=== PATIENT | female | born 1955 | race Caucasian/White ===

== ENCOUNTER 2016-10-05 15:49 | Emergency (ER) | payer BC, OTHER ==
[~2016-10-05 15:49] MED LIST: BACTROBAN TOP; CIPR500T19 OR; FERR324T5 OR; FISH1000 OR; IRON28TA OR; KLOR8TAB OR; LEXAPRO PO; MULTIVIT PO; NEUR100C OR; NEUR300C OR; NEUR600T OR; OMEP20TA7 OR; PERC5TAB8 OR; POTA20TA2 OR; ROCE1INJ IV; VIT D 2000 PO; VITA-113 PO; VITA50TA12 OR; VITAMIN B 12 PO; VITAMIN D PO; saline lock flush IV
[2016-10-05] MEDS ORDERED: MORPHINE 4 MG/ML 1ML SYRINGE As Ordered ONE (16:12)
[2016-10-05] MEDS ORDERED: ONDANSETRON 4MG/2ML VIAL (J2405) As Ordered ONE (16:12)
--- NOTE | 2016-10-05 17:01 | REP ---
LUMBOSACRAL SPINE SERIES: Five views of the lumbosacral spine are performed. There is no compression fracture. There is no spondylolysis or spondylolisthesis. There is normal lumbar lordosis. There is moderately severe disc space narrowing with subchondral sclerosis a L2-3 and L3-4. There is mild narrowing at L4-5. There is sclerosis at the posterior facet joints. The posterior elements are intact. There is curvature toward the left. IMPRESSION: Degenerative changes without fracture or dislocation. Signed by Joseph Mclean MD 10/06/2016 12:39 P
[2016-10-05] MEDS ORDERED: KETOROLAC 30 MG/ML VIAL (J1885) As Ordered ONE (18:07)
--- NOTE | 2016-10-05 19:21 | EDDOCDS ---
Nurse's Notes [facility] Name: Mara Hancock Age: 60 yrs Sex: Female : 1955 Arrival Date: 10/05/2016 Time: 15:49 Bed 7 Private MD: Diagnosis: Fall on same level from slipping, tripping and stumbling;Contusion of lower back and pelvis;Strain of muscle, fascia and tendon of lower back Presentation: 10/05 15:55 Presenting complaint: EMS states: Slipped and fell into a shoe rock from standing ld5 position, landing on right side. Happened at 1500. Denies LOC. Denies dizziness. Pt presents to ER with pain to right low back. Status: Patient is not a food service agent or dependent. Transition of care: patient was not received from another setting of care. Care prior to arrival: Glucose check. 67. 15:55 Acuity: PORTER Level 4 ld5 15:55 Method Of Arrival: Ambulance ld5 15:55 Suicide/Homicide risk assessment- the patient denies having any suicidal and/or ld5 homicidal ideations and does not present with any other emotional, behavioral or mental health complaints. 17:02 Adult Sepsis Screening: The patient does not have new or worsening altered mentation. rs3 Patient's respiratory rate is less than 22. Systolic blood pressure is greater than 100. Patient has a qSOFA score of 0- Negative Sepsis Screen. Triage Assessment: 16:01 General: Appears in no apparent distress. Pain: Location: right low back Pain currently ld5 is 4 out of 10 on a pain scale. At worst was 10 out of 10 on a pain scale. Aggravated by repositioning. HIV screening NA for this visit Offered previously. Neurological: Level of Consciousness is awake, obeys commands. Respiratory: Airway is patent Respiratory effort is even, unlabored. Derm: no deficits noted to area of fall. Musculoskeletal: Reports pain in right low back. Historical: - Allergies: Vicodin (hallucinations); - Home Meds: 1. omeprazole 20 mg Oral cpDR 1 cap 2 times per day (Last dose: 10/05/2016 09:00) 2. Vitamin B-12 Unknown Oral daily 3. tramadol 50 mg Oral tab 1 tab as needed - PMHx: GERD; Osteoporosis; Broken knee, left; - PSHx: Carpal Tunnel Repair- Bilateral; - The history from nurses notes was reviewed: and I agree with what is documented. - Social history: Smoking status: Patient states was never smoker of tobacco. No barriers to communication noted, The patient speaks fluent Syriac, Speaks appropriately for age. - : The pt / caregiver states he / she is not on anticoagulants. Home medication list is obtained from the patient, family members. - Hospitalizations: : No recent hospitalization is reported. - Exposure Risk Screening:: None identified. - Immunization history:: All immunizations up-to-date. - Family history: Not pertinent. - Social history:: the patient is a non-smoker, the patient drinks alcohol, socially. Screenin:51 Infection Control. deg 17:02 Screening information is obtained from the patient. Fall risk: No risks identified. rs3 Assistance ADL's: requires no assistance with activities of daily living. Abuse/DV Screen: The patient / caregiver reports he/she is: not in a situation that causes fear, pain or injury. Nutritional screening: No deficits noted. Advance Directives: Currently, there is no health care proxy. home support is adequate. Assessment: 16:00 General: see triage assessment. rs3 17:01 General: Appears in no apparent distress, Behavior is appropriate for age, cooperative. rs3 Pain: Location: right low back. Neurological: Level of Consciousness is awake, alert, Oriented to person, place, time. Respiratory: Airway is patent Respiratory effort is even, unlabored, Respiratory pattern is regular, symmetrical. Derm: Skin is pink, warm & dry. Musculoskeletal: Circulation, motion, and sensation intact Capillary refill < 3 seconds Signs and Symptoms of Compartment Syndrome: no signs of compartment syndrome Denies numbness. 18:18 General: Appears in no apparent distress, assisted patient to bedside to stand up. rs3 unable to stand due to pain. attending provider aware. ordered medicine given. 19:18 Reassessment: Patient appears in no apparent distress at this time. Patient states tm5 feeling better. Patient states symptoms have improved. Vital Signs: 16:05 BP 121 / 61 RA Sitting (auto/reg); Pulse 53; Resp 18; Temp 97.1(O); Pulse Ox 98% on jrd R/A; Weight 49.9 kg (R); Height 5 ft. 5 in. (165.10 cm); Pain 4/10; 17:00 BP 122 / 68; Pulse 52; Resp 18; Pulse Ox 98% on R/A; Pain 1/10; rs3 17:45 BP 118 / 62; Pulse 48; Resp 18; Pulse Ox 98% on R/A; Pain 3/10; rs3 19:10 BP 111 / 64; Pulse 43; Resp 18; Temp 97.7(O); Pulse Ox 96% on R/A; Pain 1/10; jmv 16:05 Body Mass Index 18.30 (49.90 kg, 165.10 cm) jrd 19:10 PT states that pain is low while she is not moving. PT states that pain increases when jmv she try's to move or sit straight up. Vitals: 16:01 Log In Time N/A - ambulance arrival. ld5 ED Course: 15:51 Patient visited by Arelis Washburn, Environmental Maintenance Worker. deg 15:51 Vesna Marrero,COLTON is Primary Nurse. deg 15:51 Patient moved to Waiting deg 15:51 Patient moved to 7 deg 15:54 Isarel Dominguez MD is Attending Physician. pc 15:58 Triage Initiated ld5 16:02 Patient visited by Ratna Rose,COLTON. ld5 16:07 Patient visited by Jose Guadalupe Hodges PCA. jrd 16:08 Patient visited by Israel Dominguez MD. pc 17:00 Patient visited by Vesna Marrero RN. rs3 17:02 Inserted saline lock: 20 gauge in left antecubital area and blood collected. rs3 17:08 [facility] Payment Agreement was scanned into [employer] and attached to record. zo 17:30 Spine. Lumbosacral, Complete Returned. EDMS 17:34 Patient visited by Vesna Marrero,COLTON. rs3 18:04 Patient visited by Vesna Marrero,COLTON. rs3 18:59 Sweta Calles is Referral Physician. pc 19:12 Patient visited by Duane Boyd PCA. jmv 19:18 Patient visited by Ashwini Gutierrez,COLTON. tm5 19:18 The patient / caregiver is instructed regarding the plan of care and ED course. tm5 19:18 Discontinued lock intact, bleeding controlled, pressure dressing applied, No tm5 redness/swelling at site. No procedures done that require assistance. Administered Medications: 16:27 Drug: morphine 4 mg [morphine 4 mg/mL intravenous cartridge (1 mL)] Route: IVP; Site: rs3 left antecubital; 17:00 Follow up: BP 122 / 68; Pulse 52 bpm; Resp 18 bpm; Pulse Ox 98% RA; Pain 1/10 Adult rs3 16:27 Drug: Ondansetron 4 mg Route: IVP; Site: left antecubital; rs3 17:14 Drug: Diazepam 2 mg [diazepam 5 mg/mL injection syringe (0.4 mL)] Route: IVP; Site: rs3 left antecubital; 17:45 Follow up: BP 118 / 62; Pulse 48 bpm; Resp 18 bpm; Pulse Ox 98% RA; Pain 3/10 Adult rs3 18:17 Drug: ketorolac 15 mg [ketorolac 30 mg/mL (1 mL) injection solution (0.5 mL)] Route: rs3 IVP; Site: left antecubital; Order Results: Lab Order: Fingerstick Blood Sugar; SPEC'M 10/05/16 16:09 Test: BEDSIDE GLUCOSE; Value: 92; Range: 70-105; Units: MG/DL; Status: F Radiology Order: Spine. Lumbosacral, Complete Test: Spine. Lumbosacral, Complete REASON FOR EXAMINATION: Trauma; LUMBOSACRAL SPINE SERIES:; ; Five views of the lumbosacral spine are performed. There is no compression; fracture. There is no spondylolysis or spondylolisthesis. There is normal lumbar; lordosis. There is moderately severe disc space narrowing with subchondral; sclerosis a L2-3 and L3-4. There is mild narrowing at L4-5. There is sclerosis at; the posterior facet joints. The posterior elements are intact. There is curvature; toward the left.; ; IMPRESSION:; Degenerative changes without fracture or dislocation.; ; Unreviewed; Outcome: 18:59 Discharge ordered by Provider. pc 19:18 Discharge Assessment: Patient awake, alert and oriented x 3. No cognitive and/or tm5 functional deficits noted. Patient verbalized understanding of disposition instructions. 19:19 Discharge Assessment: patient administered narcotics - yes. Pt provided with safe tm5 discharge. The following High Risk Discharge criteria are identified: None. Discharged to home via wheelchair, with significant other. Condition: good Condition: stable. Discharge instructions given to patient, Instructed on discharge instructions, follow up and referral plans. medication usage, no driving heavy equipment, Demonstrated understanding of instructions, medications, Pt was receptive of discharge instructions/ teaching. Prescriptions given X 2. Property :Personal belongings accompany Pt. 19:20 No special radiology studies were completed. tm5 19:20 Patient left the ED. tm5 Signatures: Dispatcher [employer] EDMS Israel Dominguez MD MD pc Murray, Denise, Environmental Maintenance Worker Unit deg Joseph Vu, RN RN Ilan Mazariegos Rosemary, RN RN rs3 Ratna RoseRN RN ld5 Jose Guadalupe Hodges, CHAIN OFFBEARER CHAIN OFFBEARER jrd Duane Boyd, CHAIN OFFBEARER CHAIN OFFBEARER Ashwini Duval,RN RN tm5 Corrections: (The following items were deleted from the chart) 16:06 15:55 Presenting complaint: EMS states: Slipped and fell into a shoe rock from standing ld5 position, landing on right side. Happened at 1500. Denies LOC. Pt presents to ER with pain to right low back ld5 MTDD
--- NOTE | 2016-10-05 19:21 | EDDOCDS ---
Physician Documentation [facility] Name: Mara Hancock Age: 60 yrs Sex: Female : 1955 Arrival Date: 10/05/2016 Time: 15:49 Bed 7 Private MD: Disposition: 10/05 18:54 Critical Care: Critical care not applicable. pc 19:07 A printed prescription was provided to the patient due to temporary technical issues pc which prevented electronic transmission. Disposition: 10/05/16 18:59 Discharged to Home/Self Care. Impression: Fall on same level from slipping, tripping and stumbling, Contusion of lower back and pelvis, Strain of muscle, fascia and tendon of lower back. - Condition is Stable. - Discharge Instructions: Lumbosacral Strain, Contusion. - Prescriptions for lidocaine 5 % Topical adhesive patch,medicated - apply 1 patch by TRANSDERMAL route once daily apply to affected area for 12 hours per day; 10 patch. Cyclobenzaprine 10 mg Oral Tablet - take 1 tablet by ORAL route 3 times per day As needed; 15 tablet. - Medication Reconciliation, Local Pharmacy Hours form. - Follow up: Sweta Calles; When: 1 - 2 days; Reason: Recheck today's complaints, Continuance of care. - Problem is new. - Symptoms have improved. HPI: 16:10 This 60 yrs old Female presents to ER via Ambulance with complaints of Fall pc Injury. 16:10 The history is obtained from the patient. She slipped on the floor in her home and fell pc backwards, striking her right lower back on a wooden shoe rack. She did not strike her head or have a LOC. She complains only of pain in her right lower back. She denies any rib pain, right hip or pelvic pain, numbness or tingling in her LEs. At their worst, the symptoms were a 8 out of 10. In the emergency department, the symptoms are a 8 out of 10. The patient has not experienced similar symptoms in the past. The patient has not recently seen a physician. Historical: - Allergies: Vicodin (hallucinations); - Home Meds: 1. omeprazole 20 mg Oral cpDR 1 cap 2 times per day (Last dose: 10/05/2016 09:00) 2. Vitamin B-12 Unknown Oral daily 3. tramadol 50 mg Oral tab 1 tab as needed - PMHx: GERD; Osteoporosis; Broken knee, left; - PSHx: Carpal Tunnel Repair- Bilateral; - The history from nurses notes was reviewed: and I agree with what is documented. - Social history: Smoking status: Patient states was never smoker of tobacco. No barriers to communication noted, The patient speaks fluent [place], Speaks appropriately for age. - : The pt / caregiver states he / she is not on anticoagulants. Home medication list is obtained from the patient, family members. - Hospitalizations: : No recent hospitalization is reported. - Exposure Risk Screening:: None identified. - Immunization history:: All immunizations up-to-date. - Family history: Not pertinent. - Social history:: the patient is a non-smoker, the patient drinks alcohol, socially. ROS: 16:10 All systems are negative except as listed. pc Exam: 16:10 General Appearance: alert, the patient is in moderate distress. pc 16:10 EENT: normal eye inspection, pharynx normal, mucous membranes moist no apparent trauma. 16:10 Neck: The exam reveals no acute abnormalities. ROM is normal and painless. No nuchal rigidity is noted.. Nexus criteria for suspected c-spine injury is negative. 16:10 Respiratory: no respiratory distress, normal breath sounds, chest non-tender. 16:10 CVS: regular pulse rate, regular rhythm, normal S1 and S2, no murmurs, strong peripheral pulses, normal capillary refill. 16:10 Abdomen: soft, non-tender, no organomegaly, normal bowel sounds. 16:10 Back: Pain is noted in the right low back, over soft tissues only: no lower rib pain, no iliac crest pain, no spinous process pain on palpation of L-spine or lower T-spine. 16:10 : bladder is non-distended, non-tender. 16:10 Skin: skin color is normal, warm, dry. 16:10 Extremities: The extremities have a grossly normal appearance, are non-tender, without acute ROM abnormalities, no right hip pain, no pain with ROM. 16:10 Neuro: oriented x 3, cranial nerves normal as tested, no motor deficits, no sensory deficits. Vital Signs: 16:05 BP 121 / 61 RA Sitting (auto/reg); Pulse 53; Resp 18; Temp 97.1(O); Pulse Ox 98% on jrd R/A; Weight 49.9 kg / 110.01 lbs (R); Height 5 ft. 5 in. (165.10 cm); Pain 4/10; 17:00 BP 122 / 68; Pulse 52; Resp 18; Pulse Ox 98% on R/A; Pain 1/10; rs3 17:45 BP 118 / 62; Pulse 48; Resp 18; Pulse Ox 98% on R/A; Pain 3/10; rs3 19:10 BP 111 / 64; Pulse 43; Resp 18; Temp 97.7(O); Pulse Ox 96% on R/A; Pain 1/10; jmv 16:05 Body Mass Index 18.30 (49.90 kg, 165.10 cm) jrd 19:10 PT states that pain is low while she is not moving. PT states that pain increases when jmv she try's to move or sit straight up. MDM: 16:09 IV Saline Lock ordered. pc 16:09 morphine 4 mg IVP once ordered. pc 16:09 Ondansetron 4 mg IVP once ordered. pc 16:10 Differential Diagnosis: fall, low back contusion/strain r/o tranverse process fracture. pc Plan: analgesia, imaging. 16:11 Spine. Lumbosacral, Complete Ordered. EDMS 16:19 Fingerstick Blood Sugar Ordered. EDMS 16:20 Fingerstick Blood Sugar Reviewed. pc 17:04 Diazepam 2 mg IVP once ordered. pc 17:05 Financial registration complete. zo 17:08 [facility] Payment Agreement was scanned into [employer] and attached to record. zo 17:59 ketorolac 15 mg IVP once ordered. pc 18:21 Data reviewed: old medical records, vital signs, nurses notes, all radiology studies pc and available results. Test interpretation: LAB - all labs as ordered have been reviewed, interpreted and considered in the overall management of the clinical presentation; X-RAY - interpreted by Radiologist and personally reviewed, LS-Spine Normal. 18:54 The patient has been re-examined and re-evaluated. The patient's symptoms have markedly pc improved after treatment. Disposition: The historical points, examination findings, and any diagnostic results supporting the provided diagnosis, were discussed with the patient or legal guardian. The need for outpatient follow up with the provider listed on their discharge instructions was discussed. They were encouraged to return to [facility], or the nearest ED, if symptoms worsen/persist, or for any other questions/concerns. Administered Medications: 16:27 Drug: morphine 4 mg [morphine 4 mg/mL intravenous cartridge (1 mL)] Route: IVP; Site: rs3 left antecubital; 17:00 Follow up: BP 122 / 68; Pulse 52 bpm; Resp 18 bpm; Pulse Ox 98% RA; Pain 09/12 Adult rs3 16:27 Drug: Ondansetron 4 mg Route: IVP; Site: left antecubital; rs3 17:14 Drug: Diazepam 2 mg [diazepam 5 mg/mL injection syringe (0.4 mL)] Route: IVP; Site: rs3 left antecubital; 17:45 Follow up: BP 118 / 62; Pulse 48 bpm; Resp 18 bpm; Pulse Ox 98% RA; Pain 11/10 Adult rs3 18:17 Drug: ketorolac 15 mg [ketorolac 30 mg/mL (1 mL) injection solution (0.5 mL)] Route: rs3 IVP; Site: left antecubital; Signatures: Dispatcher [employer] EDMS Israel Dominguez MD MD pc Greene, Daniel, RN RN rong Ilan Ramires Laura, RN RN ld5 Ashwini Gutierrez RN RN tm5 Vesna Marrero RN rs3 The chart was reviewed and I authenticate all verbal orders and agree with the evaluation and treatment provided.Attachments: 17:08 [facility] Payment Agreement zo MTDD
--- NOTE | 2016-10-07 20:22 | EDDOCDS ---
Physician Documentation [facility] Name: Mara Hancock Age: 60 yrs Sex: Female : 1955 Arrival Date: 10/05/2016 Time: 15:49 Bed 7 Private MD: Disposition: 10/05 18:54 Critical Care: Critical care not applicable. pc 19:07 A printed prescription was provided to the patient due to temporary technical issues pc which prevented electronic transmission. Disposition: 10/05/16 18:59 Discharged to Home/Self Care. Impression: Fall on same level from slipping, tripping and stumbling, Contusion of lower back and pelvis, Strain of muscle, fascia and tendon of lower back. - Condition is Stable. - Discharge Instructions: Lumbosacral Strain, Contusion. - Prescriptions for lidocaine 5 % Topical adhesive patch,medicated - apply 1 patch by TRANSDERMAL route once daily apply to affected area for 12 hours per day; 10 patch. Cyclobenzaprine 10 mg Oral Tablet - take 1 tablet by ORAL route 3 times per day As needed; 15 tablet. - Medication Reconciliation, Local Pharmacy Hours form. - Follow up: Sweta Calles; When: 1 - 2 days; Reason: Recheck today's complaints, Continuance of care. - Problem is new. - Symptoms have improved. HPI: 16:10 This 60 yrs old Female presents to ER via Ambulance with complaints of Fall pc Injury. 16:10 The history is obtained from the patient. She slipped on the floor in her home and fell pc backwards, striking her right lower back on a wooden shoe rack. She did not strike her head or have a LOC. She complains only of pain in her right lower back. She denies any rib pain, right hip or pelvic pain, numbness or tingling in her LEs. At their worst, the symptoms were a 8 out of 10. In the emergency department, the symptoms are a 8 out of 10. The patient has not experienced similar symptoms in the past. The patient has not recently seen a physician. Historical: - Allergies: Vicodin (hallucinations); - Home Meds: 1. omeprazole 20 mg Oral cpDR 1 cap 2 times per day (Last dose: 10/05/2016 09:00) 2. Vitamin B-12 Unknown Oral daily 3. tramadol 50 mg Oral tab 1 tab as needed - PMHx: GERD; Osteoporosis; Broken knee, left; - PSHx: Carpal Tunnel Repair- Bilateral; - The history from nurses notes was reviewed: and I agree with what is documented. - Social history: Smoking status: Patient states was never smoker of tobacco. No barriers to communication noted, The patient speaks fluent Bermudian, Speaks appropriately for age. - : The pt / caregiver states he / she is not on anticoagulants. Home medication list is obtained from the patient, family members. - Hospitalizations: : No recent hospitalization is reported. - Exposure Risk Screening:: None identified. - Immunization history:: All immunizations up-to-date. - Family history: Not pertinent. - Social history:: the patient is a non-smoker, the patient drinks alcohol, socially. ROS: 16:10 All systems are negative except as listed. pc Exam: 16:10 General Appearance: alert, the patient is in moderate distress. pc 16:10 EENT: normal eye inspection, pharynx normal, mucous membranes moist no apparent trauma. 16:10 Neck: The exam reveals no acute abnormalities. ROM is normal and painless. No nuchal rigidity is noted.. Nexus criteria for suspected c-spine injury is negative. 16:10 Respiratory: no respiratory distress, normal breath sounds, chest non-tender. 16:10 CVS: regular pulse rate, regular rhythm, normal S1 and S2, no murmurs, strong peripheral pulses, normal capillary refill. 16:10 Abdomen: soft, non-tender, no organomegaly, normal bowel sounds. 16:10 Back: Pain is noted in the right low back, over soft tissues only: no lower rib pain, no iliac crest pain, no spinous process pain on palpation of L-spine or lower T-spine. 16:10 : bladder is non-distended, non-tender. 16:10 Skin: skin color is normal, warm, dry. 16:10 Extremities: The extremities have a grossly normal appearance, are non-tender, without acute ROM abnormalities, no right hip pain, no pain with ROM. 16:10 Neuro: oriented x 3, cranial nerves normal as tested, no motor deficits, no sensory deficits. Vital Signs: 16:05 BP 121 / 61 RA Sitting (auto/reg); Pulse 53; Resp 18; Temp 97.1(O); Pulse Ox 98% on jrd R/A; Weight 49.9 kg / 110.01 lbs (R); Height 5 ft. 5 in. (165.10 cm); Pain 4/10; 17:00 BP 122 / 68; Pulse 52; Resp 18; Pulse Ox 98% on R/A; Pain 1/10; rs3 17:45 BP 118 / 62; Pulse 48; Resp 18; Pulse Ox 98% on R/A; Pain 3/10; rs3 19:10 BP 111 / 64; Pulse 43; Resp 18; Temp 97.7(O); Pulse Ox 96% on R/A; Pain 1/10; jmv 16:05 Body Mass Index 18.30 (49.90 kg, 165.10 cm) jrd 19:10 PT states that pain is low while she is not moving. PT states that pain increases when jmv she try's to move or sit straight up. MDM: 16:09 IV Saline Lock ordered. pc 16:09 morphine 4 mg IVP once ordered. pc 16:09 Ondansetron 4 mg IVP once ordered. pc 16:10 Differential Diagnosis: fall, low back contusion/strain r/o tranverse process fracture. pc Plan: analgesia, imaging. 16:11 Spine. Lumbosacral, Complete Ordered. EDMS 16:19 Fingerstick Blood Sugar Ordered. EDMS 16:20 Fingerstick Blood Sugar Reviewed. pc 17:04 Diazepam 2 mg IVP once ordered. pc 17:05 Financial registration complete. zo 17:08 [facility] Payment Agreement was scanned into [employer] and attached to record. zo 17:59 ketorolac 15 mg IVP once ordered. pc 18:21 Data reviewed: old medical records, vital signs, nurses notes, all radiology studies pc and available results. Test interpretation: LAB - all labs as ordered have been reviewed, interpreted and considered in the overall management of the clinical presentation; X-RAY - interpreted by Radiologist and personally reviewed, LS-Spine Normal. 18:54 The patient has been re-examined and re-evaluated. The patient's symptoms have markedly pc improved after treatment. Disposition: The historical points, examination findings, and any diagnostic results supporting the provided diagnosis, were discussed with the patient or legal guardian. The need for outpatient follow up with the provider listed on their discharge instructions was discussed. They were encouraged to return to [facility], or the nearest ED, if symptoms worsen/persist, or for any other questions/concerns. 10/06 08:52 PCR was scanned into [employer] and attached to record. gb Administered Medications: 10/05 16:27 Drug: morphine 4 mg [morphine 4 mg/mL intravenous cartridge (1 mL)] Route: IVP; Site: rs3 left antecubital; 17:00 Follow up: BP 122 / 68; Pulse 52 bpm; Resp 18 bpm; Pulse Ox 98% RA; Pain 10 Adult rs3 16:27 Drug: Ondansetron 4 mg Route: IVP; Site: left antecubital; rs3 17:14 Drug: Diazepam 2 mg [diazepam 5 mg/mL injection syringe (0.4 mL)] Route: IVP; Site: rs3 left antecubital; 17:45 Follow up: BP 118 / 62; Pulse 48 bpm; Resp 18 bpm; Pulse Ox 98% RA; Pain 3/10 Adult rs3 18:17 Drug: ketorolac 15 mg [ketorolac 30 mg/mL (1 mL) injection solution (0.5 mL)] Route: rs3 IVP; Site: left antecubital; Signatures: Dispatcher [employer] EDMS Israel Dominguez MD MD pc Greene, Daniel, RN RN Chantel Pressley Reg Reg gb Olin, Zoeann zo Dickerson, Laura,RN RN ld5 Ashwini Gutierrez,COLTON RN tm5 Vesna Marrero RN rs3 The chart was reviewed and I authenticate all verbal orders and agree with the evaluation and treatment provided.Attachments: 17:08 [facility] Payment Agreement zo Chart Complete MTDD
--- NOTE | 2016-10-07 20:23 | EDDOCDS ---
Nurse's Notes [facility] Name: Mara Hancock Age: 60 yrs Sex: Female : 1955 Arrival Date: 10/05/2016 Time: 15:49 Bed 7 Private MD: Diagnosis: Fall on same level from slipping, tripping and stumbling;Contusion of lower back and pelvis;Strain of muscle, fascia and tendon of lower back Presentation: 10/05 15:55 Presenting complaint: EMS states: Slipped and fell into a shoe rock from standing ld5 position, landing on right side. Happened at 1500. Denies LOC. Denies dizziness. Pt presents to ER with pain to right low back. 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 Transition of care: patient was not received from another setting of care. Care prior to arrival: Glucose check. 67. 15:55 Acuity: PORTER Level 4 ld5 15:55 Method Of Arrival: Ambulance ld5 15:55 Suicide/Homicide risk assessment- the patient denies having any suicidal and/or ld5 homicidal ideations and does not present with any other emotional, behavioral or mental health complaints. 17:02 Adult Sepsis Screening: The patient does not have new or worsening altered mentation. rs3 Patient's respiratory rate is less than 22. Systolic blood pressure is greater than 100. Patient has a qSOFA score of 0- Negative Sepsis Screen. Triage Assessment: 16:01 General: Appears in no apparent distress. Pain: Location: right low back Pain currently ld5 is 4 out of 10 on a pain scale. At worst was 10 out of 10 on a pain scale. Aggravated by repositioning. HIV screening NA for this visit Offered previously. Neurological: Level of Consciousness is awake, obeys commands. Respiratory: Airway is patent Respiratory effort is even, unlabored. Derm: no deficits noted to area of fall. Musculoskeletal: Reports pain in right low back. Historical: - Allergies: Vicodin (hallucinations); - Home Meds: 1. omeprazole 20 mg Oral cpDR 1 cap 2 times per day (Last dose: 10/05/2016 09:00) 2. Vitamin B-12 Unknown Oral daily 3. tramadol 50 mg Oral tab 1 tab as needed - PMHx: GERD; Osteoporosis; Broken knee, left; - PSHx: Carpal Tunnel Repair- Bilateral; - The history from nurses notes was reviewed: and I agree with what is documented. - Social history: Smoking status: Patient states was never smoker of tobacco. No barriers to communication noted, The patient speaks fluent Portuguese, Speaks appropriately for age. - : The pt / caregiver states he / she is not on anticoagulants. Home medication list is obtained from the patient, family members. - Hospitalizations: : No recent hospitalization is reported. - Exposure Risk Screening:: None identified. - Immunization history:: All immunizations up-to-date. - Family history: Not pertinent. - Social history:: the patient is a non-smoker, the patient drinks alcohol, socially. Screenin:51 Infection Control. deg 17:02 Screening information is obtained from the patient. Fall risk: No risks identified. rs3 Assistance ADL's: requires no assistance with activities of daily living. Abuse/DV Screen: The patient / caregiver reports he/she is: not in a situation that causes fear, pain or injury. Nutritional screening: No deficits noted. Advance Directives: Currently, there is no health care proxy. home support is adequate. Assessment: 16:00 General: see triage assessment. rs3 17:01 General: Appears in no apparent distress, Behavior is appropriate for age, cooperative. rs3 Pain: Location: right low back. Neurological: Level of Consciousness is awake, alert, Oriented to person, place, time. Respiratory: Airway is patent Respiratory effort is even, unlabored, Respiratory pattern is regular, symmetrical. Derm: Skin is pink, warm & dry. Musculoskeletal: Circulation, motion, and sensation intact Capillary refill < 3 seconds Signs and Symptoms of Compartment Syndrome: no signs of compartment syndrome Denies numbness. 18:18 General: Appears in no apparent distress, assisted patient to bedside to stand up. rs3 unable to stand due to pain. attending provider aware. ordered medicine given. 19:18 Reassessment: Patient appears in no apparent distress at this time. Patient states tm5 feeling better. Patient states symptoms have improved. Vital Signs: 16:05 BP 121 / 61 RA Sitting (auto/reg); Pulse 53; Resp 18; Temp 97.1(O); Pulse Ox 98% on jrd R/A; Weight 49.9 kg (R); Height 5 ft. 5 in. (165.10 cm); Pain 4/10; 17:00 BP 122 / 68; Pulse 52; Resp 18; Pulse Ox 98% on R/A; Pain 1/10; rs3 17:45 BP 118 / 62; Pulse 48; Resp 18; Pulse Ox 98% on R/A; Pain 3/10; rs3 19:10 BP 111 / 64; Pulse 43; Resp 18; Temp 97.7(O); Pulse Ox 96% on R/A; Pain 1/10; jmv 16:05 Body Mass Index 18.30 (49.90 kg, 165.10 cm) jrd 19:10 PT states that pain is low while she is not moving. PT states that pain increases when jmv she try's to move or sit straight up. Vitals: 16:01 Log In Time N/A - ambulance arrival. ld5 ED Course: 15:51 Patient visited by Arelis Washburn, Shook Splicer. deg 15:51 Vesna Marrero,COLTON is Primary Nurse. deg 15:51 Patient moved to Waiting deg 15:51 Patient moved to 7 deg 15:54 Israel Dominguez MD is Attending Physician. pc 15:58 Triage Initiated ld5 16:02 Patient visited by Ratna Rose,COLTON. ld5 16:07 Patient visited by Jose Guadalupe Hodges PCA. jrd 16:08 Patient visited by Israel Dominguez MD. pc 17:00 Patient visited by Vesna Marrero RN. rs3 17:02 Inserted saline lock: 20 gauge in left antecubital area and blood collected. rs3 17:08 [facility] Payment Agreement was scanned into [employer] and attached to record. zo 17:30 Spine. Lumbosacral, Complete Returned. EDMS 17:34 Patient visited by Vesna Marrero,COLTON. rs3 18:04 Patient visited by Vesna Marrero,COLTON. rs3 18:59 Sweta Calles is Referral Physician. pc 19:12 Patient visited by Duane Boyd PCA. jmv 19:18 Patient visited by Ashwini Gutierrez,COLTON. tm5 19:18 The patient / caregiver is instructed regarding the plan of care and ED course. tm5 19:18 Discontinued lock intact, bleeding controlled, pressure dressing applied, No tm5 redness/swelling at site. No procedures done that require assistance. 10/06 08:52 PCR was scanned into [employer] and attached to record. gb Administered Medications: 10/05 16:27 Drug: morphine 4 mg [morphine 4 mg/mL intravenous cartridge (1 mL)] Route: IVP; Site: rs3 left antecubital; 17:00 Follow up: BP 122 / 68; Pulse 52 bpm; Resp 18 bpm; Pulse Ox 98% RA; Pain 1/10 Adult rs3 16:27 Drug: Ondansetron 4 mg Route: IVP; Site: left antecubital; rs3 17:14 Drug: Diazepam 2 mg [diazepam 5 mg/mL injection syringe (0.4 mL)] Route: IVP; Site: rs3 left antecubital; 17:45 Follow up: BP 118 / 62; Pulse 48 bpm; Resp 18 bpm; Pulse Ox 98% RA; Pain 3/10 Adult rs3 18:17 Drug: ketorolac 15 mg [ketorolac 30 mg/mL (1 mL) injection solution (0.5 mL)] Route: rs3 IVP; Site: left antecubital; Order Results: Lab Order: Fingerstick Blood Sugar; SPEC'M 10/05/16 16:09 Test: BEDSIDE GLUCOSE; Value: 92; Range: 70-105; Units: MG/DL; Status: F Radiology Order: Spine. Lumbosacral, Complete Test: Spine. Lumbosacral, Complete REASON FOR EXAMINATION: Trauma; LUMBOSACRAL SPINE SERIES:; ; Five views of the lumbosacral spine are performed. There is no compression; fracture. There is no spondylolysis or spondylolisthesis. There is normal lumbar; lordosis. There is moderately severe disc space narrowing with subchondral; sclerosis a L2-3 and L3-4. There is mild narrowing at L4-5. There is sclerosis at; the posterior facet joints. The posterior elements are intact. There is curvature; toward the left.; ; IMPRESSION:; ; Degenerative changes without fracture or dislocation.; ; ; Signed by; Joseph Mclean MD 10/06/2016 12:39 P; Outcome: 18:59 Discharge ordered by Provider. pc 19:18 Discharge Assessment: Patient awake, alert and oriented x 3. No cognitive and/or tm5 functional deficits noted. Patient verbalized understanding of disposition instructions. 19:19 Discharge Assessment: patient administered narcotics - yes. Pt provided with safe tm5 discharge. The following High Risk Discharge criteria are identified: None. Discharged to home via wheelchair, with significant other. Condition: good Condition: stable. Discharge instructions given to patient, Instructed on discharge instructions, follow up and referral plans. medication usage, no driving heavy equipment, Demonstrated understanding of instructions, medications, Pt was receptive of discharge instructions/ teaching. Prescriptions given X 2. Property :Personal belongings accompany Pt. 19:20 No special radiology studies were completed. tm5 19:20 Patient left the ED. tm5 Signatures: Dispatcher [employer] EDMS Israel Dominguez MD MD pc Murray, Denise, Shook Splicer Unit deg Joseph Vu, RN RN dwg Chantel Chacon, Martin Reg Ilan Pierce Rosemary,RN RN rs3 Ratna Rose RN RN ld5 Jose Guadalupe Hodges, PROFESSOR OF MUSICOLOGY PROFESSOR OF MUSICOLOGY jrd Duane Boyd, PROFESSOR OF MUSICOLOGY PROFESSOR OF MUSICOLOGY Ashwini Duval,RN RN tm5 Corrections: (The following items were deleted from the chart) 16:06 15:55 Presenting complaint: EMS states: Slipped and fell into a shoe rock from standing ld5 position, landing on right side. Happened at 1500. Denies LOC. Pt presents to ER with pain to right low back ld5 Chart Complete MTDD
== END 2016-10-05 19:20 | disposition home or self-care (01) ==
LOC: M ED 15:49
DX: S30.0XXA Contusion of lower back and pelvis, initial encounter (principal); S39.012A Strain of muscle, fascia and tendon of lower back, initial encounter; W01.10XA Fall on same level from slipping, tripping and stumbling with subsequent striking against unspecified object, initial encounter; Y92.89 Other specified places as the place of occurrence of the external cause; Y93.89 Activity, other specified; Y99.8 Other external cause status; K21.9 Gastro-esophageal reflux disease without esophagitis; M81.0 Age-related osteoporosis without current pathological fracture; Z79.899 Other long term (current) drug therapy; Z88.5 Allergy status to narcotic agent
CPT/HCPCS: 36415; 72110; 96374; 96375; 99284; J1885; J2405; J3360

== ENCOUNTER → 2016-11-30 | Outpatient (REF) | payer OTHER ==
[~2016-11-30] MED LIST changes: +NAPR500T PO
[2016-11-30 19:22] LABS: FERRITIN 58 NG/ML (8-252); PERCENT SATURATION 4.2 % (13.2-37.4); TOTAL IRON BINDING CAPACITY 384 UG/DL (250-450)
[2016-11-30 19:30] LABS: VITAMIN B12 LEVEL > 2000 PG/ML (247-911)
== END ==
LOC: M LAB REF 17:07
PROVIDERS: ATTEND Internal Medicine Nephrology
DX: D64.9 Anemia, unspecified (principal); R80.0 Isolated proteinuria

== ENCOUNTER 2016-12-04 14:52 | Emergency (ER) | payer BC, OTHER ==
[~2016-12-04] VITALS: Ht 165.1 cm; Wt 49.9 kg
[~2016-12-04 14:52] MED LIST changes: -NAPR500T PO
[2016-12-04] MEDS ORDERED: PERCOCET 5MG/325MG TAB PO ONE (15:30)
--- NOTE | 2016-12-04 16:26 | REP ---
Left femur three views : There is no fracture or dislocation. Mineralization and joint spaces are normal. There are no calcifications or foreign bodies. Impression: Negative left femur . Signed by Joseph Buchanan MD 12/04/2016 04:17 P
--- NOTE | 2016-12-04 16:31 | REP ---
Left hip three views including AP pelvis, AP left hip and frog-leg left hip. There are no comparison studies. AP pelvis: There are fractures of the pubic symphysis bilaterally. These appear old. Correlation with the focal point tenderness is recommended. No other pelvic fractures are identified. Left hip and two views: There is no fracture or dislocation. Mineralization and joint space are unremarkable. There are no calcification of foreign body. Impression: Essentially negative left hip. Signed by Joseph Buchanan MD 12/04/2016 04:22 P
[2016-12-04] MEDS ORDERED: NAPR500T PO (16:32)
[2016-12-04 16:38] VITALS: BP 140/78
== END 2016-12-04 16:40 | disposition home or self-care (01) ==
LOC: M ED 15:51
DX: S70.02XA Contusion of left hip, initial encounter (principal); W10.8XXA Fall (on) (from) other stairs and steps, initial encounter; Y92.099 Unspecified place in other non-institutional residence as the place of occurrence of the external cause; Y93.01 Activity, walking, marching and hiking; Y99.9 Unspecified external cause status

== ENCOUNTER → 2016-12-26 | Outpatient (CLI) | payer BC, OTHER ==
[~2016-12-26] MED LIST changes: +NAPR500T PO
[2016-12-26 15:04] LABS: MEAN CORPUSCULAR HEMOGLOBIN 29.1 pg (27.0-33.0); MEAN CORPUSCULAR HGB CONC 32.6 g/dl (32.0-36.5); MEAN CORPUSCULAR VOLUME 89.2 fl (80.0-96.0); RED CELL DISTRIBUTION WIDTH 13.4 % (11.5-14.5); WHITE BLOOD COUNT 6.1 K/mm3 (4.0-10.0)
[2016-12-26 15:28] LABS: URIC ACID 2.7 MG/DL (2.6-6.0)
--- NOTE | 2016-12-27 03:36 | REP ---
Clinical: Pain. Technique: AP, lateral, bilateral oblique views of the right foot. Findings: Age-related osteopenia and moderate to advanced arthritic degenerative changes are appreciated primarily involving the midfoot and specifically the tarsometatarsal joints. No acute fracture or dislocation. No significant swelling. No subcutaneous emphysema or radiodense foreign body. Impression: Osteopenia and advanced arthritic degenerative changes primarily involving the midfoot and tarsometatarsal joints. Signed by Dain Welsh MD 12/27/2016 01:45 A
--- NOTE | 2016-12-27 03:36 | REP ---
Clinical: Pain. Technique: AP, lateral, bilateral oblique views of the right ankle. Findings: Moderate soft tissue swelling is appreciated. Underlying age-related osteopenia and degenerative changes to the ankle noted. No acute fracture or dislocation. Ankle mortise intact. Advanced osteopenia and degenerative changes to the midfoot noted. Impression: Soft tissue swelling about the ankle with age-related changes. Signed by Dain Welsh MD 12/27/2016 01:50 A
[2016-12-28 00:06] LABS: Lyme Disease IgG/IgM Antibodie <0.91 ISR (0.00-0.90); Lyme Disease IgM Ab Quantitati <0.80 index (0.00-0.79)
== END ==
LOC: M LAB 13:58
PROVIDERS: ATTEND Family Medicine
DX: M79.671 Pain in right foot (principal)

== ENCOUNTER → 2017-03-29 | Outpatient (CLI) | payer BC, OTHER ==
[2017-03-29 10:08] LABS: MEAN CORPUSCULAR HEMOGLOBIN 30.2 pg (27.0-33.0); MEAN CORPUSCULAR HGB CONC 33.7 g/dl (32.0-36.5); MEAN CORPUSCULAR VOLUME 89.8 fl (80.0-96.0); RED CELL DISTRIBUTION WIDTH 12.9 % (11.5-14.5); WHITE BLOOD COUNT 5.7 K/mm3 (4.0-10.0)
[2017-03-29 10:15] LABS: INR 1.07
[2017-03-29 10:40] LABS: ALBUMIN 3.9 GM/DL (3.2-5.2); ALBUMIN/GLOBULIN RATIO 1.34 (1.00-1.93); BILIRUBIN,TOTAL 0.6 MG/DL (0.2-1.0); CALCIUM LEVEL 9.3 MG/DL (8.8-10.2); CREATININE FOR GFR 1.29 MG/DL (0.55-1.02); GLOMERULAR FILTRATION RATE 44.9 (>45); POTASSIUM SERUM 3.7 MEQ/L (3.5-5.1); TOTAL PROTEIN 6.8 GM/DL (6.4-8.2)
--- NOTE | 2017-03-29 11:32 | ECGEPIP ---
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
--- NOTE | 2017-03-30 02:06 | REP ---
Clinical: Anemia . Comparison: 03/19/2014 . Technique: PA and lateral. Findings: The mediastinum and cardiac silhouette are normal. The lung beckford are clear and without acute consolidation, effusion, or pneumothorax. The skeletal structures are intact and normal. Impression: 1. No acute cardiopulmonary process. Signed by Dain Welsh MD 03/30/2017 01:57 A
== END ==
LOC: M LAB 09:25
PROVIDERS: ATTEND Family Medicine
DX: D64.9 Anemia, unspecified (principal)

== ENCOUNTER → 2017-04-09 | Outpatient (CLI) | payer BC, OTHER ==
[2017-04-09 14:08] LABS: ALBUMIN 4.2 GM/DL (3.2-5.2); CALCIUM LEVEL 9.2 MG/DL (8.8-10.2); CREATININE FOR GFR 1.31 MG/DL (0.55-1.02); GLOMERULAR FILTRATION RATE 44.1 (>45); PHOSPHORUS LEVEL 5.1 MG/DL (2.5-4.9); POTASSIUM SERUM 4.2 MEQ/L (3.5-5.1)
== END ==
LOC: M SMT 09:00
PROVIDERS: ATTEND Internal Medicine Nephrology
DX: N18.3 Chronic kidney disease, stage 3 (moderate) (principal); E87.6 Hypokalemia

== ENCOUNTER → 2017-08-02 | Outpatient (REF) | payer OTHER | LOC: M LAB REF 18:03 | PROVIDERS: ATTEND Internal Medicine Nephrology | DX: I10 Essential (primary) hypertension (principal) ==

== ENCOUNTER → 2018-05-15 | Outpatient (CLI) | payer BC, OTHER ==
[2018-05-15 09:33] LABS: HEMOGLOBIN 12.8 g/dl (12.0-15.5); MEAN CORPUSCULAR HGB CONC 32.8 g/dl (32.0-36.5); MEAN CORPUSCULAR VOLUME 88.2 fl (80.0-96.0); PLATELET COUNT, AUTOMATED 309 10^3/uL (150-450); RED BLOOD COUNT 4.42 10^6/uL (4.00-5.40); RED CELL DISTRIBUTION WIDTH 12.7 % (11.5-14.5); WHITE BLOOD COUNT 4.8 10^3/uL (4.0-10.0)
[2018-05-15 09:44] LABS: INR 1.06; PROTHROMBIN TIME 13.9 SECONDS (12.1-14.4)
[2018-05-15 09:50] LABS: ESTIMATED AVERAGE GLUCOSE 123 MG/DL (60-110); HEMOGLOBIN A1c 5.9 %
[2018-05-15 10:16] LABS: ALBUMIN 4.1 GM/DL (3.2-5.2); ALBUMIN/GLOBULIN RATIO 1.52 (1.00-1.93); ALKALINE PHOSPHATASE 63 U/L (45-117); ALT/SGPT 25 U/L (12-78); ANION GAP 5 MEQ/L (8-16); AST/SGOT 20 U/L (7-37); BILIRUBIN,TOTAL 0.4 MG/DL (0.2-1.0); BLOOD UREA NITROGEN 20 MG/DL (7-18); CALCIUM LEVEL 9.1 MG/DL (8.8-10.2); CARBON DIOXIDE LEVEL 27 MEQ/L (21-32); CHLORIDE LEVEL 108 MEQ/L (98-107); CHOLESTEROL LEVEL 257 MG/DL (<200); CHOLESTEROL RISK RATIO 3.294 (<5); GLUCOSE, FASTING 88 MG/DL (70-100); HDL CHOLESTEROL 78 MG/DL (>40); LDL CHOLESTEROL 150 MG/DL (<100); NON-HDL-C 179 MG/DL; POTASSIUM SERUM 3.8 MEQ/L (3.5-5.1); SODIUM LEVEL 140 MEQ/L (136-145); TOTAL PROTEIN 6.8 GM/DL (6.4-8.2); TRIGLYCERIDES LEVEL 144 MG/DL (<150)
== END ==
LOC: M LAB 08:27
DX: I10 Essential (primary) hypertension (principal); R53.83 Other fatigue
CPT/HCPCS: 71046

== ENCOUNTER → 2018-05-15 | Outpatient (CLI) | payer BC, OTHER ==
[2018-05-15 09:32] LABS: HEMOGLOBIN 12.7 g/dl (12.0-15.5); MEAN CORPUSCULAR HGB CONC 33.4 g/dl (32.0-36.5); MEAN CORPUSCULAR VOLUME 89.8 fl (80.0-96.0); PLATELET COUNT, AUTOMATED 305 10^3/uL (150-450); RED BLOOD COUNT 4.23 10^6/uL (4.00-5.40); RED CELL DISTRIBUTION WIDTH 12.8 % (11.5-14.5); WHITE BLOOD COUNT 4.6 10^3/uL (4.0-10.0)
[2018-05-15 09:45] LABS: INR 1.07
[2018-05-15 10:07] LABS: ALBUMIN 3.9 GM/DL (3.2-5.2); ALKALINE PHOSPHATASE 65 U/L (45-117); ALT/SGPT 23 U/L (12-78); ANION GAP 8 MEQ/L (8-16); AST/SGOT 20 U/L (7-37); BILIRUBIN,TOTAL 0.4 MG/DL (0.2-1.0); BLOOD UREA NITROGEN 20 MG/DL (7-18); CALCIUM LEVEL 9.3 MG/DL (8.8-10.2); CARBON DIOXIDE LEVEL 25 MEQ/L (21-32); CHLORIDE LEVEL 108 MEQ/L (98-107); CREATININE FOR GFR 0.97 MG/DL (0.55-1.30); GLOMERULAR FILTRATION RATE > 60.0 (>45); GLUCOSE, FASTING 91 MG/DL (70-100); POTASSIUM SERUM 3.8 MEQ/L (3.5-5.1); SODIUM LEVEL 141 MEQ/L (136-145); TOTAL PROTEIN 6.9 GM/DL (6.4-8.2)
[2018-05-15 10:11] LABS: ERYTHROCYTE SEDIMENTATION RATE 9 mm/hr (0-30)
== END ==
LOC: M LAB 08:37
DX: Z01.818 Encounter for other preprocedural examination (principal)
CPT/HCPCS: 93005

== ENCOUNTER 2018-06-11 12:16 | Inpatient (IN) | payer BC, OTHER ==
[~2018-06-11 12:16] MED LIST changes: -BACTROBAN TOP; -CIPR500T19 OR; -FERR324T5 OR; -FISH1000 OR; -IRON28TA OR; -KLOR8TAB OR; -LEXAPRO PO; -MULTIVIT PO; -NAPR500T PO; -NEUR100C OR; -NEUR300C OR; -NEUR600T OR; -OMEP20TA7 OR; -PERC5TAB8 OR; -POTA20TA2 OR; -ROCE1INJ IV; +VANCOMYCIN HCL 1,000 MG, VIAL MATE ADAPTER 1 EACH in D5W 250 ML IV; -VIT D 2000 PO; -VITA-113 PO; -VITA50TA12 OR; -VITAMIN B 12 PO; -VITAMIN D PO; -saline lock flush IV
[2018-06-11] MEDS ORDERED: VANCOMYCIN HCL 1,000 MG, VIAL MATE ADAPTER 1 EACH in D5W 250 ML IV ×2 (13:30→13:45)
[2018-06-11] MEDS: LR 1,000 ML IV ×2 (13:45→19:35)
[2018-06-11] MEDS ORDERED: MIDAZOLAM INJ 2 MG/2 ML VIAL (J2250) As Ordered ×2 (14:00→14:37)
[2018-06-11] MEDS ORDERED: fentaNYL 100 MCG/2 ML INJECTION (J3010) As Ordered (14:00)
[2018-06-11] MEDS: fentaNYL 100 MCG/2 ML INJECTION (J3010) IV (14:27)
[2018-06-11] MEDS: MIDAZOLAM INJ 2 MG/2 ML VIAL (J2250) IV ×2 (14:27→14:37)
[2018-06-11] MEDS ORDERED: PROPOFOL 200 MG/20 ML VIAL As Ordered (14:34)
[2018-06-11] MEDS ORDERED: BUPIVACAINE/DEXTROSE 0.75% 2 ML AMP As Ordered (14:40)
[2018-06-11] MEDS ORDERED: ePHEDrine SULFATE 25 MG/5 ML(5MG/ML) SYRINGE As Ordered (16:06)
[2018-06-11] MEDS: ceFAZolin 1GM INJ (J0690 PER 500MG) As Ordered (16:10)
[2018-06-11] MEDS: TRANEXAMIC ACID 100 MG/ML 10ML VIAL As Ordered (16:11)
[2018-06-11] MEDS: EPINEPHrine INJ 1 MG/ML 1ML AMP As Ordered (16:11)
[2018-06-11] MEDS: BUPIVACAINE LIPOSOME/PF 1.3% 20 ML VIAL (13.3MG/ML)(EXPAREL) As Ordered (16:12)
[2018-06-11] MEDS ORDERED: MORPHINE 1MG/ML IN 0.9% NACL 100ML IV BAG As Ordered (17:14)
[2018-06-11] MEDS ORDERED: diphenhydrAMINE INJ 50MG/ML VIAL (J1200) IV (17:30)
[2018-06-11] MEDS ORDERED: NALOXONE INJ 0.4 MG/1 ML VIAL (J2310) IV (17:30)
[2018-06-11] MEDS ORDERED: EPIDURAL/PCA KEYS XX (17:30)
[2018-06-11] MEDS ORDERED: MORPHINE 10 MG/ML 1ML VIAL (J2270) IV (17:30)
[2018-06-11] MEDS ORDERED: NALBUPHINE HCL 10 MG/ML AMP (J2300) IV (17:30)
[2018-06-11] MEDS ORDERED: fentaNYL 100 MCG/2 ML INJECTION (J3010) IV (17:30)
[2018-06-11] MEDS ORDERED: ONDANSETRON 4MG/2ML VIAL (J2405) IV (17:45)
[2018-06-11] MEDS ORDERED: ACETAMINOPHEN TAB 650MG DOSE (2X325MG) PO (17:45)
[2018-06-11] MEDS ORDERED: FLEET ENEMA PR (17:45)
[2018-06-11] MEDS: MORPHINE 1MG/ML IN 0.9% NACL 100ML IV BAG IV (18:13)
[2018-06-11] MEDS: ONDANSETRON 4MG/2ML VIAL (J2405) IV (18:13)
[2018-06-11] MEDS: PERCOCET 5MG/325MG TAB PO (18:20)
[2018-06-11] MEDS: LIDOCAINE 1% SDV 5 ML VIAL SQ (19:35)
[2018-06-12] MEDS: LR 1,000 ML IV (00:03)
[2018-06-12] MEDS: VANCOMYCIN HCL 1,000 MG, VIAL MATE ADAPTER 1 EACH in D5W 250 ML IV (02:14)
[2018-06-12] MEDS: ONDANSETRON 4MG/2ML VIAL (J2405) IV (06:18)
[2018-06-12] MEDS ORDERED: ONDANSETRON 4 MG TAB (S0181) PO (06:30)
[2018-06-12] MEDS ORDERED: PERCOCET 5MG/325MG TAB PO (06:30)
[2018-06-12 07:10] LABS: HEMATOCRIT 30.1 % (36.0-47.0); MEAN CORPUSCULAR HEMOGLOBIN 29.6 pg (27.0-33.0); MEAN CORPUSCULAR HGB CONC 33.2 g/dl (32.0-36.5); MEAN CORPUSCULAR VOLUME 89.1 fl (80.0-96.0); PLATELET COUNT, AUTOMATED 248 10^3/uL (150-450); RED BLOOD COUNT 3.38 10^6/uL (4.00-5.40); RED CELL DISTRIBUTION WIDTH 13.5 % (11.5-14.5)
[2018-06-12 08:32] LABS: ANION GAP 9 MEQ/L (8-16); BLOOD UREA NITROGEN 22 MG/DL (7-18); CALCIUM LEVEL 8.5 MG/DL (8.8-10.2); CARBON DIOXIDE LEVEL 30 MEQ/L (21-32); CHLORIDE LEVEL 99 MEQ/L (98-107); CREATININE FOR GFR 0.84 MG/DL (0.55-1.30); GLOMERULAR FILTRATION RATE > 60.0 (>45); GLUCOSE, FASTING 107 MG/DL (70-100); POTASSIUM SERUM 3.3 MEQ/L (3.5-5.1); SODIUM LEVEL 138 MEQ/L (136-145)
[2018-06-12] MEDS: SENOKOT S TAB PO (10:16)
[2018-06-12] MEDS: FAMOTIDINE 20 MG TAB PO (10:16)
[2018-06-12] MEDS: PERCOCET 5MG/325MG TAB PO ×2 (10:17→14:20)
[2018-06-12] MEDS: MIRALAX *UNIT DOSE* 17GM PACKET PO (10:33)
[2018-06-12] MEDS: MOM 30ML SUSPENSION UDC PO (10:33)
[2018-06-12] MEDS: METOCLOPRAMIDE INJ 10MG/2ML VIAL (J2765) IV (11:35)
[2018-06-12] MEDS: INFLUENZA QUADRIVALENT PF VACCINE 0.5ML SYRINGE (90686) IM (11:36)
[2018-06-12] MEDS: POTASSIUM CHLORIDE 10 MEQ SR TABLET PO (12:11)
[2018-06-12] MEDS ORDERED: RIVAROXABAN 10 MG TAB (XARELTO) PO (18:00)
== END 2018-06-12 14:45 | disposition home or self-care (01) | DRG 302 ==
LOC: M OR 12:16 → M MS5PR 18:40
PROC: 0SRC0J9 Replacement of Right Knee Joint with Synthetic Substitute, Cemented, Open Approach (ICD-10-PCS; principal; 2018-06-11 15:26)
DX: M17.11 Unilateral primary osteoarthritis, right knee (principal); Z79.899 Other long term (current) drug therapy

== ENCOUNTER → 2018-09-23 | Outpatient (CLI) | payer BC, OTHER ==
[~2018-09-23] MED LIST changes: +BACTROBAN TOP; +CALC600T31 PO; +CIPR500T19 OR; +FAMO40TA3 PO; +FERR324T5 OR; +FISH1000 OR; +IRON28TA OR; +KLOR8TAB OR; +LEXAPRO PO; +MULTIVIT PO; +NAPR-50 PO; +NEUR100C OR; +NEUR300C OR; +NEUR600T OR; +OMEP20TA7 OR; +PERC5TAB12 PO; +PERC5TAB8 OR; +POTA20TA2 OR; +ROCE1INJ IV; +TRAM50TA2 PO; -VANCOMYCIN HCL 1,000 MG, VIAL MATE ADAPTER 1 EACH in D5W 250 ML IV; +VIT D 2000 PO; +VITA-113 PO; +VITA200015 PO; +VITA50TA12 OR; +VITAMIN B 12 PO; +VITAMIN D PO; +XARE10TA PO; +saline lock flush IV
--- NOTE | 2018-09-23 09:38 | REP ---
URINARY TRACT SONOGRAPHY: Renal artery Doppler flow assessment: HISTORY: Chronic kidney disease stage III, hypertensive chronic kidney disease. Isolated proteinuria. MORPHOLOGIC FINDINGS: Scanning is at the level of the urinary bladder demonstrates it is nearly empty at the time of examination. No abnormality. Renal cortical echogenicity pattern is normal and renal contours are smooth bilaterally. The right kidney measures 10.3 x 4.0 x 4.9 cm. Left renal dimensions are 10.9 x 4.7 x 4.8 cm. No hydronephrosis is seen. No cyst or mass is observed. RENAL ARTERY DOPPLER ASSESSMENT: Peak systolic flow velocity in the abdominal aorta at the level of the main renal arteries is normal at 99 cm/s. The right renal artery is duplicated. The main renal artery peak systolic flow velocity is 124 cm/s. The accessory renal artery peak systolic flow velocity is 139 cm/s. Left renal artery peak systolic flow velocity is 129 cm/s. These values are normal. Resistive indices and acceleration times are measured in the upper, mid and lower pole intralobar arteries of each kidney and these values are normal bilaterally. 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 No Doppler evidence to suggest renal artery stenosis. No significant morphologic abnormality. Electronically Signed by Waldo Dey MD 09/23/2018 10:40 A
== END ==
LOC: M RAD 06:37
PROVIDERS: ATTEND Internal Medicine Nephrology
DX: N18.3 Chronic kidney disease, stage 3 (moderate) (principal); I12.9 Hypertensive chronic kidney disease with stage 1 through stage 4 chronic kidney disease, or unspecified chronic kidney disease; R80.0 Isolated proteinuria

== ENCOUNTER → 2019-01-02 | Outpatient (REF) | payer OTHER ==
[~2019-01-02] MED LIST changes: +LEXA1TAB PO; -LEXAPRO PO; -NAPR-50 PO; +NAPR-837 PO
[2019-01-02 19:31] LABS: CHLORIDE,RANDOM URINE < 10 MEQ/L; POTASSIUM RANDOM URINE 80.6 MEQ/L; SODIUM,RANDOM URINE < 10 MEQ/L
== END ==
LOC: M LAB REF 17:20
PROVIDERS: ATTEND Internal Medicine Nephrology
DX: E87.6 Hypokalemia (principal)

== ENCOUNTER → 2019-01-03 | Outpatient (REF) | payer OTHER ==
[2019-01-07 14:16] LABS: ALDOSTERONE 127.2 ng/dL (0.0-30.0)
== END ==
LOC: M LAB REF 12:52
PROVIDERS: ATTEND Internal Medicine Nephrology
DX: E87.6 Hypokalemia (principal); I12.9 Hypertensive chronic kidney disease with stage 1 through stage 4 chronic kidney disease, or unspecified chronic kidney disease; N18.3 Chronic kidney disease, stage 3 (moderate)

== ENCOUNTER → 2019-07-07 | Outpatient (REF) | payer OTHER | LOC: M LAB REF 16:53 | PROVIDERS: ATTEND Internal Medicine Nephrology | DX: E87.6 Hypokalemia (principal); N18.3 Chronic kidney disease, stage 3 (moderate); E83.42 Hypomagnesemia ==

== ENCOUNTER → 2019-09-02 | Outpatient (REF) | payer OTHER | LOC: M LABDRAW1 15:41 | PROVIDERS: ATTEND Orthopaedic Surgery | DX: M25.561 Pain in right knee (principal) ==

== ENCOUNTER → 2019-09-16 | Outpatient (CLI) | payer BC, OTHER ==
[2019-09-16 13:01] LABS: CREATININE FOR GFR 1.1 MG/DL (0.55-1.30); GLOMERULAR FILTRATION RATE 53.6 (>45)
== END ==
LOC: M LAB 11:31
PROVIDERS: ATTEND Orthopaedic Surgery
DX: Z01.812 Encounter for preprocedural laboratory examination (principal); Z79.899 Other long term (current) drug therapy

== ENCOUNTER → 2019-11-14 | Outpatient (CLI) | payer BC, OTHER ==
--- NOTE | 2019-11-18 15:14 | DEXA ---
AP SPINE L1 - L4 1.183 -0.1 1.3 LT FEMUR TOTAL 0.768 -1.9 -0.8 LT NECK 0.822 -1.6 -0.2 RT FEMUR TOTAL 0.771 -1.9 -0.8 RT NECK 0.818 -1.6 -0.2 TOTAL BODY TOTAL OTHER COMMENTS: Normal bone densitometry of the spine. There is low bone density of the hips. FOLLOW-UP: Recommendation for the next bone density exam: 2 years. TANISHA
== END ==
LOC: M WHC 09:08
PROVIDERS: ATTEND Orthopaedic Surgery
DX: M85.859 Other specified disorders of bone density and structure, unspecified thigh (principal); M25.561 Pain in right knee

== ENCOUNTER 2019-12-19 20:03 | Inpatient (IN) | payer BC, OTHER ==
[~2019-12-19] VITALS: Ht 162.6 cm; Wt 51.3 kg
[2019-12-19] MEDS ORDERED: HYDR-3713 PO (20:15)
[2019-12-19] MEDS ORDERED: PREV1.1P2 TOP (20:15)
[2019-12-19] MEDS ORDERED: POTA1TAB14 PO (20:15)
[2019-12-19] MEDS ORDERED: TRAM50TA2 PO (20:15)
[2019-12-19] MEDS ORDERED: IBUP-1022 PO (20:15)
[2019-12-19] MEDS ORDERED: OMEP-218 PO (20:15)
[2019-12-19] MEDS ORDERED: LEVO75TA4 PO (20:15)
[2019-12-19] MEDS ORDERED: LIDOCAINE 4% CREAM 5GM (LMX4) TOP ONE (21:00)
[2019-12-19 21:17] LABS: BASO % 0.2 % (0.0-1.0); HEMATOCRIT 33.2 % (36.0-47.0); LYMPH # 0.2 10^3/uL (1.5-5.0); LYMPH % 1.2 % (24.0-44.0); MEAN CORPUSCULAR HEMOGLOBIN 28.6 pg (27.0-33.0); MEAN CORPUSCULAR HGB CONC 33.1 g/dl (32.0-36.5); MEAN CORPUSCULAR VOLUME 86.5 fl (80.0-96.0); MONO # 0.8 10^3/uL (0.0-0.8); MONO % 4.1 % (0.0-5.0); NEUTROPHILS # 16.8 10^3/uL (1.5-8.5); NEUTROPHILS % 92.3 % (36.0-66.0); PLATELET COUNT, AUTOMATED 253 10^3/uL (150-450); RED BLOOD COUNT 3.84 10^6/uL (4.00-5.40); WHITE BLOOD COUNT 18.2 10^3/uL (4.0-10.0)
--- NOTE | 2019-12-19 21:34 | REPVR ---
PROCEDURE INFORMATION: Exam: US Duplex Right Lower Extremity Veins, Limited Exam date and time: 12/19/2019 9:28 PM Age: 64 years old Clinical indication: Pain; Leg, lower; Right; Additional info: Severe lower leg pain, XR neg TECHNIQUE: Imaging protocol: Real-time Duplex ultrasound of the Right Lower Extremity with 2-D palm scale, color Doppler flow and spectral waveform analysis with image documentation. Limited exam was focused on the right lower extremity veins. COMPARISON: No relevant prior studies available. FINDINGS: Right deep veins: Unremarkable. The common femoral, femoral and popliteal veins are patent without thrombus. Normal Doppler waveforms. Normal compressibility and/or augmentation response. Right superficial veins: Unremarkable. Saphenofemoral junction is patent without thrombus. Soft tissues: Unremarkable. IMPRESSION: No sonographic evidence of deep vein thrombosis. Electronically signed by: Gabriel Aj On 12/19/2019 21:34:21 PM
[2019-12-19 21:36] LABS: ERYTHROCYTE SEDIMENTATION RATE 54 mm/hr (0-30)
[2019-12-19 21:43] LABS: URIC ACID 1.9 MG/DL (2.6-6.0)
[2019-12-19] MEDS ORDERED: PERCOCET 5MG/325MG TAB PO ONE (23:00)
[2019-12-20 00:03] LABS: APPEARANCE, URINE HAZY (CLEAR); BACTERIA, URINE AUTO NEGATIVE (NEGATIVE); BILIRUBIN, URINE AUTO NEGATIVE (NEGATIVE); BLOOD, URINE BLOOD NEGATIVE (NEGATIVE); COLOR, URINE AMBER (YELLOW); GLUCOSE, URINE (UA) AUTO NEGATIVE (NEGATIVE); KETONE, URINE AUTO NEGATIVE (NEGATIVE); LEUKOCYTE ESTERASE, URINE AUTO NEGATIVE (NEGATIVE); MUCUS, URINE SMALL (NEGATIVE); NITRITE, URINE AUTO NEGATIVE (NEGATIVE); PROTEIN, URINE AUTO 2+ mg/dL (NEGATIVE); RBC, URINE AUTO 2 /HPF (0-3); SPECIFIC GRAVITY URINE AUTO 1.033 (1.002-1.035); SQUAMOUS EPITHELIAL CELL UR AU 0 /HPF (0-6); TRANSITIONAL EPITHELIAL AUTO <1 /HPF; WBC, URINE AUTO 3 /HPF (0-3)
--- NOTE | 2019-12-20 00:04 | REPVR ---
PROCEDURE INFORMATION: Exam: MR Right Lower Extremity Joint Without Contrast; Ankle Exam date and time: 12/19/2019 10:47 PM Age: 64 years old Clinical indication: Right; Prior surgery; Surgery date: 6+ months; Surgery type: Reconstructive foot surg 04/19; Patient HX: Per PT, pain in ankle and lower leg. ; Additional info: Ankle pain, elev wbc, crp, esr TECHNIQUE: Imaging protocol: MR of the Right ankle without contrast. COMPARISON: CR Ankle, complete 12/26/2016 2:24 PM FINDINGS: The examination is limited by susceptibility artifact, which is centrally obscures the midfoot. The lack of intravenous contrast further limits evaluation. There is no evidence of acute fracture or dislocation. Alignment is anatomic. Mild degenerative changes are noted with subcortical cystic change in the tibial plafond and medial talar dome. Additional subcortical cystic changes are noted in the anterior process of the talus. There is a small amount of loculated fluid and synovitis in the tibiotalar and posterior subtalar joints. There is patchy bone marrow edema in the distal tibia and talus, which is evident on the fluid sensitive and T1 weighted sequences, although the appearance is atypical for acute osteomyelitis and may be reactive or secondary to disuse. There is moderate periarticular soft tissue swelling. There is a chronic longitudinal split tear of the peroneus brevis tendon with minimal fluid and synovitis in the tendon sheath. The visualized portions of the medial and anterior ankle tendons are intact. There is a small amount of loculated fluid in the posterior tibialis and flexor hallucis longus tendon sheaths. The plantar fascia and Achilles tendon are also intact. There is mild synovitis in the sinus Tarsi. The anterior and posterior talofibular ligaments are intact. The calcaneofibular ligament is poorly seen. There is abnormal signal in the region of the deltoid ligament complex , which appears somewhat attenuated, suggesting chronic low-grade injury/sprain. IMPRESSION: 1. Limited noncontrast examination. 2. Small amount of loculated fluid and synovitis in the tibiotalar and posterior subtalar joints. If there is clinical concern for intra-articular infection, joint aspiration may be useful. 3. Abnormal marrow signal in the distal tibia and talus, likely reactive or secondary to disuse. Acute osteomyelitis is considered unlikely but cannot be entirely excluded. 4. Additional findings, as above. Electronically signed by: Gabriel Aj On 12/20/2019 00:03:49 AM
[2019-12-20] MEDS ORDERED: LIDOCAINE 1% MDV 20ML VIAL IM ONE (00:45)
[2019-12-20] MEDS ORDERED: MORPHINE 4 MG/ML 1ML VIAL/SYRINGE (J2270) IV ONE (00:45)
[2019-12-20 00:47] LABS: BLOOD UREA NITROGEN 19 MG/DL (7-18); CALCIUM LEVEL 9.2 MG/DL (8.8-10.2); CARBON DIOXIDE LEVEL 23 MEQ/L (21-32); CHLORIDE LEVEL 103 MEQ/L (98-107); CREATININE FOR GFR 0.78 MG/DL (0.55-1.30); GLOMERULAR FILTRATION RATE > 60.0 (>45); GLUCOSE, FASTING 142 MG/DL (70-100); POTASSIUM SERUM 3.8 MEQ/L (3.5-5.1); SODIUM LEVEL 133 MEQ/L (136-145)
[2019-12-20] MEDS ORDERED: predniSONE 10 MG TAB PO ONE (01:30)
[2019-12-20] MEDS ORDERED: MORPHINE 4 MG/ML 1ML VIAL/SYRINGE (J2270) IV PRN (01:30)
[2019-12-20 04:00] VITALS: BP 112/63
[2019-12-20] MEDS ORDERED: PATIENT COMMENTS (04:15)
[2019-12-20] MEDS: LR 1,000 ML IV SCH ×2 (04:34→13:17)
[2019-12-20] MEDS: MORPHINE 2 MG/ML 1ML VIAL (J2270) IV PRN ×3 (05:03→11:11)
[2019-12-20 06:38] LABS: HEMATOCRIT 31.3 % (36.0-47.0); HEMOGLOBIN 10.4 g/dl (12.0-15.5); MEAN CORPUSCULAR HEMOGLOBIN 28.9 pg (27.0-33.0); MEAN CORPUSCULAR HGB CONC 33.2 g/dl (32.0-36.5); MEAN CORPUSCULAR VOLUME 86.9 fl (80.0-96.0); PLATELET COUNT, AUTOMATED 212 10^3/uL (150-450); WHITE BLOOD COUNT 17.1 10^3/uL (4.0-10.0)
[2019-12-20 07:09] LABS: ERYTHROCYTE SEDIMENTATION RATE 52 mm/hr (0-30)
[2019-12-20] MEDS: UNRESOLVED CLARIFICATION ENTRY XX SCH (07:51)
[2019-12-20] MEDS: ACETAMINOPHEN TAB 650MG DOSE (2X325MG) PO PRN ×2 (08:10→23:10)
--- NOTE | 2019-12-20 08:34 | HPE ---
DATE OF ADMISSION: 12/20/2019 CHIEF COMPLAINT: Right ankle pain. HISTORY OF PRESENT ILLNESS: This is a 64-year-old female with worsening right ankle pain over the past few days. This all started after she had been doing some fairly intensive yard work. The pain was increasing to the point where she was having pain with normal walking. She was seen in orthopedic clinic initially on 12/18/[address] Hitchcock and then also on 12/19/2019 by myself. 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 She was initially placed in a cast but was not tolerating it and was given a boot in addition to some hydrocodone and ibuprofen today. She felt her pain was worsening and presented to the emergency room (ER). She denies fevers, chills or other concerning symptoms. She does not have significant pain at rest or with range of motion, however, when she stands her pain is more severe. It is throughout the ankle joint, worse in the lateral gutter of the tibiotalar joint. PAST MEDICAL HISTORY: Gastroesophageal reflux disease (GERD) and history of acute renal failure about 15 years ago, which is being monitored and has had no recurrent kidney issues. ALLERGIES: NO KNOWN DRUG ALLERGIES. SURGICAL HISTORY: Left total knee arthroplasty by Dr. Hitchcock and a prior carpal tunnel release. SOCIAL HISTORY: Patient does not smoke. She lives with her . HOME MEDICATIONS: - famotidine - calcium - vitamin D PHYSICAL EXAMINATION: VITAL SIGNS: Temperature is 99.1, respiratory rate 18, blood pressure is mildly elevated. She is alert and oriented, in no acute distress. CHEST: Regular nonlabored breathing. CARDIOVASCULAR: Regular. Distal pulses (DP) pulse on the right. MUSCULOSKELETAL: There is no significant swelling about the ankle. No erythema. She can dorsiflex and plantarflex the ankle with very mild pain. There is pain with palpation across the tibiotalar joint, which is most severe in the lateral gutter. Some mild along the peroneal tendons and in the region of the posterior facet, but this is not severe. She has intact dorsiflexion, plantar flexion, inversion, eversion. Normal sensation to light touch of the superficial peroneal, deep peroneal, tibial, and sural nerve distributions. Foot is warm and well perfused. MRI is reviewed. There is osteoarthritis of the tibiotalar joint and a peroneal tendon tear. There is very mild effusion of the tibiotalar and subtalar joints. LABORATORY STUDIES: White blood cell count is elevated at 18. CRP and ESR are also elevated. IMPRESSION: Right ankle pain with elevated white blood cell count, erythrocyte sedimentation rate (ESR) and C-reactive protein (CRP). No history of gout. PLAN: A long discussion was held with the patient. She had a urinalysis (UA) that was negative. Chest x-ray results are pending. It is not clear why her labs are elevated and her ankle pain is worsening. Her range of motion is quite good and she really has very minimal swelling. This would be an uncommon presentation of a septic joint especially with such a little amount of fluid on her MRI. She has had a history of gout, which she states she has had before in the ankle and does not remember what kind of medication she took for it. It is possible this is more of a gout flare. However, given the elevated markers, I recommended aspiration of the tibiotalar joint to rule out a septic ankle. Informed consent was obtained. After consent was obtained, under sterile conditions I anesthetized the ankle just medial to the tibialis anterior tendon. I did this with approximately 6 mL 1% lidocaine. Following this I aspirated the joint. I was easily able to gain access to the tibiotalar joint, however was unable to aspirate any fluid even with redirecting the needle in multiple different directions. At this point, we will give the patient a dose of prednisone 30 mg in the ER. We will admit her to medicine and follow her labs. If she is feeling better with the prednisone, we can potentially discharge her in the morning and follow this as an outpatient. However, if her exam worsens or laboratory studies are also becoming more out of control, we would consider incision and debridement in the operating room (OR). She was kept nothing by mouth for this. All the patient's questions were answered and she is in agreement with this plan. I will plan on seeing her in the morning with repeat CBC, ESR and CRP labs. She should ice and elevate her leg in the meantime. TANISHA
--- NOTE | 2019-12-20 10:21 | REP ---
Chest x-ray: Two views. History: Elevated white blood cell count and sed rate. Comparison study: May 15, 2018. Findings: The lungs are symmetrically aerated and clear. Heart is not enlarged. Pleural angles are sharp. Pulmonary vasculature is not increased. No significant bony abnormality is seen. Impression: No acute disease. Electronically Signed by Waldo Dey MD 12/20/2019 10:14 A
--- NOTE | 2019-12-20 10:41 | IPN ---
DATE: 12/20/2019 CHIEF COMPLAINT: Right foot and ankle pain. HISTORY OF PRESENT ILLNESS: Mara Hancock is a 64-year-old female, who was admitted last night for right ankle pain. Please refer to my initial history and physical for further history. Essentially the patient has had increasing ankle pain over the past few days after doing some fairly intense yard work. She had been seen in the office twice without any decreased symptoms and things were worsening, so she presented to the emergency room (ER) last night. I did obtain a stat MRI after her complete blood count (CBC), erythrocyte sedimentation rate (ESR), and C-reactive protein (CRP) were elevated. There was some concern about a minimal amount of fluid in the ankle and subtalar joint. I did attempt to aspirate her ankle in the ER at 1 a.m. last night. This was a dry tap and I was able to gain access to the joint. Today, she is moving her ankle quite well. She can dorsiflex and plantarflex without any significant pain. She has mild pain with inversion, eversion. Her pain is actually in the plantar medial aspect of her foot today. This is in the region of plantar fascia and also extending up along the posterior tibial and right flexor digitorum longus (FDL) tendons. She does have some mild pain with palpation in the region of the peroneal tendons and posterior facet of the subtalar joints but not severe. She has pain with palpation along the tibiotalar joint most prominently in the lateral gutter. Again, she fairly normal range of motion. Given the dry tap, I had given her a dose of steroid last night to see if this could potentially be gout as she does have a history of gout. Unfortunately, it sounds like this really did not help much. The only thing that is helping her pain is the morphine. Her labs are stable this morning without any increase and white count is down from 18 to 17. She does have a temperature of 99.9. She denies shortness of breath, fevers, chills, or other systemic symptoms. PHYSICAL EXAMINATION: GENERAL: Well appearing, alert and oriented, no acute distress. MUSCULOSKELETAL: Per HPI, there is continued mild tenderness across the tibiotalar joint, which is little more severe in the lateral gutter. Mild tenderness along the peroneal tendons and subtalar joint. More significant tenderness in the plantar medial aspect of the foot extending of the medial sided tendon. No significant pain with passive or active range of motion of the ankle joint except for some mild pain with inversion, eversion. Normal sensation to light touch in the superficial peroneal, deep peroneal, tibial distributions. Foot is warm and well perfused. There is no erythema or swelling. IMPRESSION: Continued right foot and ankle pain with elevated white blood cell count and inflammatory markers. PLAN: A long discussion was held with the patient. She did inform me this morning, which she did not mention last night, that she has a history of MRSA infection. Apparently, she has had a MRSA infection in this right foot in the past. We have discussed at length her findings. She currently has reasons other than a septic joint on her MRI that she could be having ankle pain such as fairly moderate arthritis of the tibiotalar joints and a peroneal tendon tear. However, I do not have a great explanation of her elevated white count, CBC, and ESR and worsening pain. Given her history of MRSA, we will give her a dose of IV vancomycin and continue to monitor her. I did get a urinalysis (UA), which was negative. Chest x-ray read is pending. We will have the internal medicine team take a look at her just to make sure we are not missing something more systemic, which may explain her labs. If she is starting to feel better on the antibiotics, we could consider just sending her home on Bactrim. However, I want to make sure she is making some progress before she leaves. I have talked to her that in the small chance there is an active infection in her joints this can lead to cartilage damage. She already has arthritis of her tibiotalar joint and this has been going on for many days, so I would not jump to bringing her to the operating room (OR) right away, especially with how good her exam is. The patient agrees with this and would like to avoid going to the operating room if at all possible. She understands the risk of cartilage destruction if there was to be a septic joint. As for now, we will see how she is doing this afternoon. We will give her vancomycin and also have internal medicine take a look at her. All the patient's questions are answered and she agrees with this plan.
--- NOTE | 2019-12-20 10:44 | PHACANCOPD ---
PHARMACY VANCOMYCIN DOSING Pt Demographics Demographics Patient Age:64 , Weight:50.000 , Gender: female Adjusted Body Weight Date: 12/20/19, Adjusted Body Weight: Kg Events Past 24 Hours Events Past 24 Hours: NO: Dialysis, Diuretic Therapy, Change in CrCl, Fever, Elevation in WBC, Pending Diagnostics, Pending Procedures, Other Vancomycin Vancomycin indication: SKIN/SOFT TISSUE INFECTION Vancomycin Target Ranges: 10-20 mcg/ml Vancomycin Load Y/N: No Load Dose Date Time Vancomycin Load Dose: Date: Time: Vancomycin Dose Date: 12/20/19. Current Vancomycin Dose: [1G IV Q12H] Intermittent Dosing?: No Labs Labs Item Value Date Time White Blood Count 18.2 10^3/uL H 12/19/192100 White Blood Count 17.1 10^3/uL H 12/20/19 0559 Creatinine 0.78 MG/DL 12/19/192100 C-Reactive Protein, Quantitative 18.60 MG/DL H 12/19/192100 C-Reactive Protein, Quantitative 18.50 MG/DL H 12/20/19 0559 Creatinine Clearance Date:12/20/19. Creatinine Clearance: [58ML/MIN]. Pending Labs VANCOMYCIN TROUGH 12/21 @10:00 Assessment and Plan Maintaining Current Dose?: Yes Reason for dose change: No Dose Change Pharmacist Note Pharmacist Note Date: 12/20/19. Pharmacist note: Pt is a 64 year old female being treated for skin/soft tissue infection. The pt was last treated with vancomycin here at [facility] in 2010. To achieve goal the patient will receive 1g IV every 12 hours. A trough is scheduled for 12/22/19 @ 10:00. We will continue to monitor and adjust the dose as needed. YESSY [facility] Dec 20, 2019 10:44
[2019-12-20] MEDS: VANCOMYCIN HCL 1,000 MG, VIAL MATE ADAPTER 1 EACH in D5W 250 ML IV SCH ×2 (11:09→22:49)
[2019-12-20] MEDS ORDERED: PERCOCET 5MG/325MG TAB PO PRN ×3 (11:30→18:00)
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
[2019-12-20 14:00] VITALS: BP 145/84
[2019-12-20] MEDS: PERCOCET 5MG/325MG TAB PO PRN (21:23)
[2019-12-20 22:00] VITALS: BP 121/63
[2019-12-21] VITALS (7 sets, daily range): BP systolic 109–146; BP diastolic 55–76
[2019-12-21] MEDS: UNRESOLVED CLARIFICATION ENTRY XX SCH (00:01)
[2019-12-21] MEDS: LR 1,000 ML IV SCH ×2 (00:05→12:18)
[2019-12-21] MEDS: PERCOCET 5MG/325MG TAB PO PRN ×3 (04:08→20:23)
[2019-12-21 06:19] LABS: HEMATOCRIT 31.2 % (36.0-47.0); HEMOGLOBIN 10.5 g/dl (12.0-15.5); MEAN CORPUSCULAR HEMOGLOBIN 28.8 pg (27.0-33.0); MEAN CORPUSCULAR HGB CONC 33.7 g/dl (32.0-36.5); MEAN CORPUSCULAR VOLUME 85.7 fl (80.0-96.0); PLATELET COUNT, AUTOMATED 184 10^3/uL (150-450); RED BLOOD COUNT 3.64 10^6/uL (4.00-5.40); WHITE BLOOD COUNT 19.5 10^3/uL (4.0-10.0)
[2019-12-21 06:46] LABS: ERYTHROCYTE SEDIMENTATION RATE 43 mm/hr (0-30)
[2019-12-21] MEDS: OMEPRAZOLE 20 MG CAP PO SCH ×2 (09:00→20:18)
[2019-12-21] MEDS ORDERED: CEFEPIME HCL 1 GM in D5W MINI-BAG PLUS 50 ML IV SCH (09:00)
--- NOTE | 2019-12-21 09:28 | IPNPDOC ---
Subjective Date Seen The patient was seen on 12/21/19. Subjective Chief Complaint/HPI Patient is still complaining of increasing pain at the right ankle, swelling is gone down with elevation of her right foot General: Denies: ROS Unobtainable, Chills, Night Sweats, Fatigue, Malaise, Normal Appetite, Other Symptoms Constitutional: Denies: Chills, Fever, Malaise, Night Sweats, Weakness, Fatigue, Weight Loss, Lethargy, Other Cardiovascular: Denies: Chest Pain, Palpitations, Orthopnea, Paroxysmal Noc. Dyspnea, Edema, Lt Headedness, Other Symptoms Gastrointestinal: Denies: Nausea, Vomiting, Abdominal Pain, Diarrhea, Constipation, Melena, Hematochezia, Other Symptoms Musculoskeletal: Reports: Other Symptoms (, pain and swelling right ankle) Neurological: Denies: Weakness, Numbness, Incoordination, Change in speech, Confusion, Seizures, Other Symptoms Objective Physical Examination General Exam: Positive: Alert, Cooperative Chest Exam: Positive: Clear to auscultation, Normal air movement Heart Exam: Positive: Rate Normal, Normal S1, Normal S2 Abdomen Exam: Positive: Normal bowel sounds, Soft Extremity Exam: Positive: Other (swelling is decreased at the right ankle but there is increased localized temperature and tenderness all over the right ankle) Assessment /Plan Problems (1) Right ankle pain Status: Acute Problem Text: Swelling has decreased with elevation of the right foot but there is increase localized temperature and tenderness on right foot today Dr. Schuler was called and discussed and inform about new changes in exam Dr. Schuler's plan is to repeat MRI with contrast to confirm the diagnosis before being decided whether to treat conservatively or surgically Continue present pain medication Continue elevation of right foot Further, as per orthopedics (2) Leukocytosis Status: Acute Problem Text: Patient's WBC count is 19.5 Patient is already on vancomycin, but will add cefepime 1 g every 12 hours for broad-spectrum coverage Most likely source probably is patient's right ankle Patient had a dry aspiration yesterday by Dr. Schuler Repeat MRI with contrast of right ankle has been ordered for today Monitor CBC, CMP Plan/VTE VTE Prophylaxis Ordered?: Yes VS, I&O, 24H, Fishbone Vital Signs/I&O Vital Signs Date Time Temp Pulse Resp B/P (MAP) Pulse Ox O2 Delivery O2 Flow Rate FiO2 4/19/20 09:01 16 94 Nasal Cannula 3.0 12/21/19 06:00 99.6 77 112/58 (76) I&O- Last 24 Hours up to 6 AM 12/21/19 06:00 Intake Total 2670 ml Output Total 0 ml Balance 2670 ml Laboratory Data 24H LABS Laboratory Tests 2 12/21/19 06:08: Nucleated Red Blood Cells % (auto) 0.0, Erythrocyte Sedimentation Rate 43H, C- Reactive Protein, Quantitative 28.10H CBC/BMP Laboratory Tests 12/21/19 06:08 LUL LOYA MD Dec 21, 2019 09:28
[2019-12-21] MEDS ORDERED: PROHANCE 279.3MG/ML 5ML VIAL As Ordered ONE (11:15)
[2019-12-21] MEDS: VANCOMYCIN HCL 1,000 MG, VIAL MATE ADAPTER 1 EACH in D5W 250 ML IV SCH ×2 (12:18→23:26)
--- NOTE | 2019-12-21 12:59 | REP ---
Right ankle series: Four views. History: Incision and drainage of right ankle. Comparison radiographs are from December 26, 2016. Findings: The patient is status post midfoot arthrodesis with multiple metallic screws in place at the edge of the field of view, incompletely seen. This is an interval change from the 2017 study. Two of the metallic screws involving the arthrodesis show metal fatigue fractures. These appear to be across the fourth tarsometatarsal articulation. There is tibiotalar spurring anteriorly and some tibiotalar joint space narrowing. There is mild diffuse anterior soft tissue swelling. There is diffuse osteopenia. No soft tissue gas is seen. Impression: Tibiotalar osteoarthritis. Diffuse osteopenia. Status post midfoot arthrodesis with multiple metallic hardware components. There are metal fatigue fractures in two of the screws which appear to be across the fourth tarsometatarsal articulation. Electronically Signed by Waldo Dey MD 12/21/2019 01:16 P
--- NOTE | 2019-12-21 13:07 | REP ---
MRI right foot without and with IV gadolinium: History: Surgical planning. Comparison MRI ankle study is from 2 days prior. History for the prior study was pain and elevated white blood cell count and erythrocyte sedimentation rate. Technique: Axial, coronal and sagittal imaging planes are utilized with coverage of the foot and ankle pre and postcontrast. Contrast enhancement dose is 10 mL of intravenous ProHance. MRI findings: Somewhat mottled signal intensity is seen in the cancellous bone of the distal tibia, talus, and calcaneus consistent with disuse osteoporosis. No focal bony destructive lesion is seen. There is tibiotalar osteoarthritis with anterior spurring and joint space narrowing. No significant ankle or subtalar joint effusion is evident. There is metallic field susceptibility artifact which destroys image quality in the midfoot associated with the midfoot arthrodesis hardware. There is also metallic field susceptibility artifact emanating from the distal second metatarsal. Cortical and medullary bone signal intensity is otherwise normal. There is no evidence to suggest osteomyelitis. No soft tissue abscess is appreciated. 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 Narrowing and spur formation in the tibiotalar articulation consistent with osteoarthritis. Extensive metallic hardware artifact across the midfoot distorts and blocks bone detail visualization. No evidence of osteomyelitis or soft tissue abscess seen. Electronically Signed by Waldo Dey MD 12/21/2019 01:16 P
[2019-12-21] MEDS ORDERED: ISOVUE-370 76% 100ML VIAL As Ordered ONE (13:52)
[2019-12-21] MEDS ORDERED: ALBUTEROL SULFATE 2.5 MG/0.5 ML INH NEB SOLN NEB PRN (16:00)
[2019-12-21] MEDS: ceFAZolin SOD 1 GM in D5W MINI-BAG PLUS 50 ML IV SCH (18:02)
[2019-12-21] MEDS ORDERED: FUROSEMIDE 40MG/4ML VIAL (J1940) As Ordered ONE (18:27)
[2019-12-21] MEDS: ACETAMINOPHEN TAB 650MG DOSE (2X325MG) PO PRN (18:40)
[2019-12-21 18:48] LABS: ABG BASE EXCESS -2.4 (-2.0-2.0); ABG HCO3 20.4 MEQ/L (22.0-26.0); ABG O2 SATURATION 97.1 % (95.0-99.0); ABG PARTIAL PRESSURE CO2 29.5 mmHg (35.0-45.0); ABG PARTIAL PRESSURE O2 84.8 mmHg (75.0-100.0); ABG STANDARD HCO3 22.5 MEQ/L (22.0-26.0); ABG TOTAL CO2 21.3 MEQ/L (23.0-31.0); ABG pH (ARTERIAL) 7.458 UNITS (7.350-7.450)
[2019-12-21] MEDS ORDERED: FUROSEMIDE 40MG/4ML VIAL (J1940) IV ONE ×2 (19:00→21:45)
--- NOTE | 2019-12-21 19:15 | REP ---
Oral chest x-ray: Single view. History: Shortness of breath. Comparison study December 19, 2019. Findings: Right hemidiaphragm is slightly elevated. There are subtle ill-defined infiltrates in the right upper lobe, right base, and left upper lobe peripherally. Cardio-mediastinal silhouette is unremarkable and unchanged. Pleural angles are sharp. Impression: Subtle ill-defined bilateral infiltrates. Electronically Signed by Waldo Dey MD 12/21/2019 07:05 P
[2019-12-21 19:31] LABS: HEMATOCRIT 33.9 % (36.0-47.0); HEMOGLOBIN 11.4 g/dl (12.0-15.5); MEAN CORPUSCULAR HEMOGLOBIN 28.3 pg (27.0-33.0); MEAN CORPUSCULAR HGB CONC 33.6 g/dl (32.0-36.5); MEAN CORPUSCULAR VOLUME 84.1 fl (80.0-96.0); PLATELET COUNT, AUTOMATED 198 10^3/uL (150-450); RED BLOOD COUNT 4.03 10^6/uL (4.00-5.40); WHITE BLOOD COUNT 23.9 10^3/uL (4.0-10.0)
[2019-12-21 19:51] LABS: ALT/SGPT 43 U/L (12-78); BLOOD UREA NITROGEN 19 MG/DL (7-18); CARBON DIOXIDE LEVEL 21 MEQ/L (21-32); CHLORIDE LEVEL 101 MEQ/L (98-107); CREATININE FOR GFR 0.87 MG/DL (0.55-1.30); GLOMERULAR FILTRATION RATE > 60.0 (>45); GLUCOSE, FASTING 174 MG/DL (70-100); POTASSIUM SERUM 3.5 MEQ/L (3.5-5.1); SODIUM LEVEL 133 MEQ/L (136-145); TOTAL PROTEIN 6.1 GM/DL (6.4-8.2); TROPONIN I < 0.02 NG/ML (< 0.10)
[2019-12-22] VITALS (19 sets, daily range): BP systolic 103–137; BP diastolic 57–72
[2019-12-22] MEDS ORDERED: LR 1,000 ML IV SCH
--- NOTE | 2019-12-22 00:39 | REP ---
CT PULMONARY ANGIOGRAM WITH IV CONTRAST: HISTORY: Rule out pulmonary embolus. COMPARISON STUDIES: Comparison chest x-ray 12/19/2019. Comparison CT chest 11/27/2013. CT FINDINGS: Contrast dose: 75 ML of Isovue [address] technique: Helical scanning is acquired and overlapping 1.5 mm and contiguous 3 mm axial images are reformatted. In addition, maximum intensity projection and multiplanar re-formation images are generated in sagittal and coronal imaging projections. CT pulmonary angiographic findings: There is good opacification of the pulmonary arterial tree. There is no CT evidence of pulmonary embolism. Thoracic aorta enhances homogeneously and is normal in course and caliber. No aneurysm or dissection is appreciated. There are small bilateral pleural effusions. There is no evidence of pericardial effusion. The right pleural effusion is larger than the left. There are mildly prominent mediastinal and right hilar lymph nodes. These include a subcarinal node which is felt to be enlarged measuring 18 mm in short axis dimension, a precarinal lymph node measuring 11 mm in short axis dimension, and a perivascular lymph node measuring 14 mm in short axis dimension. These were not visible previously in 2014. There is a 12 mm lymph node in the AP window region of the mediastinum containing a small central calcification. No adrenal lesion is seen. The visualized upper abdominal structures are unremarkable. There is consolidation and some atelectatic change in the right lower lobe. Early peribronchovascular infiltrate pattern is seen in the left lower lobe. There are patchy ill-defined nodular opacities bilaterally in the upper lobes, and areas of ground glass opacity are seen bilaterally in the upper lobes. These are all new from the 2013 prior study. The 2013 prior study showed a ground glass opacity in the right upper lobe, which is again seen and is again seen to be stable in size, 1.5 cm. The other areas of ground glass opacity and mixed ground glass opacity and consolidation are new. The largest of these is in the right upper lobe. No cavitary nodules are seen. Impression: There is no CT evidence of pulmonary embolus. There are small bilateral pleural effusions, right greater than left. There is mild mediastinal adenopathy. There are multiple areas of consolidation and ground glass opacity in the upper lobes and lower lobes bilaterally, which are new from the 2013 prior study. These are nonspecific. These pulmonary parenchymal findings represent an acute change when compared with chest x-ray from 12/19/2019. Possibilities include multifocal infectious pneumonia, including COVID-19 and other viral pneumonias. Septic emboli could have this multinodular appearance with areas of consolidation as well. Electronically Signed by Waldo Dey MD 12/29/2019 07:59 A
--- NOTE | 2019-12-22 00:50 | REP ---
RIGHT WRIST SERIES, FOUR VIEWS: HISTORY: Pain. Comparison radiographs are from 04/16/2008. FINDINGS: Four views of the right wrist demonstrate diffuse osteoporosis. There is old posttraumatic deformity of the distal radius. There is soft tissue swelling particularly dorsally about the carpus. Erosive changes are noted in the ulnar styloid. No soft tissue calcification is seen. No fracture or subluxation is noted. IMPRESSION: Soft tissue swelling about the carpus with the subtle erosive changes in the ulnar styloid. Inflammatory arthropathy suspected. Old posttraumatic deformity of the distal radius. Electronically Signed by Waldo Dey MD 12/29/2019 08:00 A
[2019-12-22] MEDS: ceFAZolin SOD 1 GM in D5W MINI-BAG PLUS 50 ML IV SCH (01:17)
[2019-12-22] MEDS: PERCOCET 5MG/325MG TAB PO PRN ×4 (04:15→20:48)
[2019-12-22] MEDS: CEFEPIME HCL 2 GM in D5W MINI-BAG PLUS 50 ML IV SCH ×2 (04:24→14:05)
[2019-12-22 05:39] LABS: HEMATOCRIT 33.2 % (36.0-47.0); HEMOGLOBIN 11.3 g/dl (12.0-15.5); MEAN CORPUSCULAR HEMOGLOBIN 28.6 pg (27.0-33.0); MEAN CORPUSCULAR VOLUME 84.1 fl (80.0-96.0); PLATELET COUNT, AUTOMATED 189 10^3/uL (150-450); RED BLOOD COUNT 3.95 10^6/uL (4.00-5.40); WHITE BLOOD COUNT 23.1 10^3/uL (4.0-10.0)
[2019-12-22 05:46] LABS: BLOOD UREA NITROGEN 20 MG/DL (7-18); CALCIUM LEVEL 8.1 MG/DL (8.8-10.2); CARBON DIOXIDE LEVEL 26 MEQ/L (21-32); CHLORIDE LEVEL 97 MEQ/L (98-107); GLOMERULAR FILTRATION RATE > 60.0 (>45); GLUCOSE, FASTING 107 MG/DL (70-100); PHOSPHORUS LEVEL 2.8 MG/DL (2.5-4.9); POTASSIUM SERUM 3.2 MEQ/L (3.5-5.1); SODIUM LEVEL 132 MEQ/L (136-145)
[2019-12-22 05:47] LABS: ALBUMIN 1.9 GM/DL (3.2-5.2); ALT/SGPT 35 U/L (12-78); CHOLESTEROL LEVEL 124 MG/DL (< 200); CPK CREATINE PHOSPHOKINASE 103 U/L (26-192); LDH LACTATE DEHYDROGENASE 263 U/L (84-246); TRIGLYCERIDES LEVEL 184 MG/DL (<150); TROPONIN I < 0.02 NG/ML (< 0.10)
[2019-12-22 05:55] LABS: ANISOCYTOSIS 1+; LYMPHOCYTES 1 % (16-44); METAMYELOCYTES 1 % (0-0); MONOCYTES 3 % (0-5); NEUTROPHILS 94 % (28-66); PLATELET ESTIMATE NORMAL (NORMAL)
[2019-12-22 05:57] LABS: PLATELET CLUMPS SMALL AMT
[2019-12-22 05:58] LABS: DOHLE BODIES 1+
--- NOTE | 2019-12-22 07:23 | CR ---
DATE OF CONSULTATION: 12/21/2019 I was called to the intensive care unit to evaluate this 64-year-old female with hypoxemia admitted on 12/20/2019 with right ankle pain of the few days duration. She was started on antibiotics as infection was suspected. Today she developed worsening dyspnea oxygen saturations fell and her temperature spiked to 100. PAST MEDICAL HISTORY: Her past medical history includes an episode of acute kidney failure in 2010 of unclear etiology. At that time she experienced fluid overload with congestive heart failure and anemia. She had an methicillin-resistant staph aureus infection in her left foot in 2011. Following that event and treatment of that infection, she underwent evaluation for autoimmune disease. Multiple titers were negative. There was a positive Lyme titer for IgG and IgM. Remotely in 2005 she underwent an echocardiogram which showed some thickening of her mitral valve. More recently she has been reasonably healthy. There is some acid reflux and hiatal hernia. PHYSICAL EXAMINATION: At bedside she is ill-appearing, mildly to moderately dyspneic. Her temperature is 98 now pulse rate is 72, respirations 17, blood pressure 135/76. HEENT: Oral and nasal mucosa are pink. Her posterior pharynx is not erythematous. There is a mild periodontal disease and on questioning she was planning extensive dental surgery prior to the pandemic and has been put off. She has no dental pain. Her neck is supple without meningismus. There is no adenopathy. Jugular veins are not distended. Carotid upstroke is brisk. There is no bruit. Heart sounds are distant, regular without appreciable murmur. Breath sounds are mildly coarse and diminished in the right base to percussion. There is no tactile fremitus. Chest is symmetric. There is mild accessory muscle use at rest. Abdomen is soft with intact bowel sounds. There is no palpable mass. Extremities: Right lower leg is red and swollen. The right wrist is also red and swollen and tender. DIAGNOSTIC STUDIES: CT scan of the chest shows bilateral patchy infiltrates and a right pleural effusion. Her sodium is 133, potassium 3.8, chloride 103, CO2 23, BUN 19, creatinine 0.78, glucose 142. CRP is 25.1. White count is 23.9, hemoglobin 11/04, hematocrit 33.9, platelet count 198,000. Arterial blood gas shows pH 7.45, pCO2 29, pO2 84. The primary problem requiring critical attention is acute hypoxic respiratory failure secondary to bilateral patchy lung infiltrates and a right pleural effusion. I agree with vancomycin and ceftriaxone for the time being. We will initiate supplemental oxygen and chart target a saturation of 90% plus. An echocardiogram has been ordered. Reasonable consideration would be endocarditis. It may require a transesophageal echocardiogram depending on results. I will order more extensive lab studies for the morning. Care in the intensive care unit is appropriate at this point. 1 hour and 12 minutes was spent in provision of bedside critical care and coordination in excess of any procedure time.
--- NOTE | 2019-12-22 07:50 | ECGEPIP ---
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 Prominent precordial voltage Increased heart rate and shorter PA interval from 05/15/18 Electronically Signed on 12-22-2019 7:50:21 EDT by Jhonatan Schuster
[2019-12-22] MEDS ORDERED: CEFEPIME HCL 1 GM in D5W MINI-BAG PLUS 50 ML IV SCH (08:00)
[2019-12-22 08:38] LABS: MAGNESIUM LEVEL 1.7 MG/DL (1.8-2.4)
[2019-12-22] MEDS ORDERED: POTASSIUM CHLORIDE 10 MEQ SR TABLET PO ONE (08:45)
[2019-12-22] MEDS: OMEPRAZOLE 20 MG CAP PO SCH ×2 (08:47→20:45)
[2019-12-22] MEDS: NS 1,000 ML IV SCH ×2 (08:47→23:46)
[2019-12-22] MEDS ORDERED: MAG SULF 1GM/100ML (MAG RUN) 1 GM in IV 1 EA IV ONE (09:45)
--- NOTE | 2019-12-22 10:09 | IPN ---
DATE: 12/21/2019 CHIEF COMPLAINT: Followup right ankle pain. HISTORY OF PRESENT ILLNESS: Mara Hancock is a 64-year-old female who has been seen with concerns of possible septic ankle. Overnight, the patient began having oxygen desaturations. Her pain and swelling in her foot and ankle has continued and overall swelling is worse, however, her pain is actually slightly improved. Her desaturations are mainly when she is getting up out of bed to use the restroom. VITAL SIGNS: Temperature 98.4, pulse 73, respiratory rate 17, blood pressure 135/76, pulse oximetry 89% on 3 liters of oxygen. MUSCULOSKELETAL: In the right lower extremity, there is slightly worsening swelling and new developing erythema that is starting to track up the leg. This is going up to the mid thigh. She can still dorsiflex and plantar flex her ankle without much difficulty. There continues to be generalized tenderness at both tibiotalar joint and along the foot as well. She is otherwise neurovascularly intact. IMAGING: New foot and ankle MRI with contrast is reviewed. There is no evidence of an effusion in either the subtalar joint or tibiotalar joint. There is no evidence of osteomyelitis. There is no soft tissue abscess. There is diffuse osteoporosis and tibiotalar joint arthritis. The patient also had a CT of the chest which showed bilateral infiltrates and possible septic emboli. OTHER STUDIES: COVID test performed and found to be negative. The patient's white blood cell count, ESR and CRP remain elevated. IMPRESSION: Right lower extremity pain and swelling with possible left septic emboli to the right lower extremity. PLAN: At this point, I do not believe the patient would benefit from surgical intervention. This does not appear to be a septic tibiotalar or subtalar joint arthritis. While she does have arthritis in her ankle, I think the pain and swelling is most likely due to a septic emboli as it is starting to track up her leg. I would continue to ice and elevate the leg and if there is any concern about perfusion vascular surgery would need to be consulted. I will otherwise refer to medicine regarding antibiotic treatment and further workup at this time.
--- NOTE | 2019-12-22 10:17 | IPN ---
DATE: 12/22/2019 CHIEF COMPLAINT: Right lower extremity pain and swelling. HISTORY OF PRESENT ILLNESS: Mara Hancock is a 64-year-old female who we have been following in regards to her right lower extremity. She had significant desaturations and was transferred to the intensive care unit (ICU) overnight. She is also having pain and swelling in her right wrist. Her symptoms in her right lower extremity are unchanged. PHYSICAL EXAMINATION: General: Comfortable on nasal cannula oxygen. Musculoskeletal: In the right wrist, there is mild swelling about the wrist. There is some mild erythema over the ulnar styloid. There is swelling of the fingertips. She can extend and flex her wrist without significant pain. Normal sensation to light touch in the medial, ulna and radial distribution. On the right lower extremity, continued pain and swelling throughout the right leg. There is erythema going up her leg towards the more proximal thigh at this point which is slightly worse than yesterday. She can still flex and extend her ankle without much difficultly. Some generalized tenderness throughout the ankle and foot today. She remains neurovascularly intact. IMAGING: X-rays of the wrist performed. There is some mild erosion of the ulnar styloid. There is soft tissue swelling. Possible inflammatory arthropathy. New x-ray of the ankle is also performed. Again seen is her tibiotalar joint arthritis. She has hardware in her mid foot from a prior fusion which does have a couple of broken screws. No other obvious pathology. IMPRESSION: Right wrist and right lower extremity pain and swelling with possible septic emboli. PLAN: At this point, I would ice and elevate both the right wrist and right ankle. She does have positive blood cultures and her antibiotics may need to be adjusted. If her right wrist continues to swell and become more painful, at some point she may require an MRI. At this point, it appears to be primarily soft tissue swelling.
[2019-12-22] MEDS: VANCOMYCIN HCL 1,000 MG, VIAL MATE ADAPTER 1 EACH in D5W 250 ML IV SCH ×2 (11:06→23:46)
--- NOTE | 2019-12-22 11:15 | IPNPDOC ---
Subjective Date Seen The patient was seen on 12/22/19. Subjective Chief Complaint/HPI Patient is feeling a lot better. Does not have a any difficulty breathing at the present time. She is maintaining her oxygenation at 2 L nasal cannula. Still complaining of pain in right wrist and right ankle General: Denies: ROS Unobtainable, Chills, Night Sweats, Fatigue, Malaise, Normal Appetite, Other Symptoms Skin: Reports: Rash, Other (redness, right ankle, lower extremity) Pulmonary: Denies: Dyspnea, Cough, Pleuritic Chest Pain, Other Symptoms Cardiovascular: Denies: Chest Pain, Palpitations, Orthopnea, Paroxysmal Noc. Dyspnea, Edema, Lt Headedness, Other Symptoms Gastrointestinal: Denies: Nausea, Vomiting, Abdominal Pain, Diarrhea, Constipation, Melena, Hematochezia, Other Symptoms Musculoskeletal: Denies: Neck Pain, Back Pain, Shoulder Pain, Arm Pain, Hand Pain, Leg Pain, Foot Pain, Joint Pain, Muscle Pain, Spasms, Other Symptoms Neurological: Denies: Weakness, Numbness, Incoordination, Change in speech, Confusion, Seizures, Other Symptoms Objective Physical Examination General Exam: Positive: Alert, Cooperative Eye Exam: Positive: PERRLA, Conjunctiva & lids normal Neck Exam: Positive: Supple Chest Exam: Positive: Other (, clear on examination with minimum crackles at bases) Heart Exam: Positive: Rate Normal, Normal S1, Normal S2 Abdomen Exam: Positive: Normal bowel sounds, Soft Extremity Exam: Positive: Other (swelling is decreased at the right ankle but there is increased localized temperature and tenderness all over the right ankle) Skin Exam: Positive: Other skin issue (. Positive redness, right ankle, right thigh and right lower extremity) Psych Exam: Positive: Mood NL Assessment /Plan Problems (1) Acute respiratory failure Status: Acute Problem Text: Last evening. Patient developed acute respiratory failure with dyspnea, chills and unable to maintain her oxygenation on the [place]. The nasal cannula. Hence, she was provided with 100% nonrebreather. Patient. Blood gas on 100% nonrebreather was 7.45/ Patient's CT of the chest was consistent with bilateral infiltrates, possible septic embolism Patient was immediately given Lasix 40 mg IV and nebulizer treatments She was transferred to ICU for close critical care Dr. Suggs was called for critical care consult and case was discussed Patient was continued on vancomycin, Ancef was DC'd and was started back on cefepime Patient is stabilized overnight. Her vital signs are stable this morning with heart rate of 69, blood pressure 100 2764, respiratory rate of 18 and pulse ox 97% on 2 L nasal cannula On examination she has a mild bibasal crackles but no wheezing or rhonchi, or rales Will continue patient's care. In ICU until she is medically stable to go to [facility] floor (2) Bilateral pneumonia Status: Acute Problem Text: CT of the chest was done yesterday, which showed multiple infiltrates which was a new change from her previous chest x-ray done the day before. Patient most likely has bilateral infiltrated and possible occurrence of septic embolism. Patient is currently currently on vancomycin and cefepime, which she seems to be responding well. Her WBC count is still very high at 23.1, hemoglobin 11.3 and platelets of 189, but patient is afebrile at the present time First blood culture done in ED shows possible gram-positive cocci in clusters, but final report is still pending Second set of blood cultures done yesterday. The reports are still pending Critical care pulmonary consult with Dr. Corbin was done and appreciated Will monitor patient clinically ICU to the diagnosis established regarding septal embolism Infectious disease consult was called and Dr. Navarrete is aware, further recommendations as per ID and pulmonary. CT Chest report as below There is good opacification of the pulmonary arterial tree. There is no CT evidence of pulmonary embolism. Thoracic aorta enhances homogeneously and is normal in course and caliber. No aneurysm or dissection is appreciated. There are small bilateral pleural effusions. There is no evidence of pericardial effusion. The right pleural effusion is larger than the left. There are mildly prominent mediastinal and right hilar lymph nodes. These include a subcarinal node which is felt to be enlarged measuring 18 mm in short axis dimension, a precarinal lymph node measuring 11 mm in short axis dimension, and a p erivascular lymph node measuring 14 mm in short axis dimension. These were not visible previously in 2014. There is a 12 mm lymph node in the AP window region of the mediastinum containing a small central calcification. No adrenal lesion is seen. The visualized upper abdominal structures are unremarkable. There is consolidation and some atelectatic change in the right lower lobe. Early peribronchovascular infiltrate pattern is seen in the left lower lobe. There are patchy ill-defined nodular opacities bilaterally in the upper lobes, and areas of ground glass opacity are seen bilaterally in the upper lobes. These are all new from the 2014 prior study. The 2013 prior study showed a ground glass opacity in the right upper lobe, which is again seen and is again seen to be stable in size, 1.5 cm. The other areas of ground glass opacity and mixed ground glass opacity and consolidation are new. The largest of these is in the right upper lobe. No cavitary nodules are seen. There is no CT evidence of pulmonary embolus. There are small bilateral pleural effusions, right greater than left. There is mild mediastinal adenopathy. There are multiple areas of consolidation and ground glass opacity in the upper lobes and lower lobes bilaterally, which are new from the 2013 prior study. These are nonspecific. These pulmonary parenchymal findings represent an acute change when compared with chest x-ray from 12/19/2019. Possibilities include multifocal infectious pneumonia, including COVID-19 and other viral pneumonias. Septic emboli could have this multinodular appearance with areas of consolidation as well. (3) Septic embolism Status: Acute Problem Text: Possible septic embolism source yet not known Echocardiogram is pending. She might require a MARVA depending on the echocardiogram report Continue present antibiotics and restart IV fluids at normal saline 75 mL per hour (4) Right ankle pain Status: Acute Problem Text: Discussed with Dr. Schuler. Possible septic embolism as there was no drainage. A needle aspiration Dr. Schuler will be on the consult on this patient as needed basis . Unfortunately, the redness now has increased and crept up to her lower extremity all the way up to her thigh: Could be cellulitis or a spread of infection from her left ankle Continue Vanco and cefepime and will await ID recommendations Ice to joint was ordered by orthopedic (5) Right wrist pain Status: Acute Problem Text: Again, this is a new development. There is a soft tissue swelling at the carpus on x-ray Again this could be another septic embolus: Might require MRI of the right wrist. If the symptoms don't improve or they get worse , We'll closely monitor patient: Apply ice for symptom control as per orthopedic (6) Hypokalemia Status: Acute Problem Text: Corrected, repeat levels in a.m. Plan/VTE VTE Prophylaxis Ordered?: Yes VS, I&O, 24H, Fishbone Vital Signs/I&O Vital Signs Date Time Temp Pulse Resp B/P (MAP) Pulse Ox O2 Delivery O2 Flow Rate FiO2 12/22/19 10:00 67 20 121/61 (81) 96 Nasal Cannula 2.0 12/22/19 08:00 98.6 12/21/19 21:57 100 I&O- Last 24 Hours up to 6 AM 12/22/19 06:00 Intake Total 1470 ml Output Total 1725 ml Balance -255 ml Laboratory Data 24H LABS Laboratory Tests 2 12/21/19 12:23: Coronavirus (COVID-19)(PCR) NEGATIVE 12/21/19 18:43: Blood Gas Bicarbonate Standard 22.5, Arterial Blood pH 7.458H, Arterial Blood Partial Pressure CO2 29.5L, Arterial Blood Partial Pressure O2 84.8, Arterial Blood Total CO2 21.3L, Arterial Blood HCO3 20.4L, Arterial Blood Base Excess - 2.4L, Arterial Blood Oxygen Saturation 97.1 12/21/19 19:11: Nucleated Red Blood Cells % (auto) 0.0, Anion Gap 11, Glomerular Filtration Rate > 60.0, Lactic Acid Level 1.9, Calcium Level 8.0L, Total Bilirubin 1.0, Aspartate Amino Transf (AST/SGOT) 28, Alanine Aminotransferase (ALT/SGPT) 43, Alkaline Phosphatase 146H, Troponin I < 0.02, Total Protein 6.1L, Albumin 2.0L, Albumin/Globulin Ratio 0.49L 12/22/19 04:53: Nucleated Red Blood Cells % (auto) 0.0, Anion Gap 9, Glomerular Filtration Rate > 60.0, Calcium Level 8.1L, Total Bilirubin 1.0, Aspartate Amino Transf (AST/SGOT) 26, Alanine Aminotransferase (ALT/SGPT) 35, Alkaline Phosphatase 132H, Troponin I < 0.02, Total Protein 5.0L, Albumin 1.9L, Albumin/Globulin Ratio 0.61L, Neutrophils (%) (Auto) , Neutrophils 94H, Band Neutrophils 1, Lymphocytes (Manual) 1L, Monocytes (Manual) 3, Metamyelocytes 1H, Anisocytosis 1+, Dohle Bodies 1+, Platelet Estimate NORMAL, Clumped Platelets SMALL AMT, Phosphorus Level 2.8, Magnesium Level 1.7L, Lactate Dehydrogenase 263H, Total Creatine Kinase 103, Triglycerides Level 184H, Cholesterol Level 124 12/22/19 09:52: Vancomycin Level Trough 18.2 CBC/BMP Laboratory Tests 12/21/19 19:11 12/22/19 04:53 Microbiology Microbiology 12/22/19 Blood Culture, Received Pending 12/22/19 Blood Culture, Received Pending 12/21/19 Blood Culture - Preliminary, Resulted 12/21/19 Respiratory Panel (PCR) - Final, Complete LUL LOYA MD Dec 22, 2019 11:15
--- NOTE | 2019-12-22 13:11 | CCN ---
DATE OF SERVICE: 12/22/2019 SUBJECTIVE: Ms. Hancock was seen and examined this morning. She currently has no new complaints. There have been no adverse events reported overnight. She has had a fever of 102.5 yesterday. She has remained fairly afebrile since that point. This morning's preliminary blood cultures have resulted positive for gram positive cocci in clusters. Additionally, she has some increased redness tracking up her right lower extremity towards around her knee. The patient otherwise denies any other chills. She denies any cough. She states that her shortness of breath has improved. She has been continued on 2 liters of nasal cannula. OBJECTIVE: Vital signs: Temperature 98.6, respiratory rate 20, pulse 72, blood pressure 121/61, pulse oximetry 96% on 2 liters nasal cannula. General: The patient is awake, alert, and oriented. She does not appear in any acute distress. She is lying comfortably in bed. She has nasal cannula in place. Cardiovascular: Normal S1, S2, regular rate and rhythm. No clicks, rubs, or murmurs. Respiratory: There are clear vesicular breath sounds bilaterally. There are some decreased breath sounds on the right lower lung field. There is also dullness to percussion in the right lower lung field, as well, and decreased tactile fremitus. Symmetric chest expansion. There is no accessory muscle use. No wheezes, rhonchi, or rales. Abdominal: Soft, nondistended, nontender. No rebound tenderness or guarding. Normoactive bowel sounds throughout. Extremities: The patient has swelling and redness over the right lower extremity and ankle. There is some erythema tracking up the right leg towards the popliteal fossa. She does have some tenderness to palpation of that area, as well. Her left lower extremity is without edema. Her right wrist is tender. There is some increased swelling in the right wrist and arm and fingers. This is not appreciated on the left upper or lower extremity. There are no splinter hemorrhages or areas of ulceration on the fingertips or hands. Neurologic: No focal neurological deficits. Psychiatric: Mood and affect appear appropriate. LABORATORY DATA: Hematology: White blood cell 23.1, hemoglobin 11.3, hematocrit 33.2, platelet count 189, with 94% neutrophils. Chemistries: Sodium 132, potassium 3.2, chloride 97, carbon dioxide 26, BUN 20, creatinine 0.8, fasting glucose 107, calcium 8.1, phosphorus 2.8, magnesium 1.7, total bilirubin 1.0, AST 26, ALT 35, alkaline phosphatase 132, lactate dehydrogenase 263, total creatinine kinase 103, total protein 5, albumin 1.9, triglycerides 184, cholesterol 124. MICROBIOLOGY: Blood cultures from 12/21/2019: Gram positive cocci in clusters. IMAGING: Echocardiogram currently pending. INPATIENT MEDICATIONS: - sodium chloride 70 mL/h - cefepime 2 grams every 12 hours day #1 - vancomycin 1 gram every 12 hour day #3 - albuterol sulfate 2.5 mg every 1 hour as needed - Prilosec 20 mg twice a day by mouth - Percocet 5/325 one tablet every 4 hours as needed - ibuprofen 600 mg every 6 hours as needed - morphine sulfate 2 mg every 3 hours as needed - Tylenol 650 mg every 4 hours as needed ASSESSMENT AND PLAN: Ms. Hancock is a 64-year-old female who presented to [facility] Emergency Department originally with a right-sided ankle pain and after injuring it while doing yard work; on Sunday, she had presented with worsening of the pain and subsequently during her hospitalization developed hypoxia of unclear etiology. 1. Acute hypoxic respiratory failure secondary to unclear etiology. During the patient's hospitalization, she became acutely hypoxic, requiring at one point nonrebreather 100% FIO2. Currently, she is on 2 liters nasal cannula. Differential currently includes pneumonia, as the patient has bilateral patchy infiltrates, viral versus bacterial, as the patient also does have what appears to be consolidation in the right middle lung field, as well. Additionally, the patient has a history of having methicillin-resistant Staphylococcus aureus (MRSA). It is suspected that the patient's previous ankle injury leading to bacteremia and possible endocarditis leading to septic emboli as a possibility. Currently, the patient is continued on vancomycin and cefepime. Will continue at this time. 2. Gram positive bacteremia. As stated previously, the patient has a culture positive for gram positive cocci in clusters. Currently, awaiting full microbiology. The patient is continued on vancomycin and cefepime. Primary team has consulted infectious disease to follow. 3. Arthropathy. The patient has a right-sided ankle swelling, as well as right-sided wrist and is now complaining of some hip pain, as well. Her arthropathy, as well as acute hypoxia, cannot fully be explained. She has been worked up for autoimmune disease in the past. She does have a history of Lyme disease previously. However, the current timeline as the patient injured herself on Sunday and then subsequently developed increased swelling and bacteremia in that time is unlikely. She has been seen by orthopedic surgery. However, they have been unable to aspirate anything of significance from the joint. She is currently on ibuprofen for pain Dr. Suggs addendum; I was physically present during the above documented evaluation and participated in each of the kyle components of the exam and medical decision making. The etiology of the infection is not entirely clear at the moment and further studies may help to clarify it. I will be interested to hear what ID has to say after their evaluation. The patient is appropriate for ICU care at this time given instability. 47 minutes was spent in the provision of bedside critical care and coordination in excess of any procedure time. TANISHA
[2019-12-22] MEDS: IBUPROFEN 600 MG TAB PO PRN (15:13)
[2019-12-22] MEDS: COLCHICINE 0.6 MG TAB PO SCH (17:47)
--- NOTE | 2019-12-22 18:52 | CR ---
DATE OF CONSULTATION: 12/22/2019 INFECTIOUS DISEASE CONSULTATION NOTE HISTORY OF PRESENT ILLNESS: This is a 64-year-old female who reported to the emergency room due to worsening right ankle pain. She states the pain started after Sunday, when she was doing work in her garden. She started noticing pain in her right ankle and felt like she might have pulled a muscle. She decided to use crutches that she had to help keep weight off of the ankle. However, her pain continued to worsen. She called the orthopedic clinic and was seen by Dr. Hitchcock on 12/18/[address] Schuler on 12/19/2019. She has a history of osteoarthritis in the right tibiotalar joint and a history of a foot fusion of the right foot done in [place]; that was done in 2016. She was initially placed in a cast, but was subsequently changed to a boot due to discomfort. She was also given hydrocodone and ibuprofen in the outpatient setting. She then presented to the emergency room due to worsening pain. She also stared to notice right wrist pain, which she attributed to using crutches. During her admission, her right ankle became more swollen and erythema began to spread up the medial aspect of her right leg and thigh. She also reports pain starting in the left hip and stiffness of her left knee, which she previously had a total replacement of in 2017. On 12/21/2019, the patient had an episode of chills with worsening shortness of breath. She was placed on oxygen and had improvement of her shortness of breath. She was also moved to the intensive care unit (ICU). A CTA was performed for concern for pulmonary embolism (PE) and showed bilateral interstitial infiltrates. COVID-19 testing was performed and was found to be negative. The patient also had fevers up to 102.5 on 12/21/2019. She reports one episode of chills at home prior to hospital admission, but did not take her temperature. She denies any known fevers at home. She does have a history of methicillin-resistant Staphylococcus aureus (MRSA) infections, including a wound infection of her right foot in 2016, which was treated in the outpatient setting. Of note, she was hospitalized in 2010 with methicillin-sensitive Staphylococcus aureus (MSSA) infection in her left foot. Blood cultures at that time were negative. REVIEW OF SYSTEMS: A 10-point review of systems was complete and pertinent positives are thus in the history of present illness. All other systems are negative. PAST MEDICAL HISTORY: History of chronic kidney disease, which has improved. Gastroesophageal reflux disease (GERD). History of MRSA infection. Hypothyroidism. ALLERGIES: No known drug allergies. SURGICAL HISTORY: Left total knee arthroplasty by Dr. Hitchcock. Carpal tunnel release. Right foot reconstruction with 13 screws and 3 plates. SOCIAL HISTORY: Never smoker. Lives with her . Occasional alcohol use. No illicit or intravenous (IV) drug use. HOME MEDICATIONS: - famotidine - calcium - vitamin D - levothyroxine PHYSICAL EXAMINATION: Vital Signs: Temperature 98.6, heart rate 72, respiratory rate 20, blood pressure 121/61, saturating 96% on 2 liters nasal cannula. General: Lying comfortably in bed in no acute distress. HEENT: Normocephalic, atraumatic. Sclerae anicteric. Moist mucous membranes. Neck: Supple, no lymphadenopathy. Lungs: Clear to auscultation bilaterally. No wheezing, rhonchi, or rales. Cardiovascular: Regular rate and rhythm. Normal S1, S2. No murmurs, rubs, or gallops appreciated. Abdomen: Soft, nontender, nondistended. Bowel sounds present. Extremities: Right leg significant for edema in the foot extending up the calf and erythema in the foot extending up the medial calf and thigh close to the groin. Tenderness in the ankle. Warmth along the erythematous area. Decreased range of motion in the right ankle. On the left leg, there are no signs of infection. However, she has stiffness in moving her left knee and hip. Right arm shows an area of erythema and swelling over the ulnar aspect of the right wrist. Some mild restriction of range of motion and pain with movement of the right wrist. Left wrist appears normal without swelling or erythema. Skin: Erythema as noted above. No other rashes noted. Neurologic: Alert and oriented. No focal deficits appreciated. LABORATORY STUDIES: White blood cell count 23.1, hemoglobin 11.3, hematocrit 33.2, platelet count 189, ESR 43. Sodium 132, potassium 3.2, chloride 97, bicarbonate 26, BUN 20, creatinine 0.8, glucose 107, lactic acid 1.9, magnesium 1.7. CRP 28.1. LDH 263. Bilirubin 1.0, AST 26, ALT 35, alkaline phosphatase 132, total protein 5.0, albumin 1.9. Serology: Lyme testing pending. Microbiology: Respiratory panel negative. COVID-19 test negative. Blood culture times one from 12/21/2019 shows gram-positive cocci in clusters, further details pending. Blood cultures times two drawn on 12/22/2019 pending. IMAGING: Ankle MRI shows a small amount of loculated fluid and synovitis in the tibiotalar and posterior subtalar joints. If there is clinical concern for interarticular infection, joint aspiration may be useful. Abnormal marrow signal in the distal tibia and talus, likely reactive or secondary to disuse. Acute osteomyelitis is considered unlikely, but cannot be entirely excluded. Foot MRI: Diffuse osteoporosis pattern in the marrow. Narrowing and spur formation in the tibiotalar articulation consistent with osteoarthritis. Extensive metallic hardware artifact across the midfoot distorts and blocks bone detail visualization. No evidence of osteomyelitis or soft tissue abscess seen. CTA of the chest: Consolidation and atelectatic change in the right lower lobe. Early peribronchovascular infiltrate pattern seen in the left lower lobe. Patchy ill-defined nodular opacities bilaterally in the upper lobes and areas of ground-glass opacity is seen bilaterally in the upper lobes. No evidence of pulmonary embolus. No cavitary nodules seen. Small bilateral pleural effusions, right greater than left. Mild mediastinal adenopathy. Wrist x-ray: Soft tissue swelling about the carpus with subtle erosive changes in the ulnar styloid. Inflammatory arthropathy suspected. Old posttraumatic deformity of the distal radius. IMPRESSION/PLAN: 1. Cellulitis of the right lower extremity beginning in the ankle and now extending up the medial leg near the groin with gram-positive cocci bacteremia with Gram positive cocci in cluster concerning for MRSA bacteremia, especially with her most recent wound infection growing MRSA. Continue treatment with vancomycinday #3. The patient does have hardware in her right foot, which is concerning and may require further intervention. We have discontinued cefepime based on preliminary blood culture results. Vancomycin should be sufficient. Echocardiogram ordered to rule out endocarditis . 2. Swelling of the right wrist, concerning for gout versus pseudogout. Her uric acid level is low, though she does have a remote history of gout but has never been on any long-term medication for this. Pseudogout is a possibility, especially in the setting of bacteremia sepsis. Will start treatment with colchicine 0.6 mg for two doses. May continue treatment with colchicine if she shows some improvement of the right wrist. MTDD
--- NOTE | 2019-12-22 19:44 | ECHO ---
DATE OF PROCEDURE: 12/22/2019 REFERRING PHYSICIAN: Dr. Day INDICATION: Fever. Height 163 cm, weight 50 kg. DIMENSIONS: IVS: 0.9 LV: 3.7 LVPW: 1.0 LA: 2.0 Aorta: 3.2 IVC: 1.9 Mitral E wave velocity: 79 A wave: 76 E prime septal: 8.8 E prime lateral: 8.3 FINDINGS: The study is of very good technical quality. The patient is sinus rhythm. Left ventricle is of normal size and normal systolic function, I estimate left ventricular ejection fraction (LVEF) 60-65%. No segmental wall motion abnormalities are appreciated. Right ventricle is also normal size and systolic function. Both atria appear normal. Aortic valve has minimal sclerotic abnormality but mobility is preserved. Mitral and tricuspid valves appear normal. Pulmonic valve was not well seen. No pericardial effusion is noted. Inferior vena cava is on upper limits of normal values. Aortic root, aortic arch and abdominal aorta all appear normal. Doppler interrogation of aortic valve reveals no stenosis or insufficiency. There is trace mitral and trace tricuspid insufficiency. Calculated pulmonary artery pressure is in upper limits of normal values. Mitral inflow pattern and tissue Doppler imaging of mitral annulus revealed probably normal diastolic function even though tissue Doppler velocities of mitral annulus are mildly reduced. CONCLUSIONS: 1. Study is of good technical quality, the patient is in sinus rhythm. 2. Normal left ventricular (LV) size with normal LV systolic and diastolic function. 3. No significant valvular disease. 4. Likely normal central venous pressure and normal pulmonary artery pressure. COMMENT: Subacute bacterial endocarditis (SBE) prophylaxis is not recommended. No findings to explain fever. No visualized vegetations.
[2019-12-23] VITALS: BP 108/69
[2019-12-23] MEDS: IBUPROFEN 600 MG TAB PO PRN ×2 (01:27→12:37)
[2019-12-23] MEDS: PERCOCET 5MG/325MG TAB PO PRN ×3 (03:04→21:06)
[2019-12-23 04:00] VITALS: BP 115/58
[2019-12-23 06:08] LABS: HEMATOCRIT 29.7 % (36.0-47.0); HEMOGLOBIN 10.1 g/dl (12.0-15.5); MEAN CORPUSCULAR VOLUME 85.3 fl (80.0-96.0); PLATELET COUNT, AUTOMATED 166 10^3/uL (150-450); RED BLOOD COUNT 3.48 10^6/uL (4.00-5.40); WHITE BLOOD COUNT 23.3 10^3/uL (4.0-10.0)
[2019-12-23 06:21] LABS: ALBUMIN 1.5 GM/DL (3.2-5.2); ALT/SGPT 22 U/L (12-78); BILIRUBIN,TOTAL 1.2 MG/DL (0.2-1.0); BLOOD UREA NITROGEN 20 MG/DL (7-18); CALCIUM LEVEL 7.5 MG/DL (8.8-10.2); CARBON DIOXIDE LEVEL 23 MEQ/L (21-32); CHLORIDE LEVEL 105 MEQ/L (98-107); CHOLESTEROL LEVEL 116 MG/DL (< 200); CPK CREATINE PHOSPHOKINASE 50 U/L (26-192); CREATININE FOR GFR 0.66 MG/DL (0.55-1.30); GLOMERULAR FILTRATION RATE > 60.0 (>45); GLUCOSE, FASTING 90 MG/DL (70-100); LDH LACTATE DEHYDROGENASE 171 U/L (84-246); PHOSPHORUS LEVEL 2.2 MG/DL (2.5-4.9); POTASSIUM SERUM 3.4 MEQ/L (3.5-5.1); SODIUM LEVEL 137 MEQ/L (136-145); TOTAL PROTEIN 4.3 GM/DL (6.4-8.2); TRIGLYCERIDES LEVEL 172 MG/DL (<150)
[2019-12-23 06:58] LABS: LYMPHOCYTES 1 % (16-44); METAMYELOCYTES 1 % (0-0); MONOCYTES 2 % (0-5); NEUTROPHILS 96 % (28-66); PLATELET ESTIMATE NORMAL (NORMAL)
[2019-12-23 07:03] LABS: POIKILOCYTOSIS 1+
[2019-12-23 08:00] VITALS: BP 121/58
[2019-12-23 08:28] LABS: ERYTHROCYTE SEDIMENTATION RATE 41 mm/hr (0-30)
[2019-12-23] MEDS: OMEPRAZOLE 20 MG CAP PO SCH ×2 (08:58→21:02)
[2019-12-23] MEDS: COLCHICINE 0.6 MG TAB PO SCH ×2 (08:58→21:02)
[2019-12-23 09:17] LABS: NT-PRO BNP 425 PG/ML (<125)
[2019-12-23] MEDS ORDERED: POTASSIUM CHLORIDE 10 MEQ SR TABLET PO ONE (10:00)
[2019-12-23] MEDS: VANCOMYCIN HCL 1,000 MG, VIAL MATE ADAPTER 1 EACH in D5W 250 ML IV SCH ×2 (11:28→22:54)
[2019-12-23 12:00] VITALS: BP 121/61
[2019-12-23] MEDS: NS 1,000 ML IV SCH (12:30)
--- NOTE | 2019-12-23 14:43 | CCN ---
DATE OF SERVICE: 12/23/2019 SUBJECTIVE: Ms. Hancock was seen and examined again this morning. She currently has no new complaints. She has continued complaints of joint pain in both her right wrist and right leg, although she has noted improvement in her right wrist as well as decrease in swelling as well. She is afebrile today, however did have a temperature of 100.3 yesterday. She denies any chills. She states that her shortness of breath has improved significantly. She is currently on room air. OBJECTIVE: VITAL SIGNS: Temperature 98.4, pulse 65, respiratory rate 18, blood pressure 121/61, pulse oximetry 100% on room air. GENERAL: The patient is awake, alert, oriented. She does not appear in any acute distress. She is lying in bed comfortably. She has ice packs applied to her right leg and foot. HEENT: Atraumatic, normocephalic. Eyes nonicteric. Trachea is midline. Mucous membranes are pink and moist. Dentition is fair. CARDIOVASCULAR: Normal S1, S2, regular rate and rhythm. No clicks, rubs, or murmurs. RESPIRATORY: The patient has clear breath sounds, although continued decreased breath sounds in the right lower lung field. There is some mild bibasilar crackles and some continued dullness to percussion in the right lower lung field, although it has improved from previous examination. She has symmetric chest expansion. There is no accessory muscle use. There are wheezes or rhonchi. ABDOMINAL: Soft, nondistended, nontender. No rebound tenderness or guarding. Normoactive bowel sounds throughout. EXTREMITIES: The patient has continued swelling of her right lower extremity with some overlying erythema, however this has improved from yesterday's examination. She has some mild swelling in her right upper extremity and hand as well, although this has improved since yesterday as well. There is no more erythema of her right wrist or arm. NEUROLOGIC: No focal neurological deficits. PSYCHIATRIC: Mood and affect appear appropriate. LABORATORY DATA: Hematology: White blood cell 23.3, hemoglobin 10.1, hematocrit 29.7, platelet count 166. ESR 41. Chemistry: Sodium 137, potassium 3.4, chloride 105, CO2 23, BUN 20, creatinine 0.66, fasting glucose 90, calcium 7.5, phosphorus 2.2, total bilirubin 1.2, AST 13, ALT 22, alkaline phosphatase 136, lactate dehydrogenase 171, total creatinine kinase 50. C-reactive protein 23.6. NT-proBNP 425. Total protein 4.3, albumin 1.5, triglycerides 172, cholesterol 116. Microbiology: Blood cultures from 12/22/2019 negative times two. Blood cultures from 12/21/2019 positive for Staphylococcus aureus. Sensitivity is currently pending. Vancomycin trough 18.4. IMAGING: Chest x-ray from 12/23/2019 demonstrating improvement in her right-sided pleural effusion, continued bilateral patchy opacifications. INPATIENT MEDICATIONS: - sodium chloride 70 mL/h - albuterol sulfate 2.5 mg every 1 hour as needed - omeprazole 20 mg twice a day by mouth - Percocet 5/325 one tablet every 4 hours as needed - Percocet 5/325 two tablets every 4 hours as needed - ibuprofen 600 mg every 6 hours as needed - vancomycin 1 gram every 12 hour - morphine sulfate 2 mg every 3 hours as needed - Tylenol 650 mg every 4 hours as needed ASSESSMENT AND PLAN: Ms. Hancock is a 64-year-old female who presented to [facility] Emergency Department with right-sided ankle pain, swelling secondary to injuring it doing yard work. During her hospitalization, she had developed acute hypoxic respiratory failure of unclear etiology and pulmonary was consulted. 1. Acute hypoxic respiratory failure secondary to unclear etiology. The patient was previously acutely hypoxic, at one point did require nonrebreather 100% FiO2. She had been taken down to 2 liters nasal cannula. Currently, she is on room air at 100%. On her x-ray and chest CT she had a right-sided consolidation as well as bilateral patchy infiltrates. This was originally thought to be a viral versus bacterial pneumonia, however this appears to be resolving. A chest x-ray was repeated today, which revealed resolution of her right-sided pleural effusion as well as some resolution of the bilateral patchy infiltrates. This makes viral or bacterial pneumonia unlikely at this time. The exact etiology still remains unclear, although is likely some autoimmune or inflammatory process. The patient acutely developed joint pain followed by what looked like an interstitial pneumonia picture. She has had autoimmune workup in the past, however this was completed between [id number]. We will reorder a workup to look for autoimmune diseases such as connective tissue disease, rheumatoid and PIYUSH titers. It was previously thought that the patient may have had a septic emboli secondary to endocarditis from bacteremia, however, the time course does not fit. Regardless, the patient is continued on vancomycin at this current time. 2. Gram positive bacteremia. The patient has one culture positive for gram positive bacteremia, which has resulted to have Staphylococcus aureus. This was taken on 12/21/2019. Unfortunately, only one culture was drawn at the time. Her repeat cultures on 12/22/2019 have been negative so far. The patient has been seen by infectious disease. She is currently on vancomycin. She had a transthoracic echocardiogram yesterday, which did not demonstrate any valvular lesion. The patient will likely need a transesophageal echocardiogram to definitely rule out endocarditis, however will differ this to the primary team and to infectious disease. 3. Arthropathy. The patient had right-sided ankle swelling, as well as right-sided wrist pain. She has also been complaining of hip pain as well. In her past, she has had fracture of the right wrist. She has also had fracture of the right ankle as well as other episodes of arthralgias. She states that she was told she had gout in the past, however there was no formal work-up or diagnosis of this. Her uric acid was low at the time. She has never had a joint aspirate to examine for gout as well. She was started on colchicine yesterday per infectious disease. She had received one dose this morning. She stated that her wrist had improved and red and swelling have gone down. However, this does not coincide with a gout attack as it takes longer than one day to improve. At this time, we are considering more of an inflammatory or autoimmune course. We have added on autoimmune workup for tomorrow's labs. Additionally, the patient has had multiple fractures. She states that she is currently planned to have a DEXA scan completed, however it has been cancelled due to the COVID-19 pandemic. The patient should on discharge be on bisphosphonate or vitamin D supplementation as she has had multiple fractures. Dr. Suggs addendum: I was physically present during the kyle portions of the history and physical examination. We collaborated on the medical decision making and I agree with the plan as stated. This patients presentation begs the question of inflammatory disease though infection seems unlikely. TANISHA
--- NOTE | 2019-12-23 16:28 | IPN ---
DATE: 12/23/2019 SUBJECTIVE: Patient was seen and examined today lying comfortably in bed. She is breathing comfortably on room air and states she is feeling better than yesterday. She notes improvement in the swelling in her wrist but states it is still quite tender, especially when she moves it. She also notes her right leg remains very tender when moved or touched. She states the ice is helping in addition to the pain medication. She denies any diarrhea overnight. OBJECTIVE/PHYSICAL EXAMINATION: VITAL SIGNS: Temperature 98.4, heart rate 65, respiratory rate 18, blood pressure 121/61 saturating 100% on room air. GENERAL: Lying comfortably in bed in no acute distress. HEENT: Normocephalic atraumatic. Sclerae anicteric. Moist mucous membranes. NECK: Supple, no lymphadenopathy. LUNGS: Clear to auscultation bilaterally. No wheezing rhonchi or rales. CARDIOVASCULAR: Regular rate and rhythm. Normal S1, S2. No murmurs, rubs or gallops appreciated. ABDOMEN: Soft, nontender, nondistended. Bowel sounds present. EXTREMITIES: Right leg significant for edema in the foot extending up the calf and erythema in the foot extending up the medial calf and thigh close to the groin. The erythema has improved since yesterday. Tenderness in the ankle and warmth along the erythematous areas. Decreased range of motion in the right ankle. The left leg is clear of any erythema, edema or tenderness. She has stiffness moving the left knee and hip, improved from yesterday. Her right arm shows improvement with only mild erythema over the ulnar aspect of the right wrist. Range of motion has improved but she reports pain with movement. Left wrist appears normal without swelling or erythema. SKIN: Erythema as noted above. No other rashes noted. NEUROLOGIC: Alert and oriented. No focal deficits appreciated. LABORATORY STUDIES: White blood cell count 23.3, hemoglobin 10.1, hematocrit 29.7, platelet count 166. Sodium 137, potassium 3.4, chloride 105, bicarbonate 23, BUN 20, creatinine 0.66, glucose 90, phosphorus 2.2. Total bilirubin 1.2, AST 13, ALT 22, alkaline phosphatase 136. Lactate dehydrogenase 171, creatinine kinase 50, CRP 23.6. NT proBNP 425. Total protein 4.3, albumin 1.5. Line testing remains pending. IMAGING: Chest x-ray: Improvement of infiltrates and pleural effusions compared to chest x-ray from 12/21/2019. IMPRESSION/PLAN: 1. Cellulitis of the right lower extremity beginning from the ankle and now extending up the medial leg near the groin with Staphylococcus aureus bacteremia. We cannot rule out methicillin resistant Staphylococcus aureus (MRSA) bacteremia, especially with her most recent wound infection growing MRSA. Continue treatment with vancomycin. This is day #4. If the sensitivity results show methicillin sensitive Staphylococcus aureus (MSSA), antibiotics may be de-escalated to nafcillin 2 grams every 6 hours. The patient does have hardware in her right foot, which is concerning and may require further intervention if her infection does not resolve. 2. Gout versus pseudogout of the right wrist: She received two doses of colchicine and has improvement of the swelling and erythema of her right wrist. We will continue treatment with colchicine 0.6 mg twice a day for 3 days. We have called the patient's this afternoon to update him on the patient's condition. [facility]
--- NOTE | 2019-12-23 18:47 | IPNPDOC ---
Date Seen The patient was seen on 12/23/19. Progress Note SUBJECTIVE: Pain, redness and swelling slightly decreased on the right lower extremity compared to 12/22/2019. The patient is off of oxygen and doing well on room air. Echocardiogram negative for vegetations, will discuss possible MARVA. The writst continue to be swollen and at times cause discomfort. Denies chest pain, worsening short of breath, fevers, chills, nausea, vomiting. OBJECTIVE: VITAL SIGNS: Please see below PHYSICAL EXAMINATION: CONSTITUTIONAL: resting comfortably at the bedside chair, AAO x 3 EYES: PERRLA, EOM intact HENT, MOUTH: Normocephalic, atraumatic, moist mucous membranes NECK: SUPPLE, no JVD, no lymphadenopathy, no carotid bruit CV: Regular rate and rhythm, S1S2 normal, no murmurs/rubs/gallops RESPIRATORY: Decreased breath sounds in the R>L, mild crackles at bases bilaterally. no rales/rhonchi/wheezes GI: BS positive in 4 quadrants, soft, nontender, nondistended, no rebound or guarding, no organomegaly : Deferred MUSCULOSKELETAL: Bilateral wrists slightly swollen, tender to touch. Normal ROM. No cyanosis, clubbing. RLE swelling, tenderness improved. Redness and erythema decreased and currently isolated to foot, area beneath riht knee. INTEGUMENTARY: Intact, no lesions, no erythema NEUROLOGIC: Cranial Nerves II-XII are intact, no focal deficits PSYCHIATRIC: Mood and affect are normal CURRENT MEDICATIONS: Please see below LABORATORY DATA: Please see below IMAGING: CXR: Improved infiltrates and pleural effusion- official report pending. ASSESSMENT: 64 y/o F treated for RLE cellulitis, possible arthropathy inflammatory vs. autoimmune, resolved acute hypoxic respiratory failure. PLAN: 1. Acute hypoxic respiratory failure secondary to unclear etiology. Resolved. Currently on RA. Unlikely viral or bacterial etiology, repeat CXR improved with resolution of pleural effusion. Septic emboli was thought to explain acute n ature of hypoxia and patient is improved on Vancomycin; however, echo neg. Cannot rule out completely with elevated WBC, will discuss with team to see if MARVA warranted. Autoimmune or inflammatory cause possible. Workup pending. Pulmonary following. 2. Gram positive bacteremia. Difficult to say if true bacteremia vs. contaminated specimen as there was only one set collected and 1/2 positive. R epeat Cx thus far neg. If WBC remain elevated, suspicion remains high for endocarditis or patient does not improve on current treatment, would recommend MARVA. ID following. 3. Arthropathy of bilteral upper ext, right ankle, hip. Improving slightly. F/u autoimmune and inflammatory workup above. On cholchicine per ID. 4. Cellulitis of RLE. WBC still elevated; however, overall erythema and redness improving on Vancomycin. F/u BCx, daily labs. 5. Hypokalemia. S/p 30 mEq KCL admin this AM. If low again tomorrow, start on supplementation 20 mEq BID. 6. DVT px. Enoxaparin SC daily. DISPOSITION: Currently admitted under inpatient status. If pain better controlled on 12/24/19, consider PT/OT. Plan is discharge home when medically improved. called but left message as requested by patient. VS, I&O, 24H, Fishbone Vital Signs/I&O Vital Signs Date Time Temp Pulse Resp B/P (MAP) Pulse Ox O2 Delivery O2 Flow Rate FiO2 12/23/19 13:05 20 98 Room Air 12/23/19 12:00 98.4 65 121/61 (81) 12/23/19 04:00 1.0 12/23/19 03:04 100 I&O- Last 24 Hours up to 6 AM 12/23/19 06:00 Intake Total 1870 ml Output Total 775 ml Balance 1095 ml Laboratory Data 24H LABS Laboratory Tests 2 12/23/19 05:32: Neutrophils (%) (Auto) , Nucleated Red Blood Cells % (auto) 0.0, Neutrophils 96H, Lymphocytes (Manual) 1L, Monocytes (Manual) 2, Metamyelocytes 1H, Red Blood Cell Morphology , Poikilocytosis 1+, Dohle Bodies , Platelet Estimate NORMAL, Erythrocyte Sedimentation Rate 41H, Anion Gap 9, Glomerular Filtration Rate > 60 .0, Calcium Level 7.5L, Phosphorus Level 2.2#L, Total Bilirubin 1.2H, Aspartate Amino Transf (AST/SGOT) 13, Alanine Aminotransferase (ALT/SGPT) 22, Alkaline Phosphatase 136H, Lactate Dehydrogenase 171, Total Creatine Kinase 50, C- Reactive Protein, Quantitative 23.60H, LF-Wxf-M-Type Natriuretic Peptide 425H, Total Protein 4.3L, Albumin 1.5#L, Albumin/Globulin Ratio 0.54L, Triglycerides Level 172H, Cholesterol Level 116 12/23/19 09:50: Vancomycin Level Trough 18.4 CBC/BMP Laboratory Tests 12/23/19 05:32 Microbiology Microbiology 12/22/19 Blood Culture - Preliminary, Resulted No growth after 24 hours . All specim... 12/22/19 Blood Culture - Preliminary, Resulted No growth after 24 hours . All specim... 12/21/19 Blood Culture - Preliminary, Resulted Staphylococcus Aureus 12/21/19 Respiratory Panel (PCR) - Final, Complete Current Medications Current Medications Medications (Trade) Dose Ordered Sig/Howard Route PRN Reason Start Time Stop Time Status Last Admin Dose Admin Acetaminophen (Tylenol Tab) 650 mg Q4HP PRN PO PAIN OR FEVER 12/20/19 01:30 12/21/19 18:40 Albuterol Sulfate (Proventil Neb) 2.5 mg Q1HP PRN NEB SOB/WHEEZING 12/21/19 16:00 12/21/19 18:31 Cefazolin Sodium 1 gm/Dextrose 50 ml @ 100 mls/hr Q8H IV 12/21/19 18:00 12/22/19 02:17 DC 12/22/19 01:17 Cefepime HCl 1 gm/ Dextrose 50 ml @ 100 mls/hr Q12H IV 12/21/19 09:00 12/21/19 15:51 DC 12/21/19 09:19 Cefepime HCl 1 gm/ Dextrose 50 ml @ 100 mls/hr Q12H IV 12/22/19 08:00 12/22/19 02:39 DC Cefepime HCl 2 gm/ Dextrose 50 ml @ 100 mls/hr Q12H IV 12/22/19 02:00 12/22/19 15:08 DC 12/22/19 14:05 Colchicine (Colcrys) 0.6 mg BID PO 12/23/19 21:00 12/26/19 09:01 Colchicine (Colcrys) 0.6 mg DAILY PO 12/22/19 17:00 12/23/19 09:01 DC 12/23/19 08:58 Enoxaparin Sodium (Lovenox) 40 mg DAILY SC 12/24/19 09:00 UNV Home Med (Med Rec Complete!) ASDIRECTED XX 12/20/19 02:15 12/20/19 02:12 DC Ibuprofen (Advil) 600 mg Q6HP PRN PO MODERATE PAIN (PS 5-7) 12/20/19 17:15 12/23/19 12:37 Lactated Ringer's 1,000 ml @ 90 mls/hr Q11H7M IV 12/20/19 01:30 12/20/19 17:15 DC 12/20/19 13:17 Lactated Ringer's 1,000 ml @ 90 mls/hr Q11H7M IV 12/21/19 00:00 12/21/19 18:39 DC 12/21/19 12:18 Lactated Ringer's 1,000 ml @ 90 mls/hr Q11H7M IV 12/22/19 00:00 12/21/19 21:57 DC Miscellaneous (Unresolved Clarification Entry) SEE LABEL COMMENTS UNRESOLVED XX 12/20/19 00:01 12/21/19 07:42 DC Morphine Sulfate (Morphine Sulfate Inj) 2 mg Q3HP PRN IV PAIN 12/20/19 04:45 12/20/19 11:11 Morphine Sulfate (Morphine Sulfate Inj) 3 mg Q3HP PRN IV PAIN 12/20/19 01:30 12/20/19 04:40 DC Omeprazole (PriLOSEC) 20 mg BID PO 12/21/19 09:00 12/23/19 08:58 Oxycodone/ Acetaminophen (Percocet 5mg/ 325mg Tablet) 1 tab Q4HP PRN PO MILD/MODERATE PAIN (PS 1-7) 12/20/19 18:00 12/23/19 12:35 Oxycodone/ Acetaminophen (Percocet 5mg/ 325mg Tablet) 1 tab Q6HP PRN PO MILD/MODERATE PAIN (PS 1-7) 12/20/19 11:30 12/20/19 17:15 DC Oxycodone/ Acetaminophen (Percocet 5mg/ 325mg Tablet) 2 tab Q4HP PRN PO SEVERE PAIN (PS 8-10) 12/20/19 18:00 12/21/19 13:14 Oxycodone/ Acetaminophen (Percocet 5mg/ 325mg Tablet) 2 tab Q6HP PRN PO SEVERE PAIN (PS 8-10) 12/20/19 11:30 12/20/19 17:15 DC 12/20/19 14:08 Sodium Chloride 1,000 ml @ 70 mls/hr [id number] IV 12/22/19 08:30 12/23/19 12:30 Vancomycin HCl 1000 mg/IV Miscellaneous Supplies 1 each/ Dextrose 270 ml @ 270 mls/hr Q12H IV 12/20/19 11:00 12/23/19 11:28 Allergies Coded Allergies: No Known Allergies (Unverified , 12/19/19) Valencia Wu MD Dec 23, 2019 18:47
[2019-12-23 22:00] VITALS: BP 114/67
[2019-12-24 00:06] LABS: Lyme Disease IgG/IgM Antibodie <0.91 ISR (0.00-0.90); Lyme Disease IgM Ab Quantitati <0.80 index (0.00-0.79)
[2019-12-24] MEDS: PERCOCET 5MG/325MG TAB PO PRN ×4 (03:09→20:33)
[2019-12-24] MEDS: NS 1,000 ML IV SCH (03:10)
--- NOTE | 2019-12-24 04:11 | REP ---
Clinical: Right-sided pleural effusion. Comparison: 12/21/2019, 12/19/2019. Findings: Mediastinum and cardiac silhouette are normal. The lung beckford demonstrate scattered bilateral reticulonodular infiltrates and subtle hazy opacity at the right base suggesting small layering effusion. No pneumothorax. Skeletal structures are intact. Impression: Diffuse bilateral interstitial and alveolar infiltrates along with small right pleural effusion. Electronically Signed by Dain Welsh MD 12/24/2019 04:03 A
[2019-12-24 06:00] VITALS: BP 115/62
[2019-12-24 06:12] LABS: HEMATOCRIT 29.2 % (36.0-47.0); HEMOGLOBIN 9.8 g/dl (12.0-15.5); MEAN CORPUSCULAR HEMOGLOBIN 28.4 pg (27.0-33.0); MEAN CORPUSCULAR HGB CONC 33.6 g/dl (32.0-36.5); MEAN CORPUSCULAR VOLUME 84.6 fl (80.0-96.0); PLATELET COUNT, AUTOMATED 228 10^3/uL (150-450); RED BLOOD COUNT 3.45 10^6/uL (4.00-5.40); WHITE BLOOD COUNT 28.1 10^3/uL (4.0-10.0)
[2019-12-24 06:36] LABS: EOSINOPHILS 2 % (0-3); LYMPHOCYTES 2 % (16-44); METAMYELOCYTES 2 % (0-0); MONOCYTES 3 % (0-5); NEUTROPHILS 89 % (28-66)
[2019-12-24 06:37] LABS: ALBUMIN 1.4 GM/DL (3.2-5.2); ALT/SGPT 22 U/L (12-78); ANISOCYTOSIS 1+; BILIRUBIN,TOTAL 1.4 MG/DL (0.2-1.0); BLOOD UREA NITROGEN 20 MG/DL (7-18); CALCIUM LEVEL 7.3 MG/DL (8.8-10.2); CARBON DIOXIDE LEVEL 21 MEQ/L (21-32); CHLORIDE LEVEL 108 MEQ/L (98-107); CHOLESTEROL LEVEL 118 MG/DL (< 200); COMPLEMENT C3 118 MG/DL (90-180); COMPLEMENT C4 12 MG/DL (10-40); CPK CREATINE PHOSPHOKINASE 27 U/L (26-192); CREATININE FOR GFR 0.58 MG/DL (0.55-1.30); GLOMERULAR FILTRATION RATE > 60.0 (>45); GLUCOSE, FASTING 96 MG/DL (70-100); LDH LACTATE DEHYDROGENASE 229 U/L (84-246); PHOSPHORUS LEVEL 2.2 MG/DL (2.5-4.9); PLATELET ESTIMATE NORMAL (NORMAL); POTASSIUM SERUM 3.7 MEQ/L (3.5-5.1); SODIUM LEVEL 137 MEQ/L (136-145); TOTAL PROTEIN 4.5 GM/DL (6.4-8.2); TRIGLYCERIDES LEVEL 149 MG/DL (<150)
[2019-12-24 06:40] LABS: POIKILOCYTOSIS 1+; SCHISTOCYTES 1+
[2019-12-24] MEDS: COLCHICINE 0.6 MG TAB PO SCH ×2 (08:40→20:33)
[2019-12-24] MEDS: OMEPRAZOLE 20 MG CAP PO SCH ×2 (08:41→20:33)
[2019-12-24] MEDS ORDERED: ENOXAPARIN 40MG/0.4ML SYRINGE (J1650 PER 10MG) SC SCH (09:00)
[2019-12-24 09:30] LABS: RHEUMATOID FACTOR QUANT 14.9 IU/ML (<15.0)
[2019-12-24] MEDS: VANCOMYCIN HCL 1,000 MG, VIAL MATE ADAPTER 1 EACH in D5W 250 ML IV SCH ×2 (11:15→23:43)
--- NOTE | 2019-12-24 11:28 | CCN ---
PULMONARY CRITICAL CARE PROGRESS NOTE DATE OF SERVICE: 12/24/2019 ATTENDING PHYSICIAN: Trevro Suggs DO SUBJECTIVE: Ms. Hancock was seen again this morning. There have been no adverse reports overnight. She has remained afebrile. She has remained on room air with saturations in the 98%. She has been transferred to the medical-surgical floor. She currently continues to complain of right ankle pain and swelling. She states that her right wrist has improved. She does continue to have an elevated white blood cell count. She has continued to be followed by infectious disease. Her microbiology has resulted in Staphylococcus aureus. Blood culture was oxacillin resistant. She is currently on methicillin-resistant Staphylococcus aureus (MRSA) precautions and continued on vancomycin. OBJECTIVE: VITAL SIGNS: Temperature 98.9, pulse 89, respiratory rate 18, blood pressure 115/52, pulse oximetry 95% on room air. GENERAL: The patient is awake, alert, and oriented. She does not appear in any acute distress. She is lying in bed comfortably. She is conversive. HEENT: Atraumatic, normocephalic. Eyes anicteric. Trachea is midline. Mucous membranes are pink and moist. CARDIOVASCULAR: Normal S1, S2, regular rate and rhythm. No clicks, rubs, or murmurs. PULMONARY: The patient has clear breath sounds. There are some bibasilar crackles. There is improved aeration overall, including the right lower lung field. There is symmetric chest expansion, and there is good respiratory effort. ABDOMINAL: Soft, nondistended, nontender. No rebound tenderness or guarding. Normoactive bowel sounds. EXTREMITIES: The patient has continued swelling with some mild erythema of the right lower extremity, mostly in the ankle. Her left leg is without edema. Her right upper extremity wrist and hand have some mild swelling, improved significantly from previous examination. There is no overlying erythema. She has full and equal pulse in bilateral upper and lower extremities. NEUROLOGIC: No focal neurological deficits. PSYCHIATRIC: Mood and affect appear appropriate. LABORATORY DATA: Hematology: White blood cell 28.1, hemoglobin 9.8, hematocrit 29.2, platelet count 228. Chemistry: Sodium 137, potassium 3.8, chloride 108, CO2 21, BUN 20, creatinine 0.58, fasting glucose 96, calcium 7.5, phosphorus 2.2, total bilirubin 1.4, AST 17, ALT 22, alkaline phosphatase 257, lactate dehydrogenase 229, total creatinine kinase 27, total protein 4.5, albumin 1.4. Rheumatoid factor 14.9, complement 118, complement C4 12. Further immunological workup pending. MICROBIOLOGY: Blood culture from 12/21/2019 positive for methicillin resistant Staphylococcus aureus. Two blood cultures from 12/24/2019 negative for any growth. IMAGING: From 12/23/2019 demonstrating diffuse bilateral interstitial and alveolar infiltrates, along with a small right pleural effusion. Lyme disease IgG/IgM titer less than 0.91. IgM quantitation less then 0.80. INPATIENT MEDICATIONS: - Lovenox 40 mg daily - colchicine 0.6 mg twice a day - albuterol 2.5 mg every 1 hour as needed - Prilosec 20 mg twice a day - Percocet 5/325 one tablet every 4 hours as needed - Percocet 5/325 two tablets every 4 hours as needed - Advil 200 mg every 6 hours as needed - vancomycin every 12 hours intravenous (IV), currently on day #5 - morphine 2 mg every 3 hours as needed - Tylenol 650 mg every 4 hours as needed ASSESSMENT AND PLAN: Ms. Hancock is a 64-year-old female who presented to [facility] Emergency Department with right-sided ankle pain, swelling secondary to injuring it during yard work. During her hospitalization, she had developed acute hypoxic respiratory failure of unclear etiology, and pulmonary medicine was consulted. 1. Acute hypoxic respiratory failure secondary to unclear etiology. The patient has improved significantly, and she is currently on room air, not requiring any supplemental oxygenation. She had a repeat chest x-ray yesterday, which demonstrated significant resolution of her right-sided pleural effusion, as well as some continued but improved bilateral interstitial and alveolar infiltrates. She is currently denying any cough. She has been afebrile. At this point, a pneumonia is continued to be unlikely. Her etiology does remain unclear, although an autoimmune inflammatory process appears to be more likely, given the acuity of her lung involvement. Currently, autoimmune workup has been ordered. This is currently pending. Will need followup when results are made. In regard to the possibility of septic emboli, although this remains unlikely, her transthoracic echocardiogram (TTE) has been negative. If she needs a followup with a transesophageal echocardiogram (MARVA), this will be deferred to the primary team. 2. Gram positive bacteremia with methicillin-resistant Staphylococcus aureus. The patient had one culture positive for gram positive bacteremia, which has resulted in methicillin-resistant Staphylococcus aureus. This culture was done on 12/21/2019. There was only one culture drawn at the time. Repeat cultures have been negative. She is being continued on vancomycin. She is currently on day #5. TTE has been negative for any valvular lesions. MARVA will be deferred to the primary team. The patient is being followed by infectious disease and will likely need long-term antibiotics. 3. Arthropathy. The patient continues to have right-sided ankle swelling, as well as right-sided wrist pain. This could be secondary to an infected joint from Staphylococcus aureus, although the acuity of it does not quite fit the picture. She has had a history of inflamed joints in the past. She just recently had an inflammation of her right wrist, which seems to have resolved. She was started on colchicine by infectious disease for empiric treatment of gout. She has been told she has gout in the past. However, at the time, her uric acid was low. Regardless, she is continued on colchicine. Her joint swelling may be secondary to autoimmune inflammatory process, as well. As stated previously, her autoimmune workup is currently pending. Regarding her multiple fractures, she is recommended to have her DEXA scan when able to do so, and she will likely need vitamin D or calcium supplementation due to her multiple fractures. Dr. Suggs addendum: I personally attended the patient and participated in the kyle elements of the history, physical and interpretation of diagnostic testing. I agree with the results of the medical decision making as outlined above. This is a complex case with several discordant elements and multiple results yet pending. TANISHA
[2019-12-24] MEDS ORDERED: ISOVUE-370 76% 100ML VIAL As Ordered ONE (13:55)
[2019-12-24 14:00] VITALS: BP 155/78
--- NOTE | 2019-12-24 16:19 | REP ---
CT RIGHT FEMUR WITH CONTRAST: CT right femur performed following the intravenous administration of 100 mL of Isovue 370. Sagittal and coronal reconstruction images are performed. The right femur is intact with no fracture or bone lesion. There is no dislocation. Incidental note is made of old healed fractures of the inferior pubic rami bilaterally. However, there is a superimposed acute fracture of the left inferior pubic ramus. The visualized soft tissues are diffusely edematous. Mild free fluid is seen in the pelvis. No abscess collection is seen in the visualized soft tissues. There is a small joint effusion at the knee. Small amount of nonocclusive thrombus is seen in the central aspect of the greater saphenous vein. Electronically Signed by Joseph Mclean MD 12/24/2019 04:27 P
--- NOTE | 2019-12-24 16:23 | REP ---
CT RIGHT LOWER LEG WITH IV CONTRAST: CT right lower leg performed following the intravenous administration of 100 mL of Isovue 370. Sagittal and coronal reconstruction images are performed. Tibia and fibula appear intact. No fracture or dislocation is seen. No osseous destruction is seen. There is focal osteopenia in the proximal tibia. No discrete bone lesion is seen. 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 There is irregularity of the articular surfaces. Soft tissues are diffusely edematous. No discrete abscess is seen in the soft tissues. There are filling defects in the vein of the tibioperoneal trunk extending into the superior anterior tibial veins consistent with thrombus within these veins There also appears to be partial thrombosis of peripheral peroneal veins. Electronically Signed by Joseph Mclean MD 12/24/2019 04:28 P
--- NOTE | 2019-12-24 16:25 | REP ---
CT RIGHT FOOT WITH IV CONTRAST: CT right foot performed following the intravenous administration of 100 mL of Isovue-370. Sagittal and coronal reconstruction images are performed. There is diffuse edema throughout the visualized soft tissues. There is a small effusion at the ankle. No drainable abscess collection is seen. No fracture is seen of the visualized osseous structures. There are moderate arthritic changes at the tibiotalar joint with joint space narrowing and subchondral sclerosis as well as mild spurring. Metallic internal fixation is seen in the distal tarsal bones and proximal metatarsals. There is metallic internal fixation of the distal 2nd metatarsal. No fracture, dislocation, or osseous destruction is seen. Electronically Signed by Joseph Mclean MD 12/24/2019 04:28 P
--- NOTE | 2019-12-24 20:34 | IPNPDOC ---
Date Seen The patient was seen on 12/24/19. Progress Note SUBJECTIVE: Pain, redness and swelling continues to decrease; however, WBC increased to 28K. CT lower ext ruled out abscess but showed extensive thrombus up right leg. US ordered. Started on therapeutic dosed enoxaparin BID. Checking UA, BCx from 12/21/19 growing 1/2 bottles MRSA sensitive to Vancomycin which patient has been on. Repeat so far neg. Discussed case with ANDRESSA Hinds earlier. The patient is off of oxygen and doing well on room air. Echocardiogram negative for vegeta tions, but will hold off on MARVA for now. Autoimmune/inflammatory w/u still pending. Denies chest pain, worsening short of breath, fevers, chills, nausea, vomiting. OBJECTIVE: VITAL SIGNS: Please see below PHYSICAL EXAMINATION: CONSTITUTIONAL: resting comfortably at the bedside chair, AAO x 3 EYES: PERRLA, EOM intact HENT, MOUTH: Normocephalic, atraumatic, moist mucous membranes NECK: SUPPLE, no JVD, no lymphadenopathy, no carotid bruit CV: Regular rate and rhythm, S1S2 normal, no murmurs/rubs/gallops RESPIRATORY: Decreased breath sounds in the R>L, mild crackles at bases bilaterally. no rales/rhonchi/wheezes GI: BS positive in 4 quadrants, soft, nontender, nondistended, no rebound or g uarding, no organomegaly : Deferred MUSCULOSKELETAL: Bilateral wrists slightly swollen, tender to touch. Normal ROM. No cyanosis, clubbing. RLE swelling, tenderness still present. Redness and erythema decreased and currently isolated to foot, area beneath right knee. +2 pitting edema on RLE alone INTEGUMENTARY: Intact, no lesions, no erythema NEUROLOGIC: Cranial Nerves II-XII are intact, no focal deficits PSYCHIATRIC: Mood and affect are normal CURRENT MEDICATIONS: Please see below LABORATORY DATA: Please see below IMAGING: CXR 12/23/19: Diffuse bilateral interstitial and alveolar infiltrates along with small right pleural effusion. CT femur with contrast, right: The right femur is intact with no fracture or bone lesion. There is no dislocation. Incidental note is made of old healed fractures of the inferior pubic rami bilaterally. However, there is a superimposed acute fracture of the left inferior pubic ramus. The visualized soft tissues are diffusely edematous. Mild free fluid is seen in the pelvis. No abscess collection is seen in the visualized soft tissues. Th ere is a small joint effusion at the knee. Small amount of nonocclusive thrombus is seen in the central aspect of the greater saphenous vein. CT foot with contrast, right: There is diffuse edema throughout the visualized soft tissues. There is a small effusion at the ankle. No drainable abscess collection is seen. No fracture is seen of the visualized osseous structures. There are moderate arthritic changes at the tibiotalar joint with joint space narrowing and subchondral sclerosis as well as mild spurring. Metallic internal fixation is seen in the distal tarsal bones and proximal metatarsals. There is metallic internal fixation of the distal 2nd metatarsal. No fracture, dislocation, or osseous destruction is seen CT tib/fib with contrast, right: Irregularity of the articular surfaces. Soft tissues are diffusely edematous. No discrete abscess is seen in the soft tissues. There are filling defects in the vein of the tibioperoneal trunk extending into the superior anterior tibial veins consistent with thrombus within these veins There also appears to be partial thrombosis of peripheral peroneal veins. ASSESSMENT: 64 y/o F treated for extensive RLE thrombus, RLE cellulitis, possible arthropathy inflammatory vs. autoimmune. PLAN: 1. Acute hypoxic respiratory failure secondary to unclear etiology. Currently on RA but CXR above. Was believed to be unlikely viral or bacterial etiology ;however, WBC continues to increase at 28K. Septic emboli was thought to explain acute nature of hypoxia and patient is improved on Vancomycin; however, echo neg. Cannot rule out completely with elevated WBC, and discussed with ID today. Holding off on MARVA at this time. Autoimmune or inflammatory cause possible. Workup pending. At ths time ID is not suggesting starting another abx. F/u daily labs. Pulmonary following. 2. MRSA bacteremia. 1/2 positive MRSA sensitive to vancomycin. Repeat Cx thus far neg. Holding off on MARVA. ID following. 3. Extensive thrombus of RLE, acute. Greater saphenous vein, vein of the tibioperoneal trunk extending into the superior anterior tibial veins, and partial thrombosis of peripheral peroneal veins. Switched to Enoxaparin 50 mg SC BID. Possible that WBC could be reactive to this as well. US RLE pending. 4. Superimposed acute fracture of the left inferior pubic ramus. New finding found of CT femur today. Will discuss with orthopedic surgery. 5. Arthropathy of bilateral upper ext, right ankle, hip. Improving slightly. F/u autoimmune and inflammatory workup above. On cholchicine per ID. 6. Hypokalemia. Improved. 7. DVT px. Enoxaparin SC BID DISPOSITION: Currently admitted under inpatient status. Will need PT/OT prior to discharge. Plan is discharge home when medically improved. called but left message as requested by patient. VS, I&O, 24H, Fishbone Vital Signs/I&O Vital Signs Date Time Temp Pulse Resp B/P (MAP) Pulse Ox O2 Delivery O2 Flow Rate FiO2 12/24/19 20:33 16 12/24/19 15:08 Room Air 12/24/19 14:00 97.2 81 155/78 (103) 96 12/23/19 04:00 1.0 12/23/19 03:04 100 I&O- Last 24 Hours up to 6 AM 12/24/19 06:00 Intake Total 3340 ml Output Total 625 ml Balance 2715 ml Laboratory Data 24H LABS Laboratory Tests 2 12/24/19 05:46: Immature Granulocyte % (Auto) , Neutrophils (%) (Auto) , Nucleated Red Blood Cells % (auto) 0.0, Neutrophils 89H, Band Neutrophils 2, Lymphocytes (Manual) 2L, Monocytes (Manual) 3, Eosinophils (Manual) 2, Metamyelocytes 2H, Poikilocytosis 1+, Anisocytosis 1+, Schistocytes 1+, Platelet Estimate NORMAL, Anion Gap 8, Glomerular Filtration Rate > 60.0, Calcium Level 7.3L, Phosphorus Level 2.2L, Total Bilirubin 1.4H, Aspartate Amino Transf (AST/SGOT) 17, Alanine Aminotransferase (ALT/SGPT) 22, Alkaline Phosphatase 257H, Lactate Dehydrogenase 229, Total Creatine Kinase 27, Total Protein 4.5L, Albumin 1.4L, Albumin/Globulin Ratio 0.45L, Triglycerides Level 149, Cholesterol Level 118, Rheumatoid Factor 14.9, Complement C3 118, Complement C4 12 CBC/BMP Laboratory Tests 12/24/19 05:46 Microbiology Microbiology 12/22/19 Blood Culture - Preliminary, Resulted No Growth after 48 hours. All Specime... 12/22/19 Blood Culture - Preliminary, Resulted No Growth after 48 hours. All Specime... 12/21/19 Blood Culture - Final, Complete Staph.aureus Methicillin Resis 12/21/19 Respiratory Panel (PCR) - Final, Complete Current Medications Current Medications Medications (Trade) Dose Ordered Sig/Howard Route PRN Reason Start Time Stop Time Status Last Admin Dose Admin Acetaminophen (Tylenol Tab) 650 mg Q4HP PRN PO PAIN OR FEVER 12/20/19 01:30 12/21/19 18:40 Albuterol Sulfate (Proventil Neb) 2.5 mg Q1HP PRN NEB SOB/WHEEZING 12/21/19 16:00 12/21/19 18:31 Cefazolin Sodium 1 gm/Dextrose 50 ml @ 100 mls/hr Q8H IV 12/21/19 18:00 12/22/19 02:17 DC 12/22/19 01:17 Cefepime HCl 1 gm/ Dextrose 50 ml @ 100 mls/hr Q12H IV 12/21/19 09:00 12/21/19 15:51 DC 12/21/19 09:19 Cefepime HCl 1 gm/ Dextrose 50 ml @ 100 mls/hr Q12H IV 12/22/19 08:00 12/22/19 02:39 DC Cefepime HCl 2 gm/ Dextrose 50 ml @ 100 mls/hr Q12H IV 12/22/19 02:00 12/22/19 15:08 DC 12/22/19 14:05 Colchicine (Colcrys) 0.6 mg BID PO 12/23/19 21:00 12/26/19 09:01 12/24/19 20:33 Colchicine (Colcrys) 0.6 mg DAILY PO 12/22/19 17:00 12/23/19 09:01 DC 12/23/19 08:58 Enoxaparin Sodium (Lovenox) 40 mg DAILY SC 12/24/19 09:00 12/24/19 20:40 DC 12/24/19 08:41 Enoxaparin Sodium (Lovenox) 50 mg Q12H SC 12/24/19 21:00 Home Med (Med Rec Complete!) ASDIRECTED XX 12/20/19 02:15 12/20/19 02:12 DC Ibuprofen (Advil) 600 mg Q6HP PRN PO MODERATE PAIN (PS 5-7) 12/20/19 17:15 12/23/19 12:37 Lactated Ringer's 1,000 ml @ 90 mls/hr Q11H7M IV 12/20/19 01:30 12/20/19 17:15 DC 12/20/19 13:17 Lactated Ringer's 1,000 ml @ 90 mls/hr Q11H7M IV 12/21/19 00:00 12/21/19 18:39 DC 12/21/19 12:18 Lactated Ringer's 1,000 ml @ 90 mls/hr Q11H7M IV 12/22/19 00:00 12/21/19 21:57 DC Miscellaneous (Unresolved Clarification Entry) SEE LABEL COMMENTS UNRESOLVED XX 12/20/19 00:01 12/21/19 07:42 DC Morphine Sulfate (Morphine Sulfate Inj) 2 mg Q3HP PRN IV PAIN 12/20/19 04:45 12/20/19 11:11 Morphine Sulfate (Morphine Sulfate Inj) 3 mg Q3HP PRN IV PAIN 12/20/19 01:30 12/20/19 04:40 DC Omeprazole (PriLOSEC) 20 mg BID PO 12/21/19 09:00 12/24/19 20:33 Oxycodone/ Acetaminophen (Percocet 5mg/ 325mg Tablet) 1 tab Q4HP PRN PO MILD/MODERATE PAIN (PS 1-7) 12/20/19 18:00 12/24/19 20:33 Oxycodone/ Acetaminophen (Percocet 5mg/ 325mg Tablet) 1 tab Q6HP PRN PO MILD/MODERATE PAIN (PS 1-7) 12/20/19 11:30 12/20/19 17:15 DC Oxycodone/ Acetaminophen (Percocet 5mg/ 325mg Tablet) 2 tab Q4HP PRN PO SEVERE PAIN (PS 8-10) 12/20/19 18:00 12/21/19 13:14 Oxycodone/ Acetaminophen (Percocet 5mg/ 325mg Tablet) 2 tab Q6HP PRN PO SEVERE PAIN (PS 8-10) 12/20/19 11:30 12/20/19 17:15 DC 12/20/19 14:08 Sodium Chloride 1,000 ml @ 70 mls/hr [id number] IV 12/22/19 08:30 12/24/19 08:17 DC 12/24/19 03:10 Vancomycin HCl 1000 mg/IV Miscellaneous Supplies 1 each/ Dextrose 270 ml @ 270 mls/hr Q12H IV 12/20/19 11:00 12/24/19 11:15 Allergies Coded Allergies: No Known Allergies (Unverified , 12/19/19) Valencia Wu MD Dec 24, 2019 20:34
[2019-12-24 22:00] VITALS: BP 149/78
--- NOTE | 2019-12-24 22:00 | REPVR ---
PROCEDURE INFORMATION: Exam: US Duplex Lower Extremity Veins Exam date and time: 12/24/2019 9:44 PM Age: 64 years old Clinical indication: Condition or disease; Embolism or thrombosis; Lower extremity, right; Additional info: Extensive thrombus, rle TECHNIQUE: Imaging protocol: Real-time duplex ultrasound of the Lower Extremities with 2-D palm scale, color Doppler flow and spectral waveform analysis with image documentation. Complete exam focused on the bilateral lower extremity veins. COMPARISON: US Duplex, Ext,LOWER veins,unilat RIGHT 12/19/2019 9:14 PM FINDINGS: Right deep veins: Heterogeneously echogenic, nonocclusive thrombus in the common femoral vein. Heterogeneously echogenic, occlusive thrombus in the distal popliteal and posterior tibial veins. The femoral, proximal profunda femoral and proximal to mid popliteal veins are patent without thrombus. Right superficial veins: Heterogeneously echogenic, occlusive thrombus in the proximal greater saphenous vein, beginning at the saphenofemoral junction. Left deep veins: Unremarkable. The common femoral, femoral, proximal profunda femoral, popliteal and posterior tibial veins are patent without thrombus. Normal Doppler waveforms. Normal compressibility and/or augmentation response. Left superficial veins: Saphenofemoral junction is patent without thrombus. Soft tissues: Unremarkable. IMPRESSION: Right lower extremity deep and superficial venous thrombosis, as described above. Electronically signed by: Gabrile Aj On 12/24/2019 22:00:11 PM
[2019-12-24 22:09] LABS: APPEARANCE, URINE CLEAR (CLEAR); BACTERIA, URINE AUTO NEGATIVE (NEGATIVE); BILIRUBIN, URINE AUTO NEGATIVE (NEGATIVE); BLOOD, URINE BLOOD NEGATIVE (NEGATIVE); COLOR, URINE AMBER (YELLOW); GLUCOSE, URINE (UA) AUTO NEGATIVE (NEGATIVE); KETONE, URINE AUTO NEGATIVE (NEGATIVE); LEUKOCYTE ESTERASE, URINE AUTO NEGATIVE (NEGATIVE); NITRITE, URINE AUTO NEGATIVE (NEGATIVE); PROTEIN, URINE AUTO 1+ mg/dL (NEGATIVE); RBC, URINE AUTO 1 /HPF (0-3); SPECIFIC GRAVITY URINE AUTO 1.048 (1.002-1.035); SQUAMOUS EPITHELIAL CELL UR AU 0 /HPF (0-6); WBC, URINE AUTO 3 /HPF (0-3)
[2019-12-24] MEDS: ENOXAPARIN 60MG/0.6ML SYRINGE (J1650 PER 10MG) SC SCH (23:43)
[2019-12-25 03:20] VITALS: BP 149/78
[2019-12-25] MEDS: PERCOCET 5MG/325MG TAB PO PRN ×4 (03:29→22:40)
[2019-12-25] MEDS ORDERED: CALCIUM CARBONATE 500 MG CHEW U/D PO PRN (03:45)
[2019-12-25 06:00] VITALS: BP 133/68
[2019-12-25 07:31] LABS: HEMATOCRIT 28.5 % (36.0-47.0); HEMOGLOBIN 9.7 g/dl (12.0-15.5); MEAN CORPUSCULAR HEMOGLOBIN 28.4 pg (27.0-33.0); MEAN CORPUSCULAR VOLUME 83.6 fl (80.0-96.0); PLATELET COUNT, AUTOMATED 279 10^3/uL (150-450); RED BLOOD COUNT 3.41 10^6/uL (4.00-5.40)
[2019-12-25 08:01] LABS: ALBUMIN 1.5 GM/DL (3.2-5.2); ALT/SGPT 24 U/L (12-78); BILIRUBIN,TOTAL 1.6 MG/DL (0.2-1.0); BLOOD UREA NITROGEN 16 MG/DL (7-18); CALCIUM LEVEL 7.4 MG/DL (8.8-10.2); CARBON DIOXIDE LEVEL 22 MEQ/L (21-32); CHLORIDE LEVEL 103 MEQ/L (98-107); CHOLESTEROL LEVEL 123 MG/DL (< 200); CPK CREATINE PHOSPHOKINASE 24 U/L (26-192); CREATININE FOR GFR 0.59 MG/DL (0.55-1.30); GLOMERULAR FILTRATION RATE > 60.0 (>45); GLUCOSE, FASTING 96 MG/DL (70-100); LDH LACTATE DEHYDROGENASE 186 U/L (84-246); PHOSPHORUS LEVEL 2.7 MG/DL (2.5-4.9); POTASSIUM SERUM 3.5 MEQ/L (3.5-5.1); SODIUM LEVEL 135 MEQ/L (136-145); TOTAL PROTEIN 4.7 GM/DL (6.4-8.2); TRIGLYCERIDES LEVEL 116 MG/DL (<150)
[2019-12-25 08:14] LABS: ATYPICAL LYMPH 1 % (0-5); LYMPHOCYTES 2 % (16-44); METAMYELOCYTES 2 % (0-0); MONOCYTES 2 % (0-5); NEUTROPHILS 85 % (28-66); PLATELET ESTIMATE NORMAL (NORMAL)
[2019-12-25 08:15] LABS: ANISOCYTOSIS 1+; HYPOCHROMASIA 1+; MICROCYTOSIS 1+
[2019-12-25] MEDS: OMEPRAZOLE 20 MG CAP PO SCH ×2 (09:22→22:39)
[2019-12-25] MEDS: COLCHICINE 0.6 MG TAB PO SCH (09:22)
[2019-12-25] MEDS: ENOXAPARIN 60MG/0.6ML SYRINGE (J1650 PER 10MG) SC SCH ×2 (09:22→22:40)
[2019-12-25 09:53] LABS: ERYTHROCYTE SEDIMENTATION RATE 50 mm/hr (0-30)
[2019-12-25 10:27] LABS: FERRITIN 513 NG/ML (8-252); IRON (FE) 13 UG/DL (50-170); PERCENT SATURATION 10.7 % (13.2-45.0); TOTAL IRON BINDING CAPACITY 121 UG/DL (250-450)
[2019-12-25 10:36] LABS: PTH INTACT 49.9 PG/ML (18.5-88.0); TOTAL 25(OH) VITAMIN D 19.9 NG/ML (30.0-100.0)
[2019-12-25 10:37] LABS: FOLATE 13.6 NG/ML (>5.4); VITAMIN B12 LEVEL > 2000 PG/ML (247-911)
[2019-12-25] MEDS: VANCOMYCIN HCL 1,000 MG, VIAL MATE ADAPTER 1 EACH in D5W 250 ML IV SCH ×2 (11:04→22:41)
[2019-12-25 14:00] VITALS: BP 131/71
--- NOTE | 2019-12-25 15:24 | REP ---
REASON FOR EXAM: Abnormal liver enzymes. There is no prior right upper quadrant ultrasound for comparison. Multiple ultrasonographic images of the liver show the hepatic parenchymal echo pattern to be within normal limits. There are no masses. There is no intrahepatic or extrahepatic ductal dilatation. The common bile duct measures 4 mm in its greatest transverse dimension. Multiple ultrasonographic images of the gallbladder show low level echoes within the gallbladder lumen which are mobile consistent with sludge formation. There is abnormal gallbladder wall thickening. There is no pericholecystic edema. There are no choleliths. The mid portion of the pancreas is within normal limits. The spleen is within normal limits for the maximal dimension of 10.7 cm. The right kidney measures 11.4 x 6 x 4.9 cm and is within normal limits. The left kidney measures 10.5 x 5 x 4.5 cm and is within normal limits. The imaged portion of the abdominal aorta is within normal limits. Bilateral pleural effusions were seen. This was not ordered or performed as a vascular study, however, standard imaging through the abdomen showed no gross intra-abdominal venous thrombus particularly in the main portal vein and common iliac veins. Evaluation of the renal veins and superior mesenteric vein using this modality is limited. IMPRESSION: 1. Bilateral pleural effusions. 2. Sludge in the gallbladder. Electronically Signed by Enmanuel Sosa DO 12/25/2019 03:31 P
--- NOTE | 2019-12-25 16:06 | CCN ---
PULMONARY CRITICAL CARE PROGRESS NOTE DATE OF SERVICE: 12/25/2019 ATTENDING PHYSICIAN: Trevor Suggs DO SUBJECTIVE: Ms. Hancock was seen and examined this morning. She continues to have right extremity pain. She has been noted to be febrile overnight into this morning. Additionally, the patient had received a vascular ultrasound yesterday for increased pain in her right lower extremity, which demonstrated both deep and superficial venous thrombosis. She had nonocclusive thrombus in the common femoral vein as well as occlusive thrombus in the distal popliteal zone posterior tibial veins on the right. Her left lower extremity was unremarkable. Additionally, the patient had received a femur CT yesterday, which demonstrated what appeared to be an acute fracture of the left inferior pubic ramus. Otherwise, the patient denied any shortness of breath from a respiratory standpoint, she is doing quite well. She denies any chest discomfort, coughing or wheezing. She has had no requirements of supplemental oxygen since her initial hypoxic event prior. OBJECTIVE: VITAL SIGNS: Temperature 100.2, pulse 75, respiratory rate 18, blood pressure 133/68, pulse oximetry 91% on room air. GENERAL: The patient is awake, alert, and oriented. She does not appear in any acute distress. She is lying in bed comfortably. She is conversive. HEENT: Atraumatic, normocephalic. Eyes anicteric. Trachea is midline. CARDIOVASCULAR: Normal S1, S2, regular rate and rhythm. No clicks, rubs, or murmurs. PULMONARY: The patient has continued clear breath sounds with some bibasilar crackles, improved overall aeration. There is symmetric chest expansion and good respiratory effort. There is no wheezes or rhonchi noted. ABDOMINAL: Soft, nondistended, nontender. No rebound tenderness or guarding. Normoactive bowel sounds. EXTREMITIES: The patient has continued swelling of the right lower extremity as well as some overlying mild erythema. There is some tenderness on the right lower extremity both anterior and posterior. Her left leg is without edema. Her right upper extremity swelling has improved significantly and is almost all resolved. There is no overlying erythema. She has full and equal pulse in bilateral upper and lower extremities. NEUROLOGIC: No focal neurological deficits. PSYCHIATRIC: Mood and affect appear appropriate. LABORATORY DATA: Hematology: White blood cell 27, hemoglobin 9.7, hematocrit 28.5, platelet count 279. ESR 50. Chemistry: Sodium 135, potassium 3.5, chloride 103, carbon dioxide 22, BUN 16, creatinine 0.59, fasting glucose 96. Calcium 7.4, phosphorus 2.7. TIBC 121, transferrin saturation 10.7, ferritin 513. Total bilirubin 1.6, GGT 189, AST 26, ALT 24, alkaline phosphatase 298, lactate dehydrogenase 186, total creatinine kinase 24. C-reactive protein 18.1. Total protein 4.7, albumin 1.5. Vitamin D 19.9, folate 13.6, vitamin B 12 greater than 2000, PTH 49.9. INPATIENT MEDICATIONS: - calcium carbonate 1000 mg every 4 hours as needed - Lovenox 50 mg every 12 hours subcutaneous - colchicine 0.6 mg twice a day by mouth - albuterol sulfate 2.5 mg every 1 hour as needed nebulized - Prilosec 20 mg twice a day by mouth - Percocet 5/325 one tablet every 4 hours as needed by mouth - Percocet 5/325 two tablets every 4 hours as needed - Advil 600 mg every 6 hours as needed by mouth - vancomycin 1 gram every 12 hours intravenous - morphine sulfate 2 mg every 3 hours as needed intravenous - Tylenol 650 mg every 4 hours as needed by mouth ASSESSMENT AND PLAN: 1. Acute hypoxic respiratory failure secondary to unclear etiology. The patient continued on room air at this time. She has not required any supplemental oxygenation. Her oxygen saturation currently is 91%, which may be close to her baseline. On physical exam, she has improvement in her overall aeration. Her previous x-ray had demonstrated bilateral interstitial and alveolar infiltrates that have also improved with repeat. At this point in time, there is no acute pulmonary process going on, however, the etiology does remain unclear as this was a sudden onset and had resolved fairly quickly without much intervention. Septic emboli remains on the differential as forms of acute endocarditis can lead to sudden septic emboli although this is unlikely. An autoimmune inflammatory process appears more likely than a bacterial viral process. Her autoimmune workup is currently pending. She does have a right lower extremity deep venous thrombosis (DVT). However, the idea of a pulmonary emboli is unlikely at this point as when she had presented to the hospital she had developed hypoxia and at that time had, had a lower extremity ultrasound which was negative for any thrombus. 2. Gram positive bacteremia with methicillin-resistant Staphylococcus aureus and right leg cellulitis. The patient had culture positive for gram positive bacteremia, which then resulted in methicillin-resistant Staphylococcus aureus. The source was likely from her right lower extremity cellulitis. She is continued on vancomycin. She is being followed by infectious disease. Currently holding off transesophageal echocardiogram (MARVA). She is on day #6 of vancomycin. 3. Arthropathy. The patient has right-sided ankle swelling. This is likely multifactorial combination of her acute cellulitis as well as possibly an autoimmune etiology. She has history of inflamed joints in the past. She is continued on colchicine currently. She has a DEXA scan, which had been completed. She was to followup with Dr. Hitchcock in her office for review of this, however, had never been done. I will try to obtain the DEXA scan results from [facility] where she had this completed. Additionally, vitamin D was checked today, which was low. Given her multiple fractures this is likely playing a role. Additionally, she was found to have an acute pubis ramus fracture, which surprisingly she has not had any acute injury to that area. 4. Anemia. The patient has had a progressive anemia since presenting to the hospital. Her current hemoglobin is 9.7, which has been downtrending since her admission. She has a history of anemia. She has been told she has iron deficiency anemia in the past. Iron studies were obtained. Currently at this point the picture appears to be more of anemia of chronic disease. However, she does have an acute infection and ferritin can be elevated in such. 5. Elevated total Total bilirubin. The patient does have elevated T bilirubin as well as elevated GTT and elevated alkaline phosphatase. The primary team has ordered abdominal ultrasound to evaluate further for this. 6. Right deep venous thrombosis. The patient has right lower extremity deep venous thrombosis and she is currently on therapeutic Lovenox. Dr. Suggs addendum: I was physically present for the taking of the above history and participated in the examination and interpretation of the diagnostic studies. The case remains complex and multiple studies have been ordered to attempt identification of an underlying etiology for her problems. We will continue to follow with the primary service. TANISHA
[2019-12-25] MEDS: CALCIUM CARBONATE 500 MG CHEW U/D PO SCH ×2 (17:54→22:40)
--- NOTE | 2019-12-25 17:58 | IPN ---
DATE: 12/25/2019 Mara continues complaining of significant pain in her right leg and difficulty putting pressure on her foot and walking. She also has some groin pain and that had been after she was gardening. She was found to have an inferior pelvic fracture. The patient had an ultrasound of the lower extremity, which showed deep vein thrombosis (DVT), both deep and superficial with a nonocclusive thrombus in the common femoral vein. She denies any cough or shortness of breath. She is off oxygen. No chest pain. PHYSICAL EXAMINATION: Temperature is 97.9, pulse 77, respirations 17, blood pressure 131/71, oxygen saturation (O2 sat) 92% on room air. Heart: Normal S1, S2. No murmurs, rubs or gallops. Lungs are clear. No wheezes, rales or rhonchi. Abdomen is soft, nontender. No hepatosplenomegaly. Extremities: Right leg +2 pitting edema from the foot all the way to the knee with redness, blotchy from the foot all the way to the mid thigh and into the inguinal area. Range of motion of the hip is normal. Knee range of motion is normal. Ankle swelling limits her range of motion, and she has had extensive surgery to that ankle. Left knee: No swelling or redness, and no clubbing, cyanosis or edema of the left leg. LABORATORY DATA: White count is 27. Hemoglobin 9.7, hematocrit 28.5, platelets 279, 85% neutrophils, 8% bands, 2% lymphocytes. ESR 50. Sodium 135, potassium 3.5, chloride 103, bicarbonate 22, BUN 16, creatinine 0.59, glucose 96, calcium 7.4, phosphorus 2.7, iron 13, TIBC 121, iron saturation 10%, ferritin 513, total bilirubin 1.6, which is increased from 1 at baseline, alkaline phosphatase 298 and GGT 189, CRP 18.1 down from 23.6. Vitamin B12 more than 2000, vitamin D 19.9, folate 13.6. Blood culture one out of the three specimens is positive for methicillin-resistant Staphylococcus aureus (MRSA) at 1549 hours on 12/21/2019 and two specimens on with no growth. IMAGING STUDIES: Abdominal ultrasound shows bilateral pleural effusion and sludge in the gallbladder with no evidence of intrahepatic or extrahepatic ductal dilatation. No masses seen. Vascular ultrasound shows right lower extremity deep and superficial venous thrombosis, nonocclusive thrombus in the common femoral vein, occlusive thrombus in the distal popliteal and posterior tibial veins. CT femur and foot shows no evidence of purulent abscess with diffuse swelling. IMPRESSION: 1. Right lower extremity cellulitis complicated by hardware in the foot as well as MRSA bacteremia. The patient is on IV vancomycin currently at the dose 1 gram every 12 hours. Vancomycin trough is therapeutic at 15.1. Patient with slow improvement. Still has significantly elevated white count but slightly improving CRP. The patient will need at least 2 weeks of IV antibiotics. 2. MRSA bacteremia related to cellulitis, that is not a complicated bacteremia as the patient had negative cultures within 24 hours of starting antibiotics. Transthoracic echocardiogram without evidence of vegetation. 3. deep vein thrombosis Right lower extremities on therapeutic doses of Lovenox at 50 mg subcutaneously every 12 hours. 4. Groin pain with evidence of pelvic fracture, probably patient has osteoporosis as she denies any trauma or falls. She has had old healed fractures of the inferior pubic ramus in the past and a superimposed acute fracture of the left inferior pubic ramus. Low vitamin D level; will be replaced with 2000 units daily and TUMS twice a day. The patient had a bone density done earlier in October. Will try to obtain those results. 5. Abnormal liver function test with only evidence of sludge on the gallbladder. Not sure why she has elevated liver function test and an obstructive cholestasis picture. Will continue to monitor. Discontinue any medications that could be contributing to abnormal findings, including colchicine. 6. Acute arthritis of the right wrist, improved after 4 days of colchicine which will be discontinued. PLAN: Continue with current dose of vancomycin IV 1 gram every 12 hours. Discontinue colchicine. MTDD
--- NOTE | 2019-12-25 20:09 | IPNPDOC ---
Date Seen The patient was seen on 12/25/19. Progress Note SUBJECTIVE: WBC slightly lower today. Biliary markers increased, no abd pain. US abd neg. Denies chest pain, worsening short of breath, fevers, chills, nausea, vomiting. OBJECTIVE: VITAL SIGNS: Please see below PHYSICAL EXAMINATION: CONSTITUTIONAL: resting in bed, AAO x 3 EYES: PERRLA, EOM intact HENT, MOUTH: Normocephalic, atraumatic, moist mucous membranes NECK: SUPPLE, no JVD, no lymphadenopathy, no carotid bruit CV: Regular rate and rhythm, S1S2 normal, no murmurs/rubs/gallops RESPIRATORY: Decreased breath sounds in the R>L, mild crackles at bases bilaterally. no rales/rhonchi/wheezes GI: BS positive in 4 quadrants, soft, nontender, nondistended, no rebound or guarding, no organomegaly : Deferred MUSCULOSKELETAL: Bilateral wrists slightly swollen, tender to touch- decreased. Normal ROM. No cyanosis, clubbing. RLE swelling, tenderness still present. Redness and erythema decreased, +2 pitting edema on RLE alone INTEGUMENTARY: Intact, no lesions, no erythema NEUROLOGIC: Cranial Nerves II-XII are intact, no focal deficits PSYCHIATRIC: Mood and affect are normal CURRENT MEDICATIONS: Please see below LABORATORY DATA: Please see below IMAGING: US abdomen: 1. Bilateral pleural effusions. 2. Sludge in the gallbladder. ASSESSMENT: 64 y/o F treated for extensive RLE thrombus, abnormal liver function tests, RLE cellulitis, possible arthropathy inflammatory vs. autoimmune. PLAN: 1. Abnormal liver function tests. US abd above. If continues to increase, consider CT angio abd/pelvis if suspecting thrombus further. F/u CMP in AM. Avoid hepatotoxic meds. 2. MRSA bacteremia. Repeat Cxs thus far neg. Holding off on MARVA, c/w Vancomycin for a total of 2 weeks. ID following. 3. Extensive thrombus of RLE, acute. Greater saphenous vein, vein of the tibioperoneal trunk extending into the superior anterior tibial veins, and partial thrombosis of peripheral peroneal veins. C/w Enoxaparin 50 mg SC BID. Possible that WBC could be reactive to this as well. US RLE pending. 4. Superimposed acute fracture of the left inferior pubic ramus. Likely underlying osteoporosis. Multiple old healed fractures of the inferior pubic ramus in the past and a superimposed acute fracture of the left inferior pubic ramus. Low vitamin D level; will be replaced with 2000 units daily and TUMS BID. The patient had a bone density done earlier in October. C/w pain control, discuss with ortho prior to ambulating. 5. Arthropathy of bilateral upper ext, right ankle, hip. Improving slightly. F/u autoimmune and inflammatory workup above. D/c cholchicine. . 6. Acute hypoxic respiratory failure secondary to unclear etiology. Currently on RA but pleural effusions, previously mildly elevated BNP. ? Autoimmune or inflammatory cause possible. Workup pending. F/u daily labs. Pulmonary following. 7. Bilateral pleural effusions. Started on low dose lasix, monitor Cr closely. On RA. F/u BMP, Cr. 8. DVT px. Enoxaparin SC BID DISPOSITION: Currently admitted under inpatient status. Will need PT/OT prior to discharge after discussion with ortho about pelvic fracture. Plan is discharge home when medically improved. VS, I&O, [facility] Vital Signs/I&O Vital Signs Date Time Temp Pulse Resp B/P (MAP) Pulse Ox O2 Delivery O2 Flow Rate FiO2 12/25/19 16:14 16 12/25/19 15:37 Room Air 12/25/19 14:00 97.9 77 131/71 (91) 92 12/23/19 04:00 1.0 12/23/19 03:04 100 I&O- Last 24 Hours up to 6 AM 12/25/19 06:00 Intake Total 1830 ml Output Total 750 ml Balance 1080 ml Laboratory Data 24H LABS Laboratory Tests 2 12/24/19 21:55: Urine Color JOSE, Urine Appearance CLEAR, Urine pH 6.0, Urine Specific [place] 1.048, Urine Protein 1+H, Urine Glucose (Auto)(UA) NEGATIVE, Urine Ketones (Auto) NEGATIVE, Urine Blood NEGATIVE, Urine Nitrite NEGATIVE, Urine Bilirubin NEGATIVE, Urine Urobilinogen 4.0H, Urine Leukocyte Esterase (Auto) NEGATIVE, Urine WBC (Auto) 3, Urine RBC (Auto) 1, Urine Hyaline Casts (Auto) 0, Urine Bacteria (Auto) NEGATIVE, Urine Squamous Epithelial Cells 0, Urine Sperm (Auto) 12/25/19 07:03: Immature Granulocyte % (Auto) , Neutrophils (%) (Auto) , Nucleated Red Blood Cells % (auto) 0.0, Neutrophils 85H, Band Neutrophils 8, Lymphocytes (Manual) 2L, Monocytes (Manual) 2, Metamyelocytes 2H, Atypical Lymphocytes 1, Hypochr omasia 1+, Anisocytosis 1+, Microcytosis 1+, Platelet Estimate NORMAL, Erythrocyte Sedimentation Rate 50H, Anion Gap 10, Glomerular Filtration Rate > 60.0, Calcium Level 7.4L, Phosphorus Level 2.7#, Iron Level 13L, Total Iron Binding Capacity 121L, Transferrin % Saturation 10.7L, Ferritin 513H, Total Bilirubin 1.6H, Gamma Glutamyl Transferase 189H, Aspartate Amino Transf (AST/SGOT) 26, Alanine Aminotransferase (ALT/SGPT) 24, Alkaline Phosphatase 298H, Lactate Dehydrogenase 186, Total Creatine Kinase 24L, C-Reactive Protein, Quantitative 18.10H, Total Protein 4.7L, Albumin 1.5L, Albumin/Globulin Ratio 0.47L, Triglycerides Level 116, Cholesterol Level 123, Vitamin B12 Level > 2000H, 25-Hydroxy Vitamin D Total 19.9L, Folate 13.6, Parathyroid Hormone (Intact) 49.9 12/25/19 09:58: Vancomycin Level Trough 15.1 CBC/BMP Laboratory Tests 12/25/19 07:03 Microbiology Microbiology 12/22/19 Blood Culture - Preliminary, Resulted No Growth after 72 hours. All specime... 12/22/19 Blood Culture - Preliminary, Resulted No Growth after 72 hours. All specime... 12/21/19 Blood Culture - Final, Complete Staph.aureus Methicillin Resis 12/21/19 Respiratory Panel (PCR) - Final, Complete Current Medications Current Medications Medications (Trade) Dose Ordered Sig/Howard Route PRN Reason Start Time Stop Time Status Last Admin Dose Admin Acetaminophen (Tylenol Tab) 650 mg Q4HP PRN PO PAIN OR FEVER 12/20/19 01:30 12/21/19 18:40 Albuterol Sulfate (Proventil Neb) 2.5 mg Q1HP PRN NEB SOB/WHEEZING 12/21/19 16:00 12/21/19 18:31 Calcium Carbonate (Tums) 1,000 mg BID PO 12/25/19 18:00 Calcium Carbonate (Tums) 1,000 mg Q4HP PRN PO HEARTBURN 12/25/19 03:45 12/25/19 16:43 DC 12/25/19 04:06 Cefazolin Sodium 1 gm/Dextrose 50 ml @ 100 mls/hr Q8H IV 12/21/19 18:00 12/22/19 02:17 DC 12/22/19 01:17 Cefepime HCl 1 gm/ Dextrose 50 ml @ 100 mls/hr Q12H IV 12/21/19 09:00 12/21/19 15:51 DC 12/21/19 09:19 Cefepime HCl 1 gm/ Dextrose 50 ml @ 100 mls/hr Q12H IV 12/22/19 08:00 12/22/19 02:39 DC Cefepime HCl 2 gm/ Dextrose 50 ml @ 100 mls/hr Q12H IV 12/22/19 02:00 12/22/19 15:08 DC 12/22/19 14:05 Colchicine (Colcrys) 0.6 mg BID PO 12/23/19 21:00 12/25/19 16:08 DC 12/25/19 09:22 Colchicine (Colcrys) 0.6 mg DAILY PO 12/22/19 17:00 12/23/19 09:01 DC 12/23/19 08:58 Enoxaparin Sodium (Lovenox) 40 mg DAILY SC 12/24/19 09:00 12/24/19 20:40 DC 12/24/19 08:41 Enoxaparin Sodium (Lovenox) 50 mg Q12H SC 12/24/19 21:00 12/25/19 09:22 Home Med (Med Rec Complete!) ASDIRECTED XX 12/20/19 02:15 12/20/19 02:12 DC Ibuprofen (Advil) 600 mg Q6HP PRN PO MODERATE PAIN (PS 5-7) 12/20/19 17:15 12/23/19 12:37 Lactated Ringer's 1,000 ml @ 90 mls/hr Q11H7M IV 12/20/19 01:30 12/20/19 17:15 DC 12/20/19 13:17 Lactated Ringer's 1,000 ml @ 90 mls/hr Q11H7M IV 12/21/19 00:00 12/21/19 18:39 DC 12/21/19 12:18 Lactated Ringer's 1,000 ml @ 90 mls/hr Q11H7M IV 12/22/19 00:00 12/21/19 21:57 DC Miscellaneous (Unresolved Clarification Entry) SEE LABEL COMMENTS UNRESOLVED XX 12/20/19 00:01 12/21/19 07:42 DC Morphine Sulfate (Morphine Sulfate Inj) 2 mg Q3HP PRN IV PAIN 12/20/19 04:45 12/20/19 11:11 Morphine Sulfate (Morphine Sulfate Inj) 3 mg Q3HP PRN IV PAIN 12/20/19 01:30 12/20/19 04:40 DC Omeprazole (PriLOSEC) 20 mg BID PO 12/21/19 09:00 12/25/19 09:22 Oxycodone/ Acetaminophen (Percocet 5mg/ 325mg Tablet) 1 tab Q4HP PRN PO MILD/MODERATE PAIN (PS 1-7) 12/20/19 18:00 12/25/19 15:37 Oxycodone/ Acetaminophen (Percocet 5mg/ 325mg Tablet) 1 tab Q6HP PRN PO MILD/MODERATE PAIN (PS 1-7) 12/20/19 11:30 12/20/19 17:15 DC Oxycodone/ Acetaminophen (Percocet 5mg/ 325mg Tablet) 2 tab Q4HP PRN PO SEVERE PAIN (PS 8-10) 12/20/19 18:00 12/21/19 13:14 Oxycodone/ Acetaminophen (Percocet 5mg/ 325mg Tablet) 2 tab Q6HP PRN PO SEVERE PAIN (PS 8-10) 12/20/19 11:30 12/20/19 17:15 DC 12/20/19 14:08 Sodium Chloride 1,000 ml @ 70 mls/hr [id number] IV 12/22/19 08:30 12/24/19 08:17 DC 12/24/19 03:10 Vancomycin HCl 1000 mg/IV Miscellaneous Supplies 1 each/ Dextrose 270 ml @ 270 mls/hr Q12H IV 12/20/19 11:00 12/25/19 11:04 Vitamin D (Vitamin D) 2,000 units DAILY PO 12/26/19 09:00 Allergies Coded Allergies: No Known Allergies (Unverified , 12/19/19) Valencia Wu MD Dec 25, 2019 20:09
[2019-12-25 22:00] VITALS: BP 131/68
[2019-12-26 04:09] VITALS: BP 133/70
[2019-12-26] MEDS: PERCOCET 5MG/325MG TAB PO PRN ×3 (04:20→20:50)
[2019-12-26 05:58] LABS: HEMATOCRIT 27.4 % (36.0-47.0); HEMOGLOBIN 9.3 g/dl (12.0-15.5); MEAN CORPUSCULAR HEMOGLOBIN 28.8 pg (27.0-33.0); MEAN CORPUSCULAR HGB CONC 33.9 g/dl (32.0-36.5); MEAN CORPUSCULAR VOLUME 84.8 fl (80.0-96.0); PLATELET COUNT, AUTOMATED 334 10^3/uL (150-450); RED BLOOD COUNT 3.23 10^6/uL (4.00-5.40); WHITE BLOOD COUNT 23.3 10^3/uL (4.0-10.0)
[2019-12-26 06:29] LABS: ALBUMIN 1.4 GM/DL (3.2-5.2); ALT/SGPT 26 U/L (12-78); BLOOD UREA NITROGEN 16 MG/DL (7-18); CALCIUM LEVEL 7.7 MG/DL (8.8-10.2); CARBON DIOXIDE LEVEL 23 MEQ/L (21-32); CHLORIDE LEVEL 102 MEQ/L (98-107); CREATININE FOR GFR 0.59 MG/DL (0.55-1.30); GLOMERULAR FILTRATION RATE > 60.0 (>45); GLUCOSE, FASTING 97 MG/DL (70-100); NT-PRO BNP 903 PG/ML (<125); POTASSIUM SERUM 3.3 MEQ/L (3.5-5.1); SODIUM LEVEL 133 MEQ/L (136-145); TOTAL PROTEIN 5.1 GM/DL (6.4-8.2)
[2019-12-26 06:38] LABS: ATYPICAL LYMPH 1 % (0-5); LYMPHOCYTES 3 % (16-44); METAMYELOCYTES 1 % (0-0); MONOCYTES 4 % (0-5); NEUTROPHILS 85 % (28-66); PLATELET ESTIMATE NORMAL (NORMAL)
[2019-12-26 07:18] LABS: ERYTHROCYTE SEDIMENTATION RATE 52 mm/hr (0-30)
[2019-12-26] MEDS ORDERED: MIRALAX *UNIT DOSE* 17GM PACKET PO PRN (08:30)
[2019-12-26] MEDS ORDERED: POTASSIUM CHLORIDE 10 MEQ SR TABLET PO ONE (08:30)
[2019-12-26] MEDS ORDERED: DOCUSATE SODIUM 100 MG CAP PO SCH (09:00)
[2019-12-26] MEDS: ENOXAPARIN 60MG/0.6ML SYRINGE (J1650 PER 10MG) SC SCH ×2 (09:08→20:49)
[2019-12-26] MEDS: CALCIUM CARBONATE 500 MG CHEW U/D PO SCH ×2 (09:08→20:50)
[2019-12-26] MEDS: VITAMIN D 1,000 INTERNATIONAL UNITS TABLET PO SCH (09:09)
[2019-12-26] MEDS: FERROUS SULFATE 325MG TAB PO SCH ×2 (09:09→20:50)
[2019-12-26] MEDS: OMEPRAZOLE 20 MG CAP PO SCH ×2 (09:09→20:50)
[2019-12-26] MEDS: FUROSEMIDE 20 MG TAB PO SCH (09:09)
[2019-12-26] MEDS: LACTOBACILLUS ACIDOPHILUS CAP (BACID) PO SCH (11:04)
[2019-12-26] MEDS: IBUPROFEN 600 MG TAB PO PRN (11:04)
[2019-12-26] MEDS: predniSONE 20 MG TAB PO SCH (11:04)
[2019-12-26] MEDS: VANCOMYCIN HCL 1,000 MG, VIAL MATE ADAPTER 1 EACH in D5W 250 ML IV SCH ×2 (11:05→23:08)
[2019-12-26 14:00] VITALS: BP 118/65
[2019-12-26 14:06] LABS: ANA (HEP2) Negative (.); ANTI CENTROMERE ANTIBODY <0.2 AI (0.0-0.9); ANTI DS-DNA AB Negative (Negative); ANTI SCLERODERMA ANTIBODIES <0.2 AI (0.0-0.9); ANTI-SMOOTH MUSCLE ANTIBODY 3 Units (0-19); RNP ANTIBODY < 0.2 AI (0.0-0.9); SMITHS ANTIBODY < 0.2 AI (0.0-0.9); SSA SJOGRENS A <0.2 AI (0.0-0.9); SSB SJOGRENS B <0.2 AI (0.0-0.9); TISSUE TRANSGLUTAMINASE IgA <2 U/mL (0-3); TISSUE TRANSGLUTAMINASE IgG <2 U/mL (0-5); UNITSIGA FOR GLIADIN IGA 6 units (0-19); UNITSIGG FOR GLIADIN IGG 2 units (0-19)
[2019-12-26 14:50] LABS: CLOSTRIDIUM DIFFICILE PCR NEGATIVE (NEGATIVE)
--- NOTE | 2019-12-26 18:32 | IPNPDOC ---
Date Seen The patient was seen on 12/26/19. Progress Note SUBJECTIVE: WBC continues to improve, biliary markers now normal. No abdominal pain. PT/OT resumed. 3 episodes of nonbloody diarrhea, c.diff neg. Denies chest pain, worsening short of breath, fevers, chills, nausea, vomiting. OBJECTIVE: VITAL SIGNS: Please see below PHYSICAL EXAMINATION: CONSTITUTIONAL: resting in bed, AAO x 3 EYES: PERRLA, EOM intact HENT, MOUTH: Normocephalic, atraumatic, moist mucous membranes NECK: SUPPLE, no JVD, no lymphadenopathy, no carotid bruit CV: Regular rate and rhythm, S1S2 normal, no murmurs/rubs/gallops RESPIRATORY: Decreased breath sounds in the R>L, mild crackles at bases bilaterally. no rales/rhonchi/wheezes GI: BS positive in 4 quadrants, soft, nontender, nondistended, no rebound or guarding, no organomegaly : Deferred MUSCULOSKELETAL: Palpable cord in right inner thigh under area of prior cellulitis. Bilateral wrists slightly swollen but decreased. Normal ROM. No cyanosis, clubbing. RLE swelling, tenderness and erythema still present. +2 pitting edema on RLE alone INTEGUMENTARY: Intact, no lesions, no erythema NEUROLOGIC: Cranial Nerves II-XII are intact, no focal deficits PSYCHIATRIC: Mood and affect are normal CURRENT MEDICATIONS: Please see below LABORATORY DATA: Please see below IMAGING: No new imaging. ASSESSMENT: 64 y/o F treated for extensive RLE thrombus, abnormal liver function tests, RLE cellulitis, possible arthropathy inflammatory vs. autoimmune. PLAN: 1. Extensive thrombus of RLE, acute. WBC improving since addition of AC, likely was contributing to fevers and leukocytosis. C/w Enoxaparin 50 mg SC BID. 2. Diarrhea, acute. Not medication induced. C. diff neg. Started on probiotic, m onitor hydration status. 3. MRSA bacteremia. Repeat Cxs thus far neg. C/w Vancomycin for a total of 2 weeks. ID following. 4. Superimposed acute fracture of the left inferior pubic ramus. Likely underlying osteoporosis. Multiple old healed fractures of the inferior pubic ramus in the past and a superimposed acute fracture of the left inferior pubic ramus. C/w Vit D 2000 units daily and TUMS BID. C/w pain control. 5. Arthropathy of bilateral upper ext, right ankle, hip. Improving slightly. Thus far autoimmune and inflammatory workup neg. 6. Bilateral pleural effusions. C/w low dose lasix, monitor Cr closely. On RA. F/u BMP, Cr. 7. Abnormal liver function tests. Resolved, unknown etiology. 8. DVT px. Enoxaparin SC BID DISPOSITION: Currently admitted under inpatient status. PT/OT to see today. Plan is discharge home when medically improved. VS, I&O, 24H, [facility] Vital Signs/I&O Vital Signs Date Time Temp Pulse Resp B/P (MAP) Pulse Ox O2 Delivery O2 Flow Rate FiO2 12/26/19 14:00 98.9 62 16 118/65 (82) 97 Room Air 12/23/19 04:00 1.0 12/23/19 03:04 100 I&O- Last 24 Hours up to 6 AM 12/26/19 06:00 Intake Total 1090 ml Output Total 0 ml Balance 1090 ml Laboratory Data 24H LABS Laboratory Tests 2 12/26/19 05:19: Immature Granulocyte % (Auto) , Neutrophils (%) (Auto) , Nucleated Red Blood Cells % (auto) 0.0, Neutrophils 85H, Band Neutrophils 6, Lymphocytes (Manual) 3L, Monocytes (Manual) 4, Metamyelocytes 1H, Atypical Lymphocytes 1, Red Blood Cell Morphology NORMAL, Platelet Estimate NORMAL, Erythrocyte Sedimentation Rate 52H, Anion Gap 8, Glomerular Filtration Rate > 60.0, Calcium Level 7.7L, Total Bilirubin 1.0, Aspartate Amino Transf (AST/SGOT) 20, Alanine Aminotransferase (ALT/SGPT) 26, Alkaline Phosphatase 255H, C-Reactive Protein, Quantitative 14.50H, MT-Fxm-L-Type Natriuretic Peptide 903H, Total Protein 5.1L, Albumin 1.4L, Albumin/Globulin Ratio 0.38L 12/26/19 13:41: Clostridium difficile [id number] PRESUMPTIVE NEGATIVE, Clostridium difficile Toxin (PCR) NEGATIVE CBC/BMP Laboratory Tests 12/26/19 05:19 Microbiology Microbiology 12/22/19 Blood Culture - Preliminary, Resulted No Growth after 72 hours. All specime... 12/22/19 Blood Culture - Preliminary, Resulted No Growth after 72 hours. All specime... 12/21/19 Blood Culture - Final, Complete Staph.aureus Methicillin Resis 12/21/19 Respiratory Panel (PCR) - Final, Complete Current Medications Current Medications Medications (Trade) Dose Ordered Sig/Howard Route PRN Reason Start Time Stop Time Status Last Admin Dose Admin Acetaminophen (Tylenol Tab) 650 mg Q4HP PRN PO PAIN OR FEVER 12/20/19 01:30 12/21/19 18:40 Albuterol Sulfate (Proventil Neb) 2.5 mg Q1HP PRN NEB SOB/WHEEZING 12/21/19 16:00 12/21/19 18:31 Calcium Carbonate (Tums) 1,000 mg BID PO 12/25/19 18:00 12/26/19 09:08 Calcium Carbonate (Tums) 1,000 mg Q4HP PRN PO HEARTBURN 12/25/19 03:45 12/25/19 16:43 DC 12/25/19 04:06 Cefazolin Sodium 1 gm/Dextrose 50 ml @ 100 mls/hr Q8H IV 12/21/19 18:00 12/22/19 02:17 DC 12/22/19 01:17 Cefepime HCl 1 gm/ Dextrose 50 ml @ 100 mls/hr Q12H IV 12/21/19 09:00 12/21/19 15:51 DC 12/21/19 09:19 Cefepime HCl 1 gm/ Dextrose 50 ml @ 100 mls/hr Q12H IV 12/22/19 08:00 12/22/19 02:39 DC Cefepime HCl 2 gm/ Dextrose 50 ml @ 100 mls/hr Q12H IV 12/22/19 02:00 12/22/19 15:08 DC 12/22/19 14:05 Colchicine (Colcrys) 0.6 mg BID PO 12/23/19 21:00 12/25/19 16:08 DC 12/25/19 09:22 Colchicine (Colcrys) 0.6 mg DAILY PO 12/22/19 17:00 12/23/19 09:01 DC 12/23/19 08:58 Docusate Sodium (Colace) 100 mg DAILY PO 12/26/19 09:00 12/26/19 10:32 DC 12/26/19 09:09 Enoxaparin Sodium (Lovenox) 40 mg DAILY SC 12/24/19 09:00 12/24/19 20:40 DC 12/24/19 08:41 Enoxaparin Sodium (Lovenox) 50 mg Q12H SC 12/24/19 21:00 12/26/19 09:08 Ferrous Sulfate (Ferrous Sulfate) 325 mg BID PO 12/26/19 09:00 12/26/19 09:09 Furosemide (Lasix) 20 mg DAILY PO 12/26/19 09:00 12/26/19 09:09 Home Med (Med Rec Complete!) ASDIRECTED XX 12/20/19 02:15 12/20/19 02:12 DC Ibuprofen (Advil) 600 mg Q6HP PRN PO MODERATE PAIN (PS 5-7) 12/20/19 17:15 12/26/19 10:46 DC 12/23/19 12:37 Ibuprofen (Advil) 600 mg Q8HP PRN PO MODERATE PAIN (PS 5-7) 12/26/19 11:00 12/26/19 11:04 Lactated Ringer's 1,000 ml @ 90 mls/hr Q11H7M IV 12/20/19 01:30 12/20/19 17:15 DC 12/20/19 13:17 Lactated Ringer's 1,000 ml @ 90 mls/hr Q11H7M IV 12/21/19 00:00 12/21/19 18:39 DC 12/21/19 12:18 Lactated Ringer's 1,000 ml @ 90 mls/hr Q11H7M IV 12/22/19 00:00 12/21/19 21:57 DC Lactobacillus Acidophilus (Bacid) 1 ea DAILY PO 12/26/19 09:00 12/26/19 11:04 Miscellaneous (Unresolved Clarification Entry) SEE LABEL COMMENTS DAILY XX 12/26/19 09:00 12/26/19 09:38 DC Miscellaneous (Unresolved Clarification Entry) SEE LABEL COMMENTS UNRESOLVED XX 12/20/19 00:01 12/21/19 07:42 DC Morphine Sulfate (Morphine Sulfate Inj) 2 mg Q3HP PRN IV PAIN 12/20/19 04:45 12/26/19 09:38 DC 12/20/19 11:11 Morphine Sulfate (Morphine Sulfate Inj) 3 mg Q3HP PRN IV PAIN 12/20/19 01:30 12/20/19 04:40 DC Omeprazole (PriLOSEC) 20 mg BID PO 12/21/19 09:00 12/26/19 09:09 Oxycodone/ Acetaminophen (Percocet 5mg/ 325mg Tablet) 1 tab Q4HP PRN PO MILD/MODERATE PAIN (PS 1-7) 12/20/19 18:00 12/26/19 08:32 Oxycodone/ Acetaminophen (Percocet 5mg/ 325mg Tablet) 1 tab Q6HP PRN PO MILD/MODERATE PAIN (PS 1-7) 12/20/19 11:30 12/20/19 17:15 DC Oxycodone/ Acetaminophen (Percocet 5mg/ 325mg Tablet) 2 tab Q4HP PRN PO SEVERE PAIN (PS 8-10) 12/20/19 18:00 12/21/19 13:14 Oxycodone/ Acetaminophen (Percocet 5mg/ 325mg Tablet) 2 tab Q6HP PRN PO SEVERE PAIN (PS 8-10) 12/20/19 11:30 12/20/19 17:15 DC 12/20/19 14:08 Polyethylene Glycol (Miralax) 1 pkt DAILYPRN PRN PO CONSTIPATION 12/26/19 08:30 Prednisone (Deltasone) 40 mg DAILY PO 12/26/19 09:00 12/26/19 11:04 Sodium Chloride 1,000 ml @ 70 mls/hr [id number] IV 12/22/19 08:30 12/24/19 08:17 DC 12/24/19 03:10 Vancomycin HCl 1000 mg/IV Miscellaneous Supplies 1 each/ Dextrose 270 ml @ 270 mls/hr Q12H IV 12/20/19 11:00 12/26/19 11:05 Vitamin D (Vitamin D) 2,000 units DAILY PO 12/26/19 09:00 12/26/19 09:09 Allergies Coded Allergies: No Known Allergies (Unverified , 12/19/19) Valencia Wu MD Dec 26, 2019 18:32
[2019-12-26 22:00] VITALS: BP 119/68
[2019-12-27 06:00] VITALS: BP_SYST 104; BP_SYST 132; BP_DIAS 75; BP_DIAS 82
[2019-12-27 06:10] LABS: HEMATOCRIT 28.3 % (36.0-47.0); HEMOGLOBIN 9.4 g/dl (12.0-15.5); MEAN CORPUSCULAR HEMOGLOBIN 28.2 pg (27.0-33.0); MEAN CORPUSCULAR HGB CONC 33.2 g/dl (32.0-36.5); PLATELET COUNT, AUTOMATED 437 10^3/uL (150-450); RED BLOOD COUNT 3.33 10^6/uL (4.00-5.40)
[2019-12-27 06:39] LABS: ALBUMIN 1.6 GM/DL (3.2-5.2); ALT/SGPT 33 U/L (12-78); BILIRUBIN,TOTAL 0.7 MG/DL (0.2-1.0); BLOOD UREA NITROGEN 18 MG/DL (7-18); CALCIUM LEVEL 7.8 MG/DL (8.8-10.2); CARBON DIOXIDE LEVEL 24 MEQ/L (21-32); CHLORIDE LEVEL 106 MEQ/L (98-107); CREATININE FOR GFR 0.55 MG/DL (0.55-1.30); GLOMERULAR FILTRATION RATE > 60.0 (>45); GLUCOSE, FASTING 111 MG/DL (70-100); SODIUM LEVEL 138 MEQ/L (136-145); TOTAL PROTEIN 5.3 GM/DL (6.4-8.2)
[2019-12-27] MEDS: PERCOCET 5MG/325MG TAB PO PRN ×3 (06:44→20:17)
[2019-12-27 07:24] LABS: ANISOCYTOSIS 1+; LYMPHOCYTES 8 % (16-44); METAMYELOCYTES 2 % (0-0); MONOCYTES 3 % (0-5); MYELOCYTES 2 % (0-0); NEUTROPHILS 85 % (28-66); OVALOCYTES 1+; PLATELET ESTIMATE NORMAL (NORMAL)
--- NOTE | 2019-12-27 07:31 | IPN ---
DATE: 12/26/2019 SUBJECTIVE: Patient states she is feeling somewhat better today. She continues to have pain in her right leg. She states her wrist pain has improved somewhat, but still bothers her when she moves her wrist. She also notes an episode of diarrhea this morning. She denies any cough or shortness of breath and has continued to do well off supplemental oxygen. OBJECTIVE/PHYSICAL EXAMINATION: VITAL SIGNS: Temperature 98.9, T-max 100.4 in the past 24 hours, heart rate 72, respiratory rate 20, blood pressure 133/70, pulse oximetry 97% on room air. GENERAL: Appears comfortable lying in bed, in no acute distress. LUNGS: Clear to auscultation bilaterally. No wheezing, rhonchi or rales. HEART: Normal S1, S2. No murmurs, rubs or gallops. ABDOMEN: Soft, nontender, nondistended. No hepatosplenomegaly noted. EXTREMITIES: Right leg 2+ pitting edema from the foot up to the knee with blotchy erythema from the foot extending up the medial calf and thigh near the groin. Limited range of motion in the ankle due to swelling. Left leg appears normal without swelling, erythema or warmth. LABORATORY DATA: White blood cell count 23.3, hemoglobin 9.3, hematocrit 27.4, platelet count 334. Sodium 133, potassium 3.3, chloride 102, carbon dioxide 23, BUN 16, creatinine 0.59, glucose 97, calcium 7.7, bilirubin 1.0, AST 20, ALT 26, alkaline phosphatase 255, total protein 5.1, albumin 1.4. CRP 14.5. NT proBNP 903. Vitamin D 19.9. Vancomycin trough 15.1. One blood culture drawn on 12/21/2019 positive for methicillin-resistant Staphylococcus aureus (MRSA). Two blood cultures drawn on 12/22/2019 show no growth. IMPRESSION/PLAN: 1. Right lower extremity cellulitis complicated by hardware in the foot and MRSA bacteremia, further complicated by development of deep vein thrombosis (DVT) and possible thrombophlebitis. The patient is on IV vancomycin at 1 gram every 12 hours. Vancomycin trough is therapeutic at 15.1. At this point, her MRSA infection is considered to be complicated as she has had recurrent fevers despite appropriate IV antibiotics for more than three days. She will need a peripherally inserted central catheter (PICC) line prior to discharge for half-way antibiotics for at least 2 weeks. She has had a pulmonary thromboendarterectomy (PTE) without evidence of vegetation, we will continue to hold off on transesophageal echocardiogram (MARVA) for now. 2. Pseudogout versus gout of the right wrist. We have discontinued colchicine at this point, due to concern for abnormal liver function tests. Her swelling and erythema are improved. Continue with Advil as needed for pain. 3. DVT of the right lower extremity. On therapeutic dose of Lovenox. 4. Acute pelvic fracture seen on imaging. The patient likely has osteoporosis and had a bone density in October. Continue with vitamin D supplementation and scheduled Tums for calcium supplementation. 5. Diarrhea this morning. Will start a probiotic. May be a side effect of one of the medications she is on.
[2019-12-27] MEDS: VITAMIN D 1,000 INTERNATIONAL UNITS TABLET PO SCH (09:14)
[2019-12-27] MEDS: predniSONE 20 MG TAB PO SCH (09:14)
[2019-12-27] MEDS: OMEPRAZOLE 20 MG CAP PO SCH ×2 (09:14→20:17)
[2019-12-27] MEDS: LACTOBACILLUS ACIDOPHILUS CAP (BACID) PO SCH (09:14)
[2019-12-27] MEDS: FUROSEMIDE 20 MG TAB PO SCH (09:14)
[2019-12-27] MEDS: CALCIUM CARBONATE 500 MG CHEW U/D PO SCH ×2 (09:14→20:17)
[2019-12-27] MEDS: FERROUS SULFATE 325MG TAB PO SCH ×2 (09:14→20:17)
[2019-12-27] MEDS: ENOXAPARIN 60MG/0.6ML SYRINGE (J1650 PER 10MG) SC SCH ×2 (09:15→20:16)
[2019-12-27] MEDS: IBUPROFEN 600 MG TAB PO PRN (09:16)
[2019-12-27] MEDS: VANCOMYCIN HCL 1,000 MG, VIAL MATE ADAPTER 1 EACH in D5W 250 ML IV SCH ×2 (10:48→23:16)
[2019-12-27 14:00] VITALS: BP 111/64
--- NOTE | 2019-12-27 14:22 | IPN ---
DATE: 12/27/2019 The patient was seen and examined this morning during bedside rounds. This morning the patient reports she feels somewhat better in terms of her energy level. She does continue to have pain in particular in her right wrist, as well as her right lower extremity which she states has not improved greatly. She does note some improvement, however in some of the swelling as well as in the erythema and warmth in her right lower extremity. She denies any significant pain in her pelvic region. No abdominal pain. No nausea or vomiting. She denies any shortness of breath and no cough or chest pain and she has remained off of supplemental oxygen. PHYSICAL EXAMINATION: Temperature 98.5, pulse 69, respirations 18, blood pressure 132/75, O2 sat 98% on room air. Input is 1.1 liters, output only documented 30 mL GENERAL: The patient is a thin female is sitting in the chair awake and alert and appears comfortable and not in any acute respiratory distress. She is speaking in complete sentences and not using any accessory muscles for respiration. HEENT: Normocephalic, atraumatic. Moist mucous membranes. Neck is supple. Trachea is midline. There is no palpable cervical adenopathy. CARDIOVASCULAR: Regular rate and rhythm. Normal S1,S2. No murmurs appreciated. PULMONARY: There are clear breath sounds bilaterally with no significant wheezing, rales or rhonchi. ABDOMEN: Soft, nontender, nondistended. No palpable mass. EXTREMITIES: The right lower extremity is edematous although there appears to be some improvement in the edema. There is also tenderness and some erythema which appears slightly improved. The increased warmth in the right lower extremity has also improved. The right wrist continues to have some pain although there does not appear to be any edema or erythema in the right wrist. SKIN: The patient did have a faint macular papular salmon-colored rash on her trunk which appears somewhat improving. LABS: WBC 22, hemoglobin 9.4, platelets are 437. Chemistry: Sodium is 138, potassium 4.0, chloride is 106, bicarb 24, BUN is 18, creatinine is 0.55, glucose is 111, alk phos increased to 300, albumin is 1.6, BNP was 903. Micro: C difficile was negative. ASSESSMENT/PLAN: Ms. Hancock is a 64-year-old female with a past medical history of arthritis, previous methicillin resistant Staphylococcus aureus (MRSA) infection, hypothyroidism, gastroesophageal reflux disease (GERD) who presented with complaints of increased right ankle swelling and pain. The patient was initially found to have MRSA bacteremia with concern of a MRSA joint infection and cellulitis in her right lower extremity. She also developed, during this admission, an episode of acute hypoxemic respiratory failure with CT chest, which showed evidence of bilateral pleural effusions as well as an bilateral nodules as well as interstitial and alveolar infiltrates. The patient was thought to have potential septic emboli given her MRSA bacteremia and acute endocarditis was possible. The patient however appear to improve rapidly in terms of respiratory status and quickly was able to be weaned off of oxygen supplementation to room air. The patient's hospital course was also complicated by acute deep venous thrombosis (DVT) in the right lower extremity and she was started on antibiotics. She also had arthropathy in her right wrist as well and was thought to have possible pseudogout as her uric acid was normal. The patient has also continue to have evidence of some elevated bilirubin as well as alk phos although she denies any abdominal pain currently and does not have any history of previous liver etiology. Yesterday on exam, the patient was also noted to have a faint macular papular rash on her trunk which was salmon-colored. Given the constellation of her symptoms, there was concern for possible autoimmune process such as adult onset Still's disease. Her previous workup for connective tissue disease had returned negative including rheumatoid factor, PIYUSH Sjogren antibodies, [employer] antibody, lupus antibody as well as celiac antibodies. Right lower extremity cellulitis with MRSA bacteremia and possible septic emboli. - Appreciate ID consult recommendations. The patient's repeat blood cultures have been negative and she has been continued on vancomycin for her bacteremia. Will likely need treatment of 2-week course. Her leukocytosis and fever curve has been improving. Acute DVT in the right lower extremity with significant right lower extremity edema. - Continue with anticoagulation with Lovenox. The patient's leg edema and erythema appears to be improving. History of acute hypoxemic respiratory failure with bilateral pleural effusions as well as bilateral nodules and interstitial and alveolar infiltrates. There was a question of possible septic emboli, although her initial echo did not show any evidence of vegetations. The patient was also treated with Lasix for her bilateral pleural effusions, although she appeared to improve rapidly even prior to receiving diuretics. Her initial echo did not show any evidence of reduced EF and no diastolic dysfunction as well as a normal-appearing IVC not suggestive of increased central venous pressures. Given her constellation of symptoms including the arthropathy as well as with pleural effusions, LFT abnormalities, rash and fever, there was concern for possible autoimmune process such as adult onset Still's disease. The patient was started on prednisone 40 mg daily as she had continued to have pain in her right wrist after being treated for possible pseudogout. Would complete a 7-day course of the prednisone. If she does have adult onset Still's disease, I would expect a rapid improvement with prednisone. We did discuss, given her previous history of similar admission in the past, that she may benefit from rheumatology followup again as an outpatient. She had previously been seen by rheumatology in the past. DVT prophylaxis with full AC with Lovenox. CODE STATUS: FULL CODE. Please do not hesitate to call if any further questions or concerns. MTDD
--- NOTE | 2019-12-27 15:28 | IPNPDOC ---
Date Seen The patient was seen on 12/27/19. Progress Note SUBJECTIVE: WBC 22, improving slowly. New light pink/salmon colored rash on trunk-macular, flat. Frustrated this AM due to pain with movement. Diarrhea subsided. Denies chest pain, worsening short of breath, fevers, chills, nausea, vomiting. OBJECTIVE: VITAL SIGNS: Please see below PHYSICAL EXAMINATION: CONSTITUTIONAL: resting in bed, AAO x 3 EYES: PERRLA, EOM intact HENT, MOUTH: Normocephalic, atraumatic, moist mucous membranes NECK: SUPPLE, no JVD, no lymphadenopathy, no carotid bruit CV: Regular rate and rhythm, S1S2 normal, no murmurs/rubs/gallops RESPIRATORY: Decreased breath sounds in the R>L, mild crackles at bases bilaterally. no rales/rhonchi/wheezes GI: BS positive in 4 quadrants, soft, nontender, nondistended, no rebound or guarding, no organomegaly : Deferred MUSCULOSKELETAL: Palpable cord in right inner thigh under area of prior cellulitis. Bilateral wrists slightly swollen but decreased. Normal ROM. No cyanosis, clubbing. RLE swelling, tenderness and erythema still present. +2 pitting edema on RLE alone INTEGUMENTARY: Intact, salmon colored rash on trunk- new. Non blanchable. no scaling. NEUROLOGIC: Cranial Nerves II-XII are intact, no focal deficits PSYCHIATRIC: Mood and affect are normal CURRENT MEDICATIONS: Please see below LABORATORY DATA: Please see below IMAGING: No new imaging. ASSESSMENT: 64 y/o F treated for extensive RLE thrombus, abnormal liver function tests, RLE cellulitis, possible arthropathy inflammatory vs. autoimmune. PLAN: 1. Extensive thrombus of RLE, acute. WBC improving further, pain severe at times. C/w Enoxaparin 50 mg SC BID. Pain control with Tylenol, ibuprofen, oxy/tylenol. 2. Diarrhea, acute. Resolved. 3. MRSA bacteremia. Repeat Cxs thus far neg. C/w Vancomycin for a total of 2 weeks. ID following. 4. Truncal rash. Autoimmune etiology is possible. No new medications added that could have caused this. Patient has had an extensive autoimmune workup here and in the past. Recommending rheumatology referral after discharge. 5. Superimposed acute fracture of the left inferior pubic ramus. Likely underlying osteoporosis. Multiple old healed fractures as well. C/w Vit D 2000 units daily and TUMS BID, pain control. 6. Arthropathy of bilateral upper ext, right ankle, hip. Improving slightly. Thus far autoimmune and inflammatory workup neg. 7. Bilateral pleural effusions. C/w low dose lasix, monitor Cr closely. On RA. F/u BMP, Cr. 8. Abnormal liver function tests. Resolved, unknown etiology. 9. Iron deficiency anemia. Iron low. C/w ferrous sulfate BID. Would benefit from iron infusion (venofer 100 mg IV x 5 days); however, with acute infection will hold off. Monitor CBC regularly. 10. Hypokalemia, acute. Likely 2/2 to lasix. Resolved. F/u daily CMP. 11. DVT px. Enoxaparin SC BID DISPOSITION: Currently admitted under inpatient status. PT/OT to see today. Plan is discharge home when medically improved. as well as a normal-appearing IVC not suggestive of increased central venous pressures. Given her constellation of symptoms including the arthropathy as well as with LFT abnormalities and her rash and fever and there was concern for possible autoimmune process such as adult onset Still's disease. The patient was started on prednisone 40 mg daily and she continue to have pain in her right wrist after being treated for possible pseudogout. Would complete a 7-day course of the prednisone. If she does have adult onset Still's disease, I would expect a rapid improvement with prednisone. We did discuss, given her previous history of similar admission in the past, that she may benefit from rheumatology followup again as an outpatient. She had previously been seen by rheumatology in the past VS, I&O, 24H, Sayda Vital Signs/I&O Vital Signs Date Time Temp Pulse Resp B/P (MAP) Pulse Ox O2 Delivery O2 Flow Rate FiO2 12/27/19 14:00 97.4 68 17 111/64 (80) 98 Room Air 12/23/19 04:00 1.0 12/23/19 03:04 100 I&O- Last 24 Hours up to 6 AM 12/27/19 06:00 Intake Total 810 ml Output Total 30 ml Balance 780 ml Laboratory Data 24H LABS Laboratory Tests 2 12/27/19 05:58: Immature Granulocyte % (Auto) , Neutrophils (%) (Auto) , Nucleated Red Blood Cells % (auto) 0.0, Neutrophils 85H, Lymphocytes (Manual) 8L, Monocytes (Manual) 3, Metamyelocytes 2H, Myelocytes 2H, Poikilocytosis , Anisocytosis 1+, Ovalocytes 1+, Platelet Estimate NORMAL, Differential Slide Review Report, Peripheral Blood Smear Path Consult PERIPHERAL SMEAR, Anion Gap 8, Glomerular Filtration Rate > 60.0, Calcium Level 7.8L, Total Bilirubin 0.7, Aspartate Amino Transf (AST/SGOT) 29, Alanine Aminotransferase (ALT/SGPT) 33, Alkaline Phosphatase 300H, Total Protein 5.3L, Albumin 1.6L, Albumin/Globulin Ratio 0.43L 12/27/19 09:55: Vancomycin Level Trough 18.2 CBC/BMP Laboratory Tests 12/27/19 05:58 Microbiology Microbiology 12/22/19 Blood Culture - Final, Complete NO GROWTH AFTER 5 DAYS 12/22/19 Blood Culture - Final, Complete NO GROWTH AFTER 5 DAYS 12/21/19 Blood Culture - Final, Complete Staph.aureus Methicillin Resis 12/21/19 Respiratory Panel (PCR) - Final, Complete Current Medications Current Medications Medications (Trade) Dose Ordered Sig/Howard Route PRN Reason Start Time Stop Time Status Last Admin Dose Admin Acetaminophen (Tylenol Tab) 650 mg Q4HP PRN PO PAIN OR FEVER 12/20/19 01:30 12/21/19 18:40 Albuterol Sulfate (Proventil Neb) 2.5 mg Q1HP PRN NEB SOB/WHEEZING 12/21/19 16:00 12/21/19 18:31 Calcium Carbonate (Tums) 1,000 mg BID PO 12/25/19 18:00 12/27/19 09:14 Calcium Carbonate (Tums) 1,000 mg Q4HP PRN PO HEARTBURN 12/25/19 03:45 12/25/19 16:43 DC 12/25/19 04:06 Cefazolin Sodium 1 gm/Dextrose 50 ml @ 100 mls/hr Q8H IV 12/21/19 18:00 12/22/19 02:17 DC 12/22/19 01:17 Cefepime HCl 1 gm/ Dextrose 50 ml @ 100 mls/hr Q12H IV 12/21/19 09:00 12/21/19 15:51 DC 12/21/19 09:19 Cefepime HCl 1 gm/ Dextrose 50 ml @ 100 mls/hr Q12H IV 12/22/19 08:00 12/22/19 02:39 DC Cefepime HCl 2 gm/ Dextrose 50 ml @ 100 mls/hr Q12H IV 12/22/19 02:00 12/22/19 15:08 DC 12/22/19 14:05 Colchicine (Colcrys) 0.6 mg BID PO 12/23/19 21:00 12/25/19 16:08 DC 12/25/19 09:22 Colchicine (Colcrys) 0.6 mg DAILY PO 12/22/19 17:00 12/23/19 09:01 DC 12/23/19 08:58 Docusate Sodium (Colace) 100 mg DAILY PO 12/26/19 09:00 12/26/19 10:32 DC 12/26/19 09:09 Enoxaparin Sodium (Lovenox) 40 mg DAILY SC 12/24/19 09:00 12/24/19 20:40 DC 12/24/19 08:41 Enoxaparin Sodium (Lovenox) 50 mg Q12H SC 12/24/19 21:00 12/27/19 09:15 Ferrous Sulfate (Ferrous Sulfate) 325 mg BID PO 12/26/19 09:00 12/27/19 09:14 Furosemide (Lasix) 20 mg DAILY PO 12/26/19 09:00 12/27/19 09:14 Home Med (Med Rec Complete!) ASDIRECTED XX 12/20/19 02:15 12/20/19 02:12 DC Ibuprofen (Advil) 600 mg Q6HP PRN PO MODERATE PAIN (PS 5-7) 12/20/19 17:15 12/26/19 10:46 DC 12/23/19 12:37 Ibuprofen (Advil) 600 mg Q8HP PRN PO MODERATE PAIN (PS 5-7) 12/26/19 11:00 12/27/19 09:16 Lactated Ringer's 1,000 ml @ 90 mls/hr Q11H7M IV 12/20/19 01:30 12/20/19 17:15 DC 12/20/19 13:17 Lactated Ringer's 1,000 ml @ 90 mls/hr Q11H7M IV 12/21/19 00:00 12/21/19 18:39 DC 12/21/19 12:18 Lactated Ringer's 1,000 ml @ 90 mls/hr Q11H7M IV 12/22/19 00:00 12/21/19 21:57 DC Lactobacillus Acidophilus (Bacid) 1 ea DAILY PO 12/26/19 09:00 12/27/19 09:14 Miscellaneous (Unresolved Clarification Entry) SEE LABEL COMMENTS DAILY XX 12/26/19 09:00 12/26/19 09:38 DC Miscellaneous (Unresolved Clarification Entry) SEE LABEL COMMENTS UNRESOLVED XX 12/20/19 00:01 12/21/19 07:42 DC Morphine Sulfate (Morphine Sulfate Inj) 2 mg Q3HP PRN IV PAIN 12/20/19 04:45 12/26/19 09:38 DC 12/20/19 11:11 Morphine Sulfate (Morphine Sulfate Inj) 3 mg Q3HP PRN IV PAIN 12/20/19 01:30 12/20/19 04:40 DC Omeprazole (PriLOSEC) 20 mg BID PO 12/21/19 09:00 12/27/19 09:14 Oxycodone/ Acetaminophen (Percocet 5mg/ 325mg Tablet) 1 tab Q4HP PRN PO MILD/MODERATE PAIN (PS 1-7) 12/20/19 18:00 12/27/19 10:49 Oxycodone/ Acetaminophen (Percocet 5mg/ 325mg Tablet) 1 tab Q6HP PRN PO MILD/MODERATE PAIN (PS 1-7) 12/20/19 11:30 12/20/19 17:15 DC Oxycodone/ Acetaminophen (Percocet 5mg/ 325mg Tablet) 2 tab Q4HP PRN PO SEVERE PAIN (PS 8-10) 12/20/19 18:00 12/21/19 13:14 Oxycodone/ Acetaminophen (Percocet 5mg/ 325mg Tablet) 2 tab Q6HP PRN PO SEVERE PAIN (PS 8-10) 12/20/19 11:30 12/20/19 17:15 DC 12/20/19 14:08 Polyethylene Glycol (Miralax) 1 pkt DAILYPRN PRN PO CONSTIPATION 12/26/19 08:30 Prednisone (Deltasone) 40 mg DAILY PO 12/26/19 09:00 01/01/20 22:00 12/27/19 09:14 Sodium Chloride 1,000 ml @ 70 mls/hr [id number] IV 12/22/19 08:30 12/24/19 08:17 DC 12/24/19 03:10 Vancomycin HCl 1000 mg/IV Miscellaneous Supplies 1 each/ Dextrose 270 ml @ 270 mls/hr Q12H IV 12/20/19 11:00 12/27/19 10:48 Vitamin D (Vitamin D) 2,000 units DAILY PO 12/26/19 09:00 12/27/19 09:14 Allergies Coded Allergies: No Known Allergies (Unverified , 12/19/19) Valencia Wu MD Dec 27, 2019 15:28
[2019-12-27 22:00] VITALS: BP 118/65
[2019-12-28] MEDS: PERCOCET 5MG/325MG TAB PO PRN ×2 (02:12→09:28)
[2019-12-28 06:00] VITALS: BP 127/67
[2019-12-28 06:07] LABS: BASO % 0.2 % (0.0-1.0); EOS % 0.2 % (0.0-3.0); HEMATOCRIT 26.1 % (36.0-47.0); HEMOGLOBIN 8.8 g/dl (12.0-15.5); LYMPH # 1.5 10^3/uL (1.5-5.0); LYMPH % 8.1 % (24.0-44.0); MEAN CORPUSCULAR HGB CONC 33.7 g/dl (32.0-36.5); MEAN CORPUSCULAR VOLUME 86.1 fl (80.0-96.0); MONO # 0.8 10^3/uL (0.0-0.8); MONO % 4.2 % (0.0-5.0); NEUTROPHILS # 14.8 10^3/uL (1.5-8.5); NEUTROPHILS % 82.7 % (36.0-66.0); PLATELET COUNT, AUTOMATED 445 10^3/uL (150-450); RED BLOOD COUNT 3.03 10^6/uL (4.00-5.40); WHITE BLOOD COUNT 17.9 10^3/uL (4.0-10.0)
[2019-12-28 06:26] LABS: ALBUMIN 1.6 GM/DL (3.2-5.2); ALT/SGPT 54 U/L (12-78); BILIRUBIN,TOTAL 0.5 MG/DL (0.2-1.0); BLOOD UREA NITROGEN 20 MG/DL (7-18); CALCIUM LEVEL 7.8 MG/DL (8.8-10.2); CARBON DIOXIDE LEVEL 25 MEQ/L (21-32); CHLORIDE LEVEL 106 MEQ/L (98-107); CREATININE FOR GFR 0.57 MG/DL (0.55-1.30); GLOMERULAR FILTRATION RATE > 60.0 (>45); GLUCOSE, FASTING 88 MG/DL (70-100); POTASSIUM SERUM 4.1 MEQ/L (3.5-5.1); SODIUM LEVEL 137 MEQ/L (136-145); TOTAL PROTEIN 5.1 GM/DL (6.4-8.2)
[2019-12-28] MEDS: VITAMIN D 1,000 INTERNATIONAL UNITS TABLET PO SCH (09:18)
[2019-12-28] MEDS: CALCIUM CARBONATE 500 MG CHEW U/D PO SCH ×2 (09:18→20:54)
[2019-12-28] MEDS: LACTOBACILLUS ACIDOPHILUS CAP (BACID) PO SCH (09:18)
[2019-12-28] MEDS: FERROUS SULFATE 325MG TAB PO SCH ×2 (09:19→20:54)
[2019-12-28] MEDS: predniSONE 20 MG TAB PO SCH (09:19)
[2019-12-28] MEDS: OMEPRAZOLE 20 MG CAP PO SCH ×2 (09:19→20:54)
[2019-12-28] MEDS: ENOXAPARIN 60MG/0.6ML SYRINGE (J1650 PER 10MG) SC SCH ×2 (09:19→20:54)
[2019-12-28] MEDS: FUROSEMIDE 20 MG TAB PO SCH (09:19)
[2019-12-28] MEDS: VANCOMYCIN HCL 1,000 MG, VIAL MATE ADAPTER 1 EACH in D5W 250 ML IV SCH ×2 (12:16→23:05)
[2019-12-28 14:00] VITALS: BP 126/64
--- NOTE | 2019-12-28 15:39 | IPNPDOC ---
Date Seen The patient was seen on 12/28/19. Progress Note SUBJECTIVE: WBC 17,9, improving slowly. Slightly improved light pink/salmon colored rash on trunk-macular, flat. Pain uncontrolled currently, will modify pain regimen. Denies chest pain, worsening short of breath, fevers, chills, nausea, vomiting. OBJECTIVE: VITAL SIGNS: Please see below PHYSICAL EXAMINATION: CONSTITUTIONAL: resting in bed, AAO x 3 EYES: PERRLA, EOM intact HENT, MOUTH: Normocephalic, atraumatic, moist mucous membranes NECK: SUPPLE, no JVD, no lymphadenopathy, no carotid bruit CV: Regular rate and rhythm, S1S2 normal, no murmurs/rubs/gallops RESPIRATORY: Decreased breath sounds in the R>L, mild crackles at bases bilaterally. no rales/rhonchi/wheezes GI: BS positive in 4 quadrants, soft, nontender, nondistended, no rebound or guarding, no organomegaly : Deferred MUSCULOSKELETAL: Palpable cord in right inner thigh under area of prior cellulitis. tenderness to bilateral wrists. Normal ROM. No cyanosis, clubbing. RLE swelling, tenderness and erythema still present. +2 pitting edema on RLE alone INTEGUMENTARY: Intact, improving salmon colored rash on trunk. no scaling. NEUROLOGIC: Cranial Nerves II-XII are intact, no focal deficits PSYCHIATRIC: Mood and affect are normal CURRENT MEDICATIONS: Please see below LABORATORY DATA: Please see below IMAGING: No new imaging. ASSESSMENT: 64 y/o F treated for extensive RLE thrombus, abnormal liver function tests, RLE cellulitis, possible arthropathy inflammatory vs. autoimmune. PLAN: 1. Extensive thrombus of RLE, acute. WBC improving further, pain severe at times. C/w Enoxaparin 50 mg SC BID. Pain control with Tylenol ATC QID, tramadol and oxyIR for mod-severe pain, ibuprofen PRN. 2. MRSA bacteremia. Repeat Cxs thus far neg. C/w Vancomycin for a total of 2 weeks (01/03/20). ID following. 3. Truncal rash. Autoimmune etiology is possible. Patient has had an extensive autoimmune workup here and in the past. Recommending rheumatology referral after discharge. On prednisone, showing improvement. 4. Superimposed acute fracture of the left inferior pubic ramus. Likely underlying osteoporosis. Multiple old healed fractures as well. C/w Vit D 2000 units daily, TUMS BID, pain control. 5. Arthropathy of bilateral upper ext, right ankle, hip. Improving slightly. Thus far autoimmune and inflammatory workup neg. 6. Bilateral pleural effusions. C/w low dose lasix, monitor Cr closely. On RA. F/u BMP, Cr. 7. Abnormal liver function tests. Resolved, unknown etiology. 8. Iron deficiency anemia. Iron low. C/w ferrous sulfate BID. Would benefit from iron infusion (venofer 100 mg IV x 5 days); however, with acute infection will hold off. Monitor CBC regularly. 9. DVT px. Enoxaparin SC BID, can likely transition to PO anticoagulant 12/29/19. DISPOSITION: Currently admitted under inpatient status. Plan is discharge home when medically improved. VS, I&O, 24H, Sayda Vital Signs/I&O Vital Signs Date Time Temp Pulse Resp B/P (MAP) Pulse Ox O2 Delivery O2 Flow Rate FiO2 12/28/19 10:00 16 12/28/19 06:00 97.6 59 127/67 (87) 97 Room Air 12/23/19 04:00 1.0 12/23/19 03:04 100 I&O- Last 24 Hours up to 6 AM 12/28/19 06:00 Intake Total 960 ml Output Total 0 ml Balance 960 ml Laboratory Data 24H LABS Laboratory Tests 2 12/28/19 05:24: Immature Granulocyte % (Auto) 4.6H, Neutrophils (%) (Auto) 82.7H, Lymphocytes (%) (Auto) 8.1L, Monocytes (%) (Auto) 4.2, Eosinophils (%) (Auto) 0.2, Basophils (%) (Auto) 0.2, Neutrophils # (Auto) 14.8H, Lymphocytes # (Auto) 1.5, Monocytes # (Auto) 0.8, Eosinophils # (Auto) 0.0, Basophils # (Auto) 0.0, Nucleated Red Blood Cells % (auto) 0.0, Anion Gap 6L, Glomerular Filtration Rate > 60.0, Calcium Level 7.8L, Total Bilirubin 0.5, Aspartate Amino Transf (AST/SGOT) 51H, Alanine Aminotransferase (ALT/SGPT) 54, Alkaline Phosphatase 287H, Total Protein 5.1L, Albumin 1.6L, Albumin/Globulin Ratio 0.46L CBC/BMP Laboratory Tests 12/28/19 05:24 Microbiology Microbiology 12/22/19 Blood Culture - Final, Complete NO GROWTH AFTER 5 DAYS 12/22/19 Blood Culture - Final, Complete NO GROWTH AFTER 5 DAYS 12/21/19 Blood Culture - Final, Complete Staph.aureus Methicillin Resis 12/21/19 Respiratory Panel (PCR) - Final, Complete Current Medications Current Medications Medications (Trade) Dose Ordered Sig/Howard Route PRN Reason Start Time Stop Time Status Last Admin Dose Admin Acetaminophen (Tylenol Tab) 650 mg Q4HP PRN PO PAIN OR FEVER 12/20/19 01:30 12/21/19 18:40 Albuterol Sulfate (Proventil Neb) 2.5 mg Q1HP PRN NEB SOB/WHEEZING 12/21/19 16:00 12/21/19 18:31 Calcium Carbonate (Tums) 1,000 mg BID PO 12/25/19 18:00 12/28/19 09:18 Calcium Carbonate (Tums) 1,000 mg Q4HP PRN PO HEARTBURN 12/25/19 03:45 12/25/19 16:43 DC 12/25/19 04:06 Cefazolin Sodium 1 gm/Dextrose 50 ml @ 100 mls/hr Q8H IV 12/21/19 18:00 12/22/19 02:17 DC 12/22/19 01:17 Cefepime HCl 1 gm/ Dextrose 50 ml @ 100 mls/hr Q12H IV 12/21/19 09:00 12/21/19 15:51 DC 12/21/19 09:19 Cefepime HCl 1 gm/ Dextrose 50 ml @ 100 mls/hr Q12H IV 12/22/19 08:00 12/22/19 02:39 DC Cefepime HCl 2 gm/ Dextrose 50 ml @ 100 mls/hr Q12H IV 12/22/19 02:00 12/22/19 15:08 DC 12/22/19 14:05 Colchicine (Colcrys) 0.6 mg BID PO 12/23/19 21:00 12/25/19 16:08 DC 12/25/19 09:22 Colchicine (Colcrys) 0.6 mg DAILY PO 12/22/19 17:00 12/23/19 09:01 DC 12/23/19 08:58 Docusate Sodium (Colace) 100 mg DAILY PO 12/26/19 09:00 12/26/19 10:32 DC 12/26/19 09:09 Enoxaparin Sodium (Lovenox) 40 mg DAILY SC 12/24/19 09:00 12/24/19 20:40 DC 12/24/19 08:41 Enoxaparin Sodium (Lovenox) 50 mg Q12H SC 12/24/19 21:00 12/28/19 09:19 Ferrous Sulfate (Ferrous Sulfate) 325 mg BID PO 12/26/19 09:00 12/28/19 09:19 Furosemide (Lasix) 20 mg DAILY PO 12/26/19 09:00 12/28/19 09:19 Home Med (Med Rec Complete!) ASDIRECTED XX 12/20/19 02:15 12/20/19 02:12 DC Ibuprofen (Advil) 600 mg Q6HP PRN PO MODERATE PAIN (PS 5-7) 12/20/19 17:15 12/26/19 10:46 DC 12/23/19 12:37 Ibuprofen (Advil) 600 mg Q8HP PRN PO MODERATE PAIN (PS 5-7) 12/26/19 11:00 12/27/19 09:16 Lactated Ringer's 1,000 ml @ 90 mls/hr Q11H7M IV 12/20/19 01:30 12/20/19 17:15 DC 12/20/19 13:17 Lactated Ringer's 1,000 ml @ 90 mls/hr Q11H7M IV 12/21/19 00:00 12/21/19 18:39 DC 12/21/19 12:18 Lactated Ringer's 1,000 ml @ 90 mls/hr Q11H7M IV 12/22/19 00:00 12/21/19 21:57 DC Lactobacillus Acidophilus (Bacid) 1 ea DAILY PO 12/26/19 09:00 12/28/19 09:18 Miscellaneous (Unresolved Clarification Entry) SEE LABEL COMMENTS DAILY XX 12/26/19 09:00 12/26/19 09:38 DC Miscellaneous (Unresolved Clarification Entry) SEE LABEL COMMENTS UNRESOLVED XX 12/20/19 00:01 12/21/19 07:42 DC Morphine Sulfate (Morphine Sulfate Inj) 2 mg Q3HP PRN IV PAIN 12/20/19 04:45 12/26/19 09:38 DC 12/20/19 11:11 Morphine Sulfate (Morphine Sulfate Inj) 3 mg Q3HP PRN IV PAIN 12/20/19 01:30 12/20/19 04:40 DC Omeprazole (PriLOSEC) 20 mg BID PO 12/21/19 09:00 12/28/19 09:19 Oxycodone/ Acetaminophen (Percocet 5mg/ 325mg Tablet) 1 tab Q4HP PRN PO MILD/MODERATE PAIN (PS 1-7) 12/20/19 18:00 12/28/19 09:28 Oxycodone/ Acetaminophen (Percocet 5mg/ 325mg Tablet) 1 tab Q6HP PRN PO MILD/MODERATE PAIN (PS 1-7) 12/20/19 11:30 12/20/19 17:15 DC Oxycodone/ Acetaminophen (Percocet 5mg/ 325mg Tablet) 2 tab Q4HP PRN PO SEVERE PAIN (PS 8-10) 12/20/19 18:00 12/21/19 13:14 Oxycodone/ Acetaminophen (Percocet 5mg/ 325mg Tablet) 2 tab Q6HP PRN PO SEVERE PAIN (PS 8-10) 12/20/19 11:30 12/20/19 17:15 DC 12/20/19 14:08 Polyethylene Glycol (Miralax) 1 pkt DAILYPRN PRN PO CONSTIPATION 12/26/19 08:30 Prednisone (Deltasone) 40 mg DAILY PO 12/26/19 09:00 01/01/20 22:00 12/28/19 09:19 Sodium Chloride 1,000 ml @ 70 mls/hr [id number] IV 12/22/19 08:30 12/24/19 08:17 DC 12/24/19 03:10 Vancomycin HCl 1000 mg/IV Miscellaneous Supplies 1 each/ Dextrose 270 ml @ 270 mls/hr Q12H IV 12/20/19 11:00 12/28/19 12:16 Vitamin D (Vitamin D) 2,000 units DAILY PO 12/26/19 09:00 12/28/19 09:18 Allergies Coded Allergies: No Known Allergies (Unverified , 12/19/19) Valencia Wu MD Dec 28, 2019 15:39
[2019-12-28] MEDS ORDERED: traMADol 50 MG TAB PO PRN (15:45)
[2019-12-28] MEDS ORDERED: oxyCODONE 5MG TAB PO PRN (15:45)
[2019-12-28] MEDS: ACETAMINOPHEN TAB 650MG DOSE (2X325MG) PO SCH ×2 (16:58→20:55)
[2019-12-28 22:00] VITALS: BP 118/64
[2019-12-29] MEDS ORDERED: PINK BISMUTH SUSP 524MG/30ML ORAL SYRINGE PO PRN (03:30)
[2019-12-29 06:00] VITALS: BP 132/69
[2019-12-29 06:16] LABS: BASO % 0.2 % (0.0-1.0); EOS % 0.1 % (0.0-3.0); HEMATOCRIT 26.5 % (36.0-47.0); HEMOGLOBIN 8.9 g/dl (12.0-15.5); LYMPH # 1.6 10^3/uL (1.5-5.0); LYMPH % 8.5 % (24.0-44.0); MEAN CORPUSCULAR HEMOGLOBIN 28.5 pg (27.0-33.0); MEAN CORPUSCULAR HGB CONC 33.6 g/dl (32.0-36.5); MEAN CORPUSCULAR VOLUME 84.9 fl (80.0-96.0); MONO # 0.8 10^3/uL (0.0-0.8); MONO % 4.1 % (0.0-5.0); NEUTROPHILS # 15.8 10^3/uL (1.5-8.5); NEUTROPHILS % 83.8 % (36.0-66.0); PLATELET COUNT, AUTOMATED 528 10^3/uL (150-450); RED BLOOD COUNT 3.12 10^6/uL (4.00-5.40); WHITE BLOOD COUNT 18.9 10^3/uL (4.0-10.0)
[2019-12-29 06:43] LABS: ALBUMIN 1.8 GM/DL (3.2-5.2); ALT/SGPT 134 U/L (12-78); BILIRUBIN,TOTAL 0.6 MG/DL (0.2-1.0); BLOOD UREA NITROGEN 18 MG/DL (7-18); C REACTIVE PROTEIN QUANTITATIV 4.51 MG/DL (0.00-0.30); CALCIUM LEVEL 8.2 MG/DL (8.8-10.2); CARBON DIOXIDE LEVEL 25 MEQ/L (21-32); CHLORIDE LEVEL 103 MEQ/L (98-107); CREATININE FOR GFR 0.57 MG/DL (0.55-1.30); GLOMERULAR FILTRATION RATE > 60.0 (>45); GLUCOSE, FASTING 87 MG/DL (70-100); POTASSIUM SERUM 3.8 MEQ/L (3.5-5.1); SODIUM LEVEL 135 MEQ/L (136-145); TOTAL PROTEIN 5.2 GM/DL (6.4-8.2)
[2019-12-29] MEDS ORDERED: GLUCAGON INJ 1MG VIAL SC PRN (06:45)
[2019-12-29] MEDS ORDERED: DEXTROSE 50% 50 ML SYRINGE IV PRN (06:45)
[2019-12-29] MEDS ORDERED: GLUCOSE 4GM CHEW TABLET PO PRN (06:45)
[2019-12-29 07:09] LABS: ERYTHROCYTE SEDIMENTATION RATE 49 mm/hr (0-30)
[2019-12-29] MEDS: CALCIUM CARBONATE 500 MG CHEW U/D PO SCH ×2 (08:21→20:21)
[2019-12-29] MEDS: VITAMIN D 1,000 INTERNATIONAL UNITS TABLET PO SCH (08:21)
[2019-12-29] MEDS: predniSONE 20 MG TAB PO SCH (08:22)
[2019-12-29] MEDS: FUROSEMIDE 20 MG TAB PO SCH (08:22)
[2019-12-29] MEDS: LACTOBACILLUS ACIDOPHILUS CAP (BACID) PO SCH (08:22)
[2019-12-29] MEDS: ACETAMINOPHEN TAB 650MG DOSE (2X325MG) PO SCH (08:23)
[2019-12-29] MEDS: ENOXAPARIN 60MG/0.6ML SYRINGE (J1650 PER 10MG) SC SCH ×2 (08:24→20:21)
[2019-12-29] MEDS: OMEPRAZOLE 20 MG CAP PO SCH ×2 (08:25→20:20)
[2019-12-29] MEDS: FERROUS SULFATE 325MG TAB PO SCH ×2 (08:25→20:20)
[2019-12-29] MEDS ORDERED: ACETAMINOPHEN TAB 650MG DOSE (2X325MG) PO PRN (08:45)
--- NOTE | 2019-12-29 10:48 | CCN ---
DATE OF SERVICE: 12/26/2019 SUBJECTIVE: Ms. Hancock was seen and examined this morning. She continues to have right extremity pain. She has also noted that she has increased pain in her right wrist again, however, denies any increase in swelling in that area. She states that her right leg feels slightly more swollen today than previously. There has been no other reported events overnight. She had a maximum temperature (Tmax) of 100.4 yesterday and has remained afebrile into this morning. Regarding the patient's shortness of breath, she states that she continues to do well. She denies any shortness of breath. She denies any chest discomfort, coughing or wheezing. She is continued on room air with oxygen saturations upwards of 97%. OBJECTIVE: VITAL SIGNS: Temperature 98.9, pulse 72, respiratory rate 20, blood pressure 133/70, pulse oximetry 97% on room air. GENERAL: The patient is awake, alert, and oriented. She does not appear in any acute distress. She is lying in bed. She is conversive. HEENT: Atraumatic, normocephalic. Eyes anicteric. Trachea is midline. Mucous membranes are pink and moist. There is no unusual ulceration or lesions. CARDIOVASCULAR: Normal S1, S2, regular rate and rhythm. No clicks, rubs, or murmurs. PULMONARY: The patient has clear breath sounds with some bibasilar crackles, continued improved aeration. There is symmetric chest expansion and good respiratory effort. There is no wheezes or rhonchi noted. ABDOMINAL: Soft, nondistended, nontender. No rebound tenderness or guarding. Normoactive bowel sounds. EXTREMITIES: The patient has continued swelling of the right lower extremity as well as some overlying mild erythema. Her swelling looks increased from previous examination. There is continued tenderness in the right calf as well with overlying erythema. Her left lower extremity is without edema. Her right upper extremity is tender with flexion extension, however, there is no swelling or redness. NEUROLOGIC: No focal neurological deficits. TEGUMENTARY: The patient has what looks like a semi colored macular rash on the back extending to the back of the arms as well. Otherwise, no other rashes or lesions. PSYCHIATRIC: Mood and affect appear appropriate. LABORATORY DATA: Hematology: White blood cell 23.3, hemoglobin 9.3, hematocrit 27.4, platelet count 334. ESR 52. Chemistry: Sodium 133, potassium 3.3, chloride 102, CO2 23, BUN 16, creatinine 0.59, fasting glucose 97, calcium 7.7, total bilirubin 1.0, AST 20, ALT 25, alkaline phosphatase 255, C-reactive protein 14.5, BNP 903, total protein 5.1, albumin 1.4. Immunology: Rheumatoid factor 14.9, complement C3 118, complement C4 12, autoimmune workup currently pending. IMAGING: Abdominal ultrasound demonstrating bilateral pleural effusions and a sludge in the gallbladder. INPATIENT MEDICATIONS: - ibuprofen 600 mg every 8 hours as needed - vitamin D 2000 units daily by mouth - Lasix 20 mg daily - ferrous sulfate 325 mg twice a day - prednisone 40 mg daily - lactobacillus daily - MiraLAX one packet daily as needed - Tums 1000 mg twice a day - Lovenox 50 mg every 12 hours - albuterol 2.5 mg every 1 hour as needed - Prilosec 20 mg twice a day - Percocet 5/325 one tablet every 4 hours as needed - Percocet 5/325 two tablets every 4 hours as needed - vancomycin 1 gram every 12 hours day 7 - Tylenol 650 mg every 4 hours as needed ASSESSMENT AND PLAN: 1. Acute hypoxic respiratory failure secondary to unclear etiology. The patient is continued on room air. She has not required any supplemental oxygenation since her first episode. The etiology of her acute hypoxic respiratory failure continues to remain unclear as it was transient and also presented with a right-sided pleural effusion which both resolved within 1 day without much intervention. There has been speculation whether the patient has a septic emboli from acute endocarditis from her staph bacteremia, however, given the time course and the resolution it is unlikely to be septic emboli. Additionally septic emboli typically do not present with a pleural effusion. She may have an autoimmune inflammatory process that is contributing to her pulmonary findings and other systemic complaints. She was recently started on prednisone 40 mg daily; will continue for 5-7 day course. 2. Gram positive bacteremia with methicillin-resistant Staphylococcus aureus and right leg cellulitis. The patient had a culture positive for gram positive bacteremia in one culture. This resulted in methicillin-resistant Staphylococcus aureus. She is currently continued on day 7 of vancomycin. TTE was negative. MARVA has not been completed yet. She has had multiple episodes of staph infections in the past. So, this should be evaluated in the future. 3. Arthropathy. The patient has a history of arthropathy. She has right-sided ankle swelling as well as right wrist swelling and pain as well. Additionally, she has complained of hip pain. She also has a history of multiple fractures, most recently acute pelvic fracture without any trauma. She has had a DEXA scan outpatient, which apparently was reported to be normal. We do not have access to the results through [facility]. Her vitamin D was low and she has been receiving supplementation. Taken together it appears that she may have some type of underlying autoimmune process as workup is currently pending. 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 However, we will start her on prednisone 40 mg daily as she has continued arthralgias and fevers with a rash for 5-7 days. 4. Anemia. The patient has progressive anemia. Current hemoglobin is 9.3, and has been downtrending. Iron studies demonstrate what appears to be anemia of chronic disease. This certainly fits with a history of autoimmune disease as she develops anemia during her flares. She is currently on iron supplementation. 5. Elevated total bilirubin. The patient has elevated total bilirubin. She does not have any abdominal complaints. She had elevated alkaline phosphatase and elevated GTT. Abdominal ultrasound was completed yesterday, which was read unrevealing. 6. Right deep venous thrombosis. The patient found to have right lower extremity deep venous thrombosis. She is currently on therapeutic Lovenox. Code status: Full code I, Sherin Fernandes, have conducted an independent examination and history of the patient and agree with the plan as detailed above and discussed during rounds. TANISHA
[2019-12-29] MEDS: VANCOMYCIN HCL 1,000 MG, VIAL MATE ADAPTER 1 EACH in D5W 250 ML IV SCH ×2 (11:20→22:40)
[2019-12-29 14:00] VITALS: BP 105/56
[2019-12-29 16:25] LABS: IMMUNOGLOBULIN G 932 MG/DL (681-1648); IMMUNOGLOBULIN M 71.9 MG/DL (40-230)
--- NOTE | 2019-12-29 17:22 | IPN ---
DATE: 12/29/2019 SUBJECTIVE: Mara states she is feeling fairly well today. She has had improvement of the swelling and rash over her right leg over the weekend. She states she still has some pain in the right ankle, as well as some pain in her right wrist. She has been working on physical therapy and notes she was able to bear weight on her right foot today while walking with a walker and walk up and down the crocker. She does have pain still anytime that the leg is lower, such as when she is sitting in a chair with her legs down or when she is standing up trying to walk. She states her diarrhea has resolved. She denies any cough or shortness of breath. OBJECTIVE: PHYSICAL EXAMINATION: Vital Signs: Temperature 97.3, heart rate 62, respiratory rate 20, blood pressure 105/56, pulse oximetry 100% on room air. General: Appears well, sitting up in a chair in no acute distress. HEENT: Normocephalic, atraumatic. Sclerae anicteric. Moist mucous membranes. Lungs: Clear to auscultation bilaterally. No wheezing, rhonchi, or rales. Heart: Normal S1 and S2. No murmurs, rubs or gallops. Abdomen: Soft, nontender, nondistended. No hepatosplenomegaly noted. Extremities: Right leg 2+ pitting edema in the foot up to the mid calf with erythema extending only up to the mid calf. Calf and foot are tender to palpation. Slight improvement in range of motion of the right ankle. Left leg appears normal without swelling, erythema or warmth. Right wrist appears improved without swelling, erythema or warmth. LABORATORY DATA: White blood cell count 18.9, hemoglobin 8.9, hematocrit 26.5, platelet count 528. Sodium 135, potassium 3.8, chloride 103, bicarbonate 25, BUN 18, creatinine 0.57, glucose 87, calcium 8.2, bilirubin 0.6, AST 129, ALT 134, alkaline phosphatase 341, CRP 4.51, total protein 5.2, albumin 1.8. Hematological workup so far has been negative. Clostridium difficile negative. IMPRESSION/PLAN: 1. Right lower extremity cellulitis complicated by hardware in the foot and methicillin-resistant Staphylococcus aureus (MRSA) bacteremia, further complicated by development of deep vein thrombosis (DVT) and possible thrombophlebitis. Patient has been maintained on IV vancomycin at 1 gram every 12 hours. Vancomycin trough is therapeutic at 18.2. Pharmacy consulted to maintain vancomycin trough between 15-20. It is unclear if her infection is uncomplicated or complicated as she has had recurrent fevers, but this is in the setting of DVT and other complications. She will be continued on IV antibiotics for at least 3 weeks. We will discharge her with the plan for a one-time dose of Dalvance at home. She will followup in Dr. Navarrete's outpatient clinic 10 days after discharge and further antibiotics will be considered at that time. She has had a TTE without evidence of vegetation, we will continue to hold off on transesophageal echocardiogram (MARVA) for now. 2. Pseudogout versus gout of the right wrist. Improved after initial dosing of colchicine, which has now been discontinued. Does not appear to be recurring. Continue with Advil as needed for pain. 3. Deep vein thrombosis (DVT) of the right lower extremity. On therapeutic dosing of Lovenox. 4. Acute pelvic fracture seen on imaging. Continue with vitamin D supplementation and calcium supplementation. 5. Diarrhea while on antibiotics, which has resolved. Continue with probiotic while on antibiotics. 6. History of hypogammaglobulinemia in 2010. Will repeat immunoglobulin levels to rule out recurrence. 7. Possible rheumatologic disease. So far testing has been negative. She will receive five days of prednisone after tomorrow's dose. I would not continue the prednisone in the setting of her methicillin-resistant Staphylococcus aureus (MRSA) bacteremia. She can followup outpatient with her raw shellfish preparer for further workup if desired.
--- NOTE | 2019-12-29 18:33 | IPNPDOC ---
Date Seen The patient was seen on 12/29/19. Progress Note SUBJECTIVE: WBC slightly elevated, possibly 2/2 to prednisone. Pain better controlled with modified regimen. Denies chest pain, worsening short of breath, fevers, chills, nausea, vomiting. OBJECTIVE: VITAL SIGNS: Please see below PHYSICAL EXAMINATION: CONSTITUTIONAL: resting in bed, AAO x 3 EYES: PERRLA, EOM intact HENT, MOUTH: Normocephalic, atraumatic, moist mucous membranes NECK: SUPPLE, no JVD, no lymphadenopathy, no carotid bruit CV: Regular rate and rhythm, S1S2 normal, no murmurs/rubs/gallops RESPIRATORY: Decreased breath sounds in the R>L, mild crackles at bases bilaterally. no rales/rhonchi/wheezes GI: BS positive in 4 quadrants, soft, nontender, nondistended, no rebound or guarding, no organomegaly : Deferred MUSCULOSKELETAL: Palpable cord in right inner thigh under area of prior cellulitis. tenderness to bilateral wrists. Normal ROM. No cyanosis, clubbing. RLE swelling decreased, tenderness and erythema still present, bright red. +1 pitting edema on RLE alone INTEGUMENTARY: Intact, improving salmon colored rash on trunk. no scaling. NEUROLOGIC: Cranial Nerves II-XII are intact, no focal deficits PSYCHIATRIC: Mood and affect are normal CURRENT MEDICATIONS: Please see below LABORATORY DATA: Please see below IMAGING: No new imaging. ASSESSMENT: 64 y/o F treated for extensive RLE thrombus, abnormal liver function tests, RLE cellulitis, possible arthropathy inflammatory vs. autoimmune. PLAN: 1. Extensive thrombus of RLE, acute. Pain improved. C/w Enoxaparin 50 mg SC BID, transition to PO prior to discharge. Pain control with Tylenol Q6HPRN, tramadol and oxyIR for mod-severe pain, ibuprofen PRN. 2. MRSA bacteremia. Repeat Cxs thus far neg. Per ID, continue on IV antibiotics for at least 3 weeks (01/10/20). She will need to be discharged with the plan for a one-time dose of Dalvance at home. She will followup in Dr. Navarrete's outpatient clinic 10 days after discharge and further antibiotics will be considered at that time. ID following. 3. Anemia likely multifactorial 2/2 to iron deficiency and possibly of chronic disease (? autoimmune disorder). No source of acute bleeding. H/H 8.9/26.5. Will benefit from iron infusion at some point. C/w ferrous sulfate. Goal Hgb >7. 4. Abnormal liver function tests. AST/ALT increased, bili now normal. Recent US abd neg. F/u CMP. 5. Truncal rash. Autoimmune etiology is possible. Patient has had an extensive autoimmune workup here and in the past. Currently on prednisone for 5 additional day. Recommending rheumatology referral after discharge. Showing mild improvement. 6. Superimposed acute fracture of the left inferior pubic ramus. Likely underlying osteoporosis. Multiple old healed fractures as well. C/w Vit D 2000 units daily, TUMS BID, pain control. 7. Arthropathy of bilateral upper ext, right ankle, hip. Improving slightly on prednisone. Thus far autoimmune and inflammatory workup neg. Will need rheumatology referral. 8. Bilateral pleural effusions. C/w low dose lasix, monitor Cr closely. On RA. F/u BMP, Cr. 9. DVT px. Enoxaparin SC BID, can likely transition to PO anticoagulant prior to discharge. DISPOSITION: Currently admitted under inpatient status. PT/OT thinks possible d/c in the next several days. Plan is discharge home when medically improved. VS, I&O, 24H, Fishbone Vital Signs/I&O Vital Signs Date Time Temp Pulse Resp B/P (MAP) Pulse Ox O2 Delivery O2 Flow Rate FiO2 12/29/19 14:00 97.3 62 20 105/56 (72) 100 Room Air 12/23/19 04:00 1.0 12/23/19 03:04 100 I&O- Last 24 Hours up to 6 AM 12/29/19 05:59 Intake Total 1520 ml Output Total 600 ml Balance 920 ml Laboratory Data 24H LABS Laboratory Tests 2 12/29/19 06:01: Immature Granulocyte % (Auto) 3.3H, Neutrophils (%) (Auto) 83.8H, Lymphocytes (%) (Auto) 8.5L, Monocytes (%) (Auto) 4.1, Eosinophils (%) (Auto) 0.1, Basophils (%) (Auto) 0.2, Neutrophils # (Auto) 15.8H, Lymphocytes # (Auto) 1.6, Monocytes # (Auto) 0.8, Eosinophils # (Auto) 0.0, Basophils # (Auto) 0.0, Nucleated Red Blood Cells % (auto) 0.0, Erythrocyte Sedimentation Rate 49H, Anion Gap 7L, Glomerular Filtration Rate > 60.0, Calcium Level 8.2L, Total Bilirubin 0.6, Aspartate Amino Transf (AST/SGOT) 129H, Alanine Aminotransferase (ALT/SGPT) 134H, Alkaline Phosphatase 341H, C-Reactive Protein, Quantitative 4.51H, Total Protein 5.2L, Albumin 1.8L, Albumin/Globulin Ratio 0.53L, Immunoglobulin A 171.0, Immunoglobulin G 932, Immunoglobulin M 71.9 CBC/BMP Laboratory Tests 12/29/19 06:01 Microbiology Microbiology 12/22/19 Blood Culture - Final, Complete NO GROWTH AFTER 5 DAYS 12/22/19 Blood Culture - Final, Complete NO GROWTH AFTER 5 DAYS 12/21/19 Blood Culture - Final, Complete Staph.aureus Methicillin Resis 12/21/19 Respiratory Panel (PCR) - Final, Complete Current Medications Current Medications Medications (Trade) Dose Ordered Sig/Howard Route PRN Reason Start Time Stop Time Status Last Admin Dose Admin Acetaminophen (Tylenol Tab) 650 mg Q4HP PRN PO PAIN OR FEVER 12/20/19 01:30 12/28/19 15:44 DC 12/21/19 18:40 Acetaminophen (Tylenol Tab) 650 mg Q6HP PRN PO PAIN OR FEVER 12/29/19 08:45 Acetaminophen (Tylenol Tab) 650 mg QID PO 12/28/19 17:00 12/29/19 08:35 DC 12/29/19 08:23 Albuterol Sulfate (Proventil Neb) 2.5 mg Q1HP PRN NEB SOB/WHEEZING 12/21/19 16:00 12/21/19 18:31 Bismuth Subsalicylate (Pepto Bismol) 30 ml QIDP PRN PO DIARRHEA 12/29/19 03:30 12/29/19 04:11 Calcium Carbonate (Tums) 1,000 mg BID PO 12/25/19 18:00 12/29/19 08:21 Calcium Carbonate (Tums) 1,000 mg Q4HP PRN PO HEARTBURN 12/25/19 03:45 12/25/19 16:43 DC 12/25/19 04:06 Cefazolin Sodium 1 gm/Dextrose 50 ml @ 100 mls/hr Q8H IV 12/21/19 18:00 12/22/19 02:17 DC 12/22/19 01:17 Cefepime HCl 1 gm/ Dextrose 50 ml @ 100 mls/hr Q12H IV 12/21/19 09:00 12/21/19 15:51 DC 12/21/19 09:19 Cefepime HCl 1 gm/ Dextrose 50 ml @ 100 mls/hr Q12H IV 12/22/19 08:00 12/22/19 02:39 DC Cefepime HCl 2 gm/ Dextrose 50 ml @ 100 mls/hr Q12H IV 12/22/19 02:00 12/22/19 15:08 DC 12/22/19 14:05 Colchicine (Colcrys) 0.6 mg BID PO 12/23/19 21:00 12/25/19 16:08 DC 12/25/19 09:22 Colchicine (Colcrys) 0.6 mg DAILY PO 12/22/19 17:00 12/23/19 09:01 DC 12/23/19 08:58 Dextrose (Dextrose 50%) 25 ml ASDIRECTED PRN IV SEE LABEL COMMENTS 12/29/19 06:45 12/29/19 06:58 DC Docusate Sodium (Colace) 100 mg DAILY PO 12/26/19 09:00 12/26/19 10:32 DC 12/26/19 09:09 Enoxaparin Sodium (Lovenox) 40 mg DAILY SC 12/24/19 09:00 12/24/19 20:40 DC 12/24/19 08:41 Enoxaparin Sodium (Lovenox) 50 mg Q12H SC 12/24/19 21:00 12/29/19 08:24 Ferrous Sulfate (Ferrous Sulfate) 325 mg BID PO 12/26/19 09:00 12/29/19 08:25 Furosemide (Lasix) 20 mg DAILY PO 12/26/19 09:00 12/29/19 08:22 Glucagon (Glucagon) 1 mg ASDIRECTED PRN SC SEE LABEL COMMENTS 12/29/19 06:45 12/29/19 06:58 DC Glucose (Glucose) 16 GM ASDIRECTED PRN PO SEE LABEL COMMENTS 12/29/19 06:45 12/29/19 06:58 DC Home Med (Med Rec Complete!) ASDIRECTED XX 12/20/19 02:15 12/20/19 02:12 DC Ibuprofen (Advil) 600 mg Q6HP PRN PO MODERATE PAIN (PS 5-7) 12/20/19 17:15 12/26/19 10:46 DC 12/23/19 12:37 Ibuprofen (Advil) 600 mg Q8HP PRN PO MODERATE PAIN (PS 5-7) 12/26/19 11:00 12/27/19 09:16 Lactated Ringer's 1,000 ml @ 90 mls/hr Q11H7M IV 12/20/19 01:30 12/20/19 17:15 DC 12/20/19 13:17 Lactated Ringer's 1,000 ml @ 90 mls/hr Q11H7M IV 12/21/19 00:00 12/21/19 18:39 DC 12/21/19 12:18 Lactated Ringer's 1,000 ml @ 90 mls/hr Q11H7M IV 12/22/19 00:00 12/21/19 21:57 DC Lactobacillus Acidophilus (Bacid) 1 ea DAILY PO 12/26/19 09:00 12/29/19 08:22 Miscellaneous (Unresolved Clarification Entry) SEE LABEL COMMENTS DAILY XX 12/26/19 09:00 12/26/19 09:38 DC Miscellaneous (Unresolved Clarification Entry) SEE LABEL COMMENTS UNRESOLVED XX 12/20/19 00:01 12/21/19 07:42 DC Morphine Sulfate (Morphine Sulfate Inj) 2 mg Q3HP PRN IV PAIN 12/20/19 04:45 12/26/19 09:38 DC 12/20/19 11:11 Morphine Sulfate (Morphine Sulfate Inj) 3 mg Q3HP PRN IV PAIN 12/20/19 01:30 12/20/19 04:40 DC Omeprazole (PriLOSEC) 20 mg BID PO 12/21/19 09:00 12/29/19 08:25 Oxycodone HCl (Roxicodone, Oxyir) 5 mg Q6HP PRN PO SEVERE PAIN (PS 8-10) 12/28/19 15:45 12/29/19 07:36 Oxycodone/ Acetaminophen (Percocet 5mg/ 325mg Tablet) 1 tab Q4HP PRN PO MILD/MODERATE PAIN (PS 1-7) 12/20/19 18:00 12/28/19 15:44 DC 12/28/19 09:28 Oxycodone/ Acetaminophen (Percocet 5mg/ 325mg Tablet) 1 tab Q6HP PRN PO MILD/MODERATE PAIN (PS 1-7) 12/20/19 11:30 12/20/19 17:15 DC Oxycodone/ Acetaminophen (Percocet 5mg/ 325mg Tablet) 2 tab Q4HP PRN PO SEVERE PAIN (PS 8-10) 12/20/19 18:00 12/28/19 15:44 DC 12/21/19 13:14 Oxycodone/ Acetaminophen (Percocet 5mg/ 325mg Tablet) 2 tab Q6HP PRN PO SEVERE PAIN (PS 8-10) 12/20/19 11:30 12/20/19 17:15 DC 12/20/19 14:08 Polyethylene Glycol (Miralax) 1 pkt DAILYPRN PRN PO CONSTIPATION 12/26/19 08:30 Prednisone (Deltasone) 40 mg DAILY PO 12/26/19 09:00 12/31/19 08:59 12/29/19 08:22 Sodium Chloride 1,000 ml @ 70 mls/hr [id number] IV 12/22/19 08:30 12/24/19 08:17 DC 12/24/19 03:10 Tramadol HCl (Ultram) 50 mg Q6HP PRN PO MODERATE PAIN (PS 5-7) 12/28/19 15:45 Vancomycin HCl 1000 mg/IV Miscellaneous Supplies 1 each/ Dextrose 270 ml @ 270 mls/hr Q12H IV 12/20/19 11:00 12/29/19 11:20 Vitamin D (Vitamin D) 2,000 units DAILY PO 12/26/19 09:00 12/29/19 08:21 Allergies Coded Allergies: No Known Allergies (Unverified , 12/19/19) Valencia Wu MD Dec 29, 2019 18:33
[2019-12-29] MEDS: IBUPROFEN 600 MG TAB PO PRN (20:21)
[2019-12-29 22:00] VITALS: BP 131/72
[2019-12-30 06:00] VITALS: BP 132/72
[2019-12-30] MEDS: IBUPROFEN 600 MG TAB PO PRN (06:22)
[2019-12-30 07:04] LABS: ALT/SGPT 163 U/L (12-78); BILIRUBIN,TOTAL 0.6 MG/DL (0.2-1.0); BLOOD UREA NITROGEN 19 MG/DL (7-18); CALCIUM LEVEL 8.2 MG/DL (8.8-10.2); CARBON DIOXIDE LEVEL 28 MEQ/L (21-32); CHLORIDE LEVEL 102 MEQ/L (98-107); CREATININE FOR GFR 0.68 MG/DL (0.55-1.30); GLOMERULAR FILTRATION RATE > 60.0 (>45); GLUCOSE, FASTING 82 MG/DL (70-100); POTASSIUM SERUM 3.4 MEQ/L (3.5-5.1); SODIUM LEVEL 137 MEQ/L (136-145); TOTAL PROTEIN 5.5 GM/DL (6.4-8.2)
[2019-12-30 07:09] LABS: BASO % 0.3 % (0.0-1.0); EOS % 0.2 % (0.0-3.0); HEMOGLOBIN 9.3 g/dl (12.0-15.5); LYMPH # 1.5 10^3/uL (1.5-5.0); LYMPH % 9.7 % (24.0-44.0); MEAN CORPUSCULAR HGB CONC 33.2 g/dl (32.0-36.5); MEAN CORPUSCULAR VOLUME 87.2 fl (80.0-96.0); MONO # 0.7 10^3/uL (0.0-0.8); MONO % 4.4 % (0.0-5.0); NEUTROPHILS # 12.5 10^3/uL (1.5-8.5); NEUTROPHILS % 82.7 % (36.0-66.0); PLATELET COUNT, AUTOMATED 573 10^3/uL (150-450); RED BLOOD COUNT 3.21 10^6/uL (4.00-5.40); WHITE BLOOD COUNT 15.1 10^3/uL (4.0-10.0)
[2019-12-30] MEDS ORDERED: POTASSIUM CHLORIDE 10 MEQ SR TABLET PO ONE (07:45)
[2019-12-30] MEDS: ENOXAPARIN 60MG/0.6ML SYRINGE (J1650 PER 10MG) SC SCH (08:05)
[2019-12-30] MEDS: CALCIUM CARBONATE 500 MG CHEW U/D PO SCH (08:07)
[2019-12-30] MEDS: LACTOBACILLUS ACIDOPHILUS CAP (BACID) PO SCH (08:08)
[2019-12-30] MEDS: predniSONE 20 MG TAB PO SCH (08:08)
[2019-12-30] MEDS: FERROUS SULFATE 325MG TAB PO SCH (08:08)
[2019-12-30] MEDS: FUROSEMIDE 20 MG TAB PO SCH (08:08)
[2019-12-30] MEDS: OMEPRAZOLE 20 MG CAP PO SCH (08:08)
[2019-12-30] MEDS: VITAMIN D 1,000 INTERNATIONAL UNITS TABLET PO SCH (08:08)
[2019-12-30] MEDS ORDERED: FERR325T18 PO (10:22)
[2019-12-30] MEDS ORDERED: CALC200T15 PO (10:22)
[2019-12-30] MEDS ORDERED: VITAD1000T PO (10:22)
[2019-12-30] MEDS ORDERED: RISATAB3 PO (10:22)
[2019-12-30] MEDS ORDERED: TRAM50TA2 PO (10:22)
[2019-12-30] MEDS ORDERED: OXYC-517 PO (10:22)
[2019-12-30] MEDS ORDERED: OMEP-218 PO (10:22)
[2019-12-30] MEDS ORDERED: ACET1TAB55 PO (10:22)
[2019-12-30] MEDS ORDERED: ELIQ5TAB PO (10:37)
[2019-12-30] MEDS ORDERED: PRED10TA2 PO (10:38)
--- NOTE | 2019-12-30 13:38 | DS.PDOC ---
Discharge Summary General Date of Admission Dec 20, 2019 at 01:30 Date of Discharge 12/30/19 Discharge Summary PROCEDURES PERFORMED DURING STAY: None. ADMITTING DIAGNOSES: 1. Ankle pain. DISCHARGE DIAGNOSES: 1. MRSA bacteremia, extensive thrombus of right lower extremity, anemia, abnormal liver enzymes, bilateral pleural effusions, arthropathy. COMPLICATIONS/CHIEF COMPLAINT: 4 Ankle Pain. HISTORY OF PRESENT ILLNESS: This is a 64-year-old female with worsening right ankle pain over the past few days. This all started after she had been doing some fairly intensive yard work. The pain was increasing to the point where she was having pain with normal walking. She was seen in orthopedic clinic initially on 12/18/[address] Hitchcock and then also on 12/19/2019 by myself. 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 She was initially placed in a cast but was not tolerating it and was given a boot in addition to some hydrocodone and ibuprofen today. She felt her pain was worsening and presented to the emergency room (ER). She denies fevers, chills or other concerning symptoms. She does not have significant pain at rest or with range of motion, however, when she stands her pain is more severe. It is throughout the ankle joint, worse in the lateral gutter of the tibiotalar joint.. HOSPITAL COURSE: 64 y/o F treated for extensive RLE thrombus, abnormal liver function tests, RLE cellulitis, possible arthropathy inflammatory vs. autoim mune. 1. Extensive thrombus of RLE, acute. Pain improved. C/w Enoxaparin 50 mg SC BID, started on by mouth Eliquis on discharge today ,Pain control with Tylenol Q6HPRN, tramadol and oxyIR for mod-severe pain, ibuprofen PRN. 2. MRSA bacteremia. Repeat Cxs thus far neg. Per ID, continue on IV antibiotics for at least 3 weeks (01/10/20). She will need to be discharged with the plan for a one-time dose of Dalvance at home. She will followup in Dr. Navarrete's outpatient clinic 10 days after discharge and further antibiotics will be considered at that time. All home antibiotic arrangements made along with anaphylactic And IV iron as were given to pharmacy. 3. Anemia likely multifactorial 2/2 to iron deficiency and possibly of chronic disease (? autoimmune disorder). No source of acute bleeding. H/H 8.9/26.5. Will benefit from iron infusion at some point. C/w ferrous sulfate. Goal Hgb >7. 4. Abnormal liver function tests. AST/ALT increased, bili now normal. Recent US abd neg. F/u CMP. 5. Truncal rash. Autoimmune etiology is possible. Patient has had an extensive autoimmune workup here and in the past. Currently on prednisone for 5 additional day. Recommending rheumatology referral after discharge. Showing mild improvement. 6. Superimposed acute fracture of the left inferior pubic ramus. Likely underlying osteoporosis. Multiple old healed fractures as well. C/w Vit D 2000 units daily, TUMS BID, pain control. 7. Arthropathy of bilateral upper ext, right ankle, hip. Improving slightly on prednisone. Thus far autoimmune and inflammatory workup neg. Will need rheumatology referral. 8. Bilateral pleural effusions. C/w low dose lasix, monitor Cr closely. On RA. F/u BMP, Cr. . DISCHARGE MEDICATIONS: Please see below. ALLERGIES: Please see below. PHYSICAL EXAMINATION ON DISCHARGE: VITAL SIGNS: Please see below. GENERAL: Within normal limits HEENT: PERRLA. Extraocular muscles intact NECK: Supple CARDIOVASCULAR EXAMINATION: S1, S2, regular RESPIRATORY EXAMINATION: Clear to A&P ABDOMINAL EXAMINATION: , Soft, nontender, bowel sound present EXTREMITIES: No clubbing, cyanosis, edema SKIN: Normal NEUROLOGICAL EXAMINATION: . No focal motor sensory deficit PSYCHIATRIC EXAMINATION: Normal LABORATORY DATA: Please see below. IMAGING: Please refer to medical records for patient's complete radiological imaging and reports PROGNOSIS: Good ACTIVITY: As tolerated. DIET: As tolerated DISCHARGE PLAN: Follow with ID in 10 days DISPOSITION: . Home DISCHARGE INSTRUCTIONS: 1. As per discharge instructions. ITEMS TO FOLLOWUP ON ON OUTPATIENT: 1. Hollow with ID in 10 days. DISCHARGE CONDITION: Stable. TIME SPENT ON DISCHARGE: 40 minutes. Vital Signs/I&Os Vital Signs Date Time Temp Pulse Resp B/P (MAP) Pulse Ox O2 Delivery O2 Flow Rate FiO2 12/30/19 06:00 97.9 56 20 132/72 (92) 98 Room Air I&O- Last 24 Hours up to 6 AM 12/30/19 05:59 Intake Total 1140 ml Output Total 0 ml Balance 1140 ml Laboratory Data Labs 24H Laboratory Tests 2 12/30/19 06:13: Immature Granulocyte % (Auto) 2.7, Neutrophils (%) (Auto) 82.7H, Lymphocytes (%) (Auto) 9.7L, Monocytes (%) (Auto) 4.4, Eosinophils (%) (Auto) 0.2, Basophils (%) (Auto) 0.3, Neutrophils # (Auto) 12.5H, Lymphocytes # (Auto) 1.5, Monocytes # (Auto) 0.7, Eosinophils # (Auto) 0.0, Basophils # (Auto) 0.0, Nucleated Red Blood Cells % (auto) 0.0, Anion Gap 7L, Glomerular Filtration Rate > 60.0, Calcium Level 8.2L, Total Bilirubin 0.6, Aspartate Amino Transf (AST/SGOT) 96H, Alanine Aminotransferase (ALT/SGPT) 163H, Alkaline Phosphatase 345H, Total Protein 5.5L, Albumin 2.0L, Albumin/Globulin Ratio 0.57L 12/30/19 10:11: Vancomycin Level Trough 21.3H CBC/BMP Laboratory Tests 12/30/19 06:13 Microbiology Microbiology 12/22/19 Blood Culture - Final, Complete NO GROWTH AFTER 5 DAYS 12/22/19 Blood Culture - Final, Complete NO GROWTH AFTER 5 DAYS 12/21/19 Blood Culture - Final, Complete Staph.aureus Methicillin Resis 12/21/19 Respiratory Panel (PCR) - Final, Complete Discharge Medications Scheduled Apixaban (Eliquis) 5 Mg Tablet, 5 MG PO BID Calcium Carbonate (Calcium Carbonate) 200 Mg Tab.chew, 1,000 MG PO BID Cholecalciferol (Vitamin D3) (Vitamin D3) 1,000 Unit Tablet, 2,000 UNITS PO DAILY Ferrous Sulfate (Ferrous Sulfate) 325 Mg Tablet, 325 MG PO BID Fluoride (Sodium) (Prevident) 100 Ml Paste..ml., 1 DOSE TOP DAILY, (Reported) L.acidoph/L.bulg/B.bif/S.therm (Renetta-Bid Caplet) 1 Each Tablet, 1 EA PO DAILY Levothyroxine Sodium (Levothyroxine Sodium) 75 Mcg Tablet, 75 MCG PO DAILY, (Reported) Omeprazole (Omeprazole) 20 Mg Capsule.dr, 20 MG PO BID Prednisone (Prednisone) 10 Mg Tablet, 10 MG PO TAPER Take 4 tabs daily x 3 days, then 3 tabs daily x 3 days, then 2 tabs daily x 3 days, then 1 tab daily x 3 days and stop Scheduled PRN Acetaminophen (Acetaminophen) 325 Mg Tablet, 650 MG PO Q6HP PRN for PAIN OR FEVER Hydrocodone/Acetaminophen (Hydrocodone-Acetamin 5-325 mg) 1 Each Tablet, 1 TAB PO TID PRN for PAIN, (Reported) Oxycodone HCl (Oxycodone HCl) 5 Mg Tablet, 5 MG PO Q6HP PRN for SEVERE PAIN (PS 8-10) Tramadol HCl (Tramadol HCl) 50 Mg Tablet, 50 MG PO Q6HP PRN for MODERATE PAIN (PS 5-7) Miscellaneous Medications [Patient Comments] , (Reported) PATIENT STATES SHE HAD A FLU SHOT ABOUT 2018 Allergies Coded Allergies: No Known Allergies (Unverified , 12/19/19) LUL LOYA MD Dec 30, 2019 13:38
== END 2019-12-30 13:52 | disposition home or self-care (01) | DRG 351 ==
LOC: M ED 20:03 → M ED INP 12-20 01:30 → ENRESERVTM 12-20 02:53 → ENRESERVDT 12-20 02:53 → M MSPAV 12-20 03:27 → M RR INP 12-21 18:50 → M MSPAV 12-23 15:30
PROVIDERS: ADMIT Orthopaedic Surgery; ATTEND Internal Medicine
PROC: 0S9F3ZZ Drainage of Right Ankle Joint, Percutaneous Approach (ICD-10-PCS; principal; 2019-12-20)
DX: M19.071 Primary osteoarthritis, right ankle and foot (principal); J96.01 Acute respiratory failure with hypoxia; J90 Pleural effusion, not elsewhere classified; J18.9 Pneumonia, unspecified organism; I82.431 Acute embolism and thrombosis of right popliteal vein; K52.1 Toxic gastroenteritis and colitis; R78.81 Bacteremia; I82.441 Acute embolism and thrombosis of right tibial vein; M80.052A Age-related osteoporosis with current pathological fracture, left femur, initial encounter for fracture; L03.115 Cellulitis of right lower limb; S86.311A Strain of muscle(s) and tendon(s) of peroneal muscle group at lower leg level, right leg, initial encounter; K21.9 Gastro-esophageal reflux disease without esophagitis; D72.829 Elevated white blood cell count, unspecified; K44.9 Diaphragmatic hernia without obstruction or gangrene; M25.471 Effusion, right ankle; K05.6 Periodontal disease, unspecified; M79.89 Other specified soft tissue disorders; M25.531 Pain in right wrist; E87.6 Hypokalemia; X58.XXXA Exposure to other specified factors, initial encounter; Y92.009 Unspecified place in unspecified non-institutional (private) residence as the place of occurrence of the external cause; Y93.H2 Activity, gardening and landscaping; Y92.017 Garden or yard in single-family (private) house as the place of occurrence of the external cause; D50.9 Iron deficiency anemia, unspecified; R21 Rash and other nonspecific skin eruption; T36.95XA Adverse effect of unspecified systemic antibiotic, initial encounter; B95.62 Methicillin resistant Staphylococcus aureus infection as the cause of diseases classified elsewhere; R94.5 Abnormal results of liver function studies; M19.031 Primary osteoarthritis, right wrist; Z86.14 Personal history of Methicillin resistant Staphylococcus aureus infection; Z79.899 Other long term (current) drug therapy; Z96.642 Presence of left artificial hip joint

== ENCOUNTER → 2020-01-08 | Outpatient (REF) | payer OTHER ==
[~2020-01-08] MED LIST changes: +ACET1TAB55 PO; +CALC200T15 PO; +ELIQ5TAB PO; +FERR325T18 PO; +HYDR-3713 PO; +IBUP-1022 PO; +LEVO75TA4 PO; +OMEP-218 PO; +OXYC-517 PO; +PATIENT COMMENTS; +POTA1TAB14 PO; +PRED10TA2 PO; +PREV1.1P2 TOP; +RISATAB3 PO; +SULF1TAB93 PO; +VITA500C24 PO; +VITAD1000T PO
[2020-01-08 11:19] LABS: BASO % 0.2 % (0.0-1.0); EOS % 0.2 % (0.0-3.0); HEMATOCRIT 31.5 % (36.0-47.0); HEMOGLOBIN 9.7 g/dl (12.0-15.5); LYMPH # 1.2 10^3/uL (1.5-5.0); LYMPH % 9.4 % (24.0-44.0); MEAN CORPUSCULAR HEMOGLOBIN 28.4 pg (27.0-33.0); MEAN CORPUSCULAR HGB CONC 30.8 g/dl (32.0-36.5); MEAN CORPUSCULAR VOLUME 92.4 fl (80.0-96.0); NEUTROPHILS # 10.6 10^3/uL (1.5-8.5); NEUTROPHILS % 81.1 % (36.0-66.0); PLATELET COUNT, AUTOMATED 579 10^3/uL (150-450); RED BLOOD COUNT 3.41 10^6/uL (4.00-5.40); WHITE BLOOD COUNT 13.1 10^3/uL (4.0-10.0)
[2020-01-08 11:47] LABS: ERYTHROCYTE SEDIMENTATION RATE 27 mm/hr (0-30)
[2020-01-08 11:58] LABS: ALBUMIN 3.1 GM/DL (3.2-5.2); ALT/SGPT 45 U/L (12-78); BILIRUBIN,TOTAL 0.4 MG/DL (0.2-1.0); BLOOD UREA NITROGEN 20 MG/DL (7-18); C REACTIVE PROTEIN QUANTITATIV 0.72 MG/DL (0.00-0.30); CALCIUM LEVEL 9.3 MG/DL (8.8-10.2); CARBON DIOXIDE LEVEL 27 MEQ/L (21-32); CHLORIDE LEVEL 106 MEQ/L (98-107); CREATININE FOR GFR 0.86 MG/DL (0.55-1.30); GLOMERULAR FILTRATION RATE > 60.0 (>45); GLUCOSE, FASTING 81 MG/DL (70-100); POTASSIUM SERUM 4.2 MEQ/L (3.5-5.1); SODIUM LEVEL 140 MEQ/L (136-145); TOTAL PROTEIN 6.8 GM/DL (6.4-8.2)
== END ==
LOC: M SFHCPLAZ 09:06
PROVIDERS: ATTEND Internal Medicine Infectious Disease
DX: L03.115 Cellulitis of right lower limb (principal)

== ENCOUNTER 2020-01-16 16:55 | Inpatient (IN) | payer BC, OTHER ==
[~2020-01-16] VITALS: Ht 162.6 cm; Wt 46.0 kg
[~2020-01-16 16:55] MED LIST changes: +D31000TA2 PO; -SULF1TAB93 PO; -VITA500C24 PO; -VITAD1000T PO
[2020-01-16] MEDS ORDERED: SULF1TAB93 PO (17:17)
[2020-01-16] MEDS ORDERED: CLINDAMYCIN 900 MG in IV 1 EA IV ONE (18:00)
[2020-01-16 18:25] LABS: BASO % 0.5 % (0.0-1.0); EOS # 0.1 10^3/uL (0.0-0.5); EOS % 1.4 % (0.0-3.0); HEMATOCRIT 28.1 % (36.0-47.0); LYMPH # 0.8 10^3/uL (1.5-5.0); LYMPH % 9.6 % (24.0-44.0); MEAN CORPUSCULAR HEMOGLOBIN 28.8 pg (27.0-33.0); MEAN CORPUSCULAR VOLUME 90.1 fl (80.0-96.0); MONO # 0.6 10^3/uL (0.0-0.8); MONO % 6.9 % (0.0-5.0); NEUTROPHILS # 6.8 10^3/uL (1.5-8.5); PLATELET COUNT, AUTOMATED 299 10^3/uL (150-450); RED BLOOD COUNT 3.12 10^6/uL (4.00-5.40); WHITE BLOOD COUNT 8.4 10^3/uL (4.0-10.0)
--- NOTE | 2020-01-16 18:42 | REPVR ---
PROCEDURE INFORMATION: Exam: US Duplex Right Lower Extremity Veins, Limited Exam date and time: 01/16/2020 6:30 PM Age: 64 years old Clinical indication: Swelling (edema) of limb; Lower extremity, right; Additional info: Worsening cellulitis, leg and ankle swelling, R/O dvt TECHNIQUE: Imaging protocol: Real-time Duplex ultrasound of the Right Lower Extremity with 2-D palm scale, color Doppler flow and spectral waveform analysis with image documentation. Limited exam was focused on the right lower extremity veins. COMPARISON: US PV-Uz[facility] 12/24/2019 9:33 PM FINDINGS: Right deep veins: Unremarkable. The common femoral, femoral, proximal profunda femoral and popliteal veins are patent without thrombus. Normal Doppler waveforms. Normal compressibility and/or augmentation response. Right superficial veins: There is noncompressible thrombus within the greater saphenous vein extends to the saphenofemoral junction but does not enter the common femoral vein. Soft tissues: Right inguinal lymph nodes are present. They measure 2.5 x 0.7 x 1.9 cm and 2.5 x 0.7 x 1.8 cm. IMPRESSION: No evidence of deep vein thrombosis. There is greater saphenous vein thrombosis. Thrombus extends to the saphenofemoral junction but does not enter the common femoral vein. Electronically signed by: Reese Quinteros On 01/16/2020 18:42:19 PM
[2020-01-16 19:12] LABS: ERYTHROCYTE SEDIMENTATION RATE 58 mm/hr (0-30)
[2020-01-16 21:08] VITALS: BP 154/88
[2020-01-16] MEDS: ACETAMINOPHEN TAB 650MG DOSE (2X325MG) PO PRN (21:47)
--- NOTE | 2020-01-16 21:57 | PHACANCOPD ---
PHARMACY VANCOMYCIN DOSING Pt Demographics Demographics Patient Age:64 , Weight:54.550 , Gender: female Adjusted Body Weight Events Past 24 Hours Events Past 24 Hours: NO: Dialysis, Diuretic Therapy, Change in CrCl, Fever, Elevation in WBC, Pending Diagnostics, Pending Procedures, Other Vancomycin Vancomycin indication: cellulitis Vancomycin Target Ranges: 15-20 mcg/ml Vancomycin Load Y/N: No Load Dose Date Time Vancomycin Load Dose: Date: Time: Vancomycin Dose Date: 01/16/20. Current Vancomycin Dose: 1g q12h @2200 Intermittent Dosing?: No Labs Labs Vital Signs Date Time Temp Pulse Resp B/P (MAP) Pulse Ox O2 Delivery O2 Flow Rate FiO2 01/16/20 18:12 01/16/20 16:56 97.6 68 19 142/75 (97) 100 Room Air Laboratory Tests 01/16/20 18:05: White Blood Count 8.4, Red Blood Count 3.12L, Hemoglobin 9.0L, Hematocrit 28.1L, Mean Corpuscular Volume 90.1, Mean Corpuscular Hemoglobin 28.8, Mean Corpuscular Hemoglobin Concent 32.0, Red Cell Distribution Width 15.0H, Platelet Count 299, Immature Granulocyte % (Auto) 0.6, Neutrophils (%) (Auto) 81.0H, Lymphocytes (%) (Auto) 9.6L, Monocytes (%) (Auto) 6.9H, Eosinophils (%) (Auto) 1.4, Basophils (%) (Auto) 0.5, Neutrophils # (Auto) 6.8, Lymphocytes # (Auto) 0.8L, Monocytes # (Auto) 0.6, Eosinophils # (Auto) 0.1, Basophils # (Auto) 0.0, Nucleated Red Bloo d Cells % (auto) 0.0, Erythrocyte Sedimentation Rate 58H, Lactic Acid Level 0.5, C-Reactive Protein, Quantitative 5.39H 01/16/20 18:24: POC Glucose (Misc Panel) 91, POC Sodium (Misc Panel) 138, POC Potassium (Misc Panel) 3.5, POC Chloride (Misc Panel) 105, POC Total CO2 (Misc Panel) 21.0L, POC Blood Urea Nitrogen (Misc Panel 16, POC Ionized Calcium (Misc Panel) 4.9, POC Creatinine (Misc Panel) 0.8, POC Hematocrit (Misc Panel) 28.0L Current Medications Medications (Trade) Dose Ordered Sig/Howard Route PRN Reason Start Time Stop Time Status Last Admin Dose Admin Acetaminophen (Tylenol Tab) 650 mg Q4H PRN PO PAIN OR FEVER 01/16/20 20:30 01/16/20 21:47 650 MG Micro Microbiology 01/16/20 Blood Culture, Received Pending 01/16/20 Blood Culture, Received Pending Creatinine Clearance Date:01/16/20. Creatinine Clearance: calculated to be 62 Assessment and Plan Maintaining Current Dose?: Yes Reason for dose change: No Dose Change Pharmacist Note Pharmacist Note Date: 01/16/20. Pharmacist note: 64 year old female admitted for cellulitis with history of MRSA infection and vancomycin usage here at [facility]. Calculated CrCl is 62. Based on previous consult I started this patient on 1G IV vancomycin q12h to start at 2200. I have scheduled a trough before the 4th dose @0900 on 01/17. I will continue to follow this patient and adjust dose as needed. DUGLAS TREVIZO [facility] January 16, 2020 21:57
[2020-01-16] MEDS: VANCOMYCIN HCL 1,000 MG, VIAL MATE ADAPTER 1 EACH in D5W 250 ML IV SCH (22:11)
[2020-01-16] MEDS ORDERED: traMADol 50 MG TAB PO PRN (22:15)
[2020-01-16] MEDS ORDERED: VITA500C24 PO (22:16)
--- NOTE | 2020-01-16 22:50 | HPEPDOC ---
[facility] Medical History & Physical Date of Admission January 16, 2020 Date of Service: January 16, 2020 Attending Physician: JEROD PATINO MD History and Physical CHIEF COMPLAINT: RLE redness and swelling HISTORY OF PRESENT ILLNESS: 64 y/o who was recently admitted 12/19-01/15 for extensive RLE thrombus with associated thrombophlebitis and MRSA cellulitis c/b MRSA bacteremia, who was discharged home on eliqius after switching from BID lovenox and 10d of IV vanc, with plan for dalvance and now recently placed on bactrim 7d ago. During that admission she was also found to be anemic, that was deemed likely multifactorial between iron deficiency and chronic inflammatory state and was started on PO iron replacement. She reports that she had been doing well since she got home with persistent RLE swelling but otherwise able to get around and has VNA nursing. Over the last 2 days however her RLE started to become erythematous again and today her visiting nurse recommended presentation to the ED because it warm and red and appeared more swollen than prior with some mild pain. She otherwise denied noted fever, chills, N/V/D/new rashes/skin lesion/crusting or weeping of skin, chest pain, palpitations/easy bleeding. In the ED she was hemodynamically stable and afebrile, breathing comfortably on room air and in no distress. ED work up was notable for RLE doppler US that showed improvement in her clot burden with what was once extensive RLE DVT to the common femoral vein, now showing thrombophlebitis with greater saphenous vein thrombosis extending to the saphenofemoral junction. Her ERS was 58, CRP 5.29, WBC 8.4, hgb 9, platelets 299, Cr 0.8 and she had blood and wound cultures sent before she was given a dose of IV clindamycin. I am now admitting her to medicine for recurrence of RLE cellulitis on switching to PO bactrim from IV MRSA abx. PAST MEDICAL HISTORY: 1. GERD 2. DVT 3. RLE MRSA cellulitis c/b MRSA bacteremia PAST SURGICAL HISTORY: 1. Left total knee arthroplasty by Dr. Hitchcock and a prior carpal tunnel release. SOCIAL HISTORY: Marital status: Resides in: [place] Tobacco use: denies ETOH: denies Illicit drug use: denies FAMILY HISTORY: non contributory ALLERGIES: Please see below. REVIEW OF SYSTEMS: 10 point ROS was reviewed with the only pertinent positives being noted in the HPI above, and was otherwise negative. HOME MEDICATIONS: Please see below. PHYSICAL EXAMINATION: VITAL SIGNS: Please see below. GENERAL: NAD, middle aged woman, well appearing HEENT: PERRLA, EOMI, MMM, NCAT NECK: Supple, no JVD or adenopathy CARDIOVASCULAR EXAMINATION: RRR, S1, S2, no murmurs, rubs or gallops RESPIRATORY EXAMINATION: CTAB ABDOMINAL EXAMINATION: Normoactive sounds, soft, NTND EXTREMITIES: RLE with 3+ edema to sub-knee region, otherwise 2+ DP pulses. LLE wnl SKIN: warm, erythematous RLE, confluent erythema over foot, ankle and distal 2/3 of leija. No open lesions, no weeping, no wounds NEUROLOGICAL EXAMINATION: . No focal motor sensory deficit PSYCHIATRIC EXAMINATION: Normal LABORATORY DATA: See below. IMAGING: RLE venous doppler US: No evidence of deep vein thrombosis. There is greater saphenous vein thrombosis. Thrombus extends to the saphenofemoral junction but does not enter the common femoral vein. MICROBIOLOGY: Please see below. ASSESSMENT: 64 y/o who was recently admitted 12/19-01/15 for extensive RLE thrombus with associated thrombophlebitis and MRSA cellulitis c/b MRSA bacteremia, who was discharged home on eliqius and IV antibiotics, recently switched to PO bactrim with worsening erythema, warmth and swelling of the RLE c/w with recurring cellulitis. . PLAN: 1. RLE cellulitis: Had gotten much better with IV antibiotics and was switched to PO bactrim 1 week ago with now worsening erythema, warmth and swelling, with underlying thrombophlebitis with improved clot burden from prior while on eliquis. -s/p clinda in the ED, will switch to IV vancomycin given recent history of MRSA cellulitis and MRSA bacteremia -BCx x 2 -continue eliquis -leg elevation above level of heart when in bed -ID consult in the AM for recurrent cellulitis on duration and choice of abx Recent extensive DVT, now improved with greater saphenous vein thrombus to saphenofemoral junction with thrombophlebitis -continue home eliquis -continue tylenol for mild pain and tramadol for mod-severe pain -Will require hypercoagulable state work up in the outpatient setting Chronic anemia: -continue Fe/Vit C Hypothyroidism: -continue home synthroid GERD -continue home omeprazoel DVT ppx: on therapeutic eliquis Diet: regular Dispo: medsurg, inpatient Vital Signs Vital Signs Date Time Temp Pulse Resp B/P (MAP) Pulse Ox O2 Delivery O2 Flow Rate FiO2 01/16/20 18:12 01/16/20 16:56 97.6 68 19 100 Room Air Laboratory Data Labs 24H Laboratory Tests 2 01/16/20 18:05: Immature Granulocyte % (Auto) 0.6, Neutrophils (%) (Auto) 81.0H, Lymphocytes (%) (Auto) 9.6L, Monocytes (%) (Auto) 6.9H, Eosinophils (%) (Auto) 1.4, Basophils (%) (Auto) 0.5, Neutrophils # (Auto) 6.8, Lymphocytes # (Auto) 0.8L, Monocytes # (Auto) 0.6, Eosinophils # (Auto) 0.1, Basophils # (Auto) 0.0, Nucleated Red Blood Cells % (auto) 0.0, Erythrocyte Sedimentation Rate 58H, Lactic Acid Level 0.5, C-Reactive Protein, Quantitative 5.39H 01/16/20 18:24: POC Glucose (Misc Panel) 91, POC Sodium (Misc Panel) 138, POC Potassium (Misc Panel) 3.5, POC Chloride (Misc Panel) 105, POC Total CO2 (Misc Panel) 21.0L, POC Blood Urea Nitrogen (Misc Panel 16, POC Ionized Calcium (Misc Panel) 4.9, POC Creatinine (Misc Panel) 0.8, POC Hematocrit (Misc Panel) 28.0L CBC/BMP Laboratory Tests 01/16/20 18:05 Microbiology Microbiology 01/16/20 Blood Culture, Received Pending 01/16/20 Blood Culture, Received Pending Home Medications Scheduled Apixaban (Eliquis) 5 Mg Tablet, 5 MG PO BID Calcium Carbonate (Calcium Carbonate) 200 Mg Tab.chew, 1,000 MG PO BID Cholecalciferol (Vitamin D3) (Vitamin D3) 1,000 Unit Tablet, 2,000 UNITS PO DAILY Ferrous Sulfate (Ferrous Sulfate) 325 Mg Tablet, 325 MG PO BID Fluoride (Sodium) (Prevident) 100 Ml Paste..ml., 1 DOSE TOP DAILY L.acidoph/L.bulg/Naomi/S.therm (Renetta-Bid Caplet) 1 Each Tablet, 1 EA PO DAILY Levothyroxine Sodium (Levothyroxine Sodium) 75 Mcg Tablet, 75 MCG PO DAILY Omeprazole (Omeprazole) 20 Mg Capsule.dr, 20 MG PO BID Sulfamethoxazole/Trimethoprim (Sulfamethoxazole-Tmp Ds Tablet) 1 Each Tablet, PO BID Scheduled PRN Acetaminophen (Acetaminophen) 325 Mg Tablet, 650 MG PO Q6HP PRN for PAIN OR FEVER Hydrocodone/Acetaminophen (Hydrocodone-Acetamin 5-325 mg) 1 Each Tablet, 1 TAB PO TID PRN for PAIN Oxycodone HCl (Oxycodone HCl) 5 Mg Tablet, 5 MG PO Q6HP PRN for SEVERE PAIN (PS 8-10) Tramadol HCl (Tramadol HCl) 50 Mg Tablet, 50 MG PO Q6HP PRN for MODERATE PAIN (PS 5-7) Miscellaneous Medications [Patient Comments] PATIENT STATES SHE HAD A FLU SHOT ABOUT 2018 Allergies Coded Allergies: No Known Allergies (Unverified , 12/19/19) A-FIB/CHADSVASC A-FIB History Current/History of A-Fib/PAF?: No Current PO Anticoag Therapy: Yes JEROD PATINO MD January 16, 2020 22:50
[2020-01-16] MEDS: CALCIUM CARBONATE 500 MG CHEW U/D PO SCH (23:27)
[2020-01-16] MEDS: APIXABAN 5 MG TAB (ELIQUIS) PO SCH (23:27)
[2020-01-16] MEDS: OMEPRAZOLE 20 MG CAP PO SCH (23:27)
[2020-01-16] MEDS: FERROUS SULFATE 325MG TAB PO SCH (23:27)
[2020-01-17] MEDS: LEVOTHYROXINE 75MCG TABLET (0.075MG) PO SCH (05:53)
[2020-01-17 06:00] VITALS: BP 129/67
[2020-01-17 06:07] LABS: HEMATOCRIT 27.3 % (36.0-47.0); HEMOGLOBIN 8.9 g/dl (12.0-15.5); MEAN CORPUSCULAR HEMOGLOBIN 29.1 pg (27.0-33.0); MEAN CORPUSCULAR HGB CONC 32.6 g/dl (32.0-36.5); MEAN CORPUSCULAR VOLUME 89.2 fl (80.0-96.0); PLATELET COUNT, AUTOMATED 283 10^3/uL (150-450); RED BLOOD COUNT 3.06 10^6/uL (4.00-5.40); WHITE BLOOD COUNT 7.7 10^3/uL (4.0-10.0)
[2020-01-17 06:30] LABS: BLOOD UREA NITROGEN 15 MG/DL (7-18); CALCIUM LEVEL 8.4 MG/DL (8.8-10.2); CARBON DIOXIDE LEVEL 22 MEQ/L (21-32); CHLORIDE LEVEL 107 MEQ/L (98-107); GLOMERULAR FILTRATION RATE > 60.0 (>45); GLUCOSE, FASTING 85 MG/DL (70-100); SODIUM LEVEL 138 MEQ/L (136-145)
[2020-01-17] MEDS: CALCIUM CARBONATE 500 MG CHEW U/D PO SCH ×2 (08:21→21:31)
[2020-01-17] MEDS: APIXABAN 5 MG TAB (ELIQUIS) PO SCH ×2 (08:21→21:31)
[2020-01-17] MEDS: ASCORBIC ACID 500 MG TAB PO SCH (08:21)
[2020-01-17] MEDS: LACTOBACILLUS ACIDOPHILUS CAP (BACID) PO SCH (08:21)
[2020-01-17] MEDS: VITAMIN D 1,000 INTERNATIONAL UNITS TABLET PO SCH (08:21)
[2020-01-17] MEDS: FERROUS SULFATE 325MG TAB PO SCH ×2 (08:22→21:31)
[2020-01-17] MEDS: ACETAMINOPHEN TAB 650MG DOSE (2X325MG) PO PRN ×3 (08:22→23:39)
[2020-01-17] MEDS: OMEPRAZOLE 20 MG CAP PO SCH ×2 (08:22→21:31)
[2020-01-17] MEDS ORDERED: APIXABAN 5 MG TAB (ELIQUIS) PO SCH (09:00)
[2020-01-17] MEDS: VANCOMYCIN HCL 1,000 MG, VIAL MATE ADAPTER 1 EACH in D5W 250 ML IV SCH ×2 (11:02→21:32)
--- NOTE | 2020-01-17 12:46 | IPNPDOC ---
Date Seen The patient was seen on 01/17/20. Progress Note SUBJECTIVE: Reports right wrist pain greater than right lower extremity pain ID saw patient during last admission, Echo was ordered, had no note of vegetations, no significant valvular disease OBJECTIVE PHYSICAL EXAMINATION: VITAL SIGNS: Please see below. GENERAL: No distress HEENT: Normocephalic, atraumatic, moist mucous membranes NECK: Supple CARDIOVASCULAR EXAMINATION: S1, S2 RESPIRATORY EXAMINATION: CTAB ABDOMINAL EXAMINATION: Soft, nontender, nondistended, positive bowel sounds EXTREMITIES: +RLE edema and erythema, R wrist tenderness with flexion in the ulnar region SKIN: No rash NEUROLOGICAL EXAMINATION: awake PSYCHIATRIC EXAMINATION: Calm and cooperative LABORATORY DATA, IMAGING STUDIES, MICROBIOLOGY: Please see below. ASSESSMENT AND PLAN: Pt is a 64 yoF who is R hand dominant, was recently admitted for extensive RLE thrombus with associated thrombophlebitis and MRSA cellulitis complicated by MRSA bacteremia, who was tx w/ lovenox BID and 10d IV Vanco, and discharged home on eliqius and PO bactrim with worsening erythema, warmth and swelling of the RLE c/w with recurring cellulitis. . #RLE cellulitis with PSH of R foot reconstruction with 13 screws and 3 plates, initially improved, will cont IV vancomycin, will place ID consult -Clinda was given in the ED, f/u Blood Cx x 2 obtained 01/16/20 -continue eliquis for thrombus, leg elevation above level of heart when in bed #DVT/recent thrombophlebitis -continue home eliquis -continue tylenol for mild pain and tramadol for mod-severe pain -plan for outpt hypercoagulable state work up #R wrist pain consider ulnar tendinitis: Unfortunately, patient is on an anticoagulation, able to use NSAIDs for pain, will trial ice, and topical regimen -also consider gout/pseudogout, Ca levels low, order uric acid, will consider colchicine vs steroids #Chronic anemia: continue home Fe/Vit C #Hypothyroidism: -continue home synthroid #GERD -continue home PPI DVT ppx: home eliquis Dispo: medsurg, inpatient, at least 2 midnights, will f/u with ID on Abx tx 32 minutes spent on pt care VS, I&O, 24H, Fishbone Vital Signs/I&O Vital Signs Date Time Temp Pulse Resp B/P (MAP) Pulse Ox O2 Delivery O2 Flow Rate FiO2 01/17/20 06:00 99.0 67 18 129/67 (87) 98 Room Air I&O- Last 24 Hours up to 6 AM 01/17/20 06:00 Intake Total 700 ml Output Total 0 ml Balance 700 ml Laboratory Data 24H LABS Laboratory Tests 2 01/16/20 18:05: Immature Granulocyte % (Auto) 0.6, Neutrophils (%) (Auto) 81.0H, Lymphocytes (%) (Auto) 9.6L, Monocytes (%) (Auto) 6.9H, Eosinophils (%) (Auto) 1.4, Basophils (%) (Auto) 0.5, Neutrophils # (Auto) 6.8, Lymphocytes # (Auto) 0.8L, Monocytes # (Auto) 0.6, Eosinophils # (Auto) 0.1, Basophils # (Auto) 0.0, Nucleated Red Blood Cells % (auto) 0.0, Erythrocyte Sedimentation Rate 58H, Lactic Acid Level 0.5, C-Reactive Protein, Quantitative 5.39H 01/16/20 18:24: POC Glucose (Misc Panel) 91, POC Sodium (Misc Panel) 138, POC Potassium (Misc Panel) 3.5, POC Chloride (Misc Panel) 105, POC Total CO2 (Misc Panel) 21.0L, POC Blood Urea Nitrogen (Misc Panel 16, POC Ionized Calcium (Misc Panel) 4.9, POC Creatinine (Misc Panel) 0.8, POC Hematocrit (Misc Panel) 28.0L 01/17/20 05:50: Nucleated Red Blood Cells % (auto) 0.0, Anion Gap 9, Glomerular Filtration Rate > 60.0, Calcium Level 8.4L CBC/BMP Laboratory Tests 01/16/20 18:05 01/17/20 05:50 Microbiology Microbiology 01/16/20 Blood Culture, Received Pending 01/16/20 Blood Culture, Received Pending HANNA HECK MD January 17, 2020 07:21
[2020-01-17 13:16] LABS: URIC ACID 3.8 MG/DL (2.6-6.0)
[2020-01-17 14:00] VITALS: BP 129/68
[2020-01-17] MEDS: CAPSAICIN 0.025% CR 60 GM TOP PRN (18:24)
[2020-01-17 22:00] VITALS: BP 121/62
[2020-01-18] MEDS: LEVOTHYROXINE 75MCG TABLET (0.075MG) PO SCH (05:32)
[2020-01-18 06:00] VITALS: BP 131/76
[2020-01-18 06:09] LABS: HEMOGLOBIN 8.9 g/dl (12.0-15.5); MEAN CORPUSCULAR HEMOGLOBIN 28.6 pg (27.0-33.0); MEAN CORPUSCULAR HGB CONC 31.8 g/dl (32.0-36.5); PLATELET COUNT, AUTOMATED 279 10^3/uL (150-450); RED BLOOD COUNT 3.11 10^6/uL (4.00-5.40); WHITE BLOOD COUNT 6.5 10^3/uL (4.0-10.0)
[2020-01-18 06:38] LABS: BLOOD UREA NITROGEN 15 MG/DL (7-18); CALCIUM LEVEL 8.7 MG/DL (8.8-10.2); CARBON DIOXIDE LEVEL 27 MEQ/L (21-32); CHLORIDE LEVEL 108 MEQ/L (98-107); CREATININE FOR GFR 0.77 MG/DL (0.55-1.30); GLOMERULAR FILTRATION RATE > 60.0 (>45); GLUCOSE, FASTING 91 MG/DL (70-100); POTASSIUM SERUM 4.1 MEQ/L (3.5-5.1); SODIUM LEVEL 142 MEQ/L (136-145)
[2020-01-18 07:23] LABS: VANCOMYCIN RANDOM 21.1 UG/ML
[2020-01-18] MEDS: VANCOMYCIN HCL 1,000 MG, VIAL MATE ADAPTER 1 EACH in D5W 250 ML IV SCH ×2 (09:21→21:30)
[2020-01-18] MEDS: CALCIUM CARBONATE 500 MG CHEW U/D PO SCH ×2 (09:21→21:30)
[2020-01-18] MEDS: LACTOBACILLUS ACIDOPHILUS CAP (BACID) PO SCH (09:22)
[2020-01-18] MEDS: FERROUS SULFATE 325MG TAB PO SCH ×2 (09:22→21:30)
[2020-01-18] MEDS: OMEPRAZOLE 20 MG CAP PO SCH ×2 (09:22→21:30)
[2020-01-18] MEDS: ASCORBIC ACID 500 MG TAB PO SCH (09:22)
[2020-01-18] MEDS: VITAMIN D 1,000 INTERNATIONAL UNITS TABLET PO SCH (09:22)
[2020-01-18] MEDS: APIXABAN 5 MG TAB (ELIQUIS) PO SCH ×2 (09:22→21:30)
[2020-01-18] MEDS: ACETAMINOPHEN TAB 650MG DOSE (2X325MG) PO PRN ×2 (09:23→21:39)
[2020-01-18] MEDS: CAPSAICIN 0.025% CR 60 GM TOP PRN (09:28)
--- NOTE | 2020-01-18 11:27 | IPNPDOC ---
Date Seen The patient was seen on 01/18/20. Progress Note SUBJECTIVE: Wrist pain has improved, +swelling on right lower extremity ID saw patient during last admission, Echo was ordered, had no note of vegetations, no significant valvular disease OBJECTIVE PHYSICAL EXAMINATION: VITAL SIGNS: Please see below. GENERAL: No distress HEENT: Normocephalic, atraumatic, moist mucous membranes NECK: Supple CARDIOVASCULAR EXAMINATION: S1, S2 RESPIRATORY EXAMINATION: CTAB ABDOMINAL EXAMINATION: Soft, nontender, nondistended, positive bowel sounds EXTREMITIES: +RLE edema and erythema, R wrist tenderness with flexion in the ulnar region SKIN: No rash NEUROLOGICAL EXAMINATION: awake PSYCHIATRIC EXAMINATION: Calm and cooperative LABORATORY DATA, IMAGING STUDIES, MICROBIOLOGY: Please see below. ASSESSMENT AND PLAN: Pt is a 64 yoF who is R hand dominant, was recently admitted for extensive RLE thrombus with associated thrombophlebitis and MRSA cellulitis complicated by MRSA bacteremia, who was tx w/ lovenox BID and 10d IV Vanco, and discharged home on eliqius and PO bactrim with worsening erythema, warmth and swelling of the RLE c/w with recurring cellulitis. . #RLE cellulitis with PSH of R foot reconstruction with 13 screws and 3 plates, initially improved, will cont IV vancomycin (started 01/16/20, total of 3 doses as of today), will place ID consult -Clinda was given in the ED, Blood Cx x 2 obtained 01/16/20: no growth in 24h -continue eliquis for thrombus, leg elevation above level of heart when in bed -trial lasix 20mg po x1 for LE swelling #DVT/recent thrombophlebitis -continue home eliquis -continue tylenol for mild pain and tramadol for mod-severe pain -plan for outpt hypercoagulable state work up #R wrist pain consider ulnar tendinitis: Unfortunately, patient is on an anticoagulation, able to use NSAIDs for pain, will trial ice, and topical regimen -Uric acid 3.8 #Chronic anemia: continue home Fe/Vit C #Hypothyroidism: continue home synthroid #GERD: continue home PPI DVT ppx: home eliquis Dispo: medsurg, inpatient, at least 2 midnights, will f/u with ID on dc Abx tx VS, I&O, 24H, Fishbone Vital Signs/I&O Vital Signs Date Time Temp Pulse Resp B/P (MAP) Pulse Ox O2 Delivery O2 Flow Rate FiO2 01/18/20 06:00 97.6 61 18 131/76 (94) 98 Room Air I&O- Last 24 Hours up to 6 AM 01/18/20 06:00 Intake Total 2325 ml Output Total 800 ml Balance 1525 ml Laboratory Data 24H LABS Laboratory Tests 2 01/18/20 05:26: Nucleated Red Blood Cells % (auto) 0.0, Anion Gap 7L, Glomerular Filtration Rate > 60.0, Calcium Level 8.7L, Random Vancomycin Level 21.1 CBC/BMP Laboratory Tests 01/18/20 05:26 Microbiology Microbiology 01/16/20 Blood Culture - Preliminary, Resulted No growth after 24 hours . All specim... 01/16/20 Blood Culture - Preliminary, Resulted No growth after 24 hours . All specim... HANNA HECK MD January 18, 2020 11:27
[2020-01-18] MEDS ORDERED: FUROSEMIDE 20 MG TAB PO ONE (12:00)
[2020-01-18 14:00] VITALS: BP 126/67
[2020-01-18 22:00] VITALS: BP 125/66
[2020-01-19] MEDS: ACETAMINOPHEN TAB 650MG DOSE (2X325MG) PO PRN ×4 (02:10→20:21)
[2020-01-19 05:09] LABS: HEMATOCRIT 28.5 % (36.0-47.0); HEMOGLOBIN 9.2 g/dl (12.0-15.5); MEAN CORPUSCULAR HEMOGLOBIN 28.6 pg (27.0-33.0); MEAN CORPUSCULAR HGB CONC 32.3 g/dl (32.0-36.5); MEAN CORPUSCULAR VOLUME 88.5 fl (80.0-96.0); PLATELET COUNT, AUTOMATED 313 10^3/uL (150-450); RED BLOOD COUNT 3.22 10^6/uL (4.00-5.40); WHITE BLOOD COUNT 6.7 10^3/uL (4.0-10.0)
[2020-01-19 05:32] LABS: BLOOD UREA NITROGEN 16 MG/DL (7-18); CALCIUM LEVEL 8.5 MG/DL (8.8-10.2); CARBON DIOXIDE LEVEL 25 MEQ/L (21-32); CHLORIDE LEVEL 105 MEQ/L (98-107); CREATININE FOR GFR 0.78 MG/DL (0.55-1.30); GLOMERULAR FILTRATION RATE > 60.0 (>45); GLUCOSE, FASTING 90 MG/DL (70-100); POTASSIUM SERUM 3.6 MEQ/L (3.5-5.1); SODIUM LEVEL 138 MEQ/L (136-145)
[2020-01-19] MEDS: LEVOTHYROXINE 75MCG TABLET (0.075MG) PO SCH (05:53)
[2020-01-19 06:00] VITALS: BP 124/65
[2020-01-19] MEDS: FERROUS SULFATE 325MG TAB PO SCH ×2 (09:21→20:20)
[2020-01-19] MEDS: ASCORBIC ACID 500 MG TAB PO SCH (09:21)
[2020-01-19] MEDS: CALCIUM CARBONATE 500 MG CHEW U/D PO SCH ×2 (09:22→20:20)
[2020-01-19] MEDS: LACTOBACILLUS ACIDOPHILUS CAP (BACID) PO SCH (09:22)
[2020-01-19] MEDS: OMEPRAZOLE 20 MG CAP PO SCH ×2 (09:22→20:20)
[2020-01-19] MEDS: APIXABAN 5 MG TAB (ELIQUIS) PO SCH ×2 (09:22→20:20)
[2020-01-19] MEDS: VITAMIN D 1,000 INTERNATIONAL UNITS TABLET PO SCH (09:22)
[2020-01-19] MEDS: VANCOMYCIN HCL 1,000 MG, VIAL MATE ADAPTER 1 EACH in D5W 250 ML IV SCH (12:01)
[2020-01-19 14:00] VITALS: BP 133/82
--- NOTE | 2020-01-19 14:18 | IPNPDOC ---
Date Seen The patient was seen on 01/19/20. Progress Note SUBJECTIVE: Wrist pain has improved, +swelling on right lower extremity, improved with Lasix, will continue Lasix treatments when necessary, discussed case with Dr. Navarrete, will f/u on recs and dc planning accordingly. ID saw patient during last admission, Echo was ordered, had no note of vegeta tions, no significant valvular disease OBJECTIVE PHYSICAL EXAMINATION: VITAL SIGNS: Please see below. GENERAL: No distress HEENT: Normocephalic, atraumatic, moist mucous membranes NECK: Supple CARDIOVASCULAR EXAMINATION: S1, S2 RESPIRATORY EXAMINATION: CTAB ABDOMINAL EXAMINATION: Soft, nontender, nondistended, positive bowel sounds EXTREMITIES: +RLE edema and erythema, R wrist tenderness with flexion in the ulnar region SKIN: No rash NEUROLOGICAL EXAMINATION: awake PSYCHIATRIC EXAMINATION: Calm and cooperative LABORATORY DATA, IMAGING STUDIES, MICROBIOLOGY: Please see below. ASSESSMENT AND PLAN: Pt is a 64 yoF who is R hand dominant, was recently admitted for extensive RLE thrombus with associated thrombophlebitis and MRSA cellulitis complicated by MRSA bacteremia, who was tx w/ lovenox BID and 10d IV Vanco, and discharged home on eliqius and PO bactrim with worsening erythema, warmth and swelling of the RLE c/w with recurring cellulitis. #RLE cellulitis with PSH of R foot reconstruction with 13 screws and 3 plates, initially improved, will cont IV vancomycin (started 01/16/20, total of 4 doses as of today), will place ID consult -Clinda was given in the ED, Blood Cx x 2 obtained 01/16/20: no growth in 24h -continue eliquis for thrombus, leg elevation above level of heart when in bed -trial lasix 20mg po x1 for LE swelling, will cont lasix 20mg QD prn for LE swelling #DVT/recent thrombophlebitis -continue home eliquis -continue tylenol for mild pain and tramadol for mod-severe pain -plan for outpt hypercoagulable state work up #R wrist pain consider ulnar tendinitis: Unfortunately, patient is on an anticoagulation, able to use NSAIDs for pain, will trial ice, and topical regimen -Uric acid 3.8 #Chronic anemia: continue home Fe/Vit C #Hypothyroidism: continue home synthroid #GERD: continue home PPI DVT ppx: home eliquis Dispo: medsurg, inpatient, at least 2 midnights, will f/u with ID on dc Abx tx VS, I&O, 24H, Fishbone Vital Signs/I&O Vital Signs Date Time Temp Pulse Resp B/P (MAP) Pulse Ox O2 Delivery O2 Flow Rate FiO2 01/19/20 06:00 97.7 60 20 124/65 (84) 99 01/18/20 14:00 Room Air I&O- Last 24 Hours up to 6 AM 01/19/20 06:00 Intake Total 1710 ml Output Total 2000 ml Balance -290 ml Laboratory Data 24H LABS Laboratory Tests 2 01/19/20 04:24: Nucleated Red Blood Cells % (auto) 0.0, Anion Gap 8, Glomerular Filtration Rate > 60.0, Calcium Level 8.5L 01/19/20 08:59: Vancomycin Level Trough 20.3H CBC/BMP Laboratory Tests 01/19/20 04:24 Microbiology Microbiology 01/16/20 Blood Culture - Preliminary, Resulted No Growth after 48 hours. All Specime... 01/16/20 Blood Culture - Preliminary, Resulted No Growth after 48 hours. All Specime... HANNA HECK MD January 19, 2020 14:18
[2020-01-19] MEDS ORDERED: FUROSEMIDE 20 MG TAB PO PRN (14:30)
[2020-01-19] MEDS ORDERED: PROHANCE 279.3MG/ML 5ML VIAL As Ordered ONE (17:06)
--- NOTE | 2020-01-19 19:05 | REPVR ---
PROCEDURE INFORMATION: Exam: MR Right Lower Extremity Other Than Joint Without and With Contrast; Foot Exam date and time: 01/19/2020 5:08 PM Age: 64 years old Clinical indication: Pain; Right; Patient HX: Cellulitis in foot; Additional info: Recurrent cellulitis, pain, swelling TECHNIQUE: Imaging protocol: MR of the Right lower extremity without and with intravenous contrast. Exam focused on the foot. Contrast material: PROHANCE; Contrast volume: 12 ml; Contrast route: 20G; COMPARISON: 1. MRI-Foot W/O FOL WITH RIGHT 12/21/2019 10:[address] FOOT WITH CONTRAST RIGHT 12/24/2019 2:02:52 PM FINDINGS: Bones and cartilage: There is heterogeneous increased STIR signal intensity of the bone marrow of the ankle and hindfoot. Some of these areas are serpiginous in appearance, consistent with bone infarcts. The previously described osteoporosis can also contribute to the changes involving the bone marrow. Due to the progression of findings, osteomyelitis is also considered. The midfoot is obscured by magnetic susceptibility artifact. The 2nd metatarsal bone, proximal 2nd phalanx, and remaining proximal metatarsal bones are also obscured by artifact. This is secondary to postoperative changes when correlated with the previous CT. Edema is identified within the bone marrow of the distal 1st phalanx, similar to the prior study. Mild heterogeneous signal intensity on STIR sequences involving the distal 3rd and 4th phalanges, and marrow edema cannot be excluded. Joint spaces: [id number] tibiotalar and subtalar complex joint effusions. Small 1st MTP joint effusion which extends ventral to the joint. LIGAMENTS: Lisfranc ligament: This region is obscured by artifact. TENDONS: Flexor tendons of foot: Evaluation limited by artifact. Tibialis posterior tendon: No visualized tear. Peroneal tendons: I limited evaluation distally due to artifact. Extensor tendons of foot: Evaluation limited by artifact. Tibialis anterior tendon: Evaluation limited by artifact. Tarsal canal (Sinus tarsi): Edema is identified within the sinus tarsi. Soft tissues: Soft tissue swelling of the foot and ankle are visualized. Plantar fascia: The plantar fascia is intact proximally. The plantar fascia is partially obscured by artifact. IMPRESSION: 1. There is heterogeneous increased STIR signal intensity of the bone marrow of the ankle and hindfoot. Some of these areas are consistent with bone infarcts. The previously described osteoporosis can also contribute to the changes involving the bone marrow. Due to the progression of findings, osteomyelitis is also considered. 2. The midfoot is obscured by magnetic susceptibility artifact. The 2nd metatarsal bone, proximal 2nd phalanx, and remaining proximal metatarsal bones are also obscured by artifact. This is secondary to postoperative changes when correlated with the previous CT. 3. Edema is identified within the bone marrow of the distal 1st phalanx, similar to the prior study. Mild heterogeneous signal intensity on STIR sequences involving the distal 3rd and 4th phalanges, and marrow edema cannot be excluded. Clinical correlation is recommended. 4. Soft tissue swelling of the foot and ankle are visualized. 5. [id number] tibiotalar and subtalar complex joint effusions. 6. Additional findings described above. Electronically signed by: Elbert Keita On 01/19/2020 19:05:19 PM
--- NOTE | 2020-01-19 19:17 | REPVR ---
PROCEDURE INFORMATION: Exam: MR Right Lower Extremity Joint Without and With Contrast; Ankle Exam date and time: 01/19/2020 5:08 PM Age: 64 years old Clinical indication: Pain; Right; Patient HX: Cellulitis in foot; Additional info: Recurrent cellulitis, pain, swelling TECHNIQUE: Imaging protocol: MR of the Right ankle without and with contrast. Contrast material: PROHANCE; Contrast volume: 12 ml; Contrast route: 20G; COMPARISON: 1. MRI-Ankle WITHOUT CONTRAST RIGHT 12/19/2019 11:[address] FOOT WITH CONTRAST RIGHT 12/24/2019 2:02:52 PM FINDINGS: Bones and cartilage: A loculated collection of fluid is identified adjacent to the lateral malleolus, new compared to the prior study. This measures 1.8 x 0.4 x 2.0 cm and is concerning for abscess in the appropriate clinical setting. There is heterogeneous increased STIR signal intensity of the bone marrow of the ankle and hindfoot. Some of these areas are consistent with bone infarcts. The previously described osteoporosis can also contribute to the changes involving the bone marrow. Due to the progression of findings, osteomyelitis is also considered. The midfoot is obscured by magnetic susceptibility artifact. The 2nd metatarsal bone, proximal 2nd phalanx, and remaining proximal metatarsal bones are also obscured by artifact. This is secondary to postoperative changes when correlated with the previous CT. For discussion of findings involving the foot, refer to the MRI foot report from the same day. Cortical irregularity/depression is identified of the medial talar dome, with progression compared to the prior study. Differential considerations include osteochondral injury, septic arthritis, and changes secondary to arthropathy. Joint spaces: Tibiotalar and subtalar complex joint effusions. LIGAMENTS: Distal tibiofibular syndesmosis: See below. Anterior talofibular ligament: See below. Posterior talofibular ligament: Edema is seen adjacent to the tibiotalar and talofibular ligaments, likely due to extension of adjacent soft tissue swelling. Ligament sprain cannot be excluded. There is swelling surrounding the calcaneofibular ligament as well. Calcaneofibular ligament: See "Posterior talofibular ligament" finding. Deltoid ligament complex: No tear. TENDONS: Flexor tendons of foot: Evaluation limited by artifact. Tibialis posterior tendon: No visualized tear. Peroneal tendons: Limited evaluation distally due to artifact. Extensor tendons of foot: Evaluation limited by artifact. Tibialis anterior tendon: Evaluation limited by artifact. Achilles tendon: Unremarkable as visualized. Tarsal canal (Sinus tarsi): Edema is identified within the sinus tarsi. Muscles: Patchy muscle edema, suggestive of myositis, muscle strain, or diabetic myopathy. Soft tissues: Soft tissue swelling of the foot and ankle are visualized. Plantar fascia: The plantar fascia is intact proximally. The plantar fascia is partially obscured by artifact. IMPRESSION: 1. A loculated collection of fluid is identified adjacent to the lateral malleolus, new compared to the prior study. This measures 1.8 x 0.4 x 2.0 cm and is concerning for abscess in the appropriate clinical setting. 2. Cortical irregularity/depression is identified of the medial talar dome, with progression compared to the prior study. Differential considerations include osteochondral injury, septic arthritis, and changes secondary to arthropathy. 3. There is heterogeneous increased STIR signal intensity of the bone marrow of the ankle and hindfoot. Some of these areas are consistent with bone infarcts. Due to the progression of findings, osteomyelitis is also considered. 4. The midfoot is obscured by magnetic susceptibility artifact. The 2nd metatarsal bone, proximal 2nd phalanx, and remaining proximal metatarsal bones are also obscured by artifact. This is secondary to postoperative changes when correlated with the previous CT. 5. Soft tissue swelling of the foot and ankle are visualized. 6. Tibiotalar and subtalar complex joint effusions. 7. Additional findings described above. Electronically signed by: Elbert Keita On 01/19/2020 19:17:11 PM
[2020-01-19 22:00] VITALS: BP 117/66
[2020-01-19] MEDS: cefTRIAXone SOD 2 GM in D5W MINI-BAG PLUS 50 ML IV SCH (23:25)
[2020-01-20] MEDS: VANCOMYCIN HCL 1,000 MG, VIAL MATE ADAPTER 1 EACH in D5W 250 ML IV SCH (00:04)
[2020-01-20] MEDS: ACETAMINOPHEN TAB 650MG DOSE (2X325MG) PO PRN ×3 (04:12→22:55)
[2020-01-20] MEDS: LEVOTHYROXINE 75MCG TABLET (0.075MG) PO SCH (05:38)
[2020-01-20 06:00] VITALS: BP 133/71
[2020-01-20 06:35] LABS: HEMATOCRIT 27.1 % (36.0-47.0); HEMOGLOBIN 8.8 g/dl (12.0-15.5); MEAN CORPUSCULAR HGB CONC 32.5 g/dl (32.0-36.5); MEAN CORPUSCULAR VOLUME 89.4 fl (80.0-96.0); PLATELET COUNT, AUTOMATED 327 10^3/uL (150-450); RED BLOOD COUNT 3.03 10^6/uL (4.00-5.40); WHITE BLOOD COUNT 6.2 10^3/uL (4.0-10.0)
[2020-01-20 07:01] LABS: BLOOD UREA NITROGEN 15 MG/DL (7-18); CALCIUM LEVEL 8.7 MG/DL (8.8-10.2); CARBON DIOXIDE LEVEL 27 MEQ/L (21-32); CHLORIDE LEVEL 107 MEQ/L (98-107); CREATININE FOR GFR 0.66 MG/DL (0.55-1.30); GLOMERULAR FILTRATION RATE > 60.0 (>45); GLUCOSE, FASTING 87 MG/DL (70-100); POTASSIUM SERUM 3.8 MEQ/L (3.5-5.1); SODIUM LEVEL 141 MEQ/L (136-145)
--- NOTE | 2020-01-20 09:05 | CR ---
DATE OF CONSULTATION: 01/19/2020 REQUESTING PHYSICIAN: Dr. Martita Floyd REASON FOR CONSULTATION: Recurrent cellulitis. HISTORY OF PRESENT ILLNESS: The patient is a 64-year-old female who was recently admitted and then discharged from [facility] for methicillin-resistant Staphylococcus aureus (MRSA) cellulitis of right leg with concurrent MRSA bacteremia. The patient was also found to have extensive right lower extremity thrombus with associated thrombophlebitis. The patient was sent home on Eliquis for anticoagulation due to the deep vein thrombosis (DVT). The patient was also given ten days of IV vancomycin while hospitalized. The patient received one dose of IV Dalvance after discharge and then the patient started Bactrim about seven days ago. The patient says that she recently noticed some more swelling in and around the foot and her right ankle became more painful. The patient states that she does have an appointment with her orthopedic surgeon who performed the surgery on her right foot, but that is not until the 29 of January. The patient says that she did not feel feverish or have any chills, but did have some night sweats where she was soaking her T-shirt. These started while she was hospitalized previous and then became less and less frequent while she was discharged, but then had started up again since being rehospitalized on 01/16/2020. The patient says that she has soaked the sheets every night that she has been in the hospital. The patient otherwise feels well, but is in some significant pain while trying to move her ankle or while trying to walk around. The patient used to be able to walk about 5 miles every day, but now has to use a walker and it is very difficult for her to walk. The patient did have right lower extremity Dopplers that showed that the clot that she had has improved. PAST MEDICAL HISTORY: 1. Gastroesophageal reflux disease (GERD). 2. Deep vein thrombosis (DVT). 3. Right lower extremity MRSA cellulitis with MRSA bacteremia. PAST SURGICAL HISTORY: 1. Left total knee arthroplasty. 2. Carpal tunnel release. 3. Surgery on her right foot. SOCIAL HISTORY: The patient denies tobacco, alcohol or illicit drug use. The patient is and lives with her . The patient is retired. FAMILY HISTORY: The patient denies any family history of chronic diseases. ALLERGIES: No known drug allergies. REVIEW OF SYSTEMS: General: The patient endorses night sweats, but denies fevers, chills or weight loss. HEENT: Denies headache, changes in vision or sore throat. Cardiovascular: The patient denies chest pain or palpitations. Respiratory: The patient denies shortness of breath or cough. GI: The patient denies nausea, vomiting, abdominal pain or diarrhea. : The patient denies any pain or difficulty with urination. Neurologic: The patient denies any numbness or tingling. Extremities: The patient endorses the swelling in her right ankle as described above in HPI. No other swelling or pain in her extremities. Skin: No rashes or lesions. The patient does have redness and swelling around her right ankle. Lymphatics. The patient denies any lumps in her neck, axilla or groin. PHYSICAL EXAMINATION: Vital Signs: Temperature 98.6, pulse 60, respiratory rate 18, blood pressure 133/82, pulse oximetry 100% on room air. General: The patient is an alert and oriented female who was found standing in her room and was able to get back into bed with the help of a walker. The patient did not appear to be in any acute distress. HEENT: Normocephalic, atraumatic, with anicteric sclerae. Neck: Supple. No lymphadenopathy. No thyromegaly. Cardiovascular: Regular rate and rhythm with no murmurs, rubs or gallops. Respiratory: Clear to auscultation bilaterally. Abdomen: Soft. Nontender. Normoactive bowel sounds. No costovertebral angle (CVA) tenderness. Extremities: There was swelling and erythema present around the right ankle, mostly on the medial side. There was some pitting edema around the lateral ankle inferior to the lateral malleolus. There was no swelling on the left ankle. Skin: There are no wounds on the skin. There is redness and swelling around the medial side of the ankle up to about a [address] the leija on the right leg. LABORATORY STUDIES: White blood cell count 6.7, hemoglobin 9.2, hematocrit 28.5, platelet count 313. Sodium 138, potassium 3.6, chloride 105, bicarbonate 25, BUN 16, creatinine 0.78, glucose 90, calcium 8.5. CRP from 01/16/2020 was 5.39. MICROBIOLOGY: Blood cultures drawn on 01/16/2020 are negative for 48 hours. IMAGING: A vascular ultrasound performed on the right lower extremity on 01/16/2020 was reported to show no evidence of deep vein thrombosis. There is a greater saphenous vein thrombosis. The thrombus extends to the saphenofemoral junction, but does not enter the common femoral vein. ASSESSMENT AND PLAN: The patient is a 64-year-old female who presented to the hospital with recurrent cellulitis of the right ankle. The patient has been positive for MRSA cellulitis and bacteremia in the past few months. 1. Recurrent cellulitis. The patient was on antibiotic treatment for her cellulitis when her ankle became acutely worse. The patient had received 10 days of IV vancomycin in the hospital. She had also received one dose of IV Dalvance and then had been switched to Bactrim for about 7 days prior to her acute worsening of her right ankle. MRI findings back in December 2019 showed that there was an effusion in the tibiotalar joint. MRI of the ankle and foot will be repeated to rule out any septic joint because the patient's cellulitis was under active treatment when it recurred. The patient will continue on vancomycin as the patient does appear to be getting clinically better. If the patient has a joint effusion, the patient will most likely need an arthrocentesis to rule out a septic ankle causing the recurrent cellulitis. At this time, we will follow up those imaging studies and we will continue to follow the patient throughout her hospitalization. We thank you for the consult. TANISHA
[2020-01-20] MEDS: LACTOBACILLUS ACIDOPHILUS CAP (BACID) PO SCH (09:16)
[2020-01-20] MEDS: VITAMIN D 1,000 INTERNATIONAL UNITS TABLET PO SCH (09:16)
[2020-01-20] MEDS: FERROUS SULFATE 325MG TAB PO SCH ×2 (09:16→20:59)
[2020-01-20] MEDS: OMEPRAZOLE 20 MG CAP PO SCH ×2 (09:16→20:59)
[2020-01-20] MEDS: CALCIUM CARBONATE 500 MG CHEW U/D PO SCH ×2 (09:16→20:59)
[2020-01-20] MEDS: ASCORBIC ACID 500 MG TAB PO SCH (09:16)
[2020-01-20] MEDS: APIXABAN 5 MG TAB (ELIQUIS) PO SCH (09:16)
--- NOTE | 2020-01-20 12:21 | IPNPDOC ---
Text Note Date of Service The patient was seen on 01/20/20. NOTE Subjective: Patient is a 64-year-old female with a PMHx DVT, RLE MRSA cellulitis (w/ Hx of Bacteremia), Hypothyroidism, Anemia, GERD who presented to the hospital on 01/16/20 with worsening right lower extremity redness and swelling. Patient is 12/19 - 12/29 for an extensive RLE thrombus associate with thrombophlebitis and MRSA cellulitis / Bacteremia. Patient was discharged home with Eliquis. Was given a dose of Dalvance and then subsequently placed on Bactrim. Patient was seen and examined at the bedside. Currently she reports that her R ankle still feels tender, denies any CP, SOB or palpitations. Denies any N/V, abdominal pain, C/D or urinary discomfit. Objective: Vitals (See below) General: Lying in bed, no acute distress, comfortable, AAOx3 HEENT: NC, AT CVS: +S1S2 Lungs: Fair air entry b/l, -w/r/r Abdomen: Soft, ND, NT Extremities: R LE with pitting edema below the knee, - Edema, - Calf tenderness Assessment and plan: RLE cellulitis with prior surgical hisotry of R foot reconstruction with 13 screws and 3 plates - Patient was admitted on 12/19 - 12/29 for an extensive RLE thrombus associate with thrombophlebitis and MRSA cellulitis / Bacteremia - s/p Vancomycin x 10 days, s/p Dalvance, s/p Bactrim x 7 days - Blood cultures 01/15: Negative at 72 hours - No leukocytosis / No lactic acidosis / Elevated CRP - MRI foot 01/18: 1. There is heterogeneous increased STIR signal intensity of the bone marrow of the ankle and hindfoot. Some of these areas are consistent with bone infarcts. The previously described osteoporosis can also contribute to the changes involving the bone marrow. Due to the progression of findings, osteomyelitis is also considered. 2. The midfoot is obscured by magnetic susceptibility artifact. The 2nd metatarsal bone, proximal 2nd phalanx, and remaining proximal metatarsal bones are also obscured by artifact. This is secondary to postoperative changes when correlated with the previous CT. 3. Edema is identified within the bone marrow of the distal 1st phalanx, similar to the prior study. Mild heterogeneous signal intensity on STIR sequences involving the distal 3rd and 4th phalanges, and marrow edema cannot be excluded. Clinical correlation is recommended. 4. Soft tissue swelling of the foot and ankle are visualized. 5. [id number] tibiotalar and subtalar complex joint effusions. 6. Additional findings described above. - MRI ankle 01/18: 1. A loculated collection of fluid is identified adjacent to the lateral malleolus, new compared to the prior study. This measures 1.8 x 0.4 x 2.0 cm and is concerning for abscess in the appropriate clinical setting. 2. Cortical irregularity/depression is identified of the medial talar dome, with progression compared to the prior study. Differential considerations include osteochondral injury, septic arthritis, and changes secondary to arthropathy. 3. There is heterogeneous increased STIR signal intensity of the bone marrow of the ankle and hindfoot. Some of these areas are consistent with bone infarcts. Due to the progression of findings, osteomyelitis is also considered. 4. The midfoot is obscured by magnetic susceptibility artifact. The 2nd metatarsal bone, proximal 2nd phalanx, and remaining proximal metatarsal bones are also obscured by artifact. This is secondary to postoperative changes when correlated with the previous CT. 5. Soft tissue swelling of the foot and ankle a re visualized. 6. Tibiotalar and subtalar complex joint effusions. 7. Additional findings described above. - c/w Vancomycin (Day #5) and Ceftriaxone (Day #1) - ID on consultation; appreciate their input; will discuss with ID about considering orthopedic consultation for removal of fluid collection DVT / Thrombophlebitis - Duplex US 01/15: No evidence of deep vein thrombosis. There is greater sap henous vein thrombosis. Thrombus extends to the saphenofemoral junction but does not enter the common femoral vein. - c/w pain control as ordered - Will c/w Eliquis - Patient will need to have hypercoagubility workup completed as an outpatient after acute event resolves s/p R wrist pain - possibly 2/2 ulnar tendinitis - Uric acid 3.8 - c/w topical treatment Chronic anemia - c/w Iron supplementation Hypothyroidism - c/w Levothyroxine GI prophylaxis - c/w Omeprazole DVT prophylaxis - c/w full anticoagulation with Eliquis Disposition: - Will discuss with ID about possible surgical intervention VS,Naldobone, I+O VS, Fishbone, I+O Laboratory Tests 5/19/20 05:30 Vital Signs Date Time Temp Pulse Resp B/P (MAP) Pulse Ox O2 Delivery O2 Flow Rate FiO2 01/20/20 06:00 99.3 59 17 133/71 (91) 99 Room Air I&O- Last 24 Hours up to 6 AM 01/20/20 06:00 Intake Total 470 ml Output Total 950 ml Balance -480 ml BHAVNA SZYMANSKI MD January 20, 2020 12:21
[2020-01-20] MEDS: HEPARIN SOD (PORCINE) 5000UNITS/ML 1ML VIAL/SYRINGE SQ SCH ×2 (14:00→20:58)
[2020-01-20] MEDS: VANCOMYCIN HCL 750 MG, VIAL MATE ADAPTER 1 EACH in D5W 250 ML IV SCH (15:23)
[2020-01-20] MEDS ORDERED: PROHANCE 279.3MG/ML 5ML VIAL As Ordered ONE (18:33)
--- NOTE | 2020-01-20 19:29 | REPVR ---
PROCEDURE INFORMATION: Exam: MR Right Lower Extremity Without and With Contrast, Tibia Fibula Exam date and time: 01/20/2020 5:05 PM Age: 64 years old Clinical indication: Cellulitis; Ankle and foot and lower leg; Right; Additional info: Osteomyelitis TECHNIQUE: Imaging protocol: MR of the Right lower extremity without and with contrast. Exam focused on the tibia and fibula. Contrast material: PROHANCE; Contrast volume: 10 ml; Contrast route: IV; COMPARISON: 1. CT TIB/FIB WITH CONTRAST RIGHT 12/24/2019 2:02 PM 2. US - Duplex, Ext,LOWER veins,unilat RIGHT 01/16/2020 6:15:02 PM FINDINGS: Bones/joints: There are multiple areas of serpiginous signal throughout the majority of the right tibia with a double line sign of low T2 signal surrounding high T2 signal, which are compatible with multiple bone infarcts. Bone infarcts are also noted in the right lateral malleolus, talus, and calcaneus. There is periostitis involving the distal 2/3 of the right tibia. There is no fracture or dislocation. There is an osteochondral injury involving the medial portion of the right talar dome. Muscles: There is increased T2 signal in the anterior (tibialis anterior and extensor digitorum longus), superficial posterior (medial and lateral head of gastrocnemius), and deep posterior compartment (popliteus, tibialis posterior, flexor digitorum longus, and flexor hallucis longus) muscles in the right calf. Soft tissues: There is a 2.2 cm x 0.7 cm x 3.1 cm rim enhancing soft tissue fluid collection in the right mid pretibial region (image 49 of the axial T2 series 701 and image 17 of the sagittal T2 series 901). More inferiorly, there is an additional 2.7 cm x 0.8 cm x 4 cm rim enhancing fluid collection in the pretibial region (image 35 of the axial T2 series 701 and image 16 of the sagittal T2 series 901). There is a 0.7 cm x 3 cm x 3.6 cm soft tissue fluid collection adjacent to the right lateral malleolus (image 2 of the axial T2 series 701 and image 11 of the coronal STIR series 501). There is soft tissue swelling and edema in the subcutaneous tissues of the right calf, which is compatible with cellulitis. There is a small amount of fluid in the fascial plane between the right medial head of gastrocnemius muscle and soleus muscle. Vasculature: There are filling defects in the right popliteal vein, right anterior tibial vein, right posterior tibial vein, and right peroneal vein, which are compatible with deep vein thromboses that were also present in the prior CT right tibia and fibula with contrast on 12/24/2019. IMPRESSION: 1. Periostitis involving the distal 2/3 of the right tibia, which may represent osteomyelitis or may be stress related in nature. 2. 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 3. 2.2 cm x 0.7 cm x 3.1 cm and 2.7 cm x 0.8 cm x 4 cm rim enhancing soft tissue fluid collections in the right mid pretibial region and a 0.7 cm x 3 cm x 3.6 cm soft tissue fluid collection adjacent to the right lateral malleolus, which may represent abscesses. 4. Myositis involving the anterior (tibialis anterior and extensor digitorum longus), superficial posterior (medial and lateral head of gastrocnemius), and deep posterior compartment (popliteus, tibialis posterior, flexor digitorum longus, and flexor hallucis longus) muscles in the right calf. 5. Small amount of fluid in the fascial plane between the right medial head of gastrocnemius muscle and soleus muscle, which is compatible with fasciitis. 6. Deep vein thrombosis involving the right popliteal vein, right anterior tibial vein, right posterior tibial vein, and right peroneal vein, which were also present in the prior CT right tibia and fibula with contrast on 12/24/2019. 7. Osteochondral injury involving the medial portion of the right talar dome. Electronically signed by: Dirk Oliveira On 01/20/2020 19:29:02 PM
[2020-01-20 22:00] VITALS: BP 128/69
[2020-01-20] MEDS: cefTRIAXone SOD 2 GM in D5W MINI-BAG PLUS 50 ML IV SCH (22:48)
[2020-01-21] MEDS: VANCOMYCIN HCL 750 MG, VIAL MATE ADAPTER 1 EACH in D5W 250 ML IV SCH ×2 (03:02→16:11)
[2020-01-21] MEDS: ACETAMINOPHEN TAB 650MG DOSE (2X325MG) PO PRN (03:09)
--- NOTE | 2020-01-21 04:57 | IPN ---
DATE: 01/20/2020 INFECTIOUS DISEASE PROGRESS NOTE: Mara feels a little better today. She denies any fever or chills. No nausea, vomiting, or diarrhea. She is still complaining of significant pain in her foot, but the swelling has decreased. She is currently on vancomycin 750 mg every 12 hours. LABS: White count of 6.2, hemoglobin 8.8, hematocrit 27.1, platelets 327, ESR 58. Sodium 141, potassium 3.8, chloride 107, bicarbonate 27, BUN 15, creatinine 0.6, glucose 87, calcium 8.7. Heart: Normal S1, S2. No murmurs, rubs, or gallops. Lungs: Are clear. No wheezes, rales, or rhonchi. Abdomen: Is soft, nontender. No hepatosplenomegaly. Extremities: +1 ankle edema on the right side with some tenderness lateral malleolus. Erythema of the leg alf to the calf with some tenderness. No calf tenderness. MRI ankle and foot show a loculated collection adjacent to the lateral malleolus, new compared to prior study. This measures 1.8 x 2 cm and concerning for abscess. There were some areas also of bony infarcts in the ankle and hindfoot. Osteoporosis. There is progression of findings concerning for osteomyelitis. IMPRESSION: 1. Abscess of the right foot along the lateral malleolus with osteomyelitis and bony infarct. Orthopedics has been consulted, and she will be going to the operating room on as Eliquis should be on hold. 2. History of deep venous thrombosis (DVT). Currently has saphenous vein phlebitis. PLAN: Peripherally inserted central catheter (PICC) line in the morning in anticipation for hopefully discharge sometime later this week or early next week on intravenous (IV) vancomycin. Patient will need 4-6 weeks of IV antibiotics with vancomycin after surgery. She has a history of treatment with IV vancomycin in the past and is willing to do home IV antibiotics. Repeat complete blood count (CBC), C-reactive protein (CRP) in the morning. Case has been discussed with Dr. Benton and the patient, who agrees on surgery. TANISHA
[2020-01-21] MEDS: LEVOTHYROXINE 75MCG TABLET (0.075MG) PO SCH (05:28)
[2020-01-21] MEDS: HEPARIN SOD (PORCINE) 5000UNITS/ML 1ML VIAL/SYRINGE SQ SCH (05:29)
[2020-01-21 06:00] VITALS: BP 146/78
[2020-01-21 06:24] LABS: HEMATOCRIT 27.3 % (36.0-47.0); HEMOGLOBIN 8.8 g/dl (12.0-15.5); MEAN CORPUSCULAR HEMOGLOBIN 28.9 pg (27.0-33.0); MEAN CORPUSCULAR HGB CONC 32.2 g/dl (32.0-36.5); MEAN CORPUSCULAR VOLUME 89.5 fl (80.0-96.0); PLATELET COUNT, AUTOMATED 365 10^3/uL (150-450); RED BLOOD COUNT 3.05 10^6/uL (4.00-5.40); WHITE BLOOD COUNT 6.6 10^3/uL (4.0-10.0)
[2020-01-21 06:54] LABS: BLOOD UREA NITROGEN 16 MG/DL (7-18); C REACTIVE PROTEIN QUANTITATIV 1.55 MG/DL (0.00-0.30); CALCIUM LEVEL 8.7 MG/DL (8.8-10.2); CARBON DIOXIDE LEVEL 26 MEQ/L (21-32); CHLORIDE LEVEL 106 MEQ/L (98-107); CREATININE FOR GFR 0.73 MG/DL (0.55-1.30); GLOMERULAR FILTRATION RATE > 60.0 (>45); GLUCOSE, FASTING 92 MG/DL (70-100); POTASSIUM SERUM 3.9 MEQ/L (3.5-5.1); SODIUM LEVEL 142 MEQ/L (136-145)
[2020-01-21] MEDS: CALCIUM CARBONATE 500 MG CHEW U/D PO SCH (08:36)
[2020-01-21] MEDS: VITAMIN D 1,000 INTERNATIONAL UNITS TABLET PO SCH (08:36)
[2020-01-21] MEDS: OMEPRAZOLE 20 MG CAP PO SCH (08:36)
[2020-01-21] MEDS: LACTOBACILLUS ACIDOPHILUS CAP (BACID) PO SCH (08:36)
[2020-01-21] MEDS: FERROUS SULFATE 325MG TAB PO SCH (08:36)
[2020-01-21] MEDS: ASCORBIC ACID 500 MG TAB PO SCH (08:37)
[2020-01-21] MEDS: CAPSAICIN 0.025% CR 60 GM TOP PRN (08:39)
--- NOTE | 2020-01-21 08:43 | IPNPDOC ---
Text Note Date of Service The patient was seen on 01/21/20. NOTE Subjective: Patient is a 64-year-old female with a PMHx DVT, RLE MRSA cellulitis (w/ Hx of Bacteremia), Hypothyroidism, Anemia, GERD who presented to the hospital on 01/16/20 with worsening right lower extremity redness and swelling. Patient is 12/19 - 12/29 for an extensive RLE thrombus associate with thrombophlebitis and MRSA cellulitis / Bacteremia. Patient was discharged home with Eliquis. Was given a dose of Dalvance and then subsequently placed on Bactrim. Patient was seen and examined at the bedside. Currently patient has no complaints. She reports that her right leg swelling has improved slightly. She denies any chest pain, shortness of breath or palpitations. Denies nausea, vomiting, abdominal pain, diarrhea, or urinary discomfort. Objective: Vitals (See below) General: Lying in bed, no acute distress, comfortable, AAOx3 HEENT: NC, AT CVS: +S1S2 Lungs: Fair air entry b/l, auscultation without any rhonchi, crackles or wheezing Abdomen: Soft, nondistended and nontender Extremities: R LE with pitting edema below the knee - has shown slight improvement, - Edema, - Calf tenderness Assessment and plan: RLE cellulitis with prior surgical history of R foot reconstruction with 13 s crews and 3 plates - Patient was admitted on 12/19 - 12/29 for an extensive RLE thrombus associate with thrombophlebitis and MRSA cellulitis / Bacteremia - s/p Vancomycin x 10 days, s/p Dalvance, s/p Bactrim x 7 days - Blood cultures 01/15: Negative at 72 hours - No leukocytosis / No lactic acidosis / Elevated CRP - MRI foot 01/18: 1. There is heterogeneous increased STIR signal intensity of the bone marrow of the ankle and hindfoot. Some of these areas are consistent with bone infarcts. The previously described osteoporosis can also contribute to the changes involving the bone marrow. Due to the progression of findings, osteomyelitis is also considered. 2. The midfoot is obscured by magnetic susceptibility artifact. The 2nd metatarsal bone, proximal 2nd phalanx, and remaining proximal metatarsal bones are also obscured by artifact. This is secondary to postoperative changes when correlated with the previous CT. 3. Edema is identified within the bone marrow of the distal 1st phalanx, similar to the prior study. Mild heterogeneous signal intensity on STIR sequences involving the distal 3rd and 4th phalanges, and marrow edema cannot be excluded. Clinical correlation is recommended. 4. Soft tissue swelling of the foot and ankle are visualized. 5. [id number] tibiotalar and subtalar complex joint effusions. 6. Additional findings described above. - MRI ankle 01/18: 1. A loculated collection of fluid is identified adjacent to the lateral malleolus, new compared to the prior study. This measures 1.8 x 0.4 x 2.0 cm and is concerning for abscess in the appropriate clinical setting. 2. Cortical irregularity/depression is identified of the medial talar dome, with progression compared to the prior study. Differential considerations include osteochondral injury, septic arthritis, and changes secondary to arthropathy. 3. There is heterogeneous increased STIR signal intensity of the bone marrow of the ankle and hindfoot. Some of these areas are consistent with bone infarcts. Due to the progression of findings, osteomyelitis is also considered. 4. The midfoot is obscured by magnetic susceptibility artifact. The 2nd metatarsal bone, proximal 2nd phalanx, and remaining proximal metatarsal bones are also obscured by artifact. This is secondary to postoperative changes when correlated with the previous CT. 5. Soft tissue swelling of the foot and ankle are visualized. 6. Tibiotalar and subtalar complex joint effusions. 7. Additional findings described above. - c/w Vancomycin (Day #6) and Ceftriaxone (Day #2) - ID on consultation; appreciate their input - Consulted orthopedic surgery; plan for surgical intervention tomorrow; 01/22/20 for drainage of abscess and likely joint wash out Pre-op requirement - Patient has received COVID testing 01/20 and was negative DVT at R Common femoral / Superficial Thrombophlebitis at R greater saphenous vein - Duplex US 01/15: No evidence of deep vein thrombosis. There is greater saphenous vein thrombosis. Thrombus extends to the saphenofemoral junction but does not enter the common femoral vein. - c/w pain control as ordered - Will hold Eliquis (re: OR on 01/22/20); will start Lovenox therapeutic - Patient will need to have hypercoagulability workup completed as an outpatient after acute event resolves s/p R wrist pain - possibly 2/2 ulnar tendinitis - Uric acid 3.8 - c/w topical treatment Chronic anemia - c/w Iron supplementation Hypothyroidism - c/w Levothyroxine GI prophylaxis - c/w Omeprazole DVT prophylaxis - c/w full anticoagulation; Eliquis held; will start Lovenox Disposition: - Plan for surgical intervention on with orthopedic surgery VS,Fishbone, I+O VS, Fishbone, I+O Laboratory Tests 01/21/20 05:32 Vital Signs Date Time Temp Pulse Resp B/P (MAP) Pulse Ox O2 Delivery O2 Flow Rate FiO2 01/21/20 06:00 98.2 58 18 146/78 (100) 100 Room Air I&O- Last 24 Hours up to 6 AM 01/21/20 06:00 Intake Total 1340 ml Output Total 900 ml Balance 440 ml BHAVNA SZYMANSKI MD January 21, 2020 08:43
[2020-01-21] MEDS ORDERED: ENOXAPARIN 60MG/0.6ML SYRINGE (J1650 PER 10MG) SC SCH (09:00)
--- NOTE | 2020-01-21 13:42 | CR ---
DATE OF CONSULTATION: 01/20/2020 INDICATION: Right ankle infection. HISTORY OF PRESENT ILLNESS: Mara Hancock is a 64-year-old female who was readmitted for worsening pain and signs of infection in her right ankle, date of admission 01/16/2020. She was previously hospitalized for about 2 weeks with symptoms of cellulitis and possible osteomyelitis. She was previously evaluated by the orthopedic foot and ankle team and not felt to have septic arthritis. Patient also has a remote history of a mid foot reconstruction likely an arthrodesis. Patient had been discharged on IV vancomycin for approximately 10 days was doing well. Antibiotics were switched to an oral one and then patient notes symptoms around then started to worsen. Patient reports most of her pain is in the ankle, mild pain in the tibia. No pain in the foot. I personally evaluated the patient on 01/20/2020, and then again today on 01/21/2020. Dr. Schuler, our foot and ankle specialist, who saw her during the last hospitalization saw her this morning as well. The clinical case was also discussed with my partner, Dr. Regino Hitchcock, who performed her left knee replacement in the past. For the patient's past medical history, past surgical history, medications, allergies, social history, and review of systems please see the admitting history and physical which was reviewed. PHYSICAL EXAMINATION: Reveals a middle-aged female in no distress, alert and oriented times three. Neurologic: Appropriate mood and affect. Cardiovascular: 1+ PT pulse. Pulmonary: Nonlabored breathing. Skin: She has healed incisions in her right foot. There is an area of erythema and swelling over the medial border of the tibia mid shaft area that is mild to moderately tender to palpation. The lateral malleolus there was no redness but there was mild to moderate swelling with a focal area of tenderness. The patient had a roughly 20 degree range of motion arc at the right ankle with minimal pain. The patient had no knee effusion. No tenderness of the proximal tibia. LABORATORY DATA: The patient had a C-reactive protein of 5 on readmission and it was down to 1.55 on 01/21/2020. IMAGING: MRI of the right ankle was obtained on 01/20/2020 and compared to a previous ankle MRI. There is progressive edema and collapse in the tibial plafond. There is edema and synovitis in the ankle joint potentially a small complex joint effusion but no large joint effusion. More concerning was development of what appeared to be bone infarcts in the distal tibia. Patient previously also had a positive deep venous thrombosis (DVT) now on Eliquis. ASSESSMENT AND PLAN: Mara has right ankle infection, mixed picture for septic arthritis, clinically the greatest suspicion is for abscess in the pretibial area and lateral malleolus. What is concerning there seems to be some underlying metabolic process occurring here. During her last hospitalization, she had oxygen desaturations to the 60s and no clear explanation is available. We did obtain an MRI of the right tibia with IV contrast on 01/21/2020. This does show an enhancing abscess in the pretibial area, again demonstrates absence of the fibula. What is concerning is the development of progressive bone infarction throughout the tibia of unclear etiology. So, reviewing this case with our foot and ankle specialist and senior corporate strategy manager, we are concerned that there is an underlying process that needs to be further worked up. At this point, the patient is going to be made nothing by mouth. We are planning to an I and D the two abscesses, a possible I and D of the ankle joint on 01/22/2020. Eliquis was last taken in the morning of 01/20/2020. I have discussed this case with infectious disease doctor and the admitting hospitalist. We are recommending transfer to tertiary care center specifically for further workup of her bone infarcts likely needing input from vascular and endocrinology. I should also mention her x-rays today of the tibia do show multiple lucencies within the tibia. Certainly no strong clinical suspicion for malignancy but that would be in the differential. I have relayed the orthopedic recommendations for transfer to the patient and she understands and accepts.
[2020-01-21 14:00] VITALS: BP 163/78
--- NOTE | 2020-01-21 14:16 | REP ---
RIGHT TIB/FIB SERIES: Four views. HISTORY: Position check. Abscess. Comparison right ankle and distal tib/fib radiographs December 21, 2019. FINDINGS: Diffuse pretibial soft tissue swelling persists. There is a mottled pattern of the cortex of the distal tibial diaphysis anteriorly consistent with rapid osteoporosis. No bridgett cortical destruction is seen. No soft tissue gas is apparent. The AP view shows subperiosteal pattern of demineralization as well medially and laterally in the tibial mid diaphysis. There is diffuse osteopenia. Medial and lateral ankle swelling is seen. Advanced tibiotalar osteoarthritis and joint space narrowing are seen. There is more joint space narrowing at the ankle articulation than was visible on December 21, 2019. The knee articulation is unchanged. Progressive joint space loss over this short time interval and the right ankle articulation raises question of septic arthropathy. IMPRESSION: There is a mottled pattern of subperiosteal cortical bone demineralization in the anterior, medial, and lateral cortex of the mid and distal tibia. This connotes rapid bone demineralization. Osteomyelitis cannot be excluded. There is also evidence of interval progressive joint space loss at the tibiotalar articulation question septic ankle arthropathy. No soft tissue gas is evident. Electronically Signed by Waldo Dey MD 01/21/2020 02:46 P
[2020-01-21] MEDS ORDERED: VANC750I IV (14:53)
[2020-01-21] MEDS ORDERED: LOVE0.4I2 SC (14:53)
[2020-01-21] MEDS ORDERED: CEFT2INJ4 IV (14:53)
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
--- NOTE | 2020-01-22 07:49 | IPN ---
DATE: 01/21/2020 CHIEF COMPLAINT: Right lower extremity redness and swelling. HISTORY OF PRESENT ILLNESS: Mara Hancock is a 64-year-old female who is known to me from her previous admission approximately one month ago. At that point, the patient had right lower extremity pain and swelling and was initially thought to be with septic embolic to her right lower extremity. She was then found to have extensive right lower extremity thrombus with associated thrombophlebitis and methicillin-resistant Staphylococcus aureus (MRSA) cellulitis. She had done well with IV vancomycin and was discharged home on by mouth antibiotics and Eliquis. The patient states overall at home at the beginning she was doing well, however, once she started the by mouth antibiotics she noticed things were going downhill. She started having more significant pain and swelling and erythema now in the region of her medial tibia and the mid shaft. She presented to the emergency room given these symptoms. She has been able to bear weight with a walker, however, it is somewhat uncomfortable. The patient states today her symptoms are stable. She has pain along the medial aspect of the tibia and also throughout the ankle. She states in the ankle the pain is most severe on both the medial and lateral aspects. PHYSICAL EXAMINATION: Vital Signs: Temperature 98.2, pulse 58, respiratory rate 18, blood pressure 146/78. Pulmonary: Regular unlabored breathing. Musculoskeletal: The patient has erythema to the medial aspect of the mid shaft tibia. There is firmness in this area without any palpable abscess. She has generalized swelling to her ankle. She can actively and passively range her motion with only mild pain. There is more significant pain with palpation along both the lateral and medial aspects of the ankle. There is no palpable abscess. There is no erythema about the ankle. There is normal sensation to light touch in the superficial peroneal, deep peroneal, tibia distribution, but it is normal perfused. LABS: The patient's laboratory studies today show a white count of 6.6 and CRP is 1.55. IMAGING: The patient's ankle MRI from 01/19/2020 is reviewed. There is likely fluid collection over the lateral tibia. More impressive is extensive bone infarcts throughout the ankle. There is no significant ankle joint effusion. There is metallic artifact from a prior mid foot fusion done at [facility]. There is degenerative changes throughout the tibiotalar joint. MRI of the tibia is also reviewed. There is extensive bone infarcts throughout the entire length of the tibia extending up to the tibial plafond. There is periosteitis involving the distal 2/3 of the right tibia. There are no fractures. There is a 2 cm fluid collection in the mid tibia. There is also myositis involving the anterior compartment muscles. IMPRESSION: Worsening infection to the right lower extremity with very significant bone infarcts throughout the tibia which is new. PLAN: I have discussed the case with my partners. The patient has very significant bone infarcts which is quite concerning as this has clearly been a progression from her last visit. Given the severity of her MRI findings we recommend transfer to [facility] for further workup as the cause of her infarcts are unclear and patient would benefit from further workup at a tertiary care center. TANISHA
== END 2020-01-21 17:09 | disposition short-term general hospital (02) | DRG 383 ==
LOC: M ED 16:55 → M ED INP 20:28 → ENRESERV 20:35 → M MSPAV 21:08
PROVIDERS: ADMIT Internal Medicine; ATTEND Internal Medicine
DX: L03.115 Cellulitis of right lower limb (principal); I82.811 Embolism and thrombosis of superficial veins of right lower extremity; M87.9 Osteonecrosis, unspecified; E03.9 Hypothyroidism, unspecified; D64.9 Anemia, unspecified; M65.88 Other synovitis and tenosynovitis, other site; K21.9 Gastro-esophageal reflux disease without esophagitis; Z79.899 Other long term (current) drug therapy

== ENCOUNTER → 2020-02-02 | Outpatient (REF) | payer OTHER ==
[~2020-02-02] MED LIST changes: +CEFT2INJ4 IV; -D31000TA2 PO; +LOVE0.4I2 SC; +SULF1TAB93 PO; +VANC750I IV; +VITA500C24 PO; +VITAD1000T PO
[2020-02-02 11:19] LABS: BASO # 0.1 10^3/uL (0.0-0.2); BASO % 0.9 % (0.0-1.0); EOS # 0.1 10^3/uL (0.0-0.5); EOS % 1.2 % (0.0-3.0); HEMOGLOBIN 8.1 g/dl (12.0-15.5); LYMPH # 0.9 10^3/uL (1.5-5.0); LYMPH % 13.7 % (24.0-44.0); MEAN CORPUSCULAR HEMOGLOBIN 28.1 pg (27.0-33.0); MEAN CORPUSCULAR HGB CONC 31.2 g/dl (32.0-36.5); MEAN CORPUSCULAR VOLUME 90.3 fl (80.0-96.0); MONO # 0.7 10^3/uL (0.0-0.8); MONO % 10.2 % (0.0-5.0); NEUTROPHILS # 4.9 10^3/uL (1.5-8.5); NEUTROPHILS % 73.4 % (36.0-66.0); PLATELET COUNT, AUTOMATED 528 10^3/uL (150-450); RED BLOOD COUNT 2.88 10^6/uL (4.00-5.40); WHITE BLOOD COUNT 6.6 10^3/uL (4.0-10.0)
[2020-02-02 11:31] LABS: ALBUMIN 2.8 GM/DL (3.2-5.2); ALT/SGPT 20 U/L (12-78); BILIRUBIN,TOTAL 0.3 MG/DL (0.2-1.0); BLOOD UREA NITROGEN 19 MG/DL (7-18); CALCIUM LEVEL 8.9 MG/DL (8.8-10.2); CARBON DIOXIDE LEVEL 23 MEQ/L (21-32); CHLORIDE LEVEL 109 MEQ/L (98-107); CREATININE FOR GFR 0.72 MG/DL (0.55-1.30); GLOMERULAR FILTRATION RATE > 60.0 (>45); GLUCOSE, FASTING 76 MG/DL (70-100); POTASSIUM SERUM 3.7 MEQ/L (3.5-5.1); SODIUM LEVEL 140 MEQ/L (136-145); TOTAL PROTEIN 6.3 GM/DL (6.4-8.2); VANCOMYCIN LEVEL TROUGH 16.3 UG/ML (10.0-20.0)
== END ==
LOC: M SHH 10:31
PROVIDERS: ATTEND Internal Medicine Infectious Disease
DX: J18.9 Pneumonia, unspecified organism (principal); R78.81 Bacteremia; I82.401 Acute embolism and thrombosis of unspecified deep veins of right lower extremity; M86.261 Subacute osteomyelitis, right tibia and fibula; A49.02 Methicillin resistant Staphylococcus aureus infection, unspecified site; K21.9 Gastro-esophageal reflux disease without esophagitis; E03.9 Hypothyroidism, unspecified; D64.9 Anemia, unspecified

== ENCOUNTER → 2020-02-09 | Outpatient (REF) | payer OTHER ==
[2020-02-09 11:21] LABS: BASO % 0.3 % (0.0-1.0); EOS # 0.1 10^3/uL (0.0-0.5); HEMATOCRIT 27.4 % (36.0-47.0); HEMOGLOBIN 8.6 g/dl (12.0-15.5); LYMPH # 0.8 10^3/uL (1.5-5.0); LYMPH % 11.2 % (24.0-44.0); MEAN CORPUSCULAR HEMOGLOBIN 28.7 pg (27.0-33.0); MEAN CORPUSCULAR HGB CONC 31.4 g/dl (32.0-36.5); MEAN CORPUSCULAR VOLUME 91.3 fl (80.0-96.0); MONO # 0.6 10^3/uL (0.0-0.8); MONO % 7.7 % (0.0-5.0); NEUTROPHILS # 5.7 10^3/uL (1.5-8.5); NEUTROPHILS % 79.2 % (36.0-66.0); PLATELET COUNT, AUTOMATED 397 10^3/uL (150-450); WHITE BLOOD COUNT 7.1 10^3/uL (4.0-10.0)
[2020-02-09 11:52] LABS: BLOOD UREA NITROGEN 13 MG/DL (7-18); CALCIUM LEVEL 8.7 MG/DL (8.8-10.2); CARBON DIOXIDE LEVEL 22 MEQ/L (21-32); CHLORIDE LEVEL 112 MEQ/L (98-107); CREATININE FOR GFR 0.68 MG/DL (0.55-1.30); GLOMERULAR FILTRATION RATE > 60.0 (>45); GLUCOSE, FASTING 82 MG/DL (70-100); POTASSIUM SERUM 3.7 MEQ/L (3.5-5.1); SODIUM LEVEL 143 MEQ/L (136-145)
== END ==
LOC: M SHH 10:48
PROVIDERS: ATTEND Internal Medicine Infectious Disease
DX: R78.81 Bacteremia (principal); I82.401 Acute embolism and thrombosis of unspecified deep veins of right lower extremity; M86.261 Subacute osteomyelitis, right tibia and fibula; A49.02 Methicillin resistant Staphylococcus aureus infection, unspecified site; K21.9 Gastro-esophageal reflux disease without esophagitis; E03.9 Hypothyroidism, unspecified; D64.9 Anemia, unspecified

== ENCOUNTER → 2020-02-16 | Outpatient (REF) | payer OTHER ==
[2020-02-16 11:30] LABS: BASO # 0.1 10^3/uL (0.0-0.2); BASO % 0.9 % (0.0-1.0); EOS # 0.1 10^3/uL (0.0-0.5); EOS % 1.8 % (0.0-3.0); HEMATOCRIT 28.6 % (36.0-47.0); HEMOGLOBIN 9.2 g/dl (12.0-15.5); LYMPH % 14.9 % (24.0-44.0); MEAN CORPUSCULAR HEMOGLOBIN 29.2 pg (27.0-33.0); MEAN CORPUSCULAR HGB CONC 32.2 g/dl (32.0-36.5); MEAN CORPUSCULAR VOLUME 90.8 fl (80.0-96.0); MONO # 0.5 10^3/uL (0.0-0.8); MONO % 7.2 % (0.0-5.0); NEUTROPHILS # 5.1 10^3/uL (1.5-8.5); NEUTROPHILS % 74.9 % (36.0-66.0); PLATELET COUNT, AUTOMATED 360 10^3/uL (150-450); RED BLOOD COUNT 3.15 10^6/uL (4.00-5.40); WHITE BLOOD COUNT 6.9 10^3/uL (4.0-10.0)
[2020-02-16 11:34] LABS: BLOOD UREA NITROGEN 16 MG/DL (7-18); CALCIUM LEVEL 8.9 MG/DL (8.8-10.2); CARBON DIOXIDE LEVEL 24 MEQ/L (21-32); CHLORIDE LEVEL 107 MEQ/L (98-107); CREATININE FOR GFR 0.73 MG/DL (0.55-1.30); GLOMERULAR FILTRATION RATE > 60.0 (>45); GLUCOSE, FASTING 107 MG/DL (70-100); POTASSIUM SERUM 3.5 MEQ/L (3.5-5.1); SODIUM LEVEL 139 MEQ/L (136-145)
[2020-02-16 11:56] LABS: ERYTHROCYTE SEDIMENTATION RATE 54 mm/hr (0-30)
== END ==
LOC: M SHH 10:54
PROVIDERS: ATTEND Internal Medicine Infectious Disease
DX: M86.161 Other acute osteomyelitis, right tibia and fibula (principal)

== ENCOUNTER → 2020-02-17 | Outpatient (REF) | payer OTHER ==
[~2020-02-17] MED LIST changes: +D31000TA2 PO; -VITAD1000T PO
== END ==
LOC: M SHH 10:28
PROVIDERS: ATTEND Internal Medicine Infectious Disease
DX: M86.161 Other acute osteomyelitis, right tibia and fibula (principal)

== ENCOUNTER → 2020-02-23 | Outpatient (REF) | payer OTHER ==
[~2020-02-23] MED LIST changes: -D31000TA2 PO; +VITAD1000T PO
[2020-02-23 10:31] LABS: BASO # 0.1 10^3/uL (0.0-0.2); BASO % 0.8 % (0.0-1.0); EOS # 0.1 10^3/uL (0.0-0.5); EOS % 1.1 % (0.0-3.0); HEMATOCRIT 30.4 % (36.0-47.0); HEMOGLOBIN 9.6 g/dl (12.0-15.5); LYMPH # 0.9 10^3/uL (1.5-5.0); LYMPH % 13.6 % (24.0-44.0); MEAN CORPUSCULAR HEMOGLOBIN 28.5 pg (27.0-33.0); MEAN CORPUSCULAR HGB CONC 31.6 g/dl (32.0-36.5); MEAN CORPUSCULAR VOLUME 90.2 fl (80.0-96.0); MONO # 0.7 10^3/uL (0.0-0.8); NEUTROPHILS # 4.8 10^3/uL (1.5-8.5); PLATELET COUNT, AUTOMATED 375 10^3/uL (150-450); RED BLOOD COUNT 3.37 10^6/uL (4.00-5.40); WHITE BLOOD COUNT 6.5 10^3/uL (4.0-10.0)
[2020-02-23 10:34] LABS: BLOOD UREA NITROGEN 20 MG/DL (7-18); CALCIUM LEVEL 9.2 MG/DL (8.8-10.2); CARBON DIOXIDE LEVEL 24 MEQ/L (21-32); CHLORIDE LEVEL 107 MEQ/L (98-107); CREATININE FOR GFR 0.85 MG/DL (0.55-1.30); GLOMERULAR FILTRATION RATE > 60.0 (>45); GLUCOSE, FASTING 79 MG/DL (70-100); POTASSIUM SERUM 3.8 MEQ/L (3.5-5.1); SODIUM LEVEL 139 MEQ/L (136-145); VANCOMYCIN LEVEL TROUGH 17.6 UG/ML (10.0-20.0)
== END ==
LOC: M SHH 09:56
PROVIDERS: ATTEND Internal Medicine Infectious Disease
DX: R78.81 Bacteremia (principal); I82.401 Acute embolism and thrombosis of unspecified deep veins of right lower extremity; M86.261 Subacute osteomyelitis, right tibia and fibula; A49.02 Methicillin resistant Staphylococcus aureus infection, unspecified site; K21.9 Gastro-esophageal reflux disease without esophagitis; E03.9 Hypothyroidism, unspecified; D64.9 Anemia, unspecified

== ENCOUNTER → 2020-03-09 | Outpatient (REF) | payer OTHER ==
[~2020-03-09] MED LIST changes: +D31000TA2 PO; -VITAD1000T PO
[2020-03-09 18:49] LABS: BASO # 0.1 10^3/uL (0.0-0.2); BASO % 0.9 % (0.0-1.0); EOS # 0.1 10^3/uL (0.0-0.5); EOS % 1.4 % (0.0-3.0); HEMATOCRIT 30.8 % (36.0-47.0); HEMOGLOBIN 9.6 g/dl (12.0-15.5); LYMPH # 1.3 10^3/uL (1.5-5.0); LYMPH % 19.9 % (24.0-44.0); MEAN CORPUSCULAR HEMOGLOBIN 29.3 pg (27.0-33.0); MEAN CORPUSCULAR HGB CONC 31.2 g/dl (32.0-36.5); MEAN CORPUSCULAR VOLUME 93.9 fl (80.0-96.0); MONO # 0.6 10^3/uL (0.0-0.8); MONO % 8.7 % (0.0-5.0); NEUTROPHILS # 4.5 10^3/uL (1.5-8.5); NEUTROPHILS % 68.6 % (36.0-66.0); PLATELET COUNT, AUTOMATED 371 10^3/uL (150-450); RED BLOOD COUNT 3.28 10^6/uL (4.00-5.40); WHITE BLOOD COUNT 6.5 10^3/uL (4.0-10.0)
[2020-03-09 19:19] LABS: ALBUMIN 3.1 GM/DL (3.2-5.2); BILIRUBIN,TOTAL 0.2 MG/DL (0.2-1.0); C REACTIVE PROTEIN QUANTITATIV 0.52 MG/DL (0.00-0.30); CALCIUM LEVEL 8.7 MG/DL (8.8-10.2); CREATININE FOR GFR 1.14 MG/DL (0.55-1.30); GLOMERULAR FILTRATION RATE 51.2 (>45); POTASSIUM SERUM 3.6 MEQ/L (3.5-5.1); TOTAL PROTEIN 6.5 GM/DL (6.4-8.2)
[2020-03-09 19:23] LABS: ERYTHROCYTE SEDIMENTATION RATE 30 mm/hr (0-30)
== END ==
LOC: M SHH 18:20
PROVIDERS: ATTEND Internal Medicine
DX: Z51.81 Encounter for therapeutic drug level monitoring (principal); Z79.2 Long term (current) use of antibiotics; R78.81 Bacteremia; M86.9 Osteomyelitis, unspecified

== ENCOUNTER → 2020-04-12 | Outpatient (REF) | payer OTHER ==
[2020-05-12 20:15] LABS: BASO # 0.1 10^3/uL (0.0-0.2); BASO % 1.2 % (0.0-1.0); EOS # 0.1 10^3/uL (0.0-0.5); EOS % 2.4 % (0.0-3.0); HEMATOCRIT 34.5 % (36.0-47.0); HEMOGLOBIN 11.1 g/dl (12.0-15.5); LYMPH # 1.2 10^3/uL (1.5-5.0); LYMPH % 19.6 % (24.0-44.0); MEAN CORPUSCULAR HEMOGLOBIN 29.9 pg (27.0-33.0); MEAN CORPUSCULAR HGB CONC 32.2 g/dl (32.0-36.5); MONO # 0.5 10^3/uL (0.0-0.8); MONO % 8.9 % (0.0-5.0); NEUTROPHILS % 67.6 % (36.0-66.0); PLATELET COUNT, AUTOMATED 300 10^3/uL (150-450); RED BLOOD COUNT 3.71 10^6/uL (4.00-5.40); WHITE BLOOD COUNT 5.9 10^3/uL (4.0-10.0)
[2020-05-12 20:18] LABS: ERYTHROCYTE SEDIMENTATION RATE 12 mm/hr (0-30)
[2020-05-26 10:44] LABS: ALBUMIN 3.3 GM/DL (3.2-5.2); ALT/SGPT 103 U/L (12-78); BILIRUBIN,TOTAL 0.2 MG/DL (0.2-1.0); BLOOD UREA NITROGEN 16 MG/DL (7-18); CALCIUM LEVEL 9.2 MG/DL (8.8-10.2); CARBON DIOXIDE LEVEL 25 MEQ/L (21-32); CHLORIDE LEVEL 107 MEQ/L (98-107); CPK CREATINE PHOSPHOKINASE 150 U/L (26-192); CREATININE FOR GFR 0.97 MG/DL (0.55-1.30); GLOMERULAR FILTRATION RATE > 60.0 (>45); GLUCOSE, FASTING 73 MG/DL (70-100); POTASSIUM SERUM 3.5 MEQ/L (3.5-5.1); SODIUM LEVEL 142 MEQ/L (136-145); TOTAL PROTEIN 6.8 GM/DL (6.4-8.2)
== END ==
LOC: M SHH 11:35
PROVIDERS: ATTEND Internal Medicine
DX: Z79.2 Long term (current) use of antibiotics (principal)

== ENCOUNTER → 2020-05-05 | Outpatient (CLI) | payer BC, OTHER ==
[2020-05-05 17:30] LABS: BASO # 0.1 10^3/uL (0.0-0.2); BASO % 0.5 % (0.0-1.0); EOS # 0.1 10^3/uL (0.0-0.5); EOS % 0.4 % (0.0-3.0); HEMATOCRIT 35.4 % (36.0-47.0); HEMOGLOBIN 11.3 g/dl (12.0-15.5); LYMPH # 1.3 10^3/uL (1.5-5.0); LYMPH % 10.3 % (24.0-44.0); MEAN CORPUSCULAR HEMOGLOBIN 29.3 pg (27.0-33.0); MEAN CORPUSCULAR HGB CONC 31.9 g/dl (32.0-36.5); MEAN CORPUSCULAR VOLUME 91.7 fl (80.0-96.0); MONO # 0.7 10^3/uL (0.0-0.8); MONO % 5.7 % (0.0-5.0); NEUTROPHILS % 82.4 % (36.0-66.0); PLATELET COUNT, AUTOMATED 480 10^3/uL (150-450); RED BLOOD COUNT 3.86 10^6/uL (4.00-5.40); WHITE BLOOD COUNT 12.2 10^3/uL (4.0-10.0)
[2020-05-05 17:35] LABS: ALBUMIN 2.9 GM/DL (3.2-5.2); BILIRUBIN,TOTAL 0.2 MG/DL (0.2-1.0); C REACTIVE PROTEIN QUANTITATIV 8.3 MG/DL (0.00-0.30); CALCIUM LEVEL 8.9 MG/DL (8.8-10.2); GLOMERULAR FILTRATION RATE 59.6 (>45); POTASSIUM SERUM 4.2 MEQ/L (3.5-5.1); TOTAL PROTEIN 6.4 GM/DL (6.4-8.2)
[2020-05-05 18:10] LABS: ERYTHROCYTE SEDIMENTATION RATE 39 mm/hr (0-30)
== END ==
LOC: M LAB 11:02
PROVIDERS: ATTEND Internal Medicine
DX: Z51.81 Encounter for therapeutic drug level monitoring (principal); Z79.2 Long term (current) use of antibiotics; Z96.9 Presence of functional implant, unspecified; A49.9 Bacterial infection, unspecified

== ENCOUNTER → 2020-05-19 | Outpatient (CLI) | payer BC, OTHER ==
[2020-05-19 17:36] LABS: BASO # 0.1 10^3/uL (0.0-0.2); BASO % 0.6 % (0.0-1.0); EOS # 0.1 10^3/uL (0.0-0.5); EOS % 0.8 % (0.0-3.0); HEMATOCRIT 32.9 % (36.0-47.0); HEMOGLOBIN 10.6 g/dl (12.0-15.5); LYMPH # 1.2 10^3/uL (1.5-5.0); LYMPH % 11.4 % (24.0-44.0); MEAN CORPUSCULAR HEMOGLOBIN 28.7 pg (27.0-33.0); MEAN CORPUSCULAR HGB CONC 32.2 g/dl (32.0-36.5); MEAN CORPUSCULAR VOLUME 89.2 fl (80.0-96.0); MONO # 0.9 10^3/uL (0.0-0.8); MONO % 8.1 % (0.0-5.0); NEUTROPHILS # 8.3 10^3/uL (1.5-8.5); NEUTROPHILS % 78.3 % (36.0-66.0); PLATELET COUNT, AUTOMATED 513 10^3/uL (150-450); RED BLOOD COUNT 3.69 10^6/uL (4.00-5.40); WHITE BLOOD COUNT 10.6 10^3/uL (4.0-10.0)
[2020-05-19 18:40] LABS: ERYTHROCYTE SEDIMENTATION RATE 52 mm/hr (0-30)
== END ==
LOC: M LAB 16:21
PROVIDERS: ATTEND Orthopaedic Surgery
DX: Z96.652 Presence of left artificial knee joint (principal)

== ENCOUNTER → 2020-06-03 | Outpatient (CLI) | payer BC, OTHER ==
[2020-06-03 15:44] LABS: BASO # 0.1 10^3/uL (0.0-0.2); BASO % 0.6 % (0.0-1.0); EOS # 0.2 10^3/uL (0.0-0.5); EOS % 1.7 % (0.0-3.0); HEMATOCRIT 32.2 % (36.0-47.0); HEMOGLOBIN 10.6 g/dl (12.0-15.5); LYMPH # 1.3 10^3/uL (1.5-5.0); LYMPH % 14.3 % (24.0-44.0); MEAN CORPUSCULAR HEMOGLOBIN 28.8 pg (27.0-33.0); MEAN CORPUSCULAR HGB CONC 32.9 g/dl (32.0-36.5); MEAN CORPUSCULAR VOLUME 87.5 fl (80.0-96.0); MONO # 0.7 10^3/uL (0.0-0.8); MONO % 7.9 % (0.0-5.0); NEUTROPHILS # 6.9 10^3/uL (1.5-8.5); PLATELET COUNT, AUTOMATED 504 10^3/uL (150-450); RED BLOOD COUNT 3.68 10^6/uL (4.00-5.40); WHITE BLOOD COUNT 9.3 10^3/uL (4.0-10.0)
[2020-06-03 16:07] LABS: ALBUMIN 2.9 GM/DL (3.2-5.2); ALT/SGPT 34 U/L (12-78); BILIRUBIN,TOTAL 0.2 MG/DL (0.2-1.0); BLOOD UREA NITROGEN 25 MG/DL (7-18); CALCIUM LEVEL 9.4 MG/DL (8.8-10.2); CARBON DIOXIDE LEVEL 25 MEQ/L (21-32); CHLORIDE LEVEL 109 MEQ/L (98-107); CREATININE FOR GFR 0.89 MG/DL (0.55-1.30); GLOMERULAR FILTRATION RATE > 60.0 (>45); GLUCOSE, FASTING 99 MG/DL (70-100); POTASSIUM SERUM 3.7 MEQ/L (3.5-5.1); SODIUM LEVEL 140 MEQ/L (136-145); TOTAL PROTEIN 6.8 GM/DL (6.4-8.2)
[2020-06-03 16:18] LABS: ERYTHROCYTE SEDIMENTATION RATE 56 mm/hr (0-30)
== END ==
LOC: M LAB 15:20
PROVIDERS: ATTEND Internal Medicine
DX: A49.9 Bacterial infection, unspecified (principal); Z96.9 Presence of functional implant, unspecified; Z79.2 Long term (current) use of antibiotics

== ENCOUNTER → 2020-06-14 | Outpatient (CLI) | payer BC, OTHER ==
--- NOTE | 2020-06-17 13:16 | REP ---
THREE PHASE BONE SCAN OF THE KNEES AND ANKLES TECHNIQUE: 22.0 mCi of Technetium-99m MDP is injected and standard three phase imaging is acquired. HISTORY: Artificial knee. Rule out loosening or infection. COMPARISON: Right tib-fib radiographs from 01/21/2020. Patient states left knee replacement surgery 06/2018. Recent surgery right leija. FINDINGS: Anterior and posterior flow study shows hyperemia in the periarticular region about the left knee. Blood pool image demonstrates moderate hyperemia about the left knee prosthesis most pronounced at the medial aspect. Delayed scan images demonstrate intensely increased uptake about the distal femoral and proximal tibial and to some degree patellar components. There is mildly increased uptake in the tibial plateau on the right. No hyperemia is seen on the right. Delayed scan images demonstrate increased uptake in the right ankle and left midfoot. IMPRESSION: Increased uptake in all three phases about the left knee. I cannot exclude infection or loosening. Uptake is a little more avid about the distal femur component. There is also increased uptake in the right ankle and left midfoot. MTDD
== END ==
LOC: M RAD 08:10
PROVIDERS: ATTEND Orthopaedic Surgery
DX: Z96.652 Presence of left artificial knee joint (principal)
CPT/HCPCS: 78315; A9503

== ENCOUNTER → 2020-06-21 | Outpatient (REF) | payer OTHER ==
[2020-06-21 18:20] LABS: SOURCE, BODY FLUID GLUCOSE LFT KNEE
[2020-06-21 18:21] LABS: SOURCE, BODY FLUID LFT KNEE; SYNOVIAL FLUID COLOR RED (YELLOW)
[2020-06-21 18:22] LABS: CRYSTALS, BODY FLUID NONE SEEN (NONE SEEN); SOURCE, BODY FLUID CRYSTALS LFT KNEE
[2020-06-22 11:39] LABS: BODY FLUID RHEUMATOID SCREEN NEGATIVE (NEGATIVE)
[2020-06-22 11:41] LABS: MUCIN CLOT TEST 2+ (4+)
== END ==
LOC: M LAB REF 17:01
PROVIDERS: ATTEND Orthopaedic Surgery
DX: M25.462 Effusion, left knee (principal)

== ENCOUNTER → 2020-07-05 | Outpatient (REF) | payer OTHER ==
[2020-07-05 15:45] LABS: BASO # 0.1 10^3/uL (0.0-0.2); BASO % 1.1 % (0.0-1.0); EOS # 0.2 10^3/uL (0.0-0.5); EOS % 2.2 % (0.0-3.0); HEMATOCRIT 24.3 % (36.0-47.0); HEMOGLOBIN 7.3 g/dl (12.0-15.5); LYMPH # 1.1 10^3/uL (1.5-5.0); LYMPH % 15.4 % (24.0-44.0); MEAN CORPUSCULAR HEMOGLOBIN 27.4 pg (27.0-33.0); MEAN CORPUSCULAR VOLUME 91.4 fl (80.0-96.0); MONO # 0.6 10^3/uL (0.0-0.8); MONO % 8.6 % (0.0-5.0); NEUTROPHILS # 5.1 10^3/uL (1.5-8.5); NEUTROPHILS % 72.1 % (36.0-66.0); PLATELET COUNT, AUTOMATED 510 10^3/uL (150-450); RED BLOOD COUNT 2.66 10^6/uL (4.00-5.40); WHITE BLOOD COUNT 7.1 10^3/uL (4.0-10.0)
[2020-07-05 16:05] LABS: ERYTHROCYTE SEDIMENTATION RATE 58 mm/hr (0-30)
[2020-07-05 17:59] LABS: ALBUMIN 2.6 GM/DL (3.2-5.2); ALT/SGPT 32 U/L (12-78); BILIRUBIN,TOTAL 0.4 MG/DL (0.2-1.0); BLOOD UREA NITROGEN 24 MG/DL (7-18); C REACTIVE PROTEIN QUANTITATIV 2.53 MG/DL (0.00-0.30); CALCIUM LEVEL 8.9 MG/DL (8.8-10.2); CARBON DIOXIDE LEVEL 25 MEQ/L (21-32); CHLORIDE LEVEL 104 MEQ/L (98-107); CREATININE FOR GFR 0.72 MG/DL (0.55-1.30); GLOMERULAR FILTRATION RATE > 60.0 (>45); GLUCOSE, FASTING 90 MG/DL (70-100); POTASSIUM SERUM 4.2 MEQ/L (3.5-5.1); SODIUM LEVEL 137 MEQ/L (136-145); TOTAL PROTEIN 6.1 GM/DL (6.4-8.2)
== END ==
LOC: M SHH 13:58
PROVIDERS: ATTEND Internal Medicine Infectious Disease
DX: M00.862 Arthritis due to other bacteria, left knee (principal); Z79.2 Long term (current) use of antibiotics; A49.8 Other bacterial infections of unspecified site

== ENCOUNTER → 2020-07-12 | Outpatient (REF) | payer OTHER ==
[2020-07-12 14:46] LABS: BASO # 0.1 10^3/uL (0.0-0.2); BASO % 1.2 % (0.0-1.0); EOS # 0.3 10^3/uL (0.0-0.5); EOS % 4.6 % (0.0-3.0); HEMATOCRIT 25.1 % (36.0-47.0); HEMOGLOBIN 7.8 g/dl (12.0-15.5); LYMPH # 0.9 10^3/uL (1.5-5.0); LYMPH % 15.1 % (24.0-44.0); MEAN CORPUSCULAR HEMOGLOBIN 28.5 pg (27.0-33.0); MEAN CORPUSCULAR HGB CONC 31.1 g/dl (32.0-36.5); MEAN CORPUSCULAR VOLUME 91.6 fl (80.0-96.0); MONO # 0.4 10^3/uL (0.0-0.8); MONO % 7.8 % (0.0-5.0); NEUTROPHILS % 71.1 % (36.0-66.0); PLATELET COUNT, AUTOMATED 456 10^3/uL (150-450); RED BLOOD COUNT 2.74 10^6/uL (4.00-5.40); WHITE BLOOD COUNT 5.6 10^3/uL (4.0-10.0)
[2020-07-12 15:06] LABS: ALBUMIN 2.6 GM/DL (3.2-5.2); ALT/SGPT 24 U/L (12-78); BILIRUBIN,TOTAL 0.3 MG/DL (0.2-1.0); BLOOD UREA NITROGEN 24 MG/DL (7-18); C REACTIVE PROTEIN QUANTITATIV 3.14 MG/DL (0.00-0.30); CALCIUM LEVEL 8.4 MG/DL (8.8-10.2); CARBON DIOXIDE LEVEL 25 MEQ/L (21-32); CHLORIDE LEVEL 106 MEQ/L (98-107); GLOMERULAR FILTRATION RATE > 60.0 (>45); GLUCOSE, FASTING 124 MG/DL (70-100); POTASSIUM SERUM 4.2 MEQ/L (3.5-5.1); SODIUM LEVEL 138 MEQ/L (136-145); TOTAL PROTEIN 5.7 GM/DL (6.4-8.2)
[2020-07-12 15:45] LABS: ERYTHROCYTE SEDIMENTATION RATE 56 mm/hr (0-30)
== END ==
LOC: M SHH 14:26
PROVIDERS: ATTEND Internal Medicine Infectious Disease
DX: A49.8 Other bacterial infections of unspecified site (principal); Z79.2 Long term (current) use of antibiotics; A49.02 Methicillin resistant Staphylococcus aureus infection, unspecified site

== ENCOUNTER → 2020-07-22 | Outpatient (REF) | payer OTHER ==
[2020-07-22 17:51] LABS: PERCENT SATURATION 10.8 % (13.2-45.0)
== END ==
LOC: M LAB REF 17:03
PROVIDERS: ATTEND Internal Medicine Nephrology
DX: D50.9 Iron deficiency anemia, unspecified (principal)

== ENCOUNTER 2020-07-24 10:45 | Outpatient (CLI) | payer BC, OTHER ==
[2020-07-24 11:00] VITALS: BP 147/79
[2020-07-24] MEDS ORDERED: SODIUM CHLORIDE 0.9% INJ 10 ML SYR IV PRN (11:30)
[2020-07-24] MEDS ORDERED: diphenhydrAMINE 25MG CAP PO ONE (11:30)
[2020-07-24 13:44] VITALS: BP 149/85
[2020-07-24 13:59] VITALS: BP 153/84
[2020-07-24 14:44] VITALS: BP 157/81
[2020-07-24 15:30] VITALS: BP 158/82
[2020-07-24 16:41] VITALS: BP 154/80
[2020-07-24] MEDS ORDERED: SODIUM CHLORIDE 0.9% INJ 10 ML SYR IV SCH (18:00)
== END 2020-07-24 16:50 | disposition home or self-care (01) ==
LOC: M OPCLI4PV 10:45 → M MSPAV 10:59 → M OPCLI4PV 16:50
PROVIDERS: ATTEND Internal Medicine Nephrology
DX: D64.9 Anemia, unspecified (principal); N18.9 Chronic kidney disease, unspecified
CPT/HCPCS: J1642; P9016

== ENCOUNTER → 2020-07-26 | Outpatient (REF) | payer OTHER ==
[2020-07-26 16:39] LABS: BASO # 0.1 10^3/uL (0.0-0.2); BASO % 1.1 % (0.0-1.0); EOS # 0.2 10^3/uL (0.0-0.5); EOS % 4.2 % (0.0-3.0); HEMATOCRIT 31.5 % (36.0-47.0); HEMOGLOBIN 9.9 g/dl (12.0-15.5); LYMPH # 0.9 10^3/uL (1.5-5.0); LYMPH % 16.2 % (24.0-44.0); MEAN CORPUSCULAR HEMOGLOBIN 28.4 pg (27.0-33.0); MEAN CORPUSCULAR HGB CONC 31.4 g/dl (32.0-36.5); MEAN CORPUSCULAR VOLUME 90.3 fl (80.0-96.0); MONO # 0.5 10^3/uL (0.0-0.8); NEUTROPHILS # 3.6 10^3/uL (1.5-8.5); NEUTROPHILS % 69.3 % (36.0-66.0); PLATELET COUNT, AUTOMATED 316 10^3/uL (150-450); RED BLOOD COUNT 3.49 10^6/uL (4.00-5.40); WHITE BLOOD COUNT 5.3 10^3/uL (4.0-10.0)
[2020-07-26 17:13] LABS: ALT/SGPT 25 U/L (12-78); BILIRUBIN,TOTAL 0.6 MG/DL (0.2-1.0); BLOOD UREA NITROGEN 21 MG/DL (7-18); C REACTIVE PROTEIN QUANTITATIV 0.71 MG/DL (0.00-0.30); CALCIUM LEVEL 8.9 MG/DL (8.8-10.2); CARBON DIOXIDE LEVEL 27 MEQ/L (21-32); CHLORIDE LEVEL 102 MEQ/L (98-107); CREATININE FOR GFR 0.82 MG/DL (0.55-1.30); GLOMERULAR FILTRATION RATE > 60.0 (>45); GLUCOSE, FASTING 86 MG/DL (70-100); SODIUM LEVEL 136 MEQ/L (136-145); TOTAL PROTEIN 6.4 GM/DL (6.4-8.2)
[2020-07-26 17:32] LABS: ERYTHROCYTE SEDIMENTATION RATE 23 mm/hr (0-30)
== END ==
LOC: M LAB REF 16:02
PROVIDERS: ATTEND Internal Medicine Infectious Disease
DX: M00.862 Arthritis due to other bacteria, left knee (principal); A49.02 Methicillin resistant Staphylococcus aureus infection, unspecified site; A49.8 Other bacterial infections of unspecified site; Z79.2 Long term (current) use of antibiotics

== ENCOUNTER → 2020-08-02 | Outpatient (REF) | payer OTHER ==
[2020-08-02 14:10] LABS: BASO # 0.1 10^3/uL (0.0-0.2); BASO % 1.2 % (0.0-1.0); EOS # 0.3 10^3/uL (0.0-0.5); EOS % 5.1 % (0.0-3.0); HEMATOCRIT 32.4 % (36.0-47.0); HEMOGLOBIN 10.1 g/dl (12.0-15.5); LYMPH % 16.2 % (24.0-44.0); MEAN CORPUSCULAR HEMOGLOBIN 28.4 pg (27.0-33.0); MEAN CORPUSCULAR HGB CONC 31.2 g/dl (32.0-36.5); MONO # 0.5 10^3/uL (0.0-0.8); NEUTROPHILS # 4.1 10^3/uL (1.5-8.5); NEUTROPHILS % 69.2 % (36.0-66.0); PLATELET COUNT, AUTOMATED 337 10^3/uL (150-450); RED BLOOD COUNT 3.56 10^6/uL (4.00-5.40); WHITE BLOOD COUNT 5.9 10^3/uL (4.0-10.0)
[2020-08-02 14:12] LABS: ALT/SGPT 29 U/L (12-78); BILIRUBIN,TOTAL 0.2 MG/DL (0.2-1.0); BLOOD UREA NITROGEN 23 MG/DL (7-18); C REACTIVE PROTEIN QUANTITATIV 0.41 MG/DL (0.00-0.30); CALCIUM LEVEL 8.9 MG/DL (8.8-10.2); CARBON DIOXIDE LEVEL 24 MEQ/L (21-32); CHLORIDE LEVEL 105 MEQ/L (98-107); GLOMERULAR FILTRATION RATE > 60.0 (>45); GLUCOSE, FASTING 96 MG/DL (70-100); POTASSIUM SERUM 3.8 MEQ/L (3.5-5.1); SODIUM LEVEL 137 MEQ/L (136-145); TOTAL PROTEIN 6.1 GM/DL (6.4-8.2)
[2020-08-02 14:42] LABS: ERYTHROCYTE SEDIMENTATION RATE 14 mm/hr (0-30)
== END ==
LOC: M LAB REF 13:12
PROVIDERS: ATTEND Internal Medicine Infectious Disease
DX: M00.862 Arthritis due to other bacteria, left knee (principal); A49.02 Methicillin resistant Staphylococcus aureus infection, unspecified site; A49.8 Other bacterial infections of unspecified site; Z79.3 Long term (current) use of hormonal contraceptives

== ENCOUNTER 2020-08-09 13:24 | Outpatient (CLI) | payer BC, OTHER ==
[~2020-08-09] VITALS: Ht 165.1 cm; Wt 47.7 kg
[~2020-08-09 13:24] MED LIST changes: +ALBUTEROL SULFATE 2.5 MG/0.5 ML INH NEB SOLN INH PRN; +EPINEPHrine INJ 1 MG/ML 1ML AMP IM PRN; +diphenhydrAMINE 50MG/ML VIAL (J1200) IV PRN; +methylPREDNISolone 125MG 2ML VIAL IV PRN
[2020-08-09] MEDS ORDERED: NS IV ONE (13:30)
[2020-08-09] MEDS ORDERED: FERRIC CARBOXYMALTOSE IV ONE (13:30)
[2020-08-09] MEDS ORDERED: diphenhydrAMINE 50MG/ML VIAL (J1200) IV ONE (13:30)
[2020-08-09] MEDS ORDERED: NS 1,000 ML IV SCH (13:30)
[2020-08-09] MEDS ORDERED: ELIQ5TAB PO (13:39)
[2020-08-09 14:04] VITALS: BP 116/86
[2020-08-09 16:00] VITALS: BP 118/76
== END 2020-08-09 16:00 | disposition home or self-care (01) ==
LOC: M INFU 13:24
PROVIDERS: ATTEND Internal Medicine Nephrology
DX: D50.9 Iron deficiency anemia, unspecified (principal)
CPT/HCPCS: 96365; 96375; J1200; J1439

== ENCOUNTER → 2020-08-20 | Outpatient (CLI) | payer BC, OTHER ==
[~2020-08-20] MED LIST changes: -ALBUTEROL SULFATE 2.5 MG/0.5 ML INH NEB SOLN INH PRN; -EPINEPHrine INJ 1 MG/ML 1ML AMP IM PRN; -diphenhydrAMINE 50MG/ML VIAL (J1200) IV PRN; -methylPREDNISolone 125MG 2ML VIAL IV PRN
[2020-08-20 13:41] LABS: BASO # 0.1 10^3/uL (0.0-0.2); BASO % 1.1 % (0.0-1.0); EOS # 0.1 10^3/uL (0.0-0.5); EOS % 2.5 % (0.0-3.0); HEMATOCRIT 38.4 % (36.0-47.0); HEMOGLOBIN 12.3 g/dl (12.0-15.5); LYMPH # 0.8 10^3/uL (1.5-5.0); LYMPH % 14.4 % (24.0-44.0); MEAN CORPUSCULAR HEMOGLOBIN 28.7 pg (27.0-33.0); MEAN CORPUSCULAR VOLUME 89.5 fl (80.0-96.0); MONO # 0.6 10^3/uL (0.0-0.8); MONO % 10.2 % (0.0-5.0); NEUTROPHILS # 4.1 10^3/uL (1.5-8.5); NEUTROPHILS % 71.4 % (36.0-66.0); PLATELET COUNT, AUTOMATED 282 10^3/uL (150-450); RED BLOOD COUNT 4.29 10^6/uL (4.00-5.40); WHITE BLOOD COUNT 5.7 10^3/uL (4.0-10.0)
[2020-08-20 14:04] LABS: ERYTHROCYTE SEDIMENTATION RATE 7 mm/hr (0-30)
[2020-08-20 14:05] LABS: ALBUMIN 3.4 GM/DL (3.2-5.2); ALT/SGPT 56 U/L (12-78); BILIRUBIN,TOTAL 0.2 MG/DL (0.2-1.0); BLOOD UREA NITROGEN 17 MG/DL (7-18); CALCIUM LEVEL 8.6 MG/DL (8.8-10.2); CARBON DIOXIDE LEVEL 26 MEQ/L (21-32); CHLORIDE LEVEL 104 MEQ/L (98-107); CREATININE FOR GFR 0.75 MG/DL (0.55-1.30); GLOMERULAR FILTRATION RATE > 60.0 (>45); GLUCOSE, FASTING 116 MG/DL (70-100); POTASSIUM SERUM 3.6 MEQ/L (3.5-5.1); SODIUM LEVEL 136 MEQ/L (136-145); TOTAL PROTEIN 6.6 GM/DL (6.4-8.2)
== END ==
LOC: M LAB 13:10
PROVIDERS: ATTEND Nurse Practitioner Family
DX: M86.9 Osteomyelitis, unspecified (principal); Z96.9 Presence of functional implant, unspecified; Z79.2 Long term (current) use of antibiotics

== ENCOUNTER → 2020-09-01 | Outpatient (CLI) | payer BC, OTHER ==
[2020-09-01 13:07] LABS: BASO # 0.1 10^3/uL (0.0-0.2); BASO % 0.8 % (0.0-1.0); EOS # 0.1 10^3/uL (0.0-0.5); EOS % 2.1 % (0.0-3.0); HEMOGLOBIN 13.2 g/dl (12.0-15.5); LYMPH # 1.1 10^3/uL (1.5-5.0); LYMPH % 16.9 % (24.0-44.0); MEAN CORPUSCULAR HEMOGLOBIN 28.9 pg (27.0-33.0); MEAN CORPUSCULAR HGB CONC 32.2 g/dl (32.0-36.5); MEAN CORPUSCULAR VOLUME 89.7 fl (80.0-96.0); MONO # 0.4 10^3/uL (0.0-0.8); MONO % 6.7 % (0.0-5.0); NEUTROPHILS # 4.6 10^3/uL (1.5-8.5); PLATELET COUNT, AUTOMATED 299 10^3/uL (150-450); RED BLOOD COUNT 4.57 10^6/uL (4.00-5.40); WHITE BLOOD COUNT 6.2 10^3/uL (4.0-10.0)
[2020-09-01 13:38] LABS: ALBUMIN 3.7 GM/DL (3.2-5.2); ALT/SGPT 65 U/L (12-78); BILIRUBIN,TOTAL 0.3 MG/DL (0.2-1.0); BLOOD UREA NITROGEN 14 MG/DL (7-18); CALCIUM LEVEL 9.1 MG/DL (8.8-10.2); CARBON DIOXIDE LEVEL 28 MEQ/L (21-32); CHLORIDE LEVEL 105 MEQ/L (98-107); CREATININE FOR GFR 0.71 MG/DL (0.55-1.30); GLOMERULAR FILTRATION RATE > 60.0 (>45); GLUCOSE, FASTING 94 MG/DL (70-100); POTASSIUM SERUM 3.9 MEQ/L (3.5-5.1); SODIUM LEVEL 139 MEQ/L (136-145)
[2020-09-01 14:26] LABS: ERYTHROCYTE SEDIMENTATION RATE 7 mm/hr (0-30)
== END ==
LOC: M LAB 12:04
PROVIDERS: ATTEND Nurse Practitioner Family
DX: M86.9 Osteomyelitis, unspecified (principal); A49.02 Methicillin resistant Staphylococcus aureus infection, unspecified site; Z96.9 Presence of functional implant, unspecified; Z79.2 Long term (current) use of antibiotics

== ENCOUNTER → 2020-09-14 | Outpatient (CLI) | payer BC, OTHER ==
[2020-09-14 12:07] LABS: BASO # 0.1 10^3/uL (0.0-0.2); EOS # 0.1 10^3/uL (0.0-0.5); EOS % 1.4 % (0.0-3.0); HEMATOCRIT 40.1 % (36.0-47.0); HEMOGLOBIN 13.1 g/dl (12.0-15.5); LYMPH # 0.9 10^3/uL (1.5-5.0); LYMPH % 18.7 % (24.0-44.0); MEAN CORPUSCULAR HEMOGLOBIN 29.2 pg (27.0-33.0); MEAN CORPUSCULAR HGB CONC 32.7 g/dl (32.0-36.5); MEAN CORPUSCULAR VOLUME 89.3 fl (80.0-96.0); MONO # 0.3 10^3/uL (0.0-0.8); MONO % 6.9 % (0.0-5.0); NEUTROPHILS # 3.5 10^3/uL (1.5-8.5); NEUTROPHILS % 71.8 % (36.0-66.0); PLATELET COUNT, AUTOMATED 261 10^3/uL (150-450); RED BLOOD COUNT 4.49 10^6/uL (4.00-5.40); WHITE BLOOD COUNT 4.9 10^3/uL (4.0-10.0)
[2020-09-14 12:37] LABS: ERYTHROCYTE SEDIMENTATION RATE 5 mm/hr (0-30)
[2020-09-14 15:19] LABS: ALBUMIN 3.5 GM/DL (3.2-5.2); ALT/SGPT 49 U/L (12-78); BILIRUBIN,TOTAL 0.3 MG/DL (0.2-1.0); BLOOD UREA NITROGEN 19 MG/DL (7-18); CALCIUM LEVEL 9.2 MG/DL (8.8-10.2); CARBON DIOXIDE LEVEL 30 MEQ/L (21-32); CHLORIDE LEVEL 104 MEQ/L (98-107); CREATININE FOR GFR 0.78 MG/DL (0.55-1.30); GLOMERULAR FILTRATION RATE > 60.0 (>45); GLUCOSE, FASTING 103 MG/DL (70-100); POTASSIUM SERUM 3.8 MEQ/L (3.5-5.1); SODIUM LEVEL 136 MEQ/L (136-145); TOTAL PROTEIN 6.5 GM/DL (6.4-8.2)
== END ==
LOC: M LAB 11:36
PROVIDERS: ATTEND Nurse Practitioner Family
DX: A49.02 Methicillin resistant Staphylococcus aureus infection, unspecified site (principal); M86.9 Osteomyelitis, unspecified; Z96.9 Presence of functional implant, unspecified; Z79.2 Long term (current) use of antibiotics

== ENCOUNTER → 2020-09-24 | Outpatient (CLI) | payer BC, OTHER | LOC: M LABSMTC 12:45 | PROVIDERS: ATTEND Family Medicine | DX: Z20.822 Contact with and (suspected) exposure to COVID-19 (principal) ==

== ENCOUNTER → 2020-09-29 | Outpatient (CLI) | payer BC, OTHER ==
--- NOTE | 2020-09-29 11:39 | REP ---
INDICATION: PRE OP HYPERTENSION. COMPARISON: Comparison chest x-ray December 23, 2019. TECHNIQUE: Two views.. FINDINGS: The lungs are well inflated and free of infiltrate. The pleural angles are sharp. The heart size is normal. Pulmonary vasculature is not increased. No significant bony abnormality is seen. The thoracic aorta is somewhat tortuous as before. IMPRESSION: No active disease.. <Electronically signed by Tim Dey > 09/29/20 [id number]
[2020-09-29 11:55] LABS: HEMATOCRIT 41.4 % (36.0-47.0); HEMOGLOBIN 13.6 g/dl (12.0-15.5); MEAN CORPUSCULAR HEMOGLOBIN 28.7 pg (27.0-33.0); MEAN CORPUSCULAR HGB CONC 32.9 g/dl (32.0-36.5); MEAN CORPUSCULAR VOLUME 87.3 fl (80.0-96.0); PLATELET COUNT, AUTOMATED 246 10^3/uL (150-450); RED BLOOD COUNT 4.74 10^6/uL (4.00-5.40); WHITE BLOOD COUNT 5.4 10^3/uL (4.0-10.0)
[2020-09-29 12:06] LABS: INR 1.12; PROTHROMBIN TIME 14.7 SECONDS (12.5-14.3)
[2020-09-29 12:29] LABS: BLOOD UREA NITROGEN 18 MG/DL (7-18); CARBON DIOXIDE LEVEL 30 MEQ/L (21-32); CHLORIDE LEVEL 104 MEQ/L (98-107); CREATININE FOR GFR 0.74 MG/DL (0.55-1.30); GLOMERULAR FILTRATION RATE > 60.0 (>45); GLUCOSE, FASTING 88 MG/DL (70-100); POTASSIUM SERUM 3.6 MEQ/L (3.5-5.1); SODIUM LEVEL 138 MEQ/L (136-145)
[2020-09-29 12:30] LABS: ALBUMIN 3.8 GM/DL (3.2-5.2); ALT/SGPT 53 U/L (12-78); BILIRUBIN,TOTAL 0.2 MG/DL (0.2-1.0); CHOLESTEROL LEVEL 223 MG/DL (<200); CHOLESTEROL RISK RATIO 3.539 (<5); HDL CHOLESTEROL 63 MG/DL (>40); LDL CHOLESTEROL 137 MG/DL (<100); NON-HDL-C 160 MG/DL; THYROID STIMULATING HORMONE 0.933 uIU/ML (0.358-3.740); TOTAL PROTEIN 6.7 GM/DL (6.4-8.2); TRIGLYCERIDES LEVEL 114 MG/DL (<150)
--- NOTE | 2020-09-30 15:17 | ECGEPIP ---
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[id number] Requested By: Sweta Potts Order Number: [id number] Reading MD: Jhonatan Schuster Measurements Intervals Cyclone Rate: 47 P: 9 MD: 182 QRS: 46 QRSD: 84 T: 65 QT: 492 QTc: 435 Interpretive Statements Suspected atrial bigeminy with blocked PACs LA conduction disturbance with at least borderline first-degree AV block Evidence of atrial activity within the ST segment of each QRS complex Somewhat low limb voltages with incomplete RIGHT BUNDLE BRANCH BLOCK and Q waves V1 and V2; body habitus versus pulmonary disease Nonspecific inferoapical ST scooping Atrial ectopy new from 12/21/19 Clinical correlation advised Electronically Signed on 09-30-2020 15:17:32 EST by Jhonatan Schuster
== END ==
LOC: M LAB 11:03
PROVIDERS: ATTEND Family Medicine
DX: Z01.818 Encounter for other preprocedural examination (principal); E03.9 Hypothyroidism, unspecified; I10 Essential (primary) hypertension; R94.31 Abnormal electrocardiogram [ECG] [EKG]

== ENCOUNTER → 2020-11-18 | Outpatient (REF) | payer BC, OTHER | LOC: M LAB REF 16:40 | PROVIDERS: ATTEND Internal Medicine Nephrology | DX: E87.6 Hypokalemia (principal) ==

== ENCOUNTER → 2021-01-17 | Outpatient (CLI) | payer BC, OTHER ==
[~2021-01-17] MED LIST changes: +BACTDSTA PO; -SULF1TAB93 PO
[2021-01-17 16:53] LABS: BASO # 0.1 10^3/uL (0.0-0.2); BASO % 0.6 % (0.0-1.0); EOS # 0.1 10^3/uL (0.0-0.5); EOS % 1.1 % (0.0-3.0); HEMOGLOBIN 12.8 g/dl (12.0-15.5); LYMPH # 0.9 10^3/uL (1.5-5.0); LYMPH % 11.9 % (24.0-44.0); MEAN CORPUSCULAR HEMOGLOBIN 30.2 pg (27.0-33.0); MEAN CORPUSCULAR HGB CONC 32.8 g/dl (32.0-36.5); MONO # 0.7 10^3/uL (0.0-0.8); MONO % 8.7 % (2.0-8.0); NEUTROPHILS # 6.1 10^3/uL (1.5-8.5); NEUTROPHILS % 77.3 % (36.0-66.0); PLATELET COUNT, AUTOMATED 231 10^3/uL (150-450); RED BLOOD COUNT 4.24 10^6/uL (4.00-5.40); WHITE BLOOD COUNT 7.9 10^3/uL (4.0-10.0)
[2021-01-17 17:19] LABS: ERYTHROCYTE SEDIMENTATION RATE 4 mm/hr (0-30)
[2021-01-17 17:22] LABS: ALBUMIN 3.9 GM/DL (3.2-5.2); ALT/SGPT 98 U/L (12-78); BILIRUBIN,TOTAL 0.3 MG/DL (0.2-1.0); BLOOD UREA NITROGEN 14 MG/DL (7-18); CALCIUM LEVEL 8.7 MG/DL (8.8-10.2); CARBON DIOXIDE LEVEL 26 MEQ/L (21-32); CHLORIDE LEVEL 104 MEQ/L (98-107); CREATININE FOR GFR 0.85 MG/DL (0.55-1.30); GLOMERULAR FILTRATION RATE > 60.0 (>45); GLUCOSE, FASTING 90 MG/DL (70-100); POTASSIUM SERUM 3.8 MEQ/L (3.5-5.1); SODIUM LEVEL 137 MEQ/L (136-145); TOTAL PROTEIN 6.5 GM/DL (6.4-8.2)
== END ==
LOC: M LAB 15:36
PROVIDERS: ATTEND Nurse Practitioner Family
DX: M86.9 Osteomyelitis, unspecified (principal); Z96.9 Presence of functional implant, unspecified; Z79.2 Long term (current) use of antibiotics; A49.02 Methicillin resistant Staphylococcus aureus infection, unspecified site

== ENCOUNTER → 2021-04-27 | Outpatient (REF) | payer OTHER, BC | LOC: M LAB REF 12:58 | PROVIDERS: ATTEND Internal Medicine Nephrology | DX: E83.42 Hypomagnesemia (principal) ==

== ENCOUNTER → 2021-05-23 | Outpatient (REF) | payer OTHER, BC | LOC: M LAB REF 16:48 | PROVIDERS: ATTEND Internal Medicine Nephrology | DX: N18.31 Chronic kidney disease, stage 3a (principal); E83.42 Hypomagnesemia ==

== ENCOUNTER → 2021-06-22 | Outpatient (REF) | payer OTHER, BC | LOC: M LAB REF 16:55 | PROVIDERS: ATTEND Internal Medicine Nephrology | DX: E83.42 Hypomagnesemia (principal) ==

== ENCOUNTER → 2022-02-08 | Outpatient (CLI) | payer MEDICARE, BC, OTHER ==
[~2022-02-08] MED LIST changes: -D31000TA2 PO; +OMEP-173 PO; -OMEP-218 PO; +VITA100093 PO
[2022-02-08 07:20] LABS: HEMATOCRIT 37.2 % (36.0-47.0); HEMOGLOBIN 12.3 g/dl (12.0-15.5); MEAN CORPUSCULAR HEMOGLOBIN 30.6 pg (27.0-33.0); MEAN CORPUSCULAR HGB CONC 33.1 g/dl (32.0-36.5); MEAN CORPUSCULAR VOLUME 92.5 fl (80.0-96.0); PLATELET COUNT, AUTOMATED 245 10^3/uL (150-450); RED BLOOD COUNT 4.02 10^6/uL (4.00-5.40)
[2022-02-08 07:38] LABS: HEMOGLOBIN A1c 5.3 %
[2022-02-08 08:16] LABS: ALBUMIN 3.9 GM/DL (3.2-5.2); BILIRUBIN,TOTAL 0.5 MG/DL (0.2-1.0); CALCIUM LEVEL 9.1 MG/DL (8.8-10.2); CHOLESTEROL RISK RATIO 3.166 (<5); CREATININE FOR GFR 1.13 MG/DL (0.55-1.30); GLOMERULAR FILTRATION RATE 51.4 (>45); POTASSIUM SERUM 4.3 MEQ/L (3.5-5.1); THYROID STIMULATING HORMONE 2.87 uIU/ML (0.358-3.740); TOTAL 25(OH) VITAMIN D 78.9 NG/ML (30.0-100.0); TOTAL PROTEIN 6.7 GM/DL (6.4-8.2)
== END ==
LOC: M LAB 06:54
PROVIDERS: ATTEND Family Medicine
DX: R53.83 Other fatigue (principal); I10 Essential (primary) hypertension; E03.9 Hypothyroidism, unspecified; Z79.899 Other long term (current) drug therapy

== ENCOUNTER → 2023-09-10 | Outpatient (CLI) | payer MEDICARE, BC, OTHER ==
[~2023-09-10] MED LIST changes: +POTA-298 PO; -POTA1TAB14 PO
[2023-09-10 08:13] LABS: HEMATOCRIT 36.8 % (36.0-47.0); HEMOGLOBIN 12.1 g/dl (12.0-15.5); MEAN CORPUSCULAR HEMOGLOBIN 29.4 pg (27.0-33.0); MEAN CORPUSCULAR HGB CONC 32.9 g/dl (32.0-36.5); MEAN CORPUSCULAR VOLUME 89.5 fl (80.0-96.0); PLATELET COUNT, AUTOMATED 407 10^3/uL (150-450); RED BLOOD COUNT 4.11 10^6/uL (4.00-5.40); WHITE BLOOD COUNT 5.4 10^3/uL (4.0-10.0)
[2023-09-10 08:24] LABS: HEMOGLOBIN A1c 5.6 % (4.0-6.0)
[2023-09-10 08:46] LABS: ALBUMIN 3.3 G/DL (3.2-5.2); ALKALINE PHOSPHATASE 97 U/L (46-116); ALT/SGPT 20 U/L (7.0-40); AST/SGOT 22 U/L (<34); BILIRUBIN,TOTAL 0.3 MG/DL (0.3-1.2); BLOOD UREA NITROGEN 23 MG/DL (9-23); CALCIUM LEVEL 9.4 MG/DL (8.3-10.6); CARBON DIOXIDE LEVEL 29 MMOL/L (20-31); CHLORIDE LEVEL 108 MMOL/L (98-107); CHOLESTEROL LEVEL 212 MG/DL (<200); CHOLESTEROL RISK RATIO 3.55 (<5); CREATININE FOR GFR 0.81 MG/DL (0.55-1.30); GLOMERULAR FILTRATION RATE > 60.0 (>45); GLUCOSE, FASTING 92 MG/DL (74-106); HDL CHOLESTEROL 59.7 MG/DL (>40); LDL CHOLESTEROL 133.3 MG/DL (<100); NON-HDL-C 152.3 MG/DL; POTASSIUM SERUM 4.3 MMOL/L (3.5-5.1); SODIUM LEVEL 140 MMOL/L (136-145); TOTAL PROTEIN 6.2 G/DL (5.7-8.2); TRIGLYCERIDES LEVEL 95 MG/DL (<150)
[2023-09-10 08:48] LABS: THYROID STIMULATING HORMONE 4.259 uIU/ML (0.55-4.78); TOTAL 25(OH) VITAMIN D 77.4 NG/ML (20.0-100.0)
== END ==
LOC: M LAB 07:16
PROVIDERS: ATTEND Family Medicine
DX: I10 Essential (primary) hypertension (principal); R53.83 Other fatigue; E03.9 Hypothyroidism, unspecified; Z86.39 Personal history of other endocrine, nutritional and metabolic disease; Z79.899 Other long term (current) drug therapy

== ENCOUNTER → 2023-12-03 | Outpatient (CLI) | payer MEDICARE, BC ==
[2023-12-03 08:34] LABS: ALKALINE PHOSPHATASE 124 U/L (46-116); ALT/SGPT 32 U/L (7.0-40); AST/SGOT 31 U/L (<34); BILIRUBIN,TOTAL 0.5 MG/DL (0.3-1.2); BLOOD UREA NITROGEN 25 MG/DL (9-23); CALCIUM LEVEL 10.1 MG/DL (8.3-10.6); CARBON DIOXIDE LEVEL 28 MMOL/L (20-31); CHLORIDE LEVEL 106 MMOL/L (98-107); CHOLESTEROL LEVEL 226 MG/DL (<200); CHOLESTEROL RISK RATIO 2.97 (<5); CREATININE FOR GFR 0.85 MG/DL (0.55-1.30); GLOMERULAR FILTRATION RATE > 60.0 (>45); GLUCOSE, FASTING 92 MG/DL (74-106); HDL CHOLESTEROL 75.9 MG/DL (>40); LDL CHOLESTEROL 129.3 MG/DL (<100); NON-HDL-C 150.1 MG/DL; POTASSIUM SERUM 3.9 MMOL/L (3.5-5.1); SODIUM LEVEL 137 MMOL/L (136-145); TOTAL PROTEIN 6.9 G/DL (5.7-8.2); TRIGLYCERIDES LEVEL 104 MG/DL (<150)
[2023-12-03 08:36] LABS: THYROID STIMULATING HORMONE 4.825 uIU/ML (0.55-4.78); TOTAL 25(OH) VITAMIN D 32.9 NG/ML (20.0-100.0)
[2023-12-03 08:48] LABS: INR 1.09; PROTHROMBIN TIME 13.8 SECONDS (12.5-14.5)
[2023-12-03 08:52] LABS: HEMATOCRIT 41.2 % (36.0-47.0); HEMOGLOBIN 13.3 g/dl (12.0-15.5); MEAN CORPUSCULAR HEMOGLOBIN 28.9 pg (27.0-33.0); MEAN CORPUSCULAR HGB CONC 32.3 g/dl (32.0-36.5); MEAN CORPUSCULAR VOLUME 89.6 fl (80.0-96.0); PLATELET COUNT, AUTOMATED 309 10^3/uL (150-450); WHITE BLOOD COUNT 5.3 10^3/uL (4.0-10.0)
[2023-12-03 10:07] LABS: HEMOGLOBIN A1c 5.6 % (4.0-6.0)
== END ==
LOC: M RAD 07:16
PROVIDERS: ATTEND Family Medicine
DX: Z01.818 Encounter for other preprocedural examination (principal); J44.9 Chronic obstructive pulmonary disease, unspecified; R00.1 Bradycardia, unspecified; I10 Essential (primary) hypertension; R53.83 Other fatigue; I44.0 Atrioventricular block, first degree; Z79.899 Other long term (current) drug therapy

== ENCOUNTER → 2023-12-13 | Outpatient (CLI) | payer MEDICARE, BC | LOC: M RAD 15:41 | PROVIDERS: ATTEND Family Medicine | DX: J18.9 Pneumonia, unspecified organism (principal); J43.9 Emphysema, unspecified; R91.8 Other nonspecific abnormal finding of lung field ==

== ENCOUNTER → 2024-01-18 | Outpatient (CLI) | payer MEDICARE, BC ==
[2024-01-18 07:59] LABS: HEMATOCRIT 36.5 % (36.0-47.0); MEAN CORPUSCULAR HEMOGLOBIN 29.1 pg (27.0-33.0); MEAN CORPUSCULAR HGB CONC 32.9 g/dl (32.0-36.5); MEAN CORPUSCULAR VOLUME 88.4 fl (80.0-96.0); PLATELET COUNT, AUTOMATED 250 10^3/uL (150-450); RED BLOOD COUNT 4.13 10^6/uL (4.00-5.40); WHITE BLOOD COUNT 3.6 10^3/uL (4.0-10.0)
[2024-01-18 08:23] LABS: INR 1.15; PROTHROMBIN TIME 14.4 SECONDS (12.5-14.5)
[2024-01-18 08:28] LABS: ALBUMIN 3.7 G/DL (3.2-5.2); ALKALINE PHOSPHATASE 101 U/L (46-116); ALT/SGPT 24 U/L (7.0-40); AST/SGOT 26 U/L (<34); BILIRUBIN,TOTAL 0.5 MG/DL (0.3-1.2); BLOOD UREA NITROGEN 26 MG/DL (9-23); CALCIUM LEVEL 9.4 MG/DL (8.3-10.6); CARBON DIOXIDE LEVEL 28 MMOL/L (20-31); CHLORIDE LEVEL 107 MMOL/L (98-107); CHOLESTEROL LEVEL 251 MG/DL (<200); CHOLESTEROL RISK RATIO 2.95 (<5); CREATININE FOR GFR 0.83 MG/DL (0.55-1.30); GLOMERULAR FILTRATION RATE > 60.0 (>45); GLUCOSE, FASTING 93 MG/DL (74-106); HDL CHOLESTEROL 84.8 MG/DL (>40); NON-HDL-C 166.2 MG/DL; POTASSIUM SERUM 4.2 MMOL/L (3.5-5.1); SODIUM LEVEL 140 MMOL/L (136-145); TOTAL PROTEIN 6.2 G/DL (5.7-8.2); TRIGLYCERIDES LEVEL 66 MG/DL (<150)
[2024-01-18 08:30] LABS: THYROID STIMULATING HORMONE 3.214 uIU/ML (0.55-4.78)
== END ==
LOC: M RAD 06:47
PROVIDERS: ATTEND Family Medicine
DX: Z01.818 Encounter for other preprocedural examination (principal); H02.423 Myogenic ptosis of bilateral eyelids; J44.9 Chronic obstructive pulmonary disease, unspecified; D64.9 Anemia, unspecified; R53.83 Other fatigue; Z79.01 Long term (current) use of anticoagulants; Z79.899 Other long term (current) drug therapy

== ENCOUNTER → 2024-03-11 | Outpatient (REF) | payer MEDICARE, OTHER ==
[2024-03-11 19:20] LABS: PERCENT SATURATION 7.1 % (13.2-45.0)
[2024-03-11 19:23] LABS: FERRITIN 11.2 NG/ML (7.3-270.7)
== END ==
LOC: M LAB REF 17:14
PROVIDERS: ATTEND Nurse Practitioner Family
DX: D50.9 Iron deficiency anemia, unspecified (principal)

== ENCOUNTER → 2024-03-17 | Outpatient (REF) | payer MEDICARE, BC | LOC: M LAB REF 10:39 | PROVIDERS: ATTEND Nurse Practitioner Family | DX: F50.9 Eating disorder, unspecified (principal) ==

== ENCOUNTER 2024-03-25 07:01 | Outpatient (CLI) | payer MEDICARE, BC ==
[~2024-03-25] VITALS: Ht 165.1 cm; Wt 50.0 kg
[~2024-03-25 07:01] MED LIST changes: +ALBUTEROL SULFATE 2.5MG/0.5ML INH NEB SOLN INH PRN; +EPINEPHrine INJ 1 MG/ML 1ML AMP IM PRN; +diphenhydrAMINE 50MG/ML VIAL IV PRN; +methylPREDNISolone 125MG 2ML VIAL IV PRN
[2024-03-25 07:25] VITALS: BP 152/68; O2SAT 100
[2024-03-25] MEDS ORDERED: NS 1,000 ML IV SCH (07:30)
[2024-03-25] MEDS: IRON SUCROSE 25 MG in NS 23.75 ML IV ONE (08:13)
[2024-03-25] MEDS: IRON SUCROSE 475 MG in NS 250 ML IV ONE (09:32)
[2024-03-25 10:30] VITALS: BP 141/75; O2SAT 100
[2024-03-25 11:30] VITALS: BP 139/71; O2SAT 100
[2024-03-25 12:30] VITALS: BP 151/74; O2SAT 100
[2024-03-25 13:47] VITALS: BP 169/72; O2SAT 98
== END 2024-03-25 13:50 ==
LOC: M INFU 07:01
PROVIDERS: ATTEND Nurse Practitioner Family
DX: D50.9 Iron deficiency anemia, unspecified (principal)
CPT/HCPCS: 96365; 96366; J1756

== ENCOUNTER 2024-04-08 08:35 | Outpatient (CLI) | payer MEDICARE, BC ==
[~2024-04-08] VITALS: Ht 162.6 cm; Wt 50.0 kg
[~2024-04-08 08:35] MED LIST changes: +NS 1,000 ML IV SCH
[2024-04-08 08:45] VITALS: BP 114/58; O2SAT 96
[2024-04-08] MEDS: IRON SUCROSE 500 MG in NS 250 ML OVER 4 HRS IV ONE (09:40)
[2024-04-08 11:00] VITALS: BP 108/59; O2SAT 99
[2024-04-08 12:00] VITALS: BP 120/63; O2SAT 99
[2024-04-08 13:45] VITALS: BP 120/73; O2SAT 100
[2024-04-08] MEDS ORDERED: LISI2.5T9 (14:46)
[2024-04-08] MEDS ORDERED: OMEP-173 (14:46)
== END 2024-04-08 13:55 ==
LOC: M INFU 08:35
PROVIDERS: ATTEND Nurse Practitioner Family
DX: D50.9 Iron deficiency anemia, unspecified (principal)
CPT/HCPCS: 96365; 96366; J1756

== ENCOUNTER 2024-04-08 14:34 | Emergency (ER) | payer MEDICARE, BC ==
[~2024-04-08] VITALS: Ht 162.6 cm; Wt 49.8 kg
[~2024-04-08 14:34] MED LIST changes: -ALBUTEROL SULFATE 2.5MG/0.5ML INH NEB SOLN INH PRN; -EPINEPHrine INJ 1 MG/ML 1ML AMP IM PRN; -NS 1,000 ML IV SCH; -diphenhydrAMINE 50MG/ML VIAL IV PRN; -methylPREDNISolone 125MG 2ML VIAL IV PRN
[2024-04-08 14:35] VITALS: BP 105/76; TEMP 99.1; O2SAT 100
[2024-04-08] MEDS ORDERED: LISI2.5T9 (14:46)
[2024-04-08] MEDS ORDERED: OMEP-173 (14:46)
== END 2024-04-08 15:49 | disposition left against medical advice (07) ==
LOC: M ED 14:34
DX: Z53.21 Procedure and treatment not carried out due to patient leaving prior to being seen by health care provider (principal)

== ENCOUNTER → 2024-07-29 | Outpatient (REF) | payer MEDICARE, BC, OTHER ==
[~2024-07-29] MED LIST changes: +LISI2.5T9; +OMEP-173
== END ==
LOC: M LAB REF 16:21
PROVIDERS: ATTEND Podiatrist
DX: L03.122 Acute lymphangitis of left axilla (principal)

== ENCOUNTER → 2025-01-08 | Outpatient (REF) | payer MEDICARE, OTHER ==
[2025-01-08 19:23] LABS: FERRITIN 33.2 NG/ML (7.3-270.7); PERCENT SATURATION 26.3 % (13.2-45.0)
== END ==
LOC: M LAB REF 16:54
PROVIDERS: ATTEND Nurse Practitioner Family
DX: D50.9 Iron deficiency anemia, unspecified (principal)

== ENCOUNTER → 2025-04-10 | Outpatient (CLI) | payer MEDICARE, BC ==
[2025-04-10 07:26] LABS: BASO # 0.1 10^3/uL (0.0-0.2); BASO % 1.0 % (0.0-1.0); EOS # 0.2 10^3/uL (0.0-0.5); EOS % 3.6 % (0.0-3.0); LYMPH # 1.2 10^3/uL (1.5-5.0); LYMPH % 24.3 % (24.0-44.0); MONO # 0.4 10^3/uL (0.0-0.8); MONO % 8.8 % (2.0-8.0); NEUTROPHILS # 3.0 10^3/uL (1.5-8.5); NEUTROPHILS % 62.1 % (36.0-66.0); PLATELET COUNT, AUTOMATED 284 10^3/uL (150-450)
[2025-04-10 08:02] LABS: ALT/SGPT 25.0 U/L (7.0-40); AST/SGOT 30.0 U/L (<34); CALCIUM LEVEL 9.0 MG/DL (8.3-10.6); CARBON DIOXIDE LEVEL 26.0 MMOL/L (20-31); CHLORIDE LEVEL 106.0 MMOL/L (98-107); CHOLESTEROL LEVEL 250.0 MG/DL (<200); CHOLESTEROL RISK RATIO 3.09 (<5); CREATININE FOR GFR 0.95 MG/DL (0.55-1.30); GLOMERULAR FILTRATION RATE 65.3 (>45); LDL CHOLESTEROL 155.2 MG/DL (<100); NON-HDL-C 169.2 MG/DL; POTASSIUM SERUM 4.3 MMOL/L (3.5-5.1); SODIUM LEVEL 141.0 MMOL/L (136-145); TRIGLYCERIDES LEVEL 70.0 MG/DL (<150)
[2025-04-10 08:59] LABS: ESTIMATED AVERAGE GLUCOSE 123.0 MG/DL (60-110)
== END ==
LOC: M LAB 06:50
PROVIDERS: ATTEND Student in an Organized Health Care Education/Training Program
DX: Z00.00 Encounter for general adult medical examination without abnormal findings (principal); Z79.899 Other long term (current) drug therapy

== ENCOUNTER → 2025-04-23 | Outpatient (REF) | payer MEDICARE, BC ==
[2025-04-23 12:58] LABS: INR 1.03
== END ==
LOC: M SFHCLERA 10:57
PROVIDERS: ATTEND Student in an Organized Health Care Education/Training Program
DX: Z01.818 Encounter for other preprocedural examination (principal); Z79.01 Long term (current) use of anticoagulants

== ENCOUNTER → 2025-08-13 | Outpatient (REF) | payer MEDICARE, BC ==
[~2025-08-13] MED LIST changes: -BACTDSTA PO; -IBUP-1022 PO; +IBUP600T42 PO; +SULF-8 PO
[2025-08-14 17:51] LABS: IRON (FE) 8.0 UG/DL (50-170); PERCENT SATURATION 1.9 % (13.2-45.0)
== END ==
LOC: M LAB REF 17:11
PROVIDERS: ATTEND Nurse Practitioner Family
DX: D50.9 Iron deficiency anemia, unspecified (principal)